=== PATIENT | female | born 1940 | race Caucasian/White ===

== ENCOUNTER 2019-09-13 16:30 | Inpatient (IN) | payer MEDICARE, SELFPAY ==
[2019-09-14 02:25] VITALS: BP 92/60; PULSE 83; RESP 22; TEMP 36.7
--- NOTE | 2019-09-14 03:09 | ECG_ITS ---
Measurements Intervals [place] Rate: 79 P: 65 WI: 221 QRS: -54 QRSD: 106 T: 95 QT: 387 QTc: 445 SINUS RHYTHM WITH FIRST DEGREE AV BLOCK LEFT ANTERIOR FASCICULAR BLOCK [QRS AXIS <= -45, QR IN I, RS IN II] LEFT VENTRICULAR HYPERTROPHY AND ST-T CHANGE POSSIBLE SEPTAL MYOCARDIAL INFARCTION [30 ms Q WAVE IN V1/V2], PROBABLY OLD PROBABLE LATERAL MYOCARDIAL INFARCTION [35 ms Q WAVE IN I/aVL/V5/V6], OF IN INDETERMINATE AGE Compared to ECG 09/13/2019 13:16:56 First degree AV block now present Sinus tachycardia no longer present ST (T wave) deviation still present Myocardial infarct finding still present Electronically Signed On 09-14-2019 14:31:42 [employer] by Lexus Cherry M.D. [email or web address]
[2019-09-14] MEDS: nitroglycerin 0.4 mg sublingual Tablet SUBLINGUAL (03:27)
[2019-09-14] MEDS: sodium chloride 0.9 % (flush) syringe 10 mL 2 ML IV (06:34)
[2019-09-14 08:00] VITALS: BP 92/61; PULSE 71; RESP 23; O2SAT 96
[2019-09-14] MEDS: ipratropium-albuterol 3 mL Neb INHALATION (08:00)
--- NOTE | 2019-09-14 08:00 | USCV_ITS ---
Nirmala Meléndez Exam Date: 09/14/2019 09:53 Ordering Phys: Ever Ring MD Ag 79 Gender: F Exam Location: [facility] [place] Technologist: Esther Sherman ms e: Indication: chest pain. NSTEMI BP: 92 / 61 HR: 74 Rhythm: Sinus Ht(in):61 Wt(lb):121 BSA: 1.54 MEASUREMENTS (Male / Female) Normal Values Technical Quality:Adequate 2D ECHO LV Diastolic Diameter ALEX 3.7 cm 4.2 - 5.9 / 3 LV Ejection Fraction MOD 60.2 % LV Systolic Diameter PLAX 2.1 cm LV Ejection Fraction 2C A 61.8 % IVS Diastolic Thickness 1.0 cm 0.6 - 1.0 / 0 LA Diameter 3.0 cm IVS Systolic Thickness 1.0 cm LA Width 2.6 cm LVPW Diastolic Thickness 0.6 cm 0.6 - 1.0 / 0 LA Height 4.5 cm LVPW Systolic Thickness 0.8 cm RA Width 3.0 cm LVOT Diameter 2.0 cm RA Height 4.2 cm LV Ejection Fraction 2D T 73.7 % M-MODE LV Diastolic Diameter MM 4.4 cm 4.2 - 5.9 / 3 LVPW Diastolic Thickness 0.9 cm 0.6 - 1 .0 / 0.6 - 0.9 cm LV Systolic Diameter MM 2.9 cm LVPW Systolic Thickness M 1.3 cm LV Ejection Fraction MM T 62.8 % Aortic Annulus Diameter 2.5 cm IVS Diastolic Thickness M 1.1 cm 0.6 - 1.0 / 0 LA Ao Ratio MM 1.2 IVS Systolic Thickness MM 1.3 cm MV E Point Septal Separat 0.3 cm DOPPLER AV Peak Velocity 102.0 cm/s Mitral E to LV E' Lateral 18.6 LVOT Peak Velocity 82.0 cm/s Mitral E to LV E' Septal 13.7 AV Area Cont Eq vti 2.6 cm squared TR Peak Velocity 294.0 cm/s AV Area Cont Eq pk 2.6 cm squared TR Peak Gradient 34.6 mmHg MV Peak Velocity 139.0 cm/s Right Atrial Pressure 3.0 mmHg MV Area PHT 3.9 cm squared Pulmonary Artery Systolic 37.6 mmHg Mitral E to A Ratio 1.7 PV Peak Velocity 74.0 cm/s MV E' Velocity 6.0 cm/s RV Acceleration Time 0.1 s Mitral E to MV E' Ratio 15.8 FINDINGS Left Ventricle Normal left ventricular cavity size. Normal left ventricular systolic function. L eft ventricular ejection fraction is estimated at 60 %. No regional wall motion abnormalities. Normal diastolic fu nction. Right Ventricle Normal right ventricular size and systolic function. Right ventricular systolic p ressure 37.6 mmHg. Right Atrium Normal right atrial size. Left Atrium Normal left atrial size. Mitral Valve Mild mitral annular calcification. Mildly thickened mitral valve. No mitral valve stenosis. Mild mitral valve regurgitation. Aortic Valve Aortic valve not well visualized. No aortic valve stenosis. No aortic valve regur gitation. Tricuspid Valve Thickened tricuspid valve. Moderate tricuspid valve regurgitation. Pulmonic Valve Pulmonic valve not well visualized. No pulmonary valve stenosis. Pericardium No pericardial effusion. Aorta Normal aorta. CONCLUSIONS 1. Normal left ventricular cavity size and systolic function. Left ventricular ejection fraction is estimated at 60 %. No regional wall motion abnormalities. 2. Mild mitral valve regurgitation. 3. Moderate tricuspid valve regurgitation. 4. Pulmonary artery pressure estimated at 38 mmHg. 5. Compared to previous echocardiogram dated 03/23/2019, tricuspid valve regurgitation has worsened . Lexus Cherry MD (Electronically Signed) Final Date:14 September 2019 17:23 S
[2019-09-14 08:03] VITALS: PULSE 75; RESP 18; O2SAT 94
[2019-09-14 08:05] VITALS: PULSE 75
[2019-09-14] MEDS: aspirin 81 mg EC Tablet PO (08:23)
[2019-09-14] MEDS: pantoprazole DR 40 mg Tablet PO (08:23)
[2019-09-14] MEDS: levothyroxine 150 mcg Tablet 75 MCG PO (08:24)
[2019-09-14] MEDS: clopidogrel 75 mg Tablet PO (08:24)
[2019-09-14] MEDS: metoprolol tartrate 25 mg Tablet PO (08:24)
[2019-09-14] MEDS: ezetimibe 10 mg Tablet PO (08:33)
[2019-09-14 08:43] LABS: Add RBC Morph No
[2019-09-14 08:55] LABS: Basophils # 0.1 10^3/uL (0.0-0.1); Basophils % 0.8 %; Eosinophils # 0.2 10^3/uL (0.0-0.8); Eosinophils % 1.6 %; Hematocrit 41.3 % (37.0-47.0); Hemoglobin 12.9 g/dL (11.5-15.3); Lymphocytes # 2.3 10^3/uL (0.8-4.8); Lymphocytes % 25.1 %; Mean Corpuscular HGB Conc 31.2 g/dL (30.0-36.0); Mean Corpuscular Hemoglobin 28.9 pg (28.0-34.0); Mean Corpuscular Volume 92.6 fL (81-99); Mean Platelet Volume 9.9 fL (7.4-10.4); Monocytes % 10.2 %; Neutrophils # 5.8 10^3/uL (1.8-7.7); Neutrophils % 62.2 %; Nucleated Red Blood Cells % 0 %; Platelet Count 268 10^3/cmm (130-400); Red Blood Count 4.46 10^6/uL (4.1-5.3); Red Cell Distribution Width 13.4 % (12.1-15.1); White Blood Count 9.3 10^3/uL (4.0-10.0)
[2019-09-14 09:07] LABS: Alanine Aminotransferase 35 U/L (0-33); Albumin Level 4.2 g/dL (3.5-5.2); Alkaline Phosphatase 74 IU/L (35-105); Anion Gap 12.9 (5-19); Aspartate Amino Transferase 123 U/L (0-32); Blood Urea Nitrogen 12 mg/dL (8-23); Calcium 9.3 mg/Dl (8.8-10.2); Carbon Dioxide 26 mmol/L (22-29); Chloride 104 mmol/L (98-107); Glucose 101 mg/dL (74-106); Potassium 3.9 mmol/L (3.5-5.1); Sodium 139 mmol/L (136-145); Total Bilirubin 0.8 mg/dL (0.15-1.2); Total Protein 6.2 g/dL (6.6-8.7)
--- NOTE | 2019-09-14 09:28 | PM.PN ---
Subjective Subjective: Interval history: 79-year-old lady hospitalized yesterday with non-ST elevation LA and underwent coronary angiogram where and she was found to have significantly stenotic lesion in proximal circumflex and underwent drug-eluting stent placement x2. Last 24 hours: No acute events. Patient denies having any chest pain or shortness of breath this morning. No events on telemetry. Medications: Reviewed: Yes Vitals/I&O/Wt Last Vital Signs Temp 98.0 F 09/14/19 02:25 Pulse 75 09/14/19 08:05 Resp 18 09/14/19 08:03 BP 92/60 09/14/19 02:25 Pulse Ox 94 09/14/19 08:03 09/13/19 09/14/19 09/14/19 22:59 06:59 14:59 Intake Total 1000 / 1000 Balance 1000 / 1000 Weight last 48 hrs Weight 121 lb 4.8 oz Physical Exam Const: COMMON NORMALS: no apparent distress, oriented x3 and alert GENERAL APPEARANCE: cooperative, comfortable, well kempt and well hydrated HENMT: COMMON NORMALS: hearing grossly normal bilaterally, external ears normal and moist oral mucous membranes FACE & SINUS: normal facial exam NOSE: septum normal and no nasal discharge; no epistaxis EXTERNAL EAR: Yes external ears normal MOUTH: lip normal Eye: COMMON NORMALS: EOMs intact bilaterally and no scleral icterus GENERAL EYE: normal appearance of both eyes ALIGNMENT: Yes alignment normal Neck/C-Spine: COMMON NORMALS: no lymphadenopathy, supple and no JVD GENERAL: Yes normal visual inspection and Yes trachea midline CAROTIDS: Yes normal carotid upstroke Lymph: LYMPHATIC: no lymphadenopathy noted Chest: COMMONS NORMALS: inspection of chest normal and palpation of chest normal CHEST: Yes symmetrical chest wall rise and No tenderness Resp: COMMON NORMALS: clear to auscultation bilaterally EFFORT & INSPECTION: Yes able to speak in complete sentences, No tachypneic, No respiratory distress, No pursed lip breathing, No labored and No actively coughing AUSCULTATION: clear to auscultation bilaterally, no crackles, no rales, no rhonchi and no wheezes Cardio: COMMON NORMALS: no JVD, regular rate, regular rhythm, S1 normal heart sound, S2 normal heart sound and peripheral pulses 2+ throughout PALPATION: normal PMI RATE: regular rate RHYTHM: regular rhythm HEART SOUNDS: S1 normal, S2 normal, no click, no gallops and no murmurs BRUITS: no carotid bruits PERIPHERAL PULSES: pulses 2+ throughout, radial pulses present, posterior tibial pulses present and dorsalis pedis pulses present GI: COMMON NORMALS: soft to palpation AUSCULTATION: Yes normoactive bowel sounds PALPATION: Yes soft, No tender, No guarding and No rigid PERCUSSION: tympanic to percussion Extremity: GENERAL: No clubbing, No cyanosis, Yes edema and No pallor RIGHT UPPER EXTREMITY: Yes wrist (No significant bruising or hematoma noted. 2+ radial.) Neuro: COMMON NORMALS: oriented x3, CN's II-XII intact bilaterally and no focal motor deficits SENSORIUM/ORIENTATION: Yes alert Psych: COMMON NORMALS: thought process normal and speech normal APPEARANCE: Yes well kempt SPEECH: Yes normal speech MOOD & AFFECT: Yes euthymic mood THOUGHT PROCESS: normal thought process THOUGHT CONTENT: Yes normal thought content Data Labs: Other Labs: All Labs last 24 hrs except CBC/BMP 09/13/19 09/13/19 09/13/19 06:35 06:35 06:35 RBC 5.39 H MCV 88.7 MCH 28.6 MCHC 32.2 RDW 13.0 MPV 10.0 Neut % (Auto) 60.2 Lymph % (Auto) 26.6 [place] % (Auto) 10.2 Eos % (Auto) 2.1 Baso % (Auto) 0.6 Neut # (Auto) 5.7 Lymph # (Auto) 2.5 [place] # (Auto) 1.0 H Eos # (Auto) 0.2 Baso # (Auto) 0.1 Nucleated RBC % (a uto) 0 Nucleated RBCs # 0.0 PT 12.8 INR 0.94 Random Glucose 111 Calcium 10.2 Total Bilirubin 0.4 AST 49 H ALT 25 Alkaline Phosphata se 90 Troponin T Baselin e 266.20 H* Total Protein 7.5 Albumin 5.0 Globulin 2.5 09/14/19 09/14/19 08:38 08:38 RBC 4.46 MCV 92.6 MCH 28.9 MCHC 31.2 RDW 13.4 MPV 9.9 Neut % (Auto) 62.2 Lymph % (Auto) 25.1 [place] % (Auto) 10.2 Eos % (Auto) 1.6 Baso % (Auto) 0.8 Neut # (Auto) 5.8 Lymph # (Auto) 2.3 [place] # (Auto) 1.0 H Eos # (Auto) 0.2 Baso # (Auto) 0.1 Nucleated RBC % (a uto) 0 Nucleated RBCs # 0.0 PT INR Random Glucose Calcium 9.3 Total Bilirubin 0.8 AST 123 H ALT 35 H Alkaline Phosphata se 74 Troponin T Baselin e Total Protein 6.2 L Albumin 4.2 Globulin 2.0 A&P Assessment and plan (1) NSTEMI (non-ST elevated myocardial infarction): Patient underwent coronary angiogram yesterday by Dr. Ring and she was found to have normal left main and right coronary artery. 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 (ARLETTE Szymanski LASHELL 2.75X12 ELAINE , ARLETTE Szymanski LASHELL 2.5X8 ELAINE). -Continue aspirin, Plavix. Patient is intolerant to statin and has tried 3 or more statins in the past. Currently on Zetia continue. -Diltiazem was stopped and patient was started on metoprolol. -Patient is stable from cardiac standpoint to be discharged home. -Follow-up with our nurse practitioner Livier Mason in [facility] in 1 week and follow-up with Dr. Hall in 6 to 8 weeks. Status: Acute Code(s): I21.4 - Non-ST elevation (NSTEMI) myocardial infarction (2) Dyslipidemia: Continue Zetia. Status: Acute Code(s): E78.5 - Hyperlipidemia, unspecified (3) Supraventricular tachycardia: Stable. Transition from diltiazem to metoprolol. Blood pressure has been soft in the hospital possibly transition to long-acting metoprolol as an outpatient. -She was advised to keep a log of blood pressure and heart rate until her next office visit. Status: Acute Code(s): I47.1 - Supraventricular tachycardia (4) Abnormal liver enzymes: Liver enzymes were elevated today. Follow-up CMP within a week. Status: Acute Code(s): R74.8 - Abnormal levels of other serum enzymes Attestations Medical Necessity Statement*: Patient seems stable from cardiac standpoint to be discharged home. Coding Level of Care Code Acute General Administrator for [facility] Gwen Diagnoses NSTEMI (non-ST elevated myocardial infarction) I21.4 Dyslipidemia E78.5 Supraventricular tachycardia I47.1 Abnormal liver enzymes R74.8
[2019-09-14 09:49] LABS: Chol HDL Ratio 4.05 mg/dL (0.0-4.40); Cholesterol 158 mg/dL (0-200); HDL Cholesterol 39 mg/dL (60-100); LDL Cholesterol Calculated 94 mg/dL (50-129); LDL HDL Ratio 2.41 RATIO (0.00-3.22); Triglycerides 124 mg/dL (0-150)
[2019-09-14 10:26] LABS: Estmated Average Glucose 108; Hemoglobin A1C 5.4 % (4.0-6.0)
[2019-09-14 12:00] VITALS: BP 80/53; PULSE 78; RESP 19
--- NOTE | 2019-09-14 12:24 | P.DS_ITS ---
Discharge Providers Date of Admission: 09/13/19 16:30 Date of Discharge: 09/14/19 Attending Provider at Admission: Annia Amaral MD Attending Provider at Discharge: Annia Amaral MD Primary Care Provider: Susan Romano MD Diagnoses at Discharge Discharge Diagnosis (1) NSTEMI (non-ST elevated myocardial infarction): Status: Acute (2) Dyslipidemia: Status: Acute (3) Supraventricular tachycardia: Status: Acute (4) Abnormal liver enzymes: Status: Acute Reason for Visit Reason for Visit: Reason For Visit: Chest pain Hospital Course Hospital Course: Patient is an 79-year-old lady with a past medical history of hypothyroidism, GERD, hyperlipidemia, SVT, who presented to the hospital on September 13, 2019 with complaints of retrosternal chest pain radiating into her jaw. She was found to have uptrending troponins and Q waves on her EKG, with overall picture concerning for an NSTEMI. She went to the cardiac [employer] and was found to have normal left and right coronary arteries. 99% ulcerated stenosis was found in the left circumflex and she is now status post placement of 2 drug-eluting stents. Postprocedure she is on aspirin and Plavix. She is intolerant to statins and has tried 3 or more statins in the past. She is currently on ezetimibe and it was recommended to continue the same. Her Cardizem which she was on as an outpatient was stopped and she is being discharged with new addition of metoprolol 25 mg twice daily. Instructions from a cardiac standpoint are to follow-up with Livier Mason in the heart care services in [address] Hall in 6 to 8 weeks. Of note her liver function was noted to be mildly elevated today. This is to be followed as an outpatient. Note has been made to follow-up CMP with [facility] in 1 week. Physical Exam Const: COMMON NORMALS: no apparent distress and oriented x3 Neck/C-Spine: COMMON NORMALS: no JVD Resp: COMMON NORMALS: normal respiratory effort, no retractions, no use of accessory muscles and clear to auscultation bilaterally EFFORT & INSPECTION: Yes able to speak in complete sentences AUSCULTATION: clear to auscultation bilaterally Cardio: COMMON NORMALS: no JVD, S1 normal heart sound, S2 normal heart sound, no gallops, no murmurs and no rub HEART SOUNDS: S1 normal and S2 normal GI: COMMON NORMALS: normal to inspection, nondistended, normoactive bowel sounds Extremity: OTHER: Status post right radial access for angiogram. No hematomas at site. No distal neurovascular deficits. Neuro: COMMON NORMALS: oriented x3, CN's II-XII intact bilaterally and deep tendon reflexes 2+ bilaterally Discharge Data Data Completed and Pending: Pending at discharge Category Date Time Status CV echo complete* [id number] Routine Ultrasound 09/14/19 08:00 Taken Labs from last 24 hours 09/14/19 09/14/19 09/14/19 08:38 08:38 08:38 WBC 9.3 RBC 4.46 Hgb 12.9 Hct 41.3 MCV 92.6 MCH 28.9 MCHC 31.2 RDW 13.4 Plt Count 268 MPV 9.9 Neut % (Auto) 62.2 Lymph % (Auto) 25.1 [place] % (Auto) 10.2 Eos % (Auto) 1.6 Baso % (Auto) 0.8 Neut # (Auto) 5.8 Lymph # (Auto) 2.3 [place] # (Auto) 1.0 H Eos # (Auto) 0.2 Baso # (Auto) 0.1 Nucleated RBC % (a uto) 0 Nucleated RBCs # 0.0 PT INR Sodium 139 Potassium 3.9 Chloride 104 Carbon Dioxide 26 Anion Gap 12.9 BUN 12 Creatinine 0.8 Glucose 101 Random Glucose Estimat Average Gl ucose 108 Hemoglobin A1c 5.4 Calcium 9.3 Total Bilirubin 0.8 AST 123 H ALT 35 H Alkaline Phosphata se 74 Troponin T Baselin e Troponin T Hi Sens 2 Hr Troponin T Hi Sens 2Hr Delta Troponin T Hi Sens 6Hr Troponin T Hi Sens 6Hr Delta Total Protein 6.2 L Albumin 4.2 Globulin 2.0 Triglycerides 124 Cholesterol 158 LDL Cholesterol, C alc 94 VLDL Cholesterol TNP HDL Cholesterol 39 L LDL/HDL Ratio 2.41 Cholesterol/HDL Ra michael 4.05 09/13/19 09/13/19 09/13/19 12:45 08:43 06:35 WBC RBC Hgb Hct MCV MCH MCHC RDW Plt Count MPV Neut % (Auto) Lymph % (Auto) [place] % (Auto) Eos % (Auto) Baso % (Auto) Neut # (Auto) Lymph # (Auto) [place] # (Auto) Eos # (Auto) Baso # (Auto) Nucleated RBC % (a uto) Nucleated RBCs # PT 12.8 INR 0.94 Sodium Potassium Chloride Carbon Dioxide Anion Gap BUN Creatinine Glucose Random Glucose Estimat Average Gl ucose Hemoglobin A1c Calcium Total Bilirubin AST ALT Alkaline Phosphata se Troponin T Baselin e Troponin T Hi Sens 2 Hr 348.40 H Troponin T Hi Sens 2Hr Delta 82.20 H* Troponin T Hi Sens 6Hr 427.30 H Troponin T Hi Sens 6Hr Delta 161.10 H* Total Protein Albumin Globulin Triglycerides Cholesterol LDL Cholesterol, C alc VLDL Cholesterol HDL Cholesterol LDL/HDL Ratio Cholesterol/HDL Ra michael 09/13/19 09/13/19 06:35 06:35 WBC 9.5 RBC 5.39 H Hgb 15.4 H Hct 47.8 H MCV 88.7 MCH 28.6 MCHC 32.2 RDW 13.0 Plt Count 318 MPV 10.0 Neut % (Auto) 60.2 Lymph % (Auto) 26.6 [place] % (Auto) 10.2 Eos % (Auto) 2.1 Baso % (Auto) 0.6 Neut # (Auto) 5.7 Lymph # (Auto) 2.5 [place] # (Auto) 1.0 H Eos # (Auto) 0.2 Baso # (Auto) 0.1 Nucleated RBC % (a uto) 0 Nucleated RBCs # 0.0 PT INR Sodium 141 Potassium 3.9 Chloride 102 Carbon Dioxide 26 Anion Gap 16.9 BUN 18 Creatinine 0.8 Glucose Random Glucose 111 Estimat Average Gl ucose Hemoglobin A1c Calcium 10.2 Total Bilirubin 0.4 AST 49 H ALT 25 Alkaline Phosphata se 90 Troponin T Baselin e 266.20 H* Troponin T Hi Sens 2 Hr Troponin T Hi Sens 2Hr Delta Troponin T Hi Sens 6Hr Troponin T Hi Sens 6Hr Delta Total Protein 7.5 Albumin 5.0 Globulin 2.5 Triglycerides Cholesterol LDL Cholesterol, C alc VLDL Cholesterol HDL Cholesterol LDL/HDL Ratio Cholesterol/HDL Ra michael Vitals: Last Vital Signs Temp 98.0 F 09/14/19 02:25 Pulse 75 09/14/19 08:05 Resp 18 09/14/19 08:03 BP 92/61 09/14/19 08:00 Pulse Ox 94 09/14/19 08:03 Discharge Plan Discharge Patient Disposition: Home, Self-Care Condition: Stable Prescriptions: New metoprolol tartrate 25 mg Tablet 25 mg PO BID Qty: 60 RF: 0 aspirin 81 mg Tablet,Delayed Release (Dr/Ec) 81 mg PO DAILY Qty: 30 RF: 0 clopidogrel 75 mg Tablet 75 mg PO DAILY Qty: 30 RF: 0 nitroglycerin [Nitrostat] 0.4 mg Tablet, Sublingual 0.4 mg sublingual Q5M PRN (Reason: Chest Pain) Qty: 30 RF: 0 Continued melatonin 3 mg Tablet See Rx Instructions .ROUTE .COMPLEX RF: 0 levothyroxine 75 mcg Tablet 75 mcg PO DAILY RF: 0 calcitonin (salmon) 200 unit/actuation [place],Non-Aerosol 1 spray INTRANASAL (ALT) DAILY RF: 0 pantoprazole [Protonix] 40 mg Tablet,Delayed Release (Dr/Ec) 40 mg PO DAILY RF: 0 ezetimibe 10 mg Tablet 10 mg PO DAILY RF: 0 Discontinued diltiazem HCl [Cardizem CD] 120 mg Capsule,Extended Release 24hr 120 mg PO DAILY RF: 0 Discharge Orders: Discharge Order (Routine); Ordered 09/14/19 Ordered By: Annia Amaral Referrals: Buck Hall MD [Physician] - 2 months Livier Mason FNP [Nurse Practitioner] - 1 week Discharge Diet: Low Cholesterol Discharge Activity: As per cardiac/pulm rehab instructions Discharge Attestations Time Spent in Discharge Care*: greater than 30 min Quality Metrics Clinical Quality Measures During this hospital stay, did patient experience: AMI Clinical Trial Pa rticipant: No Contraindication to aspirin (AMI): Aspirin given Contraindication to statin: Statin prescribed Coding Level of Care Code Acute Flexible Nanny for g Fwd Diagnoses NSTEMI (non-ST elevated myocardial infarction) I21.4 Dyslipidemia E78.5 Supraventricular tachycardia I47.1 Abnormal liver enzymes R74.8
[2019-09-14 13:09] VITALS: BP 80/53; PULSE 78; RESP 19; O2SAT 98
== END 2019-09-14 13:15 | disposition home or self-care (01) | DRG 247 ==
PROVIDERS: Admitting Provider Internal Medicine Cardiovascular Disease; Emergency Provider Student in an Organized Health Care Education/Training Program; Family Provider Family Medicine; PCP Family Medicine; Visit Provider Internal Medicine Cardiovascular Disease
DX: I21.4 Non-ST elevation (NSTEMI) myocardial infarction (principal); I47.1 Supraventricular tachycardia; T17.890A Other foreign object in other parts of respiratory tract causing asphyxiation, initial encounter; E78.5 Hyperlipidemia, unspecified; K21.9 Gastro-esophageal reflux disease without esophagitis; E03.9 Hypothyroidism, unspecified; M81.0 Age-related osteoporosis without current pathological fracture; Z87.891 Personal history of nicotine dependence; J43.9 Emphysema, unspecified; I25.110 Atherosclerotic heart disease of native coronary artery with unstable angina pectoris; X58.XXXA Exposure to other specified factors, initial encounter; R74.8 Abnormal levels of other serum enzymes
CPT/HCPCS: 36415; 71045; 71275; 80053; 80061; 83036; 84484; 85025; 85610; 92928; 93005; 93306; 93458; 94640; 96365; 96367; 96375; 97116; 97161; 99024; 99223; 99284; 99285; C1725; C1769; C1874; C1887; C1894; C9600; J0171; J0456; J0696; J1644; J2001; J2250; J2405; J3010; J3490; J7611; Q9967

== ENCOUNTER → 2019-09-22 10:51 | Outpatient (BNVA) | payer MEDICARE, SELFPAY | PROVIDERS: Family Provider Family Medicine; PCP Family Medicine; Visit Provider Nurse Practitioner Family | DX: R74.8 Abnormal levels of other serum enzymes (principal); J98.11 Atelectasis | CPT/HCPCS: 80053 ==

== ENCOUNTER 2019-09-26 20:28 | Emergency (ER) | payer MEDICARE, SELFPAY ==
[2019-09-26 20:39] VITALS: BP 168/85; PULSE 65; RESP 18; TEMP 36.8; O2SAT 95; BMI 21.3
== END 2019-09-26 22:29 | disposition left against medical advice (07) ==
LOC: ER 21:12
PROVIDERS: Emergency Provider Nurse Practitioner Family; Family Provider Family Medicine; PCP Family Medicine
DX: Z53.21 Procedure and treatment not carried out due to patient leaving prior to being seen by health care provider (principal)
CPT/HCPCS: 99281

== ENCOUNTER 2019-09-27 09:14 | Emergency (ER) | payer MEDICARE, SELFPAY ==
[2019-09-27 09:18] VITALS: BP 147/90; PULSE 60; RESP 18; TEMP 36.4; O2SAT 97; BMI 21.3
--- NOTE | 2019-09-27 09:21 | ED_ITS ---
Entered by Angélica Ghotra, acting as scribe for HPI - General Adult General: Chief complaint: General Medical Stated complaint: Issues Time Seen by Provider: 09/27/19 09:27 Source: patient and family Mode of arrival: ambulatory Limitations: no limitations History of Present Illness: HPI narrative: 79 yo female presents with multiple complaints, tingling in bilateral feet and hands. pt has been disoriented at times this morning. pt states she had 2 stents placed [address] Ring. pt states he blood pressure is elevated today. pt denies any other symptoms at this time. MD complaint: weakness, tingling in bilateral feet Onset (ago): day(s) (yesterday) Location: lower extremity Radiation: non-radiation Severity: mild Quality: burning Pain Consistency: constant Relieving factors: none Exacerbating factors: none Associated symptoms: Reports confusion, weakness and other (tingling in bilateral feet) Treatments prior to arrival: none Review of Systems General: Reports: 10 or more systems reviewed and unremarkable except in HPI and below Skin/Breast: Reports: surgical incision Neuro: Reports: confusion PFSH ED PFSH: Statuses (acute, chronic, etc) shown below reflect problem list status as previously entered and may not be historically accurate Medical History Dyslipidemia (Acute) statin intolerant, taking ezetimibe. Gastroesophageal reflux (Acute) Supraventricular tachycardia (Acute) Family History Mother Myocardial infarction Hypertension Social History Smoking and tobacco status: former smoker Alcohol intake: never Physical Exam Const: COMMON NORMALS: no apparent distress, average body habitus, oriented x3, no limitations, healthy appearing, alert and well nourished HENMT: COMMON NORMALS: normocephalic, head/scalp atraumatic, hearing grossly normal bilaterally, external ears normal, EAC's normal, TM's normal bilaterally, external nose normal, nasal mucous membranes and turbinates normal, moist oral mucous membranes, oropharynx normal, dentition normal and gingiva normal HEAD & SCALP: normocephalic and atraumatic NOSE: external nose normal and nasal mucous membranes and turbinates normal EXTERNAL EAR: Yes external ears normal EXTERNAL AUDITORY CANAL: EAC's normal TYMPANIC MEMBRANE: TM's normal bilaterally Eye: COMMON NORMALS: PERRL, EOMs intact bilaterally, conjunctivae normal, no scleral icterus, no papilledema, normal visual stephens by confrontation and fundi normal bilaterally CONJUNCTIVA: Yes conjunctivae normal PUPIL: Yes PERRL DIRECT OPHTHALMOSCOPY: Yes no papilledema and Yes fundi normal bilaterally Neck/C-Spine: COMMON NORMALS: full ROM, no lymphadenopathy, supple, no meningeal signs, no JVD, thyroid normal and no carotid bruits THYROID: thyroid normal Chest: COMMONS NORMALS: inspection of chest normal and palpation of chest normal Resp: COMMON NORMALS: normal respiratory effort, no retractions, no use of accessory muscles, clear to auscultation bilaterally and percussion normal AUSCULTATION: clear to auscultation bilaterally PERCUSSION: percussion normal Cardio: COMMON NORMALS: no JVD, regular rate, regular rhythm, S1 normal heart sound, S2 normal heart sound, no gallops, no clicks, no murmurs, no rub and peripheral pulses 2+ throughout RATE: regular rate RHYTHM: regular rhythm HEART SOUNDS: S1 normal and S2 normal PERIPHERAL PULSES: pulses 2+ throughout GI: COMMON NORMALS: normal to inspection, nondistended, normoactive bowel sounds, soft to palpation, non-tender, no hepatosplenomegaly, no masses and no bruits PALPATION: Yes soft and Yes no hepatosplenomegaly : COMMON NORMALS: Yes no CVA tenderness and Yes external appearance normal BLADDER/KIDNEY EXAM: Yes no CVA tenderness Back/Pelvis: COMMON NORMALS: no CVA tenderness, thoracic and lumbar spine normal to inspection, no thoracic nor lumbar tenderness, thoraco-lumbar ROM normal and straight leg raise negative bilaterally Extremity: COMMON NORMALS: normal to inspection, full ROM, normal capillary refill, no joint enlargement, no clubbing, cyanosis or edema, no calf tenderness and no pedal edema Neuro: COMMON NORMALS: oriented x3 SENSORIUM/ORIENTATION: Yes alert MENINGEAL SIGNS: Yes no meningeal signs Skin: COMMON NORMALS: no rashes or lesions noted, no wounds, skin turgor normal, no jaundice, no petechiae and no mottling GENERAL SKIN EXAM: no rashes or lesions noted and turgor normal Course Vital Signs: Vital signs: Vital Signs Temperature 97.6 F 09/27/19 09:18 Pulse Rate 60 09/27/19 09:18 Respiratory Rate 18 09/27/19 09:18 Blood Pressure 147/90 09/27/19 09:18 Pulse Oximetry 97 09/27/19 09:18 [facility] - General Adult Lab Data: Labs: Lab Results 09/27/19 09/27/19 09/27/19 Range/Units 10:00 10:00 10:00 WBC 8.3 (4.0-10.0) 10^3/ uL RBC 4.95 (4.1-5.3) 10^6/u L Hgb 14.9 (11.5-15.3) g/dL Hct 46.1 (37.0-47.0) % MCV 93.1 (81-99) fL MCH 30.1 (28.0-34.0) pg MCHC 32.3 (30.0-36.0) g/dL RDW 13.2 (12.1-15.1) % Plt Count 415 H (130-400) 10^3/c mm MPV 9.6 (7.4-10.4) fL Neut % (Auto) 66.4 % Lymph % (Auto) 22.3 % Gonzales % (Auto) 8.5 % Eos % (Auto) 1.4 % Baso % (Auto) 1.0 % Neut # (Auto) 5.5 (1.8-7.7) 10^3/u L Lymph # (Auto) 1.9 (0.8-4.8) 10^3/u L Gonzales # (Auto) 0.7 (0.2-0.9) 10^3/u L Eos # (Auto) 0.1 (0.0-0.8) 10^3/u L Baso # (Auto) 0.1 (0.0-0.1) 10^3/u L Nucleated RBC % (a uto) 0 % Nucleated RBCs # 0.0 /100WBC Sodium 138 (136-145) mmol/L Potassium 4.5 (3.5-5.1) mmol/L Chloride 102 (98-107) mmol/L Carbon Dioxide 25 (22-29) mmol/L Anion Gap 15.5 (5-19) BUN 20 (8-23) mg/dL Creatinine 1.0 H (0.5-0.9) mg/dL Glucose 98 (74-106) mg/dL Lactate 0.9 (0.5-2.2) mmol/L Calcium 10.4 H (8.8-10.2) mg/Dl Total Bilirubin 0.4 (0.15-1.2) mg/dL AST 17 (0-32) U/L ALT 24 (0-33) U/L Alkaline Phosphata se 99 (35-105) IU/L Troponin T Baselin e (0-10) ng/mL Troponin T 120 Min keon (0-10) ng/mL Delta Troponin T (0-10) ABS# NT-Pro-B Natriuret Pep 1446 H (0-450) pg/mL Total Protein 8.0 (6.6-8.7) g/dL Albumin 4.3 (3.5-5.2) g/dL Globulin 3.7 (1.3-4.6) g/dL 09/27/19 09/27/19 Range/Units 10:00 12:05 WBC (4.0-10.0) 10^3/ uL RBC (4.1-5.3) 10^6/u L Hgb (11.5-15.3) g/dL Hct (37.0-47.0) % MCV (81-99) fL MCH (28.0-34.0) pg MCHC (30.0-36.0) g/dL RDW (12.1-15.1) % Plt Count (130-400) 10^3/c mm MPV (7.4-10.4) fL Neut % (Auto) % Lymph % (Auto) % Gonzales % (Auto) % Eos % (Auto) % Baso % (Auto) % Neut # (Auto) (1.8-7.7) 10^3/u L Lymph # (Auto) (0.8-4.8) 10^3/u L Gonzales # (Auto) (0.2-0.9) 10^3/u L Eos # (Auto) (0.0-0.8) 10^3/u L Baso # (Auto) (0.0-0.1) 10^3/u L Nucleated RBC % (a uto) % Nucleated RBCs # /100WBC Sodium (136-145) mmol/L Potassium (3.5-5.1) mmol/L Chloride (98-107) mmol/L Carbon Dioxide (22-29) mmol/L Anion Gap (5-19) BUN (8-23) mg/dL Creatinine (0.5-0.9) mg/dL Glucose (74-106) mg/dL Lactate (0.5-2.2) mmol/L Calcium (8.8-10.2) mg/Dl Total Bilirubin (0.15-1.2) mg/dL AST (0-32) U/L ALT (0-33) U/L Alkaline Phosphata se (35-105) IU/L Troponin T Baselin e 25 H (0-10) ng/mL Troponin T 120 Min keon 19.96 H (0-10) ng/mL Delta Troponin T -5.04 L (0-10) ABS# NT-Pro-B Natriuret Pep (0-450) pg/mL Total Protein (6.6-8.7) g/dL Albumin (3.5-5.2) g/dL Globulin (1.3-4.6) g/dL Discharge Plan Discharge Prescriptions: No Action melatonin 3 mg Tablet See Rx Instructions .ROUTE .COMPLEX RF: 0 levothyroxine 75 mcg Tablet 75 mcg PO DAILY RF: 0 calcitonin (salmon) 200 unit/actuation [place],Non-Aerosol 1 spray INTRANASAL (ALT) DAILY RF: 0 pantoprazole [Protonix] 40 mg Tablet,Delayed Release (Dr/Ec) 40 mg PO DAILY RF: 0 ezetimibe 10 mg Tablet 10 mg PO DAILY RF: 0 aspirin 81 mg Tablet,Delayed Release (Dr/Ec) 81 mg PO DAILY Qty: 30 RF: 0 clopidogrel 75 mg Tablet 75 mg PO DAILY Qty: 30 RF: 0 nitroglycerin [Nitrostat] 0.4 mg Tablet, Sublingual 0.4 mg sublingual Q5M PRN (Reason: Chest Pain) Qty: 30 RF: 0 metoprolol tartrate 25 mg Tablet 25 mg PO BID Qty: 60 RF: 0 Coding Level of Care Code ED Technology Support Analyst for g Fwd Exam Problem Focused The documentation recorded by the Brandin lozano Bridget Annette, accurately reflects the service I personally performed and the decisions made by me, Robert Watts, Sep 27, 2019 09:14
--- NOTE | 2019-09-27 09:40 | CT_ITS ---
WS: [id number] CTA scan of the head and neck. Additional two-dimensional coronal and sagittal reconstruction along w ith MIP images was performed. 09/27/2019 Clinical Data: tia Comparison: CT head, 09/27/2019 DLP: 1149.[address] scans at [facility] use at least one of these dose optimization techniques: automat ed exposure control; mA and/or kV adjustment per patient size (includes targeted exams where dose is matched to clinical indication); or iterative reconstruction. Findings: The carotid arteries bifurcate normally into the internal carotid arteries. There is no lymphadenopat hy within the neck. The intracerebral circulation shows that the internal carotid arteries bifurcate into the anterior and middle cerebral arteries. The basilar arterial system is normal. No aneurysms a re seen. There is no prevertebral soft tissue swelling. The bones of the cervical spine and skull demonstrate no erosions. The intraorbital contents, paranasal sinuses, internal auditory canals and sella turcica are normal. The parotid glands are normal. The parapharyngeal areas are unremarkable. The larynx is symmetrical. The thyroid gland shows normal enhancement. CT/CT angio headneck* [id number] Impression: Negative CT scan of the carotid circulation of the neck and of the intracerebra l circulation.
--- NOTE | 2019-09-27 09:40 | CT_ITS ---
WS: [id number] CT scan of the head, 09/27/2019 Clinical Data: tia Comparison: None. DLP: 729.[address] scans at [facility] use at least one of these dose optimization techniques: automat ed exposure control; mA and/or kV adjustment per patient size (includes targeted exams where dose is matched to clinical indication); or iterative reconstruction. Findings: The ventricular system is moderately dilated without shift. No recent infarct or hemorrhage is seen. There are no abnormal intracerebral masses. The cerebellum and brainstem are not remarkable. Bony windows of the skull and skull base show no fractures or erosions. The mastoid air cells, internet technology manager al auditory canals, sella turcica, intraorbital contents, and paranasal sinuses are unremarkable. CT/CT head wo con* [id number] Impression: Mild cerebral atrophy.
--- NOTE | 2019-09-27 09:42 | ECG_ITS ---
Measurements Intervals [place] Rate: 61 P: 44 WA: 200 QRS: -49 QRSD: 97 T: 42 QT: 411 QTc: 417 SINUS RHYTHM INCOMPLETE RIGHT BUNDLE BRANCH BLOCK LEFT ANTERIOR FASCICULAR BLOCK VOLTAGE CRITERIA FOR LVH POSSIBLE LATERAL MYOCARDIAL INFARCTION, OF INDETERMINATE AGE WARNING: DATA QUALITY MAY AFFECT INTERPRETATION Compared to ECG 09/14/2019 03:10:02 Incomplete right bundle-branch block now present First degree AV block no longer present ST (T wave) deviation no longer present Myocardial infarct finding still present Electronically Signed On 09-27-2019 13:27:26 EXPLOSIVE ORDNANCE MANAGER by Lexus Cherry M.D. [id number]
[2019-09-27 10:05] LABS: Basophils # 0.1 10^3/uL (0.0-0.1); Eosinophils # 0.1 10^3/uL (0.0-0.8); Eosinophils % 1.4 %; Hematocrit 46.1 % (37.0-47.0); Hemoglobin 14.9 g/dL (11.5-15.3); Lymphocytes # 1.9 10^3/uL (0.8-4.8); Lymphocytes % 22.3 %; Mean Corpuscular HGB Conc 32.3 g/dL (30.0-36.0); Mean Corpuscular Hemoglobin 30.1 pg (28.0-34.0); Mean Corpuscular Volume 93.1 fL (81-99); Mean Platelet Volume 9.6 fL (7.4-10.4); Monocytes # 0.7 10^3/uL (0.2-0.9); Monocytes % 8.5 %; Neutrophils # 5.5 10^3/uL (1.8-7.7); Neutrophils % 66.4 %; Nucleated Red Blood Cells % 0 %; Platelet Count 415 10^3/cmm (130-400); Red Blood Count 4.95 10^6/uL (4.1-5.3); Red Cell Distribution Width 13.2 % (12.1-15.1); White Blood Count 8.3 10^3/uL (4.0-10.0)
[2019-09-27 10:21] LABS: Lactate (Lactic Acid level) 0.9 mmol/L (0.5-2.2)
[2019-09-27 10:28] LABS: Alanine Aminotransferase 24 U/L (0-33); Albumin Level 4.3 g/dL (3.5-5.2); Alkaline Phosphatase 99 IU/L (35-105); Anion Gap 15.5 (5-19); Aspartate Amino Transferase 17 U/L (0-32); Blood Urea Nitrogen 20 mg/dL (8-23); Calcium 10.4 mg/Dl (8.8-10.2); Carbon Dioxide 25 mmol/L (22-29); Chloride 102 mmol/L (98-107); Globulin 3.7 g/dL (1.3-4.6); Glucose 98 mg/dL (74-106); NT Pro B Type Natriuretic Pept 1446 pg/mL (0-450); Potassium 4.5 mmol/L (3.5-5.1); Sodium 138 mmol/L (136-145); Total Bilirubin 0.4 mg/dL (0.15-1.2)
[2019-09-27 10:42] LABS: Troponin(5th) Baseline 25 ng/mL (0-10)
--- NOTE | 2019-09-27 11:42 | ECG_ITS ---
Measurements Intervals [place] Rate: 62 P: 54 AL: 218 QRS: -49 QRSD: 96 T: 56 QT: 422 QTc: 429 SINUS RHYTHM WITH FIRST DEGREE AV BLOCK LEFT ANTERIOR FASCICULAR BLOCK VOLTAGE CRITERIA FOR LVH POSSIBLE SEPTAL MYOCARDIAL INFARCTION , PROBABLY OLD POSSIBLE LATERAL MYOCARDIAL INFARCTION , OF INDETERMINATE AGE Compared to ECG 09/14/2019 03:10:02 Incomplete right bundle-branch block now present ST (T wave) deviation no longer present Myocardial infarct finding still present Electronically Signed On 09-27-2019 13:32:06 STAFF RADIOLOGIST by Lexus Cherry M.D. [email or web address]
[2019-09-27] MEDS: iohexol 350 mg/mL 100 mL Btl IV (11:47)
--- NOTE | 2019-09-27 11:48 | PC.NURSE ---
Patient returned to room from CT. EMD at bedside to update patient.
--- NOTE | 2019-09-27 11:59 | PC.NURSE ---
Patient ambulated to restroom and back to room without difficulty.
--- NOTE | 2019-09-27 12:02 | PC.NURSE ---
Lab at bedside to collect blood sample.
--- NOTE | 2019-09-27 12:13 | PC.NURSE ---
Patient talking with visitors in room. No needs at this time. Waiting on results.
[2019-09-27 12:29] LABS: Troponin 5 2HR 19.96 ng/mL (0-10)
[2019-09-27 12:52] LABS: Troponin 5 2HR Delta -5.04 ABS# (0-10)
[2019-09-27 13:49] VITALS: BP 125/75; PULSE 75; RESP 16; O2SAT 99
== END 2019-09-27 13:49 | disposition home or self-care (01) ==
PROVIDERS: Emergency Provider Family Medicine; Family Provider Family Medicine; PCP Family Medicine
DX: Z79.82 Long term (current) use of aspirin (principal); Z79.02 Long term (current) use of antithrombotics/antiplatelets; E78.5 Hyperlipidemia, unspecified; Z87.891 Personal history of nicotine dependence; K21.9 Gastro-esophageal reflux disease without esophagitis
CPT/HCPCS: 36415; 70450; 70496; 70498; 80053; 83605; 83880; 84484; 85025; 93005; 99282; 99284; Q9967

== ENCOUNTER 2019-10-13 09:50 | Outpatient (CLI) | payer MEDICARE, SELFPAY ==
--- NOTE | 2019-10-13 10:07 | XR_ITS ---
WS: [id number] Chest 2 views, 10/13/2019 Clinical Data: ATELECTASIS LEFT LOWER LOBE Comparison: Portable chest, 09/13/2019. Findings: No nodules, masses or effusions are seen. The heart is at the upper limits of normal. The pulmonary vascularity is not increased. No pneumonia or pneumothorax is seen. There is a right upper lobe scar. The aortic arch and descending aorta show calcification and tortuosity. NOTE: Report was unsigned for reason: Ordering provider was edited. Original Signature date and time was: 10/13/19 1024 [facility] XR/XR chest 2V* [id number] Impression: 1. Atherosclerosis and mild cardiomegaly. 2. No change in right upper lobe scarring.
== END 2019-10-13 09:51 | disposition home or self-care (01) ==
LOC: RAD 09:54
PROVIDERS: Family Provider Family Medicine; PCP Family Medicine; Visit Provider Thoracic Surgery (Cardiothoracic Vascular Surgery)
DX: J98.11 Atelectasis (principal); I70.90 Unspecified atherosclerosis; I51.7 Cardiomegaly
CPT/HCPCS: 71046

== ENCOUNTER → 2020-02-02 15:27 | Outpatient (BNVA) | payer MEDICARE, SELFPAY | PROVIDERS: Family Provider Family Medicine; PCP Family Medicine; Visit Provider Internal Medicine Cardiovascular Disease | DX: E78.5 Hyperlipidemia, unspecified (principal) | CPT/HCPCS: 80061; 80076 ==

== ENCOUNTER 2020-06-11 13:35 | Outpatient (CLI) | payer MEDICARE, SELFPAY ==
--- NOTE | 2020-06-11 13:43 | MM_ITS ---
WS: [id number] BILATERAL SCREENING DIGITAL MAMMOGRAM WITH CAD HISTORY: SCREENING COMPARISON: 10/09/2017 and 09/01/2016 Bilateral CC and MLO views submitted. Computer aided detection analyzed. Breast composition: The breasts are heterogeneously dense, which may obscure small masses. Soft tissue nodule measuring 6 mm 2:00 axis posterior LEFT breast. Additional benign calcifications i n each breast. MM/[place] [id number] IMPRESSION: BI-RADS: 0-Incomplete: Need additional imaging evaluation FOLLOW UP: Need Additional Imaging LEFT breast: Spot compression views (CC and MLO). True ML. Ultrasound to follow if abnormality persists.
== END 2020-06-11 13:36 | disposition home or self-care (01) ==
LOC: RADSHAW 13:41
PROVIDERS: PCP Family Medicine; Visit Provider Family Medicine
DX: Z12.31 Encounter for screening mammogram for malignant neoplasm of breast (principal); N63.21 Unspecified lump in the left breast, upper outer quadrant; R92.1 Mammographic calcification found on diagnostic imaging of breast
CPT/HCPCS: 77067

== ENCOUNTER → 2020-06-14 11:27 | Outpatient (BNVA) | payer MEDICARE, SELFPAY | PROVIDERS: Family Provider Family Medicine; PCP Family Medicine; Visit Provider Internal Medicine Cardiovascular Disease | DX: E78.5 Hyperlipidemia, unspecified (principal) | CPT/HCPCS: 80061; 80076 ==

== ENCOUNTER 2020-07-11 13:53 | Outpatient (CLI) | payer MEDICARE, SELFPAY ==
--- NOTE | 2020-07-11 14:01 | US_ITS ---
WS: [id number] ADDITIONAL VIEWS LEFT MAMMOGRAM LEFT BREAST ULTRASOUND HISTORY: 6 MM NODULE LEFT BREAST COMPARISON: 06/11/2020 and 10/09/2017 and 09/01/2016 LEFT MAMMOGRAM: Spot compression views and true ML. Ovoid nodule measuring 5 mm persists in the upper outer quadrant of the LEFT breast at a middle dept h. Margins are very slightly hazy and irregular. LEFT BREAST ULTRASOUND 2-D and color Doppler imaging submitted. Cystic nodule at 2:00, 2 cm from the nipple measures 4 x 5 x 3 mm. Corresponds to the abnormality. US/US breast LT limited* [id number] IMPRESSION: BI-RADS: 2-Benign FOLLOW UP: 1 Year Follow-up
== END 2020-07-11 13:54 | disposition home or self-care (01) ==
LOC: RADSHAW 13:59
PROVIDERS: PCP Family Medicine; Visit Provider Family Medicine
DX: N63.21 Unspecified lump in the left breast, upper outer quadrant (principal)
CPT/HCPCS: 76642; 77065

== ENCOUNTER 2020-10-15 14:03 | Outpatient (CLI) | payer MEDICARE, SELFPAY ==
--- NOTE | 2020-10-15 14:14 | USCV_ITS ---
Nirmala Meléndez Age: 80 Gender: F : 1940 Exam Date: 10/15/2020 14:23 Ordering Phys: Susan Romano MD Technologist: Iris Israel Exam Location: [facility] [place]_ Indication: Left leg pain HISTORY: Lower extremity pain. PROCEDURES: Venous duplex imaging was performed in only the left lower extremity. The following venous structures were evaluated: common femoral vein, profunda vein, proximal portion of the greater saphenous vein, superficial femoral vein, and the popliteal vein. In addition, the posterior tibial and peroneal trunk were evaluated. FINDINGS: Normal 2-D Doppler and augmentation and compressibility throughout the lower extremity venous structures. Additional imaging through the proximal calf veins also reveals no thrombus. Limited evaluation of the greater saphenous vein is patent with no thrombus. Minimal fluid in area of pain, lateral joint line. CONCLUSIONS No DVT left lower extremity. Dr. Elissa Baumann DO (Electronically Signed) Final Date: 15 October 2020 15:06 S
== END 2020-10-15 14:04 | disposition home or self-care (01) ==
LOC: RAD 14:12
PROVIDERS: PCP Family Medicine; Visit Provider Family Medicine
DX: M79.605 Pain in left leg (principal)
CPT/HCPCS: 93971

== ENCOUNTER → 2020-11-29 09:43 | Outpatient (BNVA) | payer MEDICARE, SELFPAY | PROVIDERS: PCP Family Medicine; Visit Provider Family Medicine | DX: Z01.812 Encounter for preprocedural laboratory examination (principal); Z20.822 Contact with and (suspected) exposure to COVID-19 | CPT/HCPCS: 87635 ==

== ENCOUNTER 2020-12-03 10:13 | Outpatient (CLI) | payer MEDICARE, SELFPAY ==
--- NOTE | 2020-12-03 10:22 | XR_ITS ---
WS: [id number] Exam: XR chest 2V* [id number] Date/Time of Exam: 12/03/2020 10:58 AM Reason For Exam: CHRONIC COUGH/DYSPNEA Comparison 10/13/2019. The lungs are clear and fully expanded. Heart size is top limits normal. No pleural effusions. Fibrou s scarring in the right upper lobe. Regional bony elements are intact. The mediastinum is not widened . XR/XR chest 2V* [id number] IMPRESSION: 1. No acute cardiopulmonary finding.
--- NOTE | 2020-12-03 13:28 | PFTS_ITS ---
Date of Study:12/03/20 Date of Dictation: MECHANICS: Forced vital capacity (FVC) is normal. Forced expiratory volume in one second (FEV1) is normal. FEV1/FVC is reduced. FLOW VOLUME LOOP: Mild scooping. LUNG VOLUMES: Total lung capacity (TLC) is normal. Residual volume (RV) is normal. DIFFUSING CAPACITY FOR CARBON MONOXIDE: Moderate reduced. INTERPRETATION: Postbronchodilator spirometry is consistent with mild airflow obstruction. There is no significant postbronchodilator response. Lung volumes are normal. Gas exchange (DLCO) is moderately reduced. MTDD
== END 2020-12-03 10:14 | disposition home or self-care (01) ==
PROVIDERS: PCP Family Medicine; Visit Provider Family Medicine
DX: R06.00 Dyspnea, unspecified (principal); R05 Cough
CPT/HCPCS: 71046; 94060; 94726; 94729; J7611

== ENCOUNTER → 2020-12-13 12:35 | Outpatient (BNVA) | payer MEDICARE, SELFPAY | PROVIDERS: PCP Family Medicine; Visit Provider Internal Medicine Cardiovascular Disease | DX: E78.5 Hyperlipidemia, unspecified (principal); R06.02 Shortness of breath; R20.9 Unspecified disturbances of skin sensation; I25.10 Atherosclerotic heart disease of native coronary artery without angina pectoris | CPT/HCPCS: 80048; 83880 ==

== ENCOUNTER 2021-01-03 10:03 | Outpatient (CLI) | payer MEDICARE, SELFPAY ==
--- NOTE | 2021-01-03 10:15 | USCV_ITS ---
Nirmala Meléndez Age: 80 Gender: F : 1940 Exam Date: 01/03/2021 10:25 Ordering Phys: Buck Hall MD ([email or web address]) Technologist: Margaret Castañeda Exam Location: [facility] [place] Indication: LESSER PULSE LT LEG Risk Factors: Unknown Previous Vascular Surgery: None RIGHT LEFT BP: 120.0 / BP: 120.0/ 0 0 Waveform Velocity (cm/s) Velocity (cm/s) Waveform Triphasic 101.9 Iliac Prox 88.2 Triphasic Triphasic 62.5 Iliac Mid 68.5 Biphasic Triphasic 72.9 Iliac Distal 42.8 Biphasic Triphasic 75.0 ELECTRIC MOTOR ASSEMBLER AND TESTER 70.6 Biphasic Biphasic 54.0 SFA Prox 73.9 Biphasic Biphasic SFA Mid Biphasic 61.7 54.0 Biphasic 66.2 SFA Dist 60.6 Biphasic Biphasic 39.5 POP 37.5 Biphasic Biphasic 62.6 HACK DRIVER 58.5 Biphasic Biphasic 19.2 DPA 40.8 Biphasic 1.3 RITU 1.1 FINDINGS RT HACK DRIVER 150 RT DPA 95 LT HACK DRIVER 130 LT DPA 135 Mild diffuse plaques in the iliac and femoral arteries bilaterally Normal resting ABIs of 1.3 on the right side and 1.1 on the left side CONCLUSIONS 1. Normal resting ABIs bilaterally 2. Mild diffuse plaques in the iliac and femoral arteries bilaterally No significant arterial obstruction, based on the above findings Dr Buck Hall MD [facility] (Electronically Signed) Final Date: 04 January 2021 09:02 S
== END 2021-01-03 10:04 | disposition home or self-care (01) ==
LOC: US 10:04
PROVIDERS: PCP Family Medicine; Visit Provider Internal Medicine Cardiovascular Disease
DX: R20.9 Unspecified disturbances of skin sensation (principal); R09.89 Other specified symptoms and signs involving the circulatory and respiratory systems; I70.8 Atherosclerosis of other arteries
CPT/HCPCS: 93925

== ENCOUNTER 2021-01-24 08:45 | Outpatient (CLI) | payer MEDICARE, SELFPAY ==
--- NOTE | 2021-01-24 08:58 | CT_ITS ---
WS: [id number] CT CHEST TECHNIQUE: Contrast enhanced CT of the chest with coronal and sagittal reformatted images. CLINICAL INFORMATION: OTHER DISORDERS OF LUNG COMPARISON: CTA chest September 13, 2019 DLP: 340.[address] scans at [facility] use at least one of these dose optimization techniques: automat ed exposure control; mA and/or kV adjustment per patient size (includes targeted exams where dose is matched to clinical indication); or iterative reconstruction. FINDINGS: Moderate chronic emphysematous changes. Chronic appearing mucus plugging in the left lower lobe with calcification and distal atelectasis. Associated distal atelectasis left lower lobe medially. This is unchanged since September 13, 2019. This can be further evaluated with bronchoscopy. Spiculated parenchymal opacity right upper lobe likely fibrosis is unchanged measuring 1.5 x 1.2 x 1. 2 CM. Associated fibrosis/atelectasis extends to the right lung apex. No other suspicious pulmonary p arenchymal abnormalities. Stable slightly ectatic ascending thoracic aorta measuring 3.7 CM. Coronary calcification. Left thyroid nodule is stable measuring 10 mm. No axillary lymphadenopathy. No medias tinal or hilar lymphadenopathy. A few calcified granulomas. Adrenal glands are normal. CT/CT chest w con* [id number] IMPRESSION: 1. No significant changes since . 2. Moderate chronic emphysematous changes. No acute pulmonary infiltrates. 3. Stable mucus plugging left lower lobe bronchus with associated left lower l obe atelectasis medially. This has a chronic appearance and could be further ev aluated with bronchoscopy. 4. Fibrotic appearing opacity right upper lobe extending to the lung apex is u nchanged from previous measuring 1.5 x 1.2 x 1.2 CM. Associated fibrosis and at electasis extends to to the lung apex. Recommend continued surveillance 12 edith h follow-up. 5. Stable ectatic ascending thoracic aorta. 6. No mediastinal or hilar lymphadenopathy.
[2021-01-24] MEDS: iohexol 300 mg/mL 100 mL Btl IV (09:14)
== END 2021-01-24 08:46 | disposition home or self-care (01) ==
LOC: RADWPI 08:51 → RAD 08:56
PROVIDERS: PCP Family Medicine; Visit Provider Family Medicine
DX: J98.4 Other disorders of lung (principal); I77.810 Thoracic aortic ectasia; T17.590A Other foreign object in bronchus causing asphyxiation, initial encounter; X58.XXXA Exposure to other specified factors, initial encounter
CPT/HCPCS: 71260

== ENCOUNTER 2021-01-25 06:39 | Emergency (ER) | payer MEDICARE, SELFPAY ==
[2021-01-25 06:46] VITALS: BP 188/99; PULSE 68; RESP 18; TEMP 36.7; O2SAT 95; BMI 21.0
--- NOTE | 2021-01-25 06:51 | XRR_ITS ---
PROCEDURE INFORMATION: Exam: XR Chest Exam date and time: 01/25/2021 6:56 AM Age: 80 years old Clinical indication: Dyspnea; Additional info: Chest pain TECHNIQUE: Imaging protocol: XR of the chest. Views: 1 view. COMPARISON: CT chest w con* [id number] 01/24/2021 9:10 AM FINDINGS: Lungs: COPD, interstitial prominence, and trace basilar airspace disease. Pleural spaces: No pleural effusion. Heart/Mediastinum: No cardiomegaly. Bones/joints: Mild degenerative change. XR/XR chest 1V portable [id number] IMPRESSION: COPD, interstitial prominence, and trace basilar airspace disease.
--- NOTE | 2021-01-25 06:51 | ECG_ITS ---
[facility] Test Date: 2021-01-25 Pat Name: Nirmala Meléndez Department: Room: Gender: Female Banana Carrier: GEOVANNA : 1940 Requested By: Kyle Underwood Order Number: [id number] Nikki MD: Juan Mak M.D. Measurements Intervals [place] Rate: 66 P: 43 TX: 205 QRS: -46 QRSD: 104 T: 18 QT: 389 QTc: 408 Interpretive Statements SINUS RHYTHM MARKED LEFT AXIS DEVIATION [QRS AXIS < -30] INCOMPLETE RIGHT BUNDLE BRANCH BLOCK [90+ ms QRS DURATION, TERMINAL R IN V1/V2, 40+ ms S IN I/aVL/V4/V5/V6] VOLTAGE CRITERIA FOR LVH [MEETS CRITERIA IN ONE OF: R(aVL), S(V1), R(V5), R(V5/V6)+S(V1)] POSSIBLE SEPTAL MYOCARDIAL INFARCTION [30 ms Q WAVE IN V1/V2], OF INDETERMINATE AGE Compared to ECG 09/27/2019 12:05:49 Left-axis deviation now present Incomplete right bundle-branch block now present First degree AV block no longer present Myocardial infarct finding still present Electronically Signed On 01-25-2021 21:54:20 CDT by Juan Mak M.D. [id number]
[2021-01-25 07:02] LABS: Basophils # 0.1 10^3/uL (0.0-0.1); Basophils % 0.8 %; Eosinophils # 0.3 10^3/uL (0.0-0.8); Eosinophils % 2.6 %; Hematocrit 49.5 % (37.0-47.0); Hemoglobin 15.9 g/dL (11.5-15.3); Lymphocytes # 4.6 10^3/uL (0.8-4.8); Lymphocytes % 36.1 %; Mean Corpuscular HGB Conc 32.1 g/dL (30.0-36.0); Mean Corpuscular Hemoglobin 29.4 pg (28.0-34.0); Mean Corpuscular Volume 91.7 fL (81-99); Mean Platelet Volume 9.3 fL (7.4-10.4); Monocytes # 1.2 10^3/uL (0.2-0.9); Monocytes % 9.5 %; Neutrophils # 6.28 10^3/uL (1.8-7.7); Neutrophils % 49.4 %; Nucleated Red Blood Cells % 0 %; Platelet Count 391 10^3/cmm (130-400); Red Cell Distribution Width 13.5 % (12.1-15.1); White Blood Count 12.7 10^3/uL (4.0-10.0)
[2021-01-25 07:17] LABS: Alanine Aminotransferase 47 U/L (0-33); Albumin Level 4.2 g/dL (3.5-5.2); Alkaline Phosphatase 71 IU/L (35-105); Anion Gap 14.9 (5-19); Aspartate Amino Transferase 18 U/L (0-32); Blood Urea Nitrogen 18 mg/dL (8-23); Calcium 9.3 mg/dL (8.5-10.5); Carbon Dioxide 26 mmol/L (22-29); Chloride 99 mmol/L (98-107); Globulin 3.2 g/dL (1.3-4.6); Glucose 80 mg/dL (65-115); Osmolality Calculated 283 mOsm/kg (285-295); Potassium 3.9 mmol/L (3.5-5.1); Sodium 136 mmol/L (136-145); Total Bilirubin 0.4 mg/dL (0.15-1.2); Total Protein 7.4 g/dL (6.6-8.7)
[2021-01-25 07:18] LABS: Troponin(5th) Baseline 16 ng/L (0-10)
--- NOTE | 2021-01-25 07:47 | ED_ITS ---
HPI - Chest Pain General: Chief Complaint: Chest Pain Stated Complaint: CP Time Seen by Provider: 01/25/21 06:42 History of Present Illness: HPI narrative: 80-year-old female with a known history of heart disease. She has previously had an LA with stent placement. She has not had any recent episodes of chest pain prior to today. She woke with chest pain she took a nitro however was out of date was likely ineffective. She did take 2 baby aspirin at home. Chest pain resolved spontaneously after about 15 minutes she did not have any shortness of breath nausea or diaphoresis. She has a history of dyspepsia and was recently stopped from her medications. Primary care she seemed to be doing well. She did states she had some dyspepsia last night. There is no radiation of the pain. MD complaint: chest pain Onset (ago): minute(s) Timing of current episode: episodic Prior episodes: No Onset: during rest Pain location: substernal and left chest Pain radiation: none Quality: aching and heaviness Relieving factors: nothing Exacerbating factors: nothing Associated symptoms: Deny abdominal pain, diaphoresis, dyspnea, fever(s), leg edema, nausea, palpitations, sense of impending doom, syncope or vomiting Treatment prior to arrival: aspirin Review of Systems Const: Denies: fever(s) or diaphoresis Card: Denies: palpitations or syncope Resp: Denies: dyspnea GI: Denies: abdominal pain, nausea or vomiting [facility] ED PFSH: Medical History (Updated 01/25/21 @ 10:44 by Kyle Veloz DO) Atherosclerotic heart disease of [place] coronary artery without angina pectoris Dyslipidemia statin intolerant, taking ezetimibe. Gastroesophageal reflux NSTEMI (non-ST elevated myocardial infarction) Supraventricular tachycardia TIA (transient ischemic attack) Surgical History History of coronary artery stent placement Family History Mother Hypertension Dementia CAD (coronary artery disease) Myocardial infarction Denies family history of Diabetes Clotting disorder Chronic kidney disease (CKD) Suicide Anesthesia complication Bleeding disorder Lung disease Cancer Stroke Social History Smoking and tobacco status: former smoker Alcohol intake: never Physical Exam Const: COMMON NORMALS: no acute distress GENERAL APPEARANCE: cooperative and comfortable ORIENTATION/CONSCIOUSNESS: Yes awake, Yes oriented to person, Yes oriented to place and Yes oriented to time HENMT: COMMON NORMALS: normocephalic, atraumatic and hearing grossly normal bilaterally HEAD & SCALP: normocephalic and atraumatic Neck/C-Spine: COMMON NORMALS: no JVD Resp: COMMON NORMALS: normal respiratory effort, No retractions, No use of accessory muscles and clear to auscultation bilaterally AUSCULTATION: clear to auscultation bilaterally Cardio: COMMON NORMALS: no JVD, regular rate, regular rhythm and No murmurs present (Cardio) RATE: regular rate RHYTHM: regular rhythm GI: COMMON NORMALS: Soft to palpation and No hepatosplenomegaly present AUSCULTATION: Yes normoactive bowel sounds PALPATION: Yes Soft to palpation, No Tenderness to palpation present (GI), No Guarding due to palpation present (GI) and Yes No hepatosplenomegaly present Extremity: COMMON NORMALS: normal to inspection, capillary refill normal, no clubbing, cyanosis or edema, no calf tenderness and no pedal edema Neuro: SENSORIUM/ORIENTATION: Yes oriented to person, Yes oriented to place and Yes oriented to time Skin: COMMON NORMALS: no rashes or lesions noted GENERAL SKIN EXAM: no rashes or lesions noted Course Vital Signs: Vital signs: Vital Signs Temperature 98.0 F 01/25/21 06:46 Pulse Rate 54 L 01/25/21 10:59 Respiratory Rate 18 01/25/21 10:59 Blood Pressure 131/71 01/25/21 10:59 Pulse Oximetry 95 01/25/21 10:59 MDM - Chest Pain MDM Narrative: Medical decision making narrative: Symptoms resolved. Discussed patient she would prefer to go home. We will start her on isosorbide mononitrate. Continue her other medications. We will set her up for an outpatient stress test and have her follow-up with her neurologist after the stress test. Refill her nitroglycerin for the sublingual tablets. Return if has further problems. Lab Data: Labs: Lab Results 01/25/21 01/25/21 01/25/21 Range/Units 06:49 06:49 06:49 WBC 12.7 H (4.0-10.0) 10^3/ uL RBC 5.40 H (4.1-5.3) 10^6/u L Hgb 15.9 H (11.5-15.3) g/dL Hct 49.5 H (37.0-47.0) % MCV 91.7 (81-99) fL MCH 29.4 (28.0-34.0) pg MCHC 32.1 (30.0-36.0) g/dL RDW 13.5 (12.1-15.1) % Plt Count 391 (130-400) 10^3/c mm MPV 9.3 (7.4-10.4) fL Neut % (Auto) 49.4 % Lymph % (Auto) 36.1 % Forrest % (Auto) 9.5 % Eos % (Auto) 2.6 % Baso % (Auto) 0.8 % Neut # (Auto) 6.28 (1.8-7.7) 10^3/u L Lymph # (Auto) 4.6 (0.8-4.8) 10^3/u L Forrest # (Auto) 1.2 H (0.2-0.9) 10^3/u L Eos # (Auto) 0.3 (0.0-0.8) 10^3/u L Baso # (Auto) 0.1 (0.0-0.1) 10^3/u L Nucleated RBC % (a uto) 0 % Nucleated RBCs # 0.0 /100WBC Sodium 136 (136-145) mmol/L Potassium 3.9 (3.5-5.1) mmol/L Chloride 99 (98-107) mmol/L Carbon Dioxide 26 (22-29) mmol/L Anion Gap 14.9 (5-19) BUN 18 (8-23) mg/dL Creatinine 0.9 (0.5-0.9) mg/dL GFR Calculation Not Reportable Glucose 80 (65-115) mg/dL Calculated Osmolal ity 283 L (285-295) mOsm/k g Calcium 9.3 (8.5-10.5) mg/dL Total Bilirubin 0.4 (0.15-1.2) mg/dL AST 18 (0-32) U/L ALT 47 H (0-33) U/L Alkaline Phosphata se 71 (35-105) IU/L Troponin T Baselin e 16 H (0-10) ng/L Troponin T 120 Min [place] (0-10) ng/L Delta Troponin T (0-10) ABS# Total Protein 7.4 (6.6-8.7) g/dL Albumin 4.2 (3.5-5.2) g/dL Globulin 3.2 (1.3-4.6) g/dL 01/25/21 Range/Units 08:57 WBC (4.0-10.0) 10^3/ uL RBC (4.1-5.3) 10^6/u L Hgb (11.5-15.3) g/dL Hct (37.0-47.0) % MCV (81-99) fL MCH (28.0-34.0) pg MCHC (30.0-36.0) g/dL RDW (12.1-15.1) % Plt Count (130-400) 10^3/c mm MPV (7.4-10.4) fL Neut % (Auto) % Lymph % (Auto) % Forrest % (Auto) % Eos % (Auto) % Baso % (Auto) % Neut # (Auto) (1.8-7.7) 10^3/u L Lymph # (Auto) (0.8-4.8) 10^3/u L Forrest # (Auto) (0.2-0.9) 10^3/u L Eos # (Auto) (0.0-0.8) 10^3/u L Baso # (Auto) (0.0-0.1) 10^3/u L Nucleated RBC % (a uto) % Nucleated RBCs # /100WBC Sodium (136-145) mmol/L Potassium (3.5-5.1) mmol/L Chloride (98-107) mmol/L Carbon Dioxide (22-29) mmol/L Anion Gap (5-19) BUN (8-23) mg/dL Creatinine (0.5-0.9) mg/dL GFR Calculation Glucose (65-115) mg/dL Calculated Osmolal ity (285-295) mOsm/k g Calcium (8.5-10.5) mg/dL Total Bilirubin (0.15-1.2) mg/dL AST (0-32) U/L ALT (0-33) U/L Alkaline Phosphata se (35-105) IU/L Troponin T Baselin e (0-10) ng/L Troponin T 120 Min [place] 12.64 H (0-10) ng/L Delta Troponin T -3.36 L (0-10) ABS# Total Protein (6.6-8.7) g/dL Albumin (3.5-5.2) g/dL Globulin (1.3-4.6) g/dL Discharge Plan Discharge Patient Disposition: Home Clinical Impression: Atypical chest pain, Benign essential HTN Condition: Stable Prescriptions: New isosorbide mononitrate 30 mg tablet extended release 24 hr 30 mg PO DAILY Qty: 30 RF: 0 No Action melatonin 3 mg Tablet 3 mg PO BEDTIME RF: 0 levothyroxine 75 mcg Tablet 75 mcg PO QAM RF: 0 calcitonin (salmon) 200 unit/actuation [place],Non-Aerosol 1 spray INTRANASAL (ALT) DAILY RF: 0 metoprolol tartrate 25 mg tablet 25 mg PO BID 90 Days Qty: 180 RF: 3 nitroglycerin [Nitrostat] 0.4 mg Tablet, Sublingual 0.4 mg sublingual Q5M PRN (Reason: Chest Pain) Qty: 30 RF: 0 prednisone 10 mg tablet See Rx Instructions .ROUTE .COMPLEX RF: 0 albuterol sulfate 90 mcg/actuation HFA aerosol inhaler 2 puff INHALATION QID PRN (Reason: Shortness Of Breath) RF: 0 Flovent HFA 110 mcg/actuation HFA aerosol inhaler 2 puff INHALATION BID RF: 0 clopidogrel 75 mg tablet 75 mg PO QAM RF: 0 aspirin 81 mg tablet,delayed release (DR/EC) 81 mg PO QAM RF: 0 ezetimibe 10 mg tablet 10 mg PO QAM RF: 0 Discharge Orders: Discharge ED (Routine); Ordered 01/25/21 Ordered By: Kyle Veloz Referrals: Susan Romano MD [Primary Care Provider] - Discharge Diet: Usual diet Discharge Activity: Limit activity as instructed Patient Instructions: Opioid Safety Activity Restrictions/Additional Instructions: Case management will call to get a follow-up appointment for a stress test and then see Dr. Hall. Return if you have further problems. Coding Level of Care Code ED Sales Architect for Chg Fwd Exam Comprehensive
[2021-01-25] MEDS: aspirin 81 mg Chew Tablet 162 MG PO (08:05)
[2021-01-25 08:06] VITALS: BP 166/102; PULSE 67; RESP 18; O2SAT 97
--- NOTE | 2021-01-25 08:25 | PC.PHAR ---
pt states she takes care of her own medications-pt states she may be confused on which inhaler is what-pt states she thinks she can use her blue inhaler as much as she needs and the red one twice a day-proair inhaler filled on 12/10/20 2 puffs qid prn and flovent 110mcg 2 p bid filled on 01/18/21
--- NOTE | 2021-01-25 08:51 | ECG_ITS ---
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 Measurements Intervals [place] Rate: 65 P: 53 ID: [id number] QRS: -53 QRSD: 105 T: 39 QT: 392 QTc: 410 Interpretive Statements SINUS RHYTHM INCOMPLETE RIGHT BUNDLE BRANCH BLOCK [90+ ms QRS DURATION, TERMINAL R IN V1/V2, 40+ ms S IN I/aVL/V4/V5/V6] LEFT ANTERIOR FASCICULAR BLOCK [QRS AXIS <= -45, QR IN I, RS IN II] VOLTAGE CRITERIA FOR LVH [MEETS CRITERIA IN ONE OF: R(aVL), S(V1), R(V5), R(V5/V6)+S(V1)] POSSIBLE SEPTAL MYOCARDIAL INFARCTION [30 ms Q WAVE IN V1/V2], OF INDETERMINATE AGE POSSIBLE LATERAL MYOCARDIAL INFARCTION [30 ms Q WAVE IN I/aVL/V5/V6], OF INDETERMINATE AGE Compared to ECG 01/25/2021 07:12:13 Left-axis deviation no longer present Myocardial infarct finding still present Electronically Signed On 01-25-2021 22:00:49 CDT by Juan Mak M.D. [email or web address]
[2021-01-25] MEDS: clopidogrel 75 mg Tablet PO (09:22)
[2021-01-25] MEDS: metoprolol tartrate 25 mg Tablet PO (09:23)
[2021-01-25 09:24] LABS: Troponin 5 2HR 12.64 ng/L (0-10)
[2021-01-25 09:25] LABS: Troponin 5 2HR Delta -3.36 ABS# (0-10)
[2021-01-25 10:59] VITALS: BP 131/71; PULSE 54; RESP 18; O2SAT 95
--- NOTE | 2021-01-29 14:03 | DCPLANNER ---
banking manager had message to schedule an out patient stress test for patient. banking manager faxed signed order to centralized scheduling. banking manager will call for appointment information. banking manager also had message to schedule a follow up appointment for patient with [facility]. banking manager called [facility], spoke with Kelsey, a follow up appointment was scheduled for Friday, March 12, 2021 at 11:[address] Hall.
--- NOTE | 2021-02-06 15:23 | DCPLANNER ---
Patient has an outpatient stress test scheduled for Saturday February 27, 2021 at 11:30.
--- NOTE | 2021-04-09 13:37 | DCPLANNER ---
Patient had a follow up appointment scheduled for 03.12.[address] Hall at [facility] - patient did attend appointment. Patient had a stress test scheduled - this was cancelled.
== END 2021-01-25 11:03 | disposition home or self-care (01) ==
PROVIDERS: Emergency Provider Family Medicine; PCP Family Medicine
DX: R07.89 Other chest pain (principal); I10 Essential (primary) hypertension; Z79.02 Long term (current) use of antithrombotics/antiplatelets; Z79.82 Long term (current) use of aspirin; I25.10 Atherosclerotic heart disease of native coronary artery without angina pectoris; E78.5 Hyperlipidemia, unspecified; I25.2 Old myocardial infarction; Z86.73 Personal history of transient ischemic attack (TIA), and cerebral infarction without residual deficits; Z87.891 Personal history of nicotine dependence
CPT/HCPCS: 71045; 80053; 84484; 85025; 93005; 99283

== ENCOUNTER → 2021-03-12 11:57 | Outpatient (BNVA) | payer MEDICARE, SELFPAY | PROVIDERS: PCP Family Medicine; Visit Provider Internal Medicine Cardiovascular Disease | DX: E78.5 Hyperlipidemia, unspecified (principal); R06.02 Shortness of breath; R20.9 Unspecified disturbances of skin sensation | CPT/HCPCS: 80061 ==

== ENCOUNTER 2021-03-28 09:45 | Outpatient (CLI) | payer MEDICARE, SELFPAY ==
--- NOTE | 2021-03-28 09:50 | XR_ITS ---
WS: [id number] Chest 2 views, 03/28/2021 Clinical Data: HEMOPTYSIS Comparison: Portable chest, 01/25/2021. Findings: No nodules, masses or effusions are seen. The heart is normal. The pulmonary vascularity is not increased. No pneumonia or pneumothorax is seen. There is patchy atelectasis in the retrocardiac region unchanged. There is right upper lobe fibrosis and/or atelectasis unchanged. The aortic arch a nd descending aorta show calcification and tortuosity. XR/XR chest 2V* [id number] Impression: 1. Chronic atelectatic and fibrotic changes in the right upper lobe and left vu ng base unchanged. 2. Atherosclerosis.
== END 2021-03-28 09:46 | disposition home or self-care (01) ==
LOC: RAD 09:48
PROVIDERS: PCP Family Medicine; Visit Provider Family Medicine
DX: R04.2 Hemoptysis (principal); I70.90 Unspecified atherosclerosis
CPT/HCPCS: 71046

== ENCOUNTER 2021-04-08 11:34 | Outpatient (CLI) | payer MEDICARE, SELFPAY ==
[2021-04-08 12:06] LABS: Basophils # 0.1 10^3/uL (0.0-0.1); Basophils % 0.9 %; Eosinophils # 0.1 10^3/uL (0.0-0.8); Eosinophils % 1.2 %; Hematocrit 47.4 % (37.0-47.0); Hemoglobin 15.2 g/dL (11.5-15.3); Lymphocytes % 24.7 %; Mean Corpuscular HGB Conc 32.1 g/dL (30.0-36.0); Mean Corpuscular Hemoglobin 29.6 pg (28.0-34.0); Mean Corpuscular Volume 92.2 fL (81-99); Mean Platelet Volume 9.6 fL (7.4-10.4); Monocytes # 0.7 10^3/uL (0.2-0.9); Monocytes % 8.5 %; Neutrophils # 5.29 10^3/uL (1.8-7.7); Neutrophils % 64.3 %; Nucleated Red Blood Cells % 0 %; Platelet Count 308 10^3/cmm (130-400); Red Blood Count 5.14 10^6/uL (4.1-5.3); Red Cell Distribution Width 13.2 % (12.1-15.1); White Blood Count 8.2 10^3/uL (4.0-10.0)
[2021-04-09 16:33] LABS: Alternaria Alternata (M6) Ige <0.10 kU/L; Alternaria Class 0; Bermuda Class 0; Bermuda Grass (G2) Ige <0.10 kU/L; Cat Dander (E1) Ige <0.10 kU/L; Cat Dander Class 0; Common Ragweed (Short) (W1) Ig <0.10 kU/L; D. Farinae Class 0; Dermatophagoides Class 0; Dermatophagoides Farinae (D2) <0.10 kU/L; Dermatophagoides Pteronyssinus <0.10 kU/L; Dog Dander (E5) Ige <0.10 kU/L; Dog Dander Class 0; Elm (T8) Ige <0.10 kU/L; Elm Class 0; English Plantain (W9) Ige <0.10 kU/L; English Plantain Class 0; House Dust (Greer) (H1) Ige <0.10 kU/L; House Dust (Hollister- Stier) <0.10 kU/L; House Dust Class 0; Immunoglobulin E 9 kU/L (<OR=114); Johnson Grass (G10) Ige <0.10 kU/L; Johnson Grass Cl 0; June Grass Class 0; June Grass(Kentucky Blue) (G8) <0.10 kU/L; Lamb'S Quarters (Goose Foot) <0.10 kU/L; Lamb'S Quarters Class 0; Maple (Box Elder) (T1) Ige <0.10 kU/L; Maple Class 0; Meadow Fescue (G4) Ige <0.10 kU/L; Meadow Fescue Class 0; Mucor Racemosus Class 0; Oak (T7) Ige <0.10 kU/L; Oak Class 0; Orchard Grass (Cocksfoot) (G3) <0.10 kU/L; Penicillium Class 0; Penicillium Notatum (M1) Ige <0.10 kU/L; Perennial Rye Grass (G5) Ige <0.10 kU/L; Perennial Rye Grass Class 0; Ragweeed Class 0; Rough Marsh Elder (W16) Ige <0.10 kU/L; Rough Marsh Elder Class 0; Sweet Vernal Class 0; Sweet Vernal Grass (G1) Ige <0.10 kU/L; Timothy Grass (G6) Ige <0.10 kU/L; Timothy Grass Class 0
[2021-04-10 20:02] LABS: Aspergillus Fumigatus, Igg Ab, 29.9 mg/L (<=102)
== END 2021-04-08 11:35 | disposition home or self-care (01) ==
LOC: LAB 11:40
PROVIDERS: PCP Family Medicine; Visit Provider Internal Medicine Pulmonary Disease
DX: R06.02 Shortness of breath (principal); J44.9 Chronic obstructive pulmonary disease, unspecified; J45.909 Unspecified asthma, uncomplicated
CPT/HCPCS: 82785; 85025; 86003

== ENCOUNTER → 2021-04-15 09:52 | Outpatient (BNVA) | payer MEDICARE, SELFPAY | PROVIDERS: PCP Family Medicine; Visit Provider Internal Medicine Pulmonary Disease | DX: R93.89 Abnormal findings on diagnostic imaging of other specified body structures (principal); Z20.822 Contact with and (suspected) exposure to COVID-19 | CPT/HCPCS: 87635 ==

== ENCOUNTER 2021-04-19 06:01 | Day surgery (SDC) | payer MEDICARE, SELFPAY ==
[2021-04-17 14:06] VITALS: BMI 21.4
[2021-04-19] VITALS (7 sets, daily range): BP systolic 113–155; BP diastolic 65–78; PULSE 56–78; RESP 11–16; TEMP 36.2–36.6; O2SAT 91–100
[2021-04-19] MEDS: sodium chloride 0.9% 1,000 ML 30 ML IV (06:35)
--- NOTE | 2021-04-19 06:54 | P.HPUD_ITS ---
Surgery/Procedure H&P Update DATE OF PROCEDURE: April 19, 2021 CHIEF COMPLAINT/INDICATIONFOR SURGICAL PROCEDURE: 80 year old female with PMH HISTORY OF ASTHMA, RESTRICTIVE LUNG DISEASE, TIA, SVT, ASCHD s/p 2 cardiac stents in left circumflex 09/14/2019, CKD, esophagitis, hypothyroidism, osteoporosis, dyslipidemia, referred by her primary care physician for evaluation of hemoptysis and abnormal finding on CT chest, coming in for bronchoscopic evaluation for suspected lung cancer CT chest January 2021 showing chronic endobronchial lesion with associated left lower lobe atelectasis-need to rule out malignancy and subsequent PET CT done on 04/13/21 in 1.8 x 3 m mass in the left lower lobe hilum with SUV 28.5.high probability of malignancy. PREOP DIAGNOSIS: Suspected Lung Cancer PLANNED PROCEDRUE: Bronchoscopy with inspection of the airway, possible endobronchial biopsy, bronchial Cytobrush, endobronchial sound guided transbro nchial needle aspiration of lymph nodes, bronchoalveolar lavage and control of bleeding. DATE H&P PERFORMED: 04/08/21 PLANNED PROCEDURE: Operation Date: 04/19/21 07:00 Proposed Procedures p Ebus [id number] J98.4(Not Applicable) - Poncho Liang MD s Bronchoscopy(Not Applicable) - Poncho Liang MD
[2021-04-19] MEDS: lidocaine 1% INJ 20 mL XX (07:18)
--- NOTE | 2021-04-19 07:30 | P.ANESASSM_ITS ---
Pre-Anesthetic Assessment Pre-Anesthetic Assessment: Height/Weight: Height 1.57 m Weight 53.07 kg Temp Pulse Resp BP Pulse Ox 98 F 56 L 16 155/78 95 04/19/21 06:23 04/19/21 06:23 04/19/21 06:23 04/19/21 06:23 04/19/21 06:23 Preop Diagnosis: LLL mass Proposed Procedure: Operation Date: 04/19/21 07:00 Proposed Procedures p Ebus [id number] J98.4(Not Applicable) - Poncho Liang MD s Bronchoscopy(Not Applicable) - Poncho Liang MD Was Beta Gamaliel taken within 24 hours: Yes Was Clonidine taken within 24 hours: N/A Last intake: Intake Last Liquid Date 04/18/21 Last Liquid Time 00:00 Last Solid Date 04/18/21 Last Solid Time 15:00 Social: Social History: No alcohol and No tobacco Exam: Pre-Anes Outpt Exam: alert, oriented x 3, clear to auscultation bilaterally and regular rate & rhythm Airway: Submandibular: WNL Cervical ROM: WNL MP: 1 Dentition: Partials History/ROS: No significant history except as noted Pulmonary: Pulmonary: COPD (emphysema; albuterol daily) CV/HEM: CV/HEM: CAD (stent x4) and HTN : : None reported Hepatic: Hepatic: None reported GI: GI: GERD and None reported Metabolic: Metabolic: None reported Musc/skel: Musc/skel: None reported Neuropsych: Neuropsych: None reported Anesthetic Plan: ASA status: 3 Anesthesia: Anesthesia Evaluation and General Risk of > 500 ml blood loss (7ml/kg in children): No PFSH Anesthesia PFSH: Medical History (Updated 04/08/21 @ 20:34 by Poncho Liang MD) Atherosclerotic heart disease of [place] coronary artery without angina pectoris Dyslipidemia statin intolerant, taking ezetimibe. Gastroesophageal reflux NSTEMI (non-ST elevated myocardial infarction) Supraventricular tachycardia TIA (transient ischemic attack) Surgical History History of coronary artery stent placement Family History Mother Hypertension Dementia CAD (coronary artery disease) Myocardial infarction Denies family history of Diabetes Clotting disorder Chronic kidney disease (CKD) Suicide Anesthesia complication Bleeding disorder Lung disease Cancer Stroke Social History Alcohol intake: never Data Anesthesia Cardiac Studies: Holter Monitor 03/09/20
[2021-04-19] MEDS: EPINEPHrine 1 mg/mL INJ XX (07:32)
--- NOTE | 2021-04-19 07:58 | PM.OP ---
Operative Report Date of procedure: April 19, 2021 Pre-op Diagnosis: Suspected Lung Cancer Post-op diagnosis: same Brief History: 80 year old female with PMH HISTORY OF ASTHMA, RESTRICTIVE LUNG DISEASE, TIA, SVT, ASCHD s/p 2 cardiac stents in left circumflex 09/14/2019, CKD, esophagitis, hypothyroidism, osteoporosis, dyslipidemia, referred by her primary care physician for evaluation of hemoptysis and abnormal finding on CT chest, coming in for bronchoscopic evaluation for suspected lung cancer. CT chest January 2021 showing chronic endobronchial lesion with associated left lower lobe atelectasis-need to rule out malignancy and subsequent PET CT done on 04/13/21 in 1.8 x 3 m mass in the left lower lobe hilum with SUV 28.5.high probability of malignancy. Procedure: Name of the procedure: Bronchoscopy with inspection of the airway, endobronchial biopsy, bronchoalveolar lavage, endobronchial ultrasound-guided transbronchial examination and possible needle aspiration of lymph nodes and control of bleeding. Indication: Left lower lobe mass Anesthesia: General anesthesia. Local anesthesia: The pooja in the right and left mainstem bronchi were anesthetized with 1% lidocaine, 3 mL. Description of the procedure: The procedure was explained to the patient and the consent was obtained. The patient was brought to the OR. The patient underwent LMA placement for general anesthesia. Following induction of general anesthesia, the bronchoscope was advanced through the LMA. Vocal chords appeared normal. The trachea appeared to be normal. The pooja was sharp. The pooja, the right and left mainstem bronchi are anesthetized with 1% lidocaine. In a systematic manner bilateral bronchial tree was then examined. The bronchoscope was advanced into the right mainstem bronchus. The right upper lobe, right middle lobe and right lower lobe bronchi were examined up to the third subsegmental level and no abnormalities were identified. There was clear secretions throughout the airways. The bronchoscope was then introduced into the Left mainstem bronchus. Endobronchial lesion with pearly white appearance was seen at distal left main stem bronchus and seen occluding the entrance of the left upper lobe and lower lobe and scope could not be advanced further. BAL taken from left main stem bronchi and sent for cytology and microbiolgy culture. Endobronchial biopsies were performed from the left main stem endobronchial lesion. Cold saline and epinephrine given at the site of lesion to control bleeding. The endobronchial ultrasound was introduced through the LMA. No significant hilar or mediastinal lymphadenopathy was identified. There was no significant bleeding noted from the endobronchial lesion at the site of biopsies. Procedure termitnated. Samples: 1. Bronchoalveolar lavage specimen from left lower lobe was sent for from stain and culture. Also sent for cytology. 2. The endobronchial biopsies are sent for histopathology. Complications: There was no immediate complications. Next of kin patient's son updated post procedure. Patient to follow-up with me in 1 week to discuss biopsy results. Pre-op Diagnosis: LLL mass Associated Problem List Diagnoses (1) Hemoptysis: (2) Abnormal CT of the chest: (3) Suspected lung cancer:
--- NOTE | 2021-04-19 14:51 | ANE.PACU2 ---
Inpatient post-anesthesia follow up: Airway intact: Yes Vital signs: Temperature 97.1 F Pulse Rate 73 Respiratory Rate 16 Blood Pressure 120/72 Pulse Oximetry 91 Oxygen Delivery Me thod Room Air Oxygen Flow Rate 7 Fraction of Inspir ed Oxygen Hydration adequate: Yes Nausea and vomiting: No Pain level: 1 Mental status: Baseline
[2021-04-25 10:39] LABS: PD-L1 (Clone 22C3) by IHC BBPL See Report
== END 2021-04-19 08:45 | disposition home or self-care (01) ==
PROVIDERS: PCP Family Medicine; Visit Provider Internal Medicine Pulmonary Disease
PROC: BB4BZZZ Ultrasonography of Pleura (ICD-10-PCS; principal; 2021-04-19 07:00)
PROC: 0BJ08ZZ Inspection of Tracheobronchial Tree, Via Natural or Artificial Opening Endoscopic (ICD-10-PCS; CPT 31622; 2021-04-19 07:00)
DX: R91.8 Other nonspecific abnormal finding of lung field (principal); R04.2 Hemoptysis; J43.9 Emphysema, unspecified; Z79.51 Long term (current) use of inhaled steroids; Z95.5 Presence of coronary angioplasty implant and graft; I25.10 Atherosclerotic heart disease of native coronary artery without angina pectoris; I10 Essential (primary) hypertension; E78.5 Hyperlipidemia, unspecified; Z86.73 Personal history of transient ischemic attack (TIA), and cerebral infarction without residual deficits
CPT/HCPCS: 31624; 31625; 80500; 87070; 87205; 88112; 88305; 88342; J0171; J1100; J2405; J2704; J3010; J3490; J7030

== ENCOUNTER 2021-04-25 13:32 | Outpatient (CLI) | payer MEDICARE, SELFPAY ==
--- NOTE | 2021-04-25 15:55 | ONC CON_ITS ---
Dr. Rodarte New Patient Note Patient: Nirmala Meléndez Unit #: [id number]: 1940 Dicatated By: Justyna Rodarte M.D.Date of Visit: Apr 25, 2021 Onc MED New Patient/Consult Referring Physician: Poncho Liang History of Present Illness: Ms. Nirmala Meléndez, is a 80-year-old female with a history of asthma, restrictive lung disease, coronary artery disease status post cardiac stents, as per patient in 2018 she developed off and on wheezing especially at night, at that time her PMD gave her inhalers which did help and her symptoms improved and then in November 2020 she again started having wheezing which was progressive, she was evaluated by PMD with chest x-ray , as per patient 'breathing test', probably PFT was done on December 03, 2020 which was consistent with mild airflow obstruction with no significant post bronchodilator response., Normal lung volumes and moderately reduced gas transfer, 56% subsequently in first week of March, as per patient she coughed up fresh blood, it was a large amount and again happened 4-3 times, as as per patient she was on Plavix and aspirin for cardiac stent which were placed in the left main on September 14, 2019, at that time her PMD stopped her Plavix, with that no more episode of hemoptysis and she underwent CT scan of chest on January 24, 2021 which showed no significant change since August 2019, moderate chronic emphysematous changes, stable mucous plugging left lower lobe bronchus with associated left lobe atelectasis medially. This has chronic appearance. Fibrotic appearing opacity right upper lobe extending to the lung apex is unchanged from previous, measuring 1.5 x 1.2 x 1.2 cm. She was referred to pulmonology for evaluation., Patient was seen by Dr. Liang, on April 08, 2021, Who ordered CT PET scan which was done on April 13, 2021 showed there is any minimal activity in the spiculated right upper lobe 1.1 x 1.7 cm, supporting a benign inflammatory diagnosis. There is a 1.8 x 3 cm mass in the left lower lobe hilum with SUV of 28.5, has high probability of malignancy. An FDG positive subaortic mediastinal lymph node consistent with local metastatic disease, On April 19, 2021 she underwent bronchoscopy and left lower lobe mass endobronchial biopsy showed squamous cell carcinoma, p63 positive, TTF-1 negative, Napsin negative, Ki-67 35% PD-L1 TPS 40% Past medical history positive for TIA, SVT, CKD, esophagitis, hypothyroidism, osteoporosis, dyslipidemia, Quit smoking 40 years ago Patient denies any headaches blurred vision double vision, denies any new bony pains, denies any weight loss, denies any recurrent hemoptysis, denies any jaundice denies any dysphagia, Past Medical History: Ms. Meléndez's medical history consists of asthma, atherosclerotic heart disease, chronic kidney disease, dyslipidemia, gastroesophageal reflux disease, history of TIA, hypothyroidism, myocardial infarction, osteoporosis, and supraventricular tachycardia. Past Surgical History: Ms. Meléndez's surgical/procedural history consists of coronary artery stent placement, covid vaccine #2 in 2020, and covid vaccine #1 in 2020. Medications: Adult Aspirin EC Low Strength (81 mg) Tablet, enteric coated Oral daily, Calcitonin ([place]) 1 (200 Units/act) Solution Nasal daily, Clopidogrel Bisulfate (75 mg) Tablet Oral daily, Ezetimibe (10 mg) Tablet Oral every am, Levothyroxine Sodium (75 mcg) Tablet Oral every am, Melatonin (3 mg) Tablet Oral at bedtime, Metamucil (28.3 %) Powder Oral daily, Metoprolol Tartrate (25 mg) Tablet Oral b.i.d., Nitroglycerin Tablet, sublingual Sublingual PRN, Pantoprazole Sodium (20 mg) Tablet, enteric coated Oral daily, Red Yeast Rice (600 mg) Tablet Oral daily, Tiotropium [place] Monohydrate 2 (1.25 mcg/act) Aerosol, solution Inhalation daily Allergies: Statins and Sulfa. Social History: Ms. Meléndez is . Ms. Meléndez quit smoking 41 years ago but had smoked 2.0 packs/day for 21 years. She has no history of drinking. Family History: Ms. Meléndez's father is : chronic kidney disease, and type II diabetes, and stroke, and clotting disorder, and suicide, and Cancer, and lung disease. Review Of Symptoms: Review of Systems is not available for this patient. Vital Signs: Performed on Apr 25, 2021 14:11: 0, 0, 21.77, 1.53 sq.m, 62 in, 97 %, 57 /min (LOW), 18 /min, 137/76 mm(hg), 98.4 F, and 119 lbs (HIGH). Performance Status: 0 - Fully active, able to carry on all predisease activities without restrictions. (ECOG) Physical Examination: ENMT - No mouth sores, no thrush, no jaundice, Respiratory - Lungs are clear to auscultation, Cardiovascular - Regular rate and rhythm of heart, Abdomen - Soft, bowel sounds present, Extremities - No visible edema. Lab/Imaging: Most recent lab results are not available for this patient. 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 FDG positive subaortic mediastinal lymph nodes. 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 As far as right upper lobe lung spiculated mass with a minimum uptake is concerned, probably inflammatory, will monitor Her case was discussed with Dr. Liang, timber cutter regarding subaortic lymph node biopsy, as per his evaluation is not possible via bronchoscopy, in that case, will refer her to Dr. Wing for evaluation for mediastinoscopic evaluation of subaortic lymph node, Patient return to clinic 1 week after mediastinoscopy for further evaluation Signed By: Justyna Rodarte M.D. <<Signature on File>>
== END 2021-04-25 13:33 | disposition home or self-care (01) ==
LOC: ONCMED 13:41
PROVIDERS: PCP Family Medicine; Visit Provider Internal Medicine Hematology & Oncology
DX: C34.32 Malignant neoplasm of lower lobe, left bronchus or lung (principal); C77.2 Secondary and unspecified malignant neoplasm of intra-abdominal lymph nodes; I25.10 Atherosclerotic heart disease of native coronary artery without angina pectoris; Z86.73 Personal history of transient ischemic attack (TIA), and cerebral infarction without residual deficits; I47.1 Supraventricular tachycardia; E03.9 Hypothyroidism, unspecified; M81.0 Age-related osteoporosis without current pathological fracture; Z79.899 Other long term (current) drug therapy
CPT/HCPCS: 99204

== ENCOUNTER 2021-04-27 07:56 | Observation (INO) | payer MEDICARE, SELFPAY ==
[2021-04-27] VITALS (9 sets, daily range): BP systolic 125–155; BP diastolic 67–82; PULSE 67–98; RESP 15–19; TEMP 36.4–36.7; O2SAT 91–98; BMI 21.4
--- NOTE | 2021-04-27 08:07 | ECG_ITS ---
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 Measurements Intervals [place] Rate: 71 P: 65 [place]: 222 QRS: -54 QRSD: 104 T: 57 QT: 393 QTc: 429 Interpretive Statements SINUS RHYTHM WITH SINUS ARRHYTHMIA WITH FIRST DEGREE AV BLOCK INCOMPLETE RIGHT BUNDLE BRANCH BLOCK [90+ ms QRS DURATION, TERMINAL R IN V1/V2, 40+ ms S IN I/aVL/V4/V5/V6] LEFT ANTERIOR FASCICULAR BLOCK [QRS AXIS <= -45, QR IN I, RS IN II] VOLTAGE CRITERIA FOR LVH [MEETS CRITERIA IN ONE OF: R(aVL), S(V1), R(V5), R(V5/V6)+S(V1)] POSSIBLE ANTEROLATERAL MYOCARDIAL INFARCTION [30 ms Q WAVE IN I/aVL/V3-V6], OF INDETERMINATE AGE Compared to ECG 01/25/2021 09:22:01 First degree AV block now present Myocardial infarct finding still present Electronically Signed On 04-28-2021 16:23:15 CDT by Buck Hall M.D. [id number] f
--- NOTE | 2021-04-27 08:12 | ED_ITS ---
HPI - General Adult General: Chief complaint: General Medical Stated complaint: COUGHING UP BLOOD Time Seen by Provider: 04/27/21 07:58 History of Present Illness: HPI narrative: Ms. Meléndez is an 80-year-old lady with significant past medical history of COPD, hypertension, hyperlipidemia, previous history of NSTEMI on aspirin and Plavix, and recent investigation for likely lung cancer presents to the emergency department due to hemoptysis. She reports the first time having these symptoms was at the start of March. She subsequently followed up with pulmonology and had bronchoscopy. She has been referred to outside hospital for lymph node biopsy after diagnosis of non-small cell lung cancer. She reports pain to baseline health and starting yesterday had multiple episodes of nontraumatic bright red blood in her sputum. This continued throughout the night and continued this morning at which point she decided to come to the emergency department. She denies associated signs of hypovolemia including lightheadedness, dizziness, shortness of breath, chest pain. Overall symptom intensity is moderate. Symptoms have since resolved since getting Zofran in the ambulance. She has not taken her medications this morning. No other specific exacerbating, provoking, or alleviating factors that the patient can think of. Review of Systems General: Reports: 10 or more systems reviewed and unremarkable except in HPI and below Narrative: CONSTITUTIONAL: denies fever, fatigue, weakness EYES - denies pain, denies loss of vision EARS - denies ear issues. NOSE - denies congestion or rhinorrhea. THROAT - denies sore throat or difficulty swallowing. CARDIOVASCULAR - denies chest pain and palpitations RESPIRATORY - denies shortness of breath. See HPI. GASTROINTESTINAL - denies abdominal pain, no nausea vomiting, no changes in bowel habits GENITOURINARY - denies dysuria or urinary frequency MUSCULOSKELETAL- denies deformity or pain SKIN - denies rashes or new changed skin lesions NEUROLOGIC - denies focal weakness or sensory changes HEMATOLOGIC/LYMPHATIC - denies easy bruising or lymphadenopathy. PFS ED PFS: Medical History (Updated 04/27/21 @ 12:33 by Femi Marion MD) Atherosclerotic heart disease of [place] coronary artery without angina pectoris Dyslipidemia statin intolerant, taking ezetimibe. Gastroesophageal reflux NSTEMI (non-ST elevated myocardial infarction) Supraventricular tachycardia TIA (transient ischemic attack) Surgical History History of coronary artery stent placement Family History Mother Hypertension Dementia CAD (coronary artery disease) Myocardial infarction Denies family history of Diabetes Clotting disorder Chronic kidney disease (CKD) Suicide Anesthesia complication Bleeding disorder Lung disease Cancer Stroke Social History Alcohol intake: never Physical Exam Narrative: EXAM NARRATIVE: GENERAL/CONSTITUTIONAL - well-appearing. No acute distress. Eyes - PERRL, no conjunctival injection ENMT - Atraumatic external nose and ears. Moist mucous membranes. No pharyngeal lesions appreciated. NECK - supple. trachea midline CARDIOVASCULAR - regular rate and rhythm. Peripheral pulses 2+ and equal RESPIRATORY -clear to auscultation with exception of posterior right base which has mildly coarse breath sounds. No retractions or accessory muscle use. No mera pplemental oxygen in place. ABDOMEN/GI - Nontender/Nondistended. No tenderness to percussion or evidence of peritonitis MSK - Extremities without obvious deformity or tenderness to palpation SKIN - Warm, Dry NEURO - alert and appropriately oriented. strength and sensation intact. Moves all extremities equally. PSYCH - Appropriate mood and affect Course ED course: - Patient was seen and evaluated by me at bedside - Patient placed on cardiac monitors, IV access obtained - Initial evaluation notable for no acute distress, nontoxic appearance. Supplemental oxygen in place which is new for the patient. Breath sounds coarse at the right base. - Labs notable for stable hemoglobin - Imaging notable for no evidence of pulmonary embolism or active arterial extravasation - Upon serial reexamination after treatment the patient was similar, she did have one episode of hemoptysis - Based on patient history, evaluation, labs, and imaging as interpreted the most likely cause of the patient's condition is unclear, however is concerning given use of antiplatelet agents and in the context of cancer. - The results of ED evaluation were discussed with the patient including plan for admission due to requirement for level of care not available if discharged to prevent significant worsening/deterioration. - Hospitalist service contacted and agreed to admit the patient for observation - Patient was admitted without further deterioration or significant events. Vital Signs: Vital signs: Vital Signs Temperature 97.9 F 04/28/21 03:33 Pulse Rate 59 L 04/28/21 03:33 Respiratory Rate 18 04/28/21 03:33 Blood Pressure 116/73 04/28/21 03:33 Pulse Oximetry 92 04/28/21 03:33 [facility] - General Adult Medical Records: Attestation: I reviewed the patient's medical records. Lab Data: Attestation: I reviewed the patient's lab results. Labs: Lab Results 04/27/21 04/27/21 04/27/21 Range/Units 08:20 08:20 08:20 WBC 7.0 (4.0-10.0) 10^3/ uL RBC 4.99 (4.1-5.3) 10^6/u L Hgb 14.6 (11.5-15.3) g/dL Hct 45.4 (37.0-47.0) % MCV 91.0 (81-99) fl MCH 29.3 (28.0-34.0) pg MCHC 32.2 (30.0-36.0) g/dL RDW 13.4 (12.1-15.1) % Plt Count 289 (130-400) 10^3/c mm MPV 9.6 (7.4-10.4) fL Neut % (Auto) 63.4 % Lymph % (Auto) 23.8 % [place] % (Auto) 9.6 % Eos % (Auto) 1.7 % Baso % (Auto) 1.1 % Neut # (Auto) 4.44 (1.8-7.7) 10^3/u L Lymph # (Auto) 1.7 (0.8-4.8) 10^3/u L [place] # (Auto) 0.7 (0.2-0.9) 10^3/u L Eos # (Auto) 0.1 (0.0-0.8) 10^3/u L Baso # (Auto) 0.1 (0.0-0.1) 10^3/u L Nucleated RBC % (a uto) 0 % Nucleated RBCs # 0.0 /100WBC ESR (0-15) mm/hr PT 13.20 (12.1-14.9) SECO NDS INR 0.97 (0.8-1.2) Sodium (136-145) mmol/L Potassium (3.5-5.1) mmol/L Chloride (98-107) mmol/L Carbon Dioxide (22-29) mmol/L Anion Gap (5-19) BUN (8-23) mg/dL Creatinine (0.5-0.9) mg/dL GFR Calculation Glucose (65-115) mg/dL Calculated Osmolal ity (285-295) mOsm/k g Calcium (8.5-10.5) mg/dL Troponin T Baselin e (0-10) ng/L Troponin T 120 Min [place] (0-10) ng/L Delta Troponin T (0-10) ABS# C-Reactive Protein (0.0-4.9) mg/L Procalcitonin (0-0.5) ng/mL Blood Type A Positive Rho(D) Type Positive / 4+ Antibody Screen Negative 04/27/21 04/27/21 04/27/21 Range/Units 08:20 08:20 08:20 WBC (4.0-10.0) 10^3/ uL RBC (4.1-5.3) 10^6/u L Hgb (11.5-15.3) g/dL Hct (37.0-47.0) % MCV (81-99) fl MCH (28.0-34.0) pg MCHC (30.0-36.0) g/dL RDW (12.1-15.1) % Plt Count (130-400) 10^3/c mm MPV (7.4-10.4) fL Neut % (Auto) % Lymph % (Auto) % [place] % (Auto) % Eos % (Auto) % Baso % (Auto) % Neut # (Auto) (1.8-7.7) 10^3/u L Lymph # (Auto) (0.8-4.8) 10^3/u L [place] # (Auto) (0.2-0.9) 10^3/u L Eos # (Auto) (0.0-0.8) 10^3/u L Baso # (Auto) (0.0-0.1) 10^3/u L Nucleated RBC % (a uto) % Nucleated RBCs # /100WBC ESR 12 (0-15) mm/hr PT (12.1-14.9) SECO NDS INR (0.8-1.2) Sodium 142 (136-145) mmol/L Potassium 4.2 (3.5-5.1) mmol/L Chloride 108 H (98-107) mmol/L Carbon Dioxide 26 (22-29) mmol/L Anion Gap 12.2 (5-19) BUN 17 (8-23) mg/dL Creatinine 0.8 (0.5-0.9) mg/dL GFR Calculation Not Reportable Glucose 96 (65-115) mg/dL Calculated Osmolal ity 295 (285-295) mOsm/k g Calcium 8.6 (8.5-10.5) mg/dL Troponin T Baselin e 12 H (0-10) ng/L Troponin T 120 Min [place] (0-10) ng/L Delta Troponin T (0-10) ABS# C-Reactive Protein (0.0-4.9) mg/L Procalcitonin (0-0.5) ng/mL Blood Type Rho(D) Type Antibody Screen 04/27/21 04/27/21 Range/Units 10:17 10:17 WBC (4.0-10.0) 10^3/ uL RBC (4.1-5.3) 10^6/u L Hgb (11.5-15.3) g/dL Hct (37.0-47.0) % MCV (81-99) fl MCH (28.0-34.0) pg MCHC (30.0-36.0) g/dL RDW (12.1-15.1) % Plt Count (130-400) 10^3/c mm MPV (7.4-10.4) fL Neut % (Auto) % Lymph % (Auto) % [place] % (Auto) % Eos % (Auto) % Baso % (Auto) % Neut # (Auto) (1.8-7.7) 10^3/u L Lymph # (Auto) (0.8-4.8) 10^3/u L [place] # (Auto) (0.2-0.9) 10^3/u L Eos # (Auto) (0.0-0.8) 10^3/u L Baso # (Auto) (0.0-0.1) 10^3/u L Nucleated RBC % (a uto) % Nucleated RBCs # /100WBC ESR (0-15) mm/hr PT (12.1-14.9) SECO NDS INR (0.8-1.2) Sodium (136-145) mmol/L Potassium (3.5-5.1) mmol/L Chloride (98-107) mmol/L Carbon Dioxide (22-29) mmol/L Anion Gap (5-19) BUN (8-23) mg/dL Creatinine (0.5-0.9) mg/dL GFR Calculation Glucose (65-115) mg/dL Calculated Osmolal ity (285-295) mOsm/k g Calcium (8.5-10.5) mg/dL Troponin T Baselin e (0-10) ng/L Troponin T 120 Min [place] 12.89 H (0-10) ng/L Delta Troponin T 0.89 (0-10) ABS# C-Reactive Protein 0.9 (0.0-4.9) mg/L Procalcitonin 0.02 (0-0.5) ng/mL Blood Type Rho(D) Type Antibody Screen EKG Data^: EKG 1: Attestation: I personally reviewed and interpreted this EKG as follows: EKG interpretation date: 04/27/21 EKG interpretation time: 08:11 Prior EKG tracings: available for review Ischemic changes: non-specific ST-T wave changes Interpretation: Twelve-lead EKG shows regular sinus rhythm at a rate of 71. WI interval 222, QRS duration 104, QTc 416. Left axis deviation. Interpretation: Sinus rhythm. First-degree AV block. Septal Q waves which are borderline pathologic. Computer generated interpretation: Chest CTA 04/27/21 08:13 IMPRESSION: 1. No evidence of pulmonary embolus or aortic aneurysm/dissection. 2. No active hemorrhage is identified during this examination. 3. There is mucous plugging and occlusion of the left lung bronchi at the level of the distal left mainstem bronchus. This has worsened since previous study. This may be due to an obstructing endobronchial lesion. 4. There is left pulmonary hilar enlargement which has increased since previous study and consistent with mass and adenopathy. 5. There is distal atelectasis in the left base similar to previous study. 6. Stable 5 mm noncalcified nodule in the right lower lobe. Radiation Dose CTDIVOL = (mGy): DLP = 1006.21 (mGy-cm) EKG 2: Attestation: I personally reviewed and interpreted this EKG as follows: EKG interpretation date: 04/27/21 EKG interpretation time: 10:24 Prior EKG tracings: available for review Ischemic changes: non-specific ST-T wave changes Interpretation: Twelve-lead EKG shows a regular sinus rhythm at a rate of 69. WI interval 221, QRS duration 108, QTc 416. Left axis deviation. Interpretation: Sinus rhythm. Similar to prior. Computer generated interpretation: Chest CTA 04/27/21 08:13 IMPRESSION: 1. No evidence of pulmonary embolus or aortic aneurysm/dissection. 2. No active hemorrhage is identified during this examination. 3. There is mucous plugging and occlusion of the left lung bronchi at the level of the distal left mainstem bronchus. This has worsened since previous study. This may be due to an obstructing endobronchial lesion. 4. There is left pulmonary hilar enlargement which has increased since previous study and consistent with mass and adenopathy. 5. There is distal atelectasis in the left base similar to previous study. 6. Stable 5 mm noncalcified nodule in the right lower lobe. Radiation Dose CTDIVOL = (mGy): DLP = 1006.21 (mGy-cm) Discharge Plan Discharge Patient Disposition: Admitted As Inpatient Admit Provider: Femi Marion Coding Level of Care Code ED Certified Hyperbaric Technician for Pieter Hidalgo
--- NOTE | 2021-04-27 08:13 | CTR_ITS ---
PROCEDURE INFORMATION: Exam: CTA Chest With Contrast Exam date and time: 04/27/2021 8:13 AM Age: 80 years old Clinical indication: Other: Hemoptysis; Patient HX: Delay images requested to R/O hemorrhage TECHNIQUE: Imaging protocol: Computed tomographic angiography of the chest with contrast. 3D rendering (Not supervised by radiologist): MIP and/or 3D reconstructed images were created by the technologist. Radiation optimization: All CT scans at this facility use at least one of these dose optimization techniques: automated exposure control; mA and/or kV adjustment per patient size (includes targeted exams where dose is matched to clinical indication); or iterative reconstruction. Contrast material: OMNI 350; Contrast volume: 82 ml; Contrast route: INTRAVENOUS (IV); COMPARISON: CTA Chest-Pulmonary Emb [id number] 09/13/2019 7:32 AM RADIATION DOSE METRICS: Total DLP (mGy-cm): 1006.21 FINDINGS: Pulmonary arteries: Normal. No pulmonary emboli. Aorta: There is calcification of the thoracic aorta but there is no aneurysm or obvious dissection. Lungs: Pulmonary emphysematous changes are present bilaterally. There is prominent mucous plugging of the left lung bronchi with occlusion of the distal left mainstem bronchus. This has worsened when compared to previous examination. An obstructing bronchial lesion may be present. There is left pulmonary hilar enlargement and adenopathy which is more prominent than on previous examination. There is distal atelectasis specially in the left lower lobe. There is spiculated density in the right upper lobe which is stable and probably fibrotic. There is a stable 5 mm noncalcified nodule in the right lower lobe. A benign calcified granuloma is present in the left upper lobe. Delayed imaging shows no definite active hemorrhage during the examination. Pleural spaces: Unremarkable. No pneumothorax. No pleural effusion. Heart: The heart is not enlarged. There is calcification of the coronary arteries. Lymph nodes: See Lungs finding. Bones/joints: Degenerative changes are present in the spine with scattered sclerosis and osteophytes. No acute bony abnormalities are seen. Soft tissues: Unremarkable. CT/CT angio chest PE protcl [id number] IMPRESSION: 1. No evidence of pulmonary embolus or aortic aneurysm/dissection. 2. No active hemorrhage is identified during this examination. 3. There is mucous plugging and occlusion of the left lung bronchi at the level of the distal left mainstem bronchus. This has worsened since previous study. This may be due to an obstructing endobronchial lesion. 4. There is left pulmonary hilar enlargement which has increased since previous study and consistent with mass and adenopathy. 5. There is distal atelectasis in the left base similar to previous study. 6. Stable 5 mm noncalcified nodule in the right lower lobe. Radiation Dose CTDIVOL = (mGy): DLP = 1006.21 (mGy-cm)
[2021-04-27 08:36] LABS: Basophils # 0.1 10^3/uL (0.0-0.1); Basophils % 1.1 %; Eosinophils # 0.1 10^3/uL (0.0-0.8); Eosinophils % 1.7 %; Hematocrit 45.4 % (37.0-47.0); Hemoglobin 14.6 g/dL (11.5-15.3); Lymphocytes # 1.7 10^3/uL (0.8-4.8); Lymphocytes % 23.8 %; Mean Corpuscular HGB Conc 32.2 g/dL (30.0-36.0); Mean Corpuscular Hemoglobin 29.3 pg (28.0-34.0); Mean Platelet Volume 9.6 fL (7.4-10.4); Monocytes # 0.7 10^3/uL (0.2-0.9); Monocytes % 9.6 %; Neutrophils # 4.44 10^3/uL (1.8-7.7); Neutrophils % 63.4 %; Nucleated Red Blood Cells % 0 %; Platelet Count 289 10^3/cmm (130-400); Red Blood Count 4.99 10^6/uL (4.1-5.3); Red Cell Distribution Width 13.4 % (12.1-15.1)
[2021-04-27 08:46] LABS: INR 0.97 (0.8-1.2)
[2021-04-27 08:54] LABS: Troponin(5th) Baseline 12 ng/L (0-10)
[2021-04-27 08:55] LABS: Anion Gap 12.2 (5-19); Blood Urea Nitrogen 17 mg/dL (8-23); Calcium 8.6 mg/dL (8.5-10.5); Carbon Dioxide 26 mmol/L (22-29); Chloride 108 mmol/L (98-107); Glucose 96 mg/dL (65-115); Osmolality Calculated 295 mOsm/kg (285-295); Potassium 4.2 mmol/L (3.5-5.1); Sodium 142 mmol/L (136-145)
[2021-04-27] MEDS: iohexol 350 mg/mL 100 mL Btl IV (09:17)
--- NOTE | 2021-04-27 10:07 | ECG_ITS ---
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 Measurements Intervals [place] Rate: 69 P: 60 WI: 221 QRS: -53 QRSD: 108 T: 43 QT: 397 QTc: 427 Interpretive Statements SINUS RHYTHM WITH FIRST DEGREE AV BLOCK INCOMPLETE RIGHT BUNDLE BRANCH BLOCK [90+ ms QRS DURATION, TERMINAL R IN V1/V2, 40+ ms S IN I/aVL/V4/V5/V6] LEFT ANTERIOR FASCICULAR BLOCK [QRS AXIS <= -45, QR IN I, RS IN II] VOLTAGE CRITERIA FOR LVH [MEETS CRITERIA IN ONE OF: R(aVL), S(V1), R(V5), R(V5/V6)+S(V1)] POSSIBLE SEPTAL MYOCARDIAL INFARCTION , PROBABLY OLD [30 ms Q WAVE IN V1/V2] POSSIBLE LATERAL MYOCARDIAL INFARCTION , PROBABLY OLD [30 ms Q WAVE IN I/aVL/V5/V6] Compared to ECG 04/27/2021 08:04:51 Sinus arrhythmia no longer present Myocardial infarct finding still present Electronically Signed On 04-28-2021 16:32:35 CDT by Buck Hall M.D. [id number]
[2021-04-27 10:52] LABS: Troponin 5 2HR 12.89 ng/L (0-10); Troponin 5 2HR Delta 0.89 ABS# (0-10)
--- NOTE | 2021-04-27 12:23 | PM.HP ---
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 Mckeon, her Plavix was held, she resumed Plavix afterwards, yesterday she developed recurrent hemoptysis. Patient tells me that her lung cancer first discovered when she was developing hemoptysis, and she was on Plavix at that time. Yesterday, she noticed coughing, and she started to develop minimal hemoptysis, no lightheaded, dizziness, no nausea, no vomiting, no fevers, no chills, no shortness of breath, no known sick contacts, no exposure to COVID-19. In the emergency room, she is normotensive, on room air, she had minimal hemoptysis in the emergency room, hemoglobin 14.6, CT angiogram of the chest did not show any acute hemorrhage, hospitalist team was called for observation admission given hemoptysis and that she is on Plavix and aspirin Review of Systems Const: Denies: fever(s), chills, fatigue or malaise Eyes: Denies: change in vision or blurry vision ENMT: Denies: nasal congestion Card: Denies: chest pain or palpitations Resp: Denies: dyspnea, productive cough, non-productive cough or wheezing GI: Denies: abdominal pain, nausea, vomiting, hematemesis, diarrhea, constipation, hematochezia or melena : Denies: flank pain, dysuria or urinary frequency Musc: Denies: neck pain or back pain Skin/Breast: Denies: rash Neuro: Denies: headache(s), dizziness or vertigo Endo: Denies: polyuria or polydipsia Medications/Allergies Home Medications Medication Instructions Recorded Confirmed Last Taken Type calcitonin (salmon) 1 spray INTRANASAL (ALT) DAILY 09/13/19 04/27/21 01/25/21 History left nare levothyroxine 75 mcg PO QAM 09/13/19 04/27/21 04/26/21 History melatonin 3 mg PO BEDTIME 09/13/19 04/27/21 04/26/21 History nitroglycerin [Nitrostat] 0.4 mg SUBLINGUAL Q5M PRN #30 tab 09/14/19 04/27/21 01/25/21 Rx NS metoprolol tartrate 25 mg tablet 25 mg PO BID 90 Days #180 tab 11/26/20 04/27/21 04/26/21 Rx aspirin 81 mg PO QAM 01/25/21 04/27/21 04/26/21 History clopidogrel 75 mg PO QAM 01/25/21 04/27/21 04/26/21 History ezetimibe [Zetia] 10 mg PO QAM 01/25/21 04/27/21 04/26/21 History pantoprazole 20 mg tablet,delayed 20 mg PO DAILY tab 03/12/21 04/27/21 04/26/21 History release red yeast rice 600 mg capsule 600 mg PO DAILY 04/08/21 04/27/21 04/26/21 History tiotropium bromide 2.5 2 puff INHALATION DAILY #4 g 04/19/21 04/27/21 04/26/21 Rx mcg/actuation mist for inhalation Allergies Allergy/AdvReac Type Severity Reaction Status Date / Time Sulfa (Sulfonamide Allergy Unknown ALGY-Bliste Verified 04/17/21 14:12 Antibiotics) r [id number]-[id number] Reductase Allergy ADR-Cramping Verified 04/17/21 14:12 Inhibitor of the Muscles PFSH Acute PFSH: Medical History (Updated 04/27/21 @ 12:33 by Femi Marion MD) Atherosclerotic heart disease of [place] coronary artery without angina pectoris Dyslipidemia statin intolerant, taking ezetimibe. Gastroesophageal reflux NSTEMI (non-ST elevated myocardial infarction) Supraventricular tachycardia TIA (transient ischemic attack) Surgical History History of coronary artery stent placement Family History Mother Hypertension Dementia CAD (coronary artery disease) Myocardial infarction Denies family history of Diabetes Clotting disorder Chronic kidney disease (CKD) Suicide Anesthesia complication Bleeding disorder Lung disease Cancer Stroke Social History Alcohol intake: never Vitals/I&O/Wt Last Vital Signs Temp 97.8 F 04/27/21 08:01 Pulse 71 04/27/21 09:59 Resp 16 04/27/21 09:59 BP 125/71 04/27/21 10:19 Pulse Ox 93 04/27/21 10:19 Weight last 48 hrs Weight 53.07 kg Physical Exam Const: COMMON NORMALS: no acute distress and patient oriented x3 Eye: COMMON NORMALS: Equal, round and reactive pupils present GENERAL EYE: appearance normal, both eyes and all related structures PUPIL: Yes Equal, round and reactive pupils present Neck/C-Spine: COMMON NORMALS: full ROM and no lymphadenopathy THYROID: Thyroid normal Lymph: LYMPHATIC: no lymphadenopathy noted Resp: COMMON NORMALS: normal respiratory effort, No retractions, No use of accessory muscles and clear to auscultation bilaterally AUSCULTATION: clear to auscultation bilaterally Cardio: COMMON NORMALS: regular rate, regular rhythm, S1 normal heart sound present, S2 normal heart sound present, No gallops present (Cardio), No clicks present (Cardio) and No murmurs present (Cardio) RATE: regular rate RHYTHM: regular rhythm HEART SOUNDS: S1 normal heart sound present and S2 normal heart sound present GI: COMMON NORMALS: Normal to inspection, nondistended, normoactive bowel sounds present, Soft to palpation, non-tender and No hepatosplenomegaly present Extremity: COMMON NORMALS: no pedal edema Neuro: COMMON NORMALS: patient oriented x3, CN's II-XII intact bilaterally and moves all extremities Psych: COMMON NORMALS: mental status grossly normal, Normal thought process present and cooperative THOUGHT PROCESS: Normal thought process present Data : 04/27/21 08:20 04/27/21 08:20 A&P Assessment and plan (1) Hemoptysis: -Minimal hemoptysis, currently saturating on room air -Hemoglobin 14.6 -CT angiogram of the chest shows no pulmonary emboli, no active hemorrhage, mucous plugging and occlusion of the left lung bronchi at the level of the distal left mainstem bronchus. This has worsened since previous study. This may be due to an obstructing endobronchial lesion. There is left pulmonary hilar enlargement which has increased since previous study and consistent with mass and adenopathy. -Antitussives, -Monitor for bleeding, monitor hemoglobin, -Continue aspirin -Hold Plavix, stent was placed on 08/2019 Status: Acute (2) Supraventricular tachycardia: Status: Acute (3) TIA (transient ischemic attack): Status: Acute (4) Squamous cell carcinoma of left lung: Status: Acute (5) Gastroesophageal reflux: Status: Acute (6) CAD (coronary artery disease): Status: Acute Attestations Medical Necessity Statement*: Patient course hospitalization, outpatient with observation minimal hemoptysis, with history of squamous cell lung cancer, CAD Coding Level of Care Code Acute Fiber Technologist for [facility] Fwd Diagnoses Hemoptysis R04.2 Supraventricular tachycardia I47.1 TIA (transient ischemic attack) G45.9 Squamous cell carcinoma of left lung C34.92 Gastroesophageal reflux K21.9 CAD (coronary artery disease) I25.10
[2021-04-27 13:10] LABS: Procalcitonin 0.02 ng/mL (0-0.5)
[2021-04-27 13:22] LABS: C Reactive Protein 0.9 mg/L (0.0-4.9)
[2021-04-27 13:35] LABS: Erythrocyte Sedimentation Rate 12 mm/hr (0-15)
--- NOTE | 2021-04-27 14:07 | ECG_ITS ---
[facility] Test Date: 2021-04-27 Pat Name: Nirmala Meléndez Department: Room: 277 Gender: Female Orthopedic Nurse: : 1940 Requested By: Víctor Bullock Order Number: [id number] Nikki MD: Buck Hall M.D. Measurements Intervals [place] Rate: 75 P: 65 CO: 210 QRS: -48 QRSD: 113 T: 59 QT: 371 QTc: 416 Interpretive Statements SINUS RHYTHM WITH FIRST DEGREE AV BLOCK POSSIBLE LEFT ATRIAL ENLARGEMENT [-0.1mV P WAVE IN V1/V2] INCOMPLETE RIGHT BUNDLE BRANCH BLOCK [90+ ms QRS DURATION, TERMINAL R IN V1/V2, 40+ ms S IN I/aVL/V4/V5/V6] LEFT ANTERIOR FASCICULAR BLOCK [QRS AXIS <= -45, QR IN I, RS IN II] LEFT VENTRICULAR HYPERTROPHY AND ST-T CHANGE [VOLTAGE CRITERIA PLUS ST/T ABNORMALITY] POSSIBLE SEPTAL MYOCARDIAL INFARCTION [30 ms Q WAVE IN V1/V2], OF INDETERMINATE AGE.PROBABLE LATERAL MYOCARDIAL INFARCTION [35 ms Q WAVE IN I/aVL/V5/V6], PROBABLY OLD WARNING: DATA QUALITY MAY AFFECT INTERPRETATION Compared to ECG 04/27/2021 10:21:00 ST (T wave) deviation now present.Myocardial infarct finding still present Electronically Signed On 04-28-2021 16:33:07 CDT by Buck Hall M.D. [email or web address]
[2021-04-27 17:04] LABS: Troponin 5 6HR 14.09 ng/L (0-10)
[2021-04-27 17:43] LABS: Troponin 5 6HR Delta 2.09 ng/L (0-12)
[2021-04-27] MEDS: metoprolol tartrate 25 mg Tablet PO (20:44)
[2021-04-28] VITALS: BP 106/65; PULSE 65; RESP 18; TEMP 36.6; O2SAT 91
[2021-04-28 03:33] VITALS: BP 116/73; PULSE 59; RESP 18; TEMP 36.6; O2SAT 92
[2021-04-28] MEDS: levothyroxine 75 mcg Tablet PO (05:28)
[2021-04-28] MEDS: aspirin 81 mg EC Tablet PO (05:28)
[2021-04-28] MEDS: ezetimibe 10 mg Tablet PO (05:28)
[2021-04-28 07:44] LABS: Basophils # 0.1 10^3/uL (0.0-0.1); Basophils % 0.8 %; Eosinophils # 0.2 10^3/uL (0.0-0.8); Eosinophils % 2.2 %; Hematocrit 45.9 % (37.0-47.0); Hemoglobin 14.4 g/dL (11.5-15.3); Lymphocytes # 1.8 10^3/uL (0.8-4.8); Lymphocytes % 24.4 %; Mean Corpuscular HGB Conc 31.4 g/dL (30.0-36.0); Mean Corpuscular Hemoglobin 29.2 pg (28.0-34.0); Mean Corpuscular Volume 93.1 fl (81-99); Mean Platelet Volume 9.8 fL (7.4-10.4); Monocytes # 0.8 10^3/uL (0.2-0.9); Neutrophils # 4.41 10^3/uL (1.8-7.7); Neutrophils % 61.5 %; Nucleated Red Blood Cells % 0 %; Platelet Count 276 10^3/cmm (130-400); Red Blood Count 4.93 10^6/uL (4.1-5.3); Red Cell Distribution Width 13.4 % (12.1-15.1); White Blood Count 7.2 10^3/uL (4.0-10.0)
[2021-04-28] MEDS: pantoprazole DR 40 mg Tablet PO (07:57)
[2021-04-28 08:00] VITALS: BP 100/61; PULSE 63; RESP 18; TEMP 36.6; O2SAT 93
[2021-04-28] MEDS: metoprolol tartrate 25 mg Tablet PO (08:04)
[2021-04-28 08:14] LABS: Alanine Aminotransferase 13 U/L (0-33); Albumin Level 3.6 g/dL (3.5-5.2); Alkaline Phosphatase 67 IU/L (35-105); Anion Gap 11.2 (5-19); Aspartate Amino Transferase 12 U/L (0-32); Blood Urea Nitrogen 16 mg/dL (8-23); Calcium 8.9 mg/dL (8.5-10.5); Carbon Dioxide 26 mmol/L (22-29); Chloride 107 mmol/L (98-107); Globulin 2.9 g/dL (1.3-4.6); Glucose 90 mg/dL (65-115); Magnesium 2.3 mg/dL (1.7-2.3); Osmolality Calculated 291 mOsm/kg (285-295); Potassium 4.2 mmol/L (3.5-5.1); Sodium 140 mmol/L (136-145); Total Bilirubin 0.5 mg/dL (0.15-1.2); Total Protein 6.5 g/dL (6.6-8.7)
[2021-04-28 09:10] VITALS: PULSE 63; RESP 17; O2SAT 93
--- NOTE | 2021-04-28 09:53 | PM.DCS ---
Discharge Providers Date of Admission: 04/27/21 11:13 Date of Discharge: April 28, 2021 Attending Provider at Admission: Femi Marion MD Attending Provider at Discharge: Femi Marion MD Primary Care Provider: Susan Romano MD Diagnoses at Discharge Discharge Diagnosis (1) Hemoptysis: Status: Acute (2) Supraventricular tachycardia: Status: Acute (3) TIA (transient ischemic attack): Status: Acute (4) Squamous cell carcinoma of left lung: Status: Acute (5) Gastroesophageal reflux: Status: Acute (6) CAD (coronary artery disease): Status: Acute Reason for Visit Reason for Visit: COUGHING UP BLOOD Hospital Course Hospital Course Nirmala Meléndez is a 80 year old female with a past medical history of asthma, restrictive lung disease, TIA, paroxysmal SVT, CAD status post 2 cardiac stents to left circumflex 09/02/2019, CKD, esophagitis, hypothyroidism, osteoporosis, dyslipidemia, has received both Covid vaccinations, with recent diagnosis of pathology 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 Mckeon, her Plavix was held, she resumed Plavix afterwards, yesterday she developed recurrent hemoptysis. Patient was [facility] to [facility] for minimal recurrent hemoptysis, CT imaging of the chest did not show any radiographic evidence of acute bleeding, no evidence of hemoptysis during her hospitalization, hemoglobin remained stable, Plavix was stopped, aspirin was continued, she was monitored for 24 hours. No recurrent hemoptysis, hemodynamically stable, hemoglobin remained stable, patient was discharged home with close follow-up with Dr. Berrios and hematology oncology as outpatient. Patient was advised to continue to hold Plavix until she sees Dr. Berrios, and Dr. Hall. She is more than a year out of her stent placement, however I discussed the risks and benefits, she voiced understanding, all questions answered, she has chest pain go to the emergency room. I have also sent antitussive medications to her pharmacy. Patient was advised that if she were to have recurrent minimal hemoptysis, she can use antitussive medications and follow-up with Dr. Downing sooner. However if she has significant hemoptysis, that is nonstopping, and associated with lightheadedness and dizziness go immediately to the emergency room. Physical Exam Const: COMMON NORMALS: no acute distress and patient oriented x3 Lymph: LYMPHATIC: no lymphadenopathy noted Resp: COMMON NORMALS: normal respiratory effort, No retractions, No use of accessory muscles and clear to auscultation bilaterally AUSCULTATION: clear to auscultation bilaterally Cardio: COMMON NORMALS: regular rate, regular rhythm, S1 normal heart sound present, S2 normal heart sound present, No gallops present (Cardio), No clicks present (Cardio) and No murmurs present (Cardio) RATE: regular rate RHYTHM: regular rhythm HEART SOUNDS: S1 normal heart sound present and S2 normal heart sound present GI: COMMON NORMALS: Normal to inspection, nondistended, normoactive bowel sounds present, Soft to palpation, non-tender and No hepatosplenomegaly present PALPATION: Yes Soft to palpation and Yes No hepatosplenomegaly present Extremity: COMMON NORMALS: no pedal edema Neuro: COMMON NORMALS: patient oriented x3 and moves all extremities Discharge Data Data Completed and Pending: Completed Studies During Hospitalization Category Date Time Status CT angio chest PE protcl [id number] Urge nt Cat Scan 04/27/21 08:13 Completed Pending at discharge Category Date Time Status Complete Blood Co unt w/Auto AM LABS Lab 04/29/21 04:00 Ordered Complete Blood Co unt w/Auto AM LABS Lab 04/30/21 04:00 Ordered Comprehensive Met abolic Panel AM LA BS Lab 04/29/21 04:00 Ordered Comprehensive Met abolic Panel AM LA BS Lab 04/30/21 04:00 Ordered Magnesium AM LABS Lab 04/29/21 04:00 Ordered Magnesium AM LABS Lab 04/30/21 04:00 Ordered Phosphorus AM LAB S Lab 04/29/21 04:00 Ordered Phosphorus AM LAB S Lab 04/30/21 04:00 Ordered Retype for Patiet s ABO/Rh Routine Lab 04/27/21 09:25 Ordered Sputum Culture an d Gram Stain Stat Lab 04/27/21 12:21 Uncollected Labs from last 24 hours 04/28/21 04/28/21 04/27/21 07:12 07:12 16:25 WBC 7.2 RBC 4.93 Hgb 14.4 Hct 45.9 MCV 93.1 MCH 29.2 MCHC 31.4 RDW 13.4 Plt Count 276 MPV 9.8 Neut % (Auto) 61.5 Lymph % (Auto) 24.4 [place] % (Auto) 11.0 Eos % (Auto) 2.2 Baso % (Auto) 0.8 Neut # (Auto) 4.41 Lymph # (Auto) 1.8 [place] # (Auto) 0.8 Eos # (Auto) 0.2 Baso # (Auto) 0.1 Nucleated RBC % (a uto) 0 Nucleated RBCs # 0.0 ESR PT 12.40 INR 0.90 Sodium 140 Potassium 4.2 Chloride 107 Carbon Dioxide 26 Anion Gap 11.2 BUN 16 Creatinine 0.8 GFR Calculation Not Reportable Glucose 90 Calculated Osmolal ity 291 Calcium 8.9 Phosphorus 3.0 Magnesium 2.3 Total Bilirubin 0.5 AST 12 ALT 13 Alkaline Phosphata se 67 Troponin T 120 Min [place] Delta Troponin T Troponin T Hi Sens 6Hr Troponin T Hi Sens 6Hr Delta C-Reactive Protein Total Protein 6.5 L Albumin 3.6 Globulin 2.9 Procalcitonin 04/27/21 04/27/21 04/27/21 16:25 10:17 10:17 WBC RBC Hgb Hct MCV MCH MCHC RDW Plt Count MPV Neut % (Auto) Lymph % (Auto) [place] % (Auto) Eos % (Auto) Baso % (Auto) Neut # (Auto) Lymph # (Auto) [place] # (Auto) Eos # (Auto) Baso # (Auto) Nucleated RBC % (a uto) Nucleated RBCs # ESR PT INR Sodium Potassium Chloride Carbon Dioxide Anion Gap BUN Creatinine GFR Calculation Glucose Calculated Osmolal ity Calcium Phosphorus Magnesium Total Bilirubin AST ALT Alkaline Phosphata se Troponin T 120 Min [place] 12.89 H Delta Troponin T 0.89 Troponin T Hi Sens 6Hr 14.09 H Troponin T Hi Sens 6Hr Delta 2.09 C-Reactive Protein 0.9 Total Protein Albumin Globulin Procalcitonin 0.02 04/27/21 08:20 WBC RBC Hgb Hct MCV MCH MCHC RDW Plt Count MPV Neut % (Auto) Lymph % (Auto) [place] % (Auto) Eos % (Auto) Baso % (Auto) Neut # (Auto) Lymph # (Auto) [place] # (Auto) Eos # (Auto) Baso # (Auto) Nucleated RBC % (a uto) Nucleated RBCs # ESR 12 PT INR Sodium Potassium Chloride Carbon Dioxide Anion Gap BUN Creatinine GFR Calculation Glucose Calculated Osmolal ity Calcium Phosphorus Magnesium Total Bilirubin AST ALT Alkaline Phosphata se Troponin T 120 Min [place] Delta Troponin T Troponin T Hi Sens 6Hr Troponin T Hi Sens 6Hr Delta C-Reactive Protein Total Protein Albumin Globulin Procalcitonin Vitals: Last Vital Signs Temp 97.8 F 04/28/21 08:00 Pulse 63 04/28/21 09:10 Resp 17 04/28/21 09:10 BP 100/61 04/28/21 08:00 Pulse Ox 93 04/28/21 09:10 Discharge Plan Discharge Patient Disposition: Home Condition: Stable Prescriptions: New benzonatate 100 mg Capsule 100 mg PO TID PRN (Reason: Cough) 15 Days Qty: 45 RF: 0 Continued pantoprazole 20 mg tablet,delayed release (DR/EC) 20 mg PO DAILY RF: 0 red yeast rice 600 mg capsule 600 mg PO DAILY RF: 0 melatonin 3 mg Tablet 3 mg PO BEDTIME RF: 0 levothyroxine 75 mcg Tablet 75 mcg PO QAM RF: 0 calcitonin (salmon) 200 unit/actuation [place],Non-Aerosol 1 spray INTRANASAL (ALT) DAILY RF: 0 metoprolol tartrate 25 mg tablet 25 mg PO BID 90 Days Qty: 180 RF: 3 Spiriva Respimat 2.5 mcg/actuation mist 2 puff inhalation DAILY Qty: 4 RF: 3 nitroglycerin [Nitrostat] 0.4 mg Tablet, Sublingual 0.4 mg sublingual Q5M PRN (Reason: Chest Pain) Qty: 30 RF: 0 aspirin 81 mg tablet,delayed release (DR/EC) 81 mg PO QAM RF: 0 ezetimibe [Zetia] 10 mg tablet 10 mg PO QAM RF: 0 Held clopidogrel 75 mg tablet 75 mg PO QAM RF: 0 Hold Instructions: Resume on 05/18/21. hold until you see dr berrios and dr hall Discharge Orders: Discharge Order (Routine); Ordered 04/28/21 Ordered By: Femi Marion Referrals: Poncho Berrios MD [Physician] - 1-3 days Buck Hall MD [Physician] - 1 week Discharge Diet: Regular Discharge Activity: Resume usual activity Patient Instructions: Opioid Safety Activity Restrictions/Additional Instructions: -Please monitor for hemoptysis, if minimal, can follow-up sooner with Dr. Aparicio, use antitussive -But if you have hemoptysis, and its significant, and will not stop, or you feel lightheaded or dizzy go to the emergency room -Continue to hold Plavix until you see Dr. Berrios, and Dr. Hall -You can continue aspirin Discharge Attestations Time Spent in Discharge Care*: less than 30 min Quality Metrics Clinical Quality Measures During this hospital stay, did patient experience: None Coding Level of Care Code Acute g [facility] note Diagnoses Hemoptysis R04.2 Supraventricular tachycardia I47.1 TIA (transient ischemic attack) G45.9 Squamous cell carcinoma of left lung C34.92 Gastroesophageal reflux K21.9 CAD (coronary artery disease) I25.10
[2021-04-28 11:54] VITALS: PULSE 63; RESP 17; O2SAT 93
--- NOTE | 2021-04-29 16:56 | PC.RESP ---
PULMONARY REHAB INFORMATION SENT TO PATIENT.
--- NOTE | 2021-05-01 13:01 | PC.SOCIAL ---
discharge follow up call made to patient. patient has made her follow up appointments with Dr. Hall and Dr. Liang both for 8-24. Patient was coughing up blood yesterday but today that has subsided.
== END 2021-04-28 11:55 | disposition home or self-care (01) ==
LOC: ER 12:05 → MEDSURG 12:48
PROVIDERS: Admitting Provider Family Medicine; Emergency Provider Emergency Medicine; PCP Family Medicine; Visit Provider Family Medicine
DX: R04.2 Hemoptysis (principal); I47.1 Supraventricular tachycardia; G45.9 Transient cerebral ischemic attack, unspecified; C34.92 Malignant neoplasm of unspecified part of left bronchus or lung; K21.9 Gastro-esophageal reflux disease without esophagitis; I25.10 Atherosclerotic heart disease of native coronary artery without angina pectoris; J45.909 Unspecified asthma, uncomplicated; Z86.73 Personal history of transient ischemic attack (TIA), and cerebral infarction without residual deficits; Z95.5 Presence of coronary angioplasty implant and graft; M81.0 Age-related osteoporosis without current pathological fracture; E78.5 Hyperlipidemia, unspecified; N18.9 Chronic kidney disease, unspecified; I25.2 Old myocardial infarction
CPT/HCPCS: 36415; 71275; 80048; 80053; 83735; 84100; 84145; 84484; 85025; 85610; 85651; 86140; 86850; 86900; 93005; 94664; 99285; G0378; Q9967

== ENCOUNTER 2021-05-16 13:45 | Outpatient (CLI) | payer MEDICARE, SELFPAY ==
[2021-05-16 15:00] LABS: Basophils # 0.1 10^3/uL (0.0-0.1); Eosinophils # 0.2 10^3/uL (0.0-0.8); Eosinophils % 2.6 %; Hemoglobin 14.3 g/dL (11.5-15.3); Lymphocytes # 2.1 10^3/uL (0.8-4.8); Lymphocytes % 28.8 %; Mean Corpuscular HGB Conc 31.8 g/dL (30.0-36.0); Mean Corpuscular Hemoglobin 29.4 pg (28.0-34.0); Mean Corpuscular Volume 92.6 fl (81-99); Mean Platelet Volume 10.2 fL (7.4-10.4); Monocytes # 0.8 10^3/uL (0.2-0.9); Monocytes % 11.3 %; Neutrophils # 4.04 10^3/uL (1.8-7.7); Nucleated Red Blood Cells % 0 %; Platelet Count 289 10^3/cmm (130-400); Red Blood Count 4.86 10^6/uL (4.1-5.3); Red Cell Distribution Width 13.4 % (12.1-15.1); White Blood Count 7.2 10^3/uL (4.0-10.0)
[2021-05-16 15:23] LABS: Alanine Aminotransferase 15 U/L (0-33); Alkaline Phosphatase 69 IU/L (35-105); Anion Gap 14.5 (5-19); Aspartate Amino Transferase 18 U/L (0-32); Blood Urea Nitrogen 13 mg/dL (8-23); Calcium 8.9 mg/dL (8.5-10.5); Carbon Dioxide 25 mmol/L (22-29); Chloride 105 mmol/L (98-107); Globulin 2.8 g/dL (1.3-4.6); Glucose 78 mg/dL (65-115); Osmolality Calculated 289 mOsm/kg (285-295); Potassium 4.5 mmol/L (3.5-5.1); Sodium 140 mmol/L (136-145); Total Bilirubin 0.2 mg/dL (0.15-1.2); Total Protein 6.8 g/dL (6.6-8.7)
--- NOTE | 2021-05-17 08:57 | ONC FU_ITS ---
Dr. Rodarte follow up note Patient: Nirmala Meléndez Unit #: [id number]: 1940 Dicatated By: Justyna Rodarte M.D.Date of Visit:May 16, 2021 Onc Med Follow-up/Prog Note History of Present Illness: Ms. Nirmala Meléndez, is a 80-year-old female with a history of asthma, restrictive lung disease, coronary artery disease status post cardiac stents, as per patient in 2018 she developed off and on wheezing especially at night, at that time her PMD gave her inhalers which did help and her symptoms improved and then in November 2020 she again started having wheezing which was progressive, she was evaluated by PMD with chest x-ray , as per patient 'breathing test', probably PFT was done on December 03, 2020 which was consistent with mild airflow obstruction with no significant post bronchodilator response., Normal lung volumes and moderately reduced gas transfer, 56% subsequently in first week of March, as per patient she coughed up fresh blood, it was a large amount and again happened 4-3 times, as as per patient she was on Plavix and aspirin for cardiac stent which were placed in the left main on September 14, 2019, at that time her PMD stopped her Plavix, with that no more episode of hemoptysis and she underwent CT scan of chest on January 24, 2021 which showed no significant change since August 2019, moderate chronic emphysematous changes, stable mucous plugging left lower lobe bronchus with associated left lobe atelectasis medially. This has chronic appearance. Fibrotic appearing opacity right upper lobe extending to the lung apex is unchanged from previous, measuring 1.5 x 1.2 x 1.2 cm. She was referred to pulmonology for evaluation., Patient was seen by Dr. Liang, on April 08, 2021, Who ordered CT PET scan which was done on April 13, 2021 showed there is any minimal activity in the spiculated right upper lobe 1.1 x 1.7 cm, supporting a benign inflammatory diagnosis. There is a 1.8 x 3 cm mass in the left lower lobe hilum with SUV of 28.5, has high probability of malignancy. An FDG positive subaortic mediastinal lymph node consistent with local metastatic disease, On April 19, 2021 she underwent bronchoscopy and left lower lobe mass endobronchial biopsy showed squamous cell carcinoma, p63 positive, TTF-1 negative, Napsin negative, Ki-67 35% PD-L1 TPS 40% Past medical history positive for TIA, SVT, CKD, esophagitis, hypothyroidism, osteoporosis, dyslipidemia Patient denies any headaches blurred vision double vision, denies any new bony pains, denies any weight loss, denies any recurrent hemoptysis, denies any jaundice denies any dysphagia,Came for follow-up, denies any specific complaints, no fever chills, no nausea or vomiting, no diarrhea or constipation, no hemoptysis or hematemesis, no chest pain, no dysphagia, no blurred vision double vision, patient was referred to cardiothoracic surgery at [facility] and she was seen by Dr. Parikh, on May 09, 2021 and as per patient she was told that surgical resection is not possible rather proceed with chemoradiation,. Patient is here to discuss treatment options. Medications: Adult Aspirin EC Low Strength (81 mg) Tablet, enteric coated Oral daily, Calcitonin ([place]) 1 (200 Units/act) Solution Nasal daily, Clopidogrel Bisulfate (75 mg) Tablet Oral daily, Ezetimibe (10 mg) Tablet Oral every am, Levothyroxine Sodium (75 mcg) Tablet Oral every am, Melatonin (3 mg) Tablet Oral at bedtime, Metamucil (28.3 %) Powder Oral daily, Metoprolol Tartrate (25 mg) Tablet Oral b.i.d., Nitroglycerin Tablet, sublingual Sublingual PRN, Pantoprazole Sodium (20 mg) Tablet, enteric coated Oral daily, Red Yeast Rice (600 mg) Tablet Oral daily, Tiotropium [place] Monohydrate 2 (1.25 mcg/act) Aerosol, solution Inhalation daily Allergies: Statins and Sulfa. Review of Systems: Review of Systems is not available for this patient. Vital Signs: Performed on May 16, 2021 15:59 Height - 62.00 in Weight - 118.6 lbs (LOW) BSA - 1.53 sq.m BMI - 21.69 Temperature - 97.2 F (LOW) Pulse - 64 /min Respiration - 18 /min BP - 123/77 mm(hg) O2 Sat - 99 % Pain - 0 Fatigue - 0 Performance Status: 0 - Fully active, able to carry on all predisease activities without restrictions. (ECOG) Physical Examination: ENMT - . No mouth sores, no thrush, no jaundice, Respiratory - Lungs are clear to auscultation, Cardiovascular - Regular rate and rhythm of heart, Abdomen - Soft, bowel sounds present, Extremities - No visible edema. Lab/Imaging: Most recent lab results are not available for this patient. 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 FDG positive subaortic mediastinal lymph nodes. 1.1 x 1.7 cm spiculated lesion with minimal activity in the right upper lobe, probably benign inflammatory Clinical stage Ia versus 3A if subaortic lymph node positive for metastatic disease Coronary artery disease status post stenting September 2019 TIA SVT Hypothyroidism Osteoporosis Plan: Discussed with patient regarding her labs white blood count 7.2 hemoglobin 14.3 hematocrit 45 platelets 289,000 CMP within normal limits Clinically, patient is doing well with no new signs symptom, patient was referred to cardiothoracic surgery at [facility] regarding evaluation of subaortic mediastinal lymph node, as if it is positive, then will upstage her disease, in that case she would require combined chemoradiation followed by maintenance immunotherapy for 12 months, on the other hand if subaortic lymph node is negative then she would be evaluated for SBRT, or radiation alone versus chemoradiation, and may not benefit from maintenance immunotherapy. Case was discussed with Dr. Parikh today, he agreed to evaluate her for subaortic lymph node biopsy with EBUS., If lymph node is positive, then will consider Port-A-Cath placement to facilitate chemotherapy concurrent with radiation therapy and maintenance immunotherapy and also consider MRI scan of the brain to complete staging work-up. Patient return to clinic 1 week after her subaortic lymph node evaluation at [facility] Signed By: Justyna Rodarte M.D. <<Signature on File>>
== END 2021-05-16 13:46 | disposition home or self-care (01) ==
LOC: ONCMED 13:48
PROVIDERS: PCP Family Medicine; Visit Provider Internal Medicine Hematology & Oncology
DX: C34.32 Malignant neoplasm of lower lobe, left bronchus or lung (principal); I25.10 Atherosclerotic heart disease of native coronary artery without angina pectoris; E03.9 Hypothyroidism, unspecified; Z95.5 Presence of coronary angioplasty implant and graft; Z79.82 Long term (current) use of aspirin; Z79.899 Other long term (current) drug therapy
CPT/HCPCS: 36415; 80053; 85025; 99214

== ENCOUNTER 2021-06-14 12:47 | Outpatient (CLI) | payer MEDICARE, SELFPAY ==
--- NOTE | 2021-06-14 13:00 | MR_ITS ---
WS: [id number] MRI HEAD WITH CONTRAST TECHNIQUE: Sagittal T1, T2 axial, T2 axial FLAIR, axial susceptibility weighted imaging, axial diffus ion weighted images, and coronal T2 images were obtained. Pre and post-T1 axial and post T1 coronal i mages. ADC and FSPGR images. CLINICAL INFORMATION: LUNG CA, INITIAL STAGING COMPARISON: CT September 27, 2019 FINDINGS: No evidence of restricted diffusion to suggest acute ischemia. Ventricular system and basal cisterns are patent. Moderate small vessel changes with moderate parenchymal volume loss. Normal posterior fos sa. Normal vascular flow voids at the skull base. No extra-axial fluid collections. No evidence of ma ss or mass effect. Paranasal sinuses and mastoid air cells are well aerated. No hemosiderin on the susceptibly weighted images. Normal optic chiasm and pituitary infundibulum. Moderate symmetric atrophy temporal lobes and hippocampal formations. Normal cavernous sinuses and Meckel's cave. No abnormal gadolinium enhancement. No evidence of enhancing intracranial metastatic disease. Normal dural venous sinuses. MR/MR head wo/w con [id number] IMPRESSION: 1. No evidence of restricted diffusion to suggest acute ischemia. 2. No evidence of enhancing intracranial metastatic disease. 3. Moderate small vessel changes with moderate parenchymal volume loss. 4. No extra-axial fluid collections. No evidence of mass or mass effect. 5. No hemosiderin on the susceptibly weighted images.
[2021-06-14] MEDS: gadobenate dimeglumine 20 mL vial IV (13:50)
== END 2021-06-14 12:48 | disposition home or self-care (01) ==
PROVIDERS: PCP Family Medicine; Visit Provider Internal Medicine Hematology & Oncology
DX: C34.32 Malignant neoplasm of lower lobe, left bronchus or lung (principal)
CPT/HCPCS: 70553; A9577

== ENCOUNTER → 2021-06-17 10:36 | Outpatient (BNVA) | payer OTHER, MEDICARE, SELFPAY | PROVIDERS: PCP Family Medicine; Referring Provider Internal Medicine Hematology & Oncology; Visit Provider Surgery | DX: Z20.822 Contact with and (suspected) exposure to COVID-19 (principal); C34.92 Malignant neoplasm of unspecified part of left bronchus or lung | CPT/HCPCS: 87635 ==

== ENCOUNTER 2021-06-19 09:52 | Outpatient (CLI) | payer MEDICARE, SELFPAY ==
--- NOTE | 2021-06-19 10:50 | N.ONRAD NP_ITS ---
Radiation Oncology Consultation Patient Name: Nirmala Meléndez Date of : 1940 Date of Service: 06/19/2021 Attending Physician: Juan Weathers M.D. Nirmala Meléndez was seen in consultation this morning at the request of Gurdeep Rodarte M.D. for consideration of thoracic radiotherapy in the management of a recently diagnosed non-small cell lung cancer. She was evaluated by Poncho Liang M.D. in March for evaluation of hemoptysis. A thoracic CT scan previously obtained in January revealed a 1.5 cm x 1.2 cm x 1.2 cm spiculated right upper lobe opacity that was unchanged from previous imaging in August 2019 and likely represented fibrosis. A PET CT ordered on April 13, 2021 revealed a 1.8 cm x 3 cm left lower lobe hilar mass with an SUV of 28.5. Hypermetabolic activity was noted in subaortic mediastinal lymph nodes representing local metastatic disease and minimal activity in the spiculated right upper lobe nodule likely indicating inflammation. A bronchoscopy with endobronchial ultrasound-guided biopsy performed on April 19, 2021 demonstrated an endobronchial lesion within the distal left mainstem bronchus occluding the entrance to the left upper lobe and left lower lobe bronchi. The biopsy from the left lower lobe mass diagnosed a squamous cell carcinoma with PD-L1 expression of 35% to 40%. Pulmonary function testing (November 2020) demonstrated an FVC of 2L (87% of predicted), an FEV1 of 1.4L (76% of predicted), and a DLCO of 12.2 mL/min/mmHg (56% of predicted). She was referred to [facility] in [place], [place] for a thoracic surgery consult and biopsy of the subaortic mediastinal lymph node. An EBUS was completed with biopsies of lymph node stations 4, 7 and 11 L. The left hilar lymph node biopsy was positive for metastatic squamous cell carcinoma. Cardiothoracic surgery did not recommend surgical intervention. An MRI of the head did not identify metastatic disease. The patient was evaluated for definitive thoracic radiotherapy. I discussed with Ms. Meléndez the AJCC clinical stage IIB (T1bN1) lung cancer corresponding to her disease. I also reviewed the National Comprehensive Cancer Network Guidelines recommending concurrent chemoradiotherapy in the management of lung cancer in patients who are medically inoperable. The classic study, RTOG 9410, comparing sequential versus concurrent chemoradiotherapy demonstrated an overall survival advantage for the concurrent chemoradiotherapy regimen and established the standard of care. I would endorse a six week course of thoracic radiotherapy. A computed tomographic radiotherapy planning scan in the treatment position will be performed and co-registered to the patient's staging PET CT scan to identify the gross tumor volume. The potential toxicities of thoracic radiotherapy were reviewed. The patient has verbalized understanding would like to proceed as recommended. The patient???s treatment plan was discussed with Gurdeep Rodarte M.D. Signed by: Dr. Juan Weathers 06/19/2021 10:49:29 AM
== END 2021-06-19 09:53 | disposition home or self-care (01) ==
PROVIDERS: PCP Family Medicine; Visit Provider Radiology Radiation Oncology
DX: C34.11 Malignant neoplasm of upper lobe, right bronchus or lung (principal); C78.02 Secondary malignant neoplasm of left lung; C77.8 Secondary and unspecified malignant neoplasm of lymph nodes of multiple regions; Z79.899 Other long term (current) drug therapy
CPT/HCPCS: 99205

== ENCOUNTER 2021-06-24 07:12 | Day surgery (SDC) | payer MEDICARE, SELFPAY ==
[2021-06-21 15:09] VITALS: BMI 21.2
--- NOTE | 2021-06-24 | SCC_ITS ---
Procedure Done: 1. Placement of PowerPort in the right internal jugular vein 2. Fluoroscopic guidance and interpretation for placement of catheter 3. Ultrasound guidance to access the right internal jugular vein 54.5 seconds of fluoroscopic guidance, for a cumulative dose of 6.80 mGy, was provided to Dr. Pham by the radiology department. C-arm images of the chest were saved for the patient's permanent record. [facility]
--- NOTE | 2021-06-24 07:28 | W.PM.OPSUD ---
Surgery/Procedure H&P Update DATE OF PROCEDURE: June 24, 2021 DATE H&P PERFORMED: 06/17/21 H&P UPDATE INFORMATION: I have reviewed H&P completed within last 30 days, I have examined patient prior to procedure and No changes to prior documentation PREOP DIAGNOSIS: LLL mass PLANNED PROCEDURE: Operation Date: 06/24/21 08:30 Proposed Procedures p Portacath Placement 12455 C32.92(Not Applicable) - Rod Pham MD
--- NOTE | 2021-06-24 07:47 | SC_ITS ---
WS: [id number] C-ARM RADIOGRAPHS CHEST; 4 IMAGES HISTORY: portacath insertion COMPARISON: None available. Intraoperative imaging during LEFT Port-A-Cath insertion. There is a Port-A-Cath overlying the RIGHT thorax with tip directed towards the RIGHT heart. The distal catheter extension is not well visualize d by this imaging technique. SC/C-arm FL for CVA [id number] IMPRESSION: Intraoperative imaging during RIGHT Mediport placement.
--- NOTE | 2021-06-24 08:11 | ANES.PREANE2 ---
Pre-Anesthetic Assessment Pre-Anesthetic Assessment: Height/Weight: Height 1.57 m Weight 52.617 kg Preop Diagnosis: Lung CA Proposed Procedure: Operation Date: 06/24/21 08:30 Proposed Procedures p Portacath Placement 12595 C32.92(Not Applicable) - Rod Pham MD Familial anesthetic complications: PONV - on one occassion Was Beta Gamaliel taken within 24 hours: Yes Was Clonidine taken within 24 hours: N/A Last intake: Intake Last Liquid Date 06/23/21 Last Liquid Time 22:00 Last Solid Date 06/23/21 Last Solid Time 12:00 Social: Social History: No alcohol and No tobacco Comment: former smoker Exam: Pre-Anes Outpt Exam: alert, oriented x 3, clear to auscultation bilaterally and regular rate & rhythm Airway: Cervical ROM: WNL MP: 2 Dentition: Partials (states difficult to remove, asked to remove) Pulmonary: Pulmonary: COPD Comments: Lung SCC CV/HEM: CV/HEM: Arrythmia (SVT), CAD, HTN and AL (NSTEMI) Comments: Echo CONCLUSIONS 1. Normal left ventricular cavity size and systolic function. Left ventricular ejection fraction is estimated at 60 %. No regional wall motion abnormalities. 2. Mild mitral valve regurgitation. 3. Moderate tricuspid valve regurgitation. 4. Pulmonary artery pressure estimated at 38 mmHg. 5. Compared to previous echocardiogram dated 03/23/2019, tricuspid valve regurgitation has worsened. Holter Conclusion: 1. The baseline rhythm was found to be sinus bradycardia with a rate of 57 bpm 2. Symptoms of's passing out spells were not found to be associated with any significant arrhythmias. Asymptomatic runs of short episodes of narrow complex and wide complex tachycardia were noted, the longest one was of 12 beats 3. [No previous similar studies, available for comparison] GI: GI: GERD Metabolic: Metabolic: Hyperlipidemia and Thyroid Neuropsych: Neuropsych: TIA Anesthetic Plan: ASA status: 4 Anesthesia: MAC Risk of > 500 ml blood loss (7ml/kg in children): No PFSH Anesthesia PFSH: Medical History Atherosclerotic heart disease of [place] coronary artery without angina pectoris Dyslipidemia statin intolerant, taking ezetimibe. Gastroesophageal reflux NSTEMI (non-ST elevated myocardial infarction) Supraventricular tachycardia TIA (transient ischemic attack) Surgical History (Updated 06/17/21 @ 10:26 by Rod Pham MD) History of bronchoscopy History of coronary artery stent placement Status post colonoscopy Family History Mother Hypertension Dementia CAD (coronary artery disease) Myocardial infarction Denies family history of Diabetes Clotting disorder Chronic kidney disease (CKD) Suicide Anesthesia complication Bleeding disorder Lung disease Cancer Stroke Social History Quit status (tobacco): has quit using tobacco Former quit date comment: 3ppd x 20 years Alcohol intake: never Data Anesthesia Cardiac Studies: Holter Monitor 03/09/20
[2021-06-24 08:15] VITALS: BP 148/75; PULSE 59; RESP 18; TEMP 36.8; O2SAT 97
[2021-06-24] MEDS: sodium chloride 0.9% 1,000 ML 30 ML IV (08:21)
[2021-06-24] MEDS: heparin, porcine 1,000 unit/mL INJ 10 mL 10000 UNIT INJECTION (09:00)
[2021-06-24] MEDS: lidocaine 1% INJ 20 mL INJECTION (09:00)
[2021-06-24 09:30] VITALS: BP 136/93; PULSE 62; RESP 19; TEMP 36.3; O2SAT 98
[2021-06-24 09:35] VITALS: BP 128/66; PULSE 61; RESP 20; O2SAT 95
--- NOTE | 2021-06-24 09:35 | PM.OP ---
Operative Report Date of procedure: June 24, 2021 Pre-op Diagnosis: Left lung cancer Post-op diagnosis: same Procedure Done: 1. Placement of PowerPort in the right internal jugular vein 2. Fluoroscopic guidance and interpretation for placement of catheter 3. Ultrasound guidance to access the right internal jugular vein Pathology: none sent Surgeon: Rod Pham Anesthesia: MAC Condition: stable Disposition: PACU Procedure: The patient was taken to the Operating Room and the chest and neck bilaterally were prepped and draped in a sterile manner after the antibiotic had been administered and shoulder rolls had been placed. 1% lidocaine with 0.5% Marcaine was infiltrated at the side at the site of the planned around the right internal jugular vein. An ultrasound of the right internal jugular vein revealed patent flow, no thrombus. An introducer needle was then used to access the right internal jugular vein and after withdrawing blood syringe was removed and a guidewire passed under fluoroscopy into the superior vena cava. The site of the planned port was then marked on the chest and a 15 blade was used to make a 3 cm skin incision this was extended into the subcutaneous tissue using electrocautery and a subcutaneous pocket over the pectoralis fascia was created 2-0 Vicryl suture was used to suture the port to the pectoral fascia in the pocket on 3 sides. The catheter, after having been flushed with hep saline, was attached to the tunneler and a tunnel created between the port site and the internal jugular vein entry site. Under fluoroscopy the dilator sheath was passed over the guidewire into the proximal superior vena cava. The inner dilator was removed and the sheath left behind and the catheter was introduced through the peel-away sheath with the tip in the superior vena cava. The peel-away sheath was removed. The proximal end of the catheter was cut to the right size and was attached to the port. Using a Jaquez needle the port was accessed, it withdrew blood easily and flushed easily. A final 5cc of heparin was used to flush the PowerPort. The subcutaneous tissue was approximated using interrupted 3-0 Vicryl sutures and the skin at the introducer site and the port site was closed using subcuticular running 4-0 Monocryl sutures. Surgical glue was applied and the patient was stable throughout the procedure. Fluoroscopic guidance and interpretation was performed for introduction of the guidewire in the right internal jugular vein, passage of dilator and placement of catheter tip in the distal superior vena cava
[2021-06-24 09:40] VITALS: BP 133/71; PULSE 61; RESP 17; O2SAT 95
[2021-06-24 09:45] VITALS: BP 116/61; PULSE 60; RESP 17; TEMP 36.6; O2SAT 94
[2021-06-24 10:15] VITALS: BP 148/75; PULSE 63; RESP 18; O2SAT 96
--- NOTE | 2021-06-24 15:17 | ANE.PACU2 ---
Inpatient post-anesthesia follow up: Airway intact: Yes Vital signs: Temperature 97.9 F Pulse Rate 63 Respiratory Rate 18 Blood Pressure 148/75 Pulse Oximetry 96 Oxygen Delivery Me thod Room Air Oxygen Flow Rate Fraction of Inspir ed Oxygen Hydration adequate: Yes Nausea and vomiting: No Pain level: 1 Mental status: Baseline
== END 2021-06-24 11:07 | disposition home or self-care (01) ==
PROVIDERS: PCP Family Medicine; Visit Provider Surgery
PROC: (CPT 36561; principal; 2021-06-24 08:30)
DX: C34.92 Malignant neoplasm of unspecified part of left bronchus or lung (principal); Z87.891 Personal history of nicotine dependence; J44.9 Chronic obstructive pulmonary disease, unspecified; I25.10 Atherosclerotic heart disease of native coronary artery without angina pectoris; I10 Essential (primary) hypertension; I25.2 Old myocardial infarction; E78.5 Hyperlipidemia, unspecified; Z82.49 Family history of ischemic heart disease and other diseases of the circulatory system
CPT/HCPCS: 36561; 76000; 77001; C1788; J0690; J1644; J2250; J2704; J3010; J3490; J7030

== ENCOUNTER 2021-07-12 06:19 | Outpatient (RCR) | payer MEDICARE, SELFPAY ==
--- NOTE | 2021-06-25 | CT_ITS ---
Radiation Therapy Planning CT images; total exam DLP: 367.98 mGy-cm MTDD
[2021-06-25] MEDS: iodixanol 320 mg/mL 100mL Btl (RAD THERAPY ONLY) IV (08:15)
[2021-07-01 09:24] LABS: Basophils % 0.3 %; Hematocrit 45.7 % (37.0-47.0); Hemoglobin 14.9 g/dL (11.5-15.3); Lymphocytes % 15.2 %; Mean Corpuscular HGB Conc 32.6 g/dL (30.0-36.0); Mean Corpuscular Hemoglobin 29.5 pg (28.0-34.0); Mean Corpuscular Volume 90.5 fl (81-99); Mean Platelet Volume 10.2 fL (7.4-10.4); Monocytes # 0.1 10^3/uL (0.2-0.9); Monocytes % 0.7 %; Neutrophils # 5.59 10^3/uL (1.8-7.7); Neutrophils % 83.2 %; Nucleated Red Blood Cells % 0 %; Platelet Count 251 10^3/cmm (130-400); Red Blood Count 5.05 10^6/uL (4.1-5.3); Red Cell Distribution Width 13.2 % (12.1-15.1); White Blood Count 6.7 10^3/uL (4.0-10.0)
[2021-07-01] MEDS: sodium chloride 0.9% 250 ML 75 ML IV (09:45)
[2021-07-01 09:46] LABS: Alanine Aminotransferase 15 U/L (0-33); Alkaline Phosphatase 72 IU/L (35-105); Anion Gap 18.2 (5-19); Aspartate Amino Transferase 18 U/L (0-32); Blood Urea Nitrogen 18 mg/dL (8-23); Calcium 9.4 mg/dL (8.5-10.5); Carbon Dioxide 20 mmol/L (22-29); Chloride 101 mmol/L (98-107); Globulin 3.5 g/dL (1.3-4.6); Glucose 232 mg/dL (65-115); Osmolality Calculated 289 mOsm/kg (285-295); Potassium 4.2 mmol/L (3.5-5.1); Sodium 135 mmol/L (136-145); Total Bilirubin 0.4 mg/dL (0.15-1.2); Total Protein 7.5 g/dL (6.6-8.7)
--- NOTE | 2021-07-01 10:22 | ONCRAD TMN_ITS ---
Radiation Oncology Treatment Management Note Patient Name: Nirmala Meléndez Date of : 1940 Date of Service: 07/01/2021 Attending Physician: Juan Weathers M.D. 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 A PET CT ordered on April 13, 2021 revealed a 1.8 cm x 3 cm left lower lobe hilar mass with an SUV of 28.5. Hypermetabolic activity was noted in subaortic mediastinal lymph nodes representing local metastatic disease and minimal activity in the spiculated right upper lobe nodule likely indicating inflammation. A bronchoscopy with endobronchial ultrasound-guided biopsy performed on April 19, 2021 demonstrated an endobronchial lesion within the distal left mainstem bronchus occluding the entrance to the left upper lobe and left lower lobe bronchi. The biopsy from the left lower lobe mass diagnosed a squamous cell carcinoma with PD-L1 expression of 35% to 40%. She was referred to [facility] in [place], [place] for a thoracic surgery consult and biopsy of the subaortic mediastinal lymph node. An EBUS was completed with biopsies of lymph node stations 4, 7 and 11 L. The left hilar lymph node biopsy was positive for metastatic squamous cell carcinoma. Cardiothoracic surgery did not recommend surgical intervention. The patient has received 2 Gy of a prescribed 60 Barker with an intensity modulated radiotherapy plan utilizing a step and shoot treatment technique. She has been prescribed carboplatin (AUC 2) and paclitaxel (50 mg/m???) weekly during therapy. Upon review of systems, she denied pulmonary symptoms. On physical examination, the patient weighed 118 lbs. Her temperature was 97.8 ???F and the blood pressure was 136/79 mmHg. The pulse was 78 bpm and her respiratory rate was 18. Oxygen saturation while breathing room air was 98%. There was no erythema within the treatment stephens. Continue thoracic radiotherapy as prescribed. Signed by: Dr. Juan Weathers 07/01/2021 10:20:28 AM
[2021-07-01] MEDS: palonosetron 0.25 mg/5 mL SDV IV (10:40)
[2021-07-01] MEDS: famotidine 20 mg/2 mL INJ IVP (10:41)
[2021-07-01] MEDS: diphenhydrAMINE 50 mg/mL SDV 1mL 25 MG IV (10:42)
[2021-07-08 09:43] LABS: Basophils % 0.6 %; Hematocrit 42.3 % (37.0-47.0); Hemoglobin 13.4 g/dL (11.5-15.3); Lymphocytes # 0.4 10^3/uL (0.8-4.8); Lymphocytes % 7.6 %; Mean Corpuscular HGB Conc 31.7 g/dL (30.0-36.0); Mean Corpuscular Hemoglobin 28.7 pg (28.0-34.0); Mean Corpuscular Volume 90.6 fl (81-99); Mean Platelet Volume 9.9 fL (7.4-10.4); Monocytes % 0.4 %; Neutrophils # 4.23 10^3/uL (1.8-7.7); Neutrophils % 89.7 %; Nucleated Red Blood Cells % 0 %; Platelet Count 294 10^3/cmm (130-400); Red Blood Count 4.67 10^6/uL (4.1-5.3); Red Cell Distribution Width 13.1 % (12.1-15.1); White Blood Count 4.7 10^3/uL (4.0-10.0)
[2021-07-08 10:09] LABS: Alanine Aminotransferase 18 U/L (0-33); Alkaline Phosphatase 59 IU/L (35-105); Anion Gap 18.5 (5-19); Aspartate Amino Transferase 13 U/L (0-32); Blood Urea Nitrogen 21 mg/dL (8-23); Calcium 9.4 mg/dL (8.5-10.5); Carbon Dioxide 21 mmol/L (22-29); Chloride 101 mmol/L (98-107); Glucose 146 mg/dL (65-115); Osmolality Calculated 288 mOsm/kg (285-295); Potassium 4.5 mmol/L (3.5-5.1); Sodium 136 mmol/L (136-145); Total Bilirubin 0.5 mg/dL (0.15-1.2)
--- NOTE | 2021-07-08 10:13 | ONCRAD TMN_ITS ---
Radiation Oncology Treatment Management Note Patient Name: Nirmala Meléndez Date of : 1940 Date of Service: 07/08/2021 Attending Physician: Juan Weathers M.D. 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 A PET CT ordered on April 13, 2021 revealed a 1.8 cm x 3 cm left lower lobe hilar mass with an SUV of 28.5. Hypermetabolic activity was noted in subaortic mediastinal lymph nodes representing local metastatic disease and minimal activity in the spiculated right upper lobe nodule likely indicating inflammation. A bronchoscopy with endobronchial ultrasound-guided biopsy performed on April 19, 2021 demonstrated an endobronchial lesion within the distal left mainstem bronchus occluding the entrance to the left upper lobe and left lower lobe bronchi. The biopsy from the left lower lobe mass diagnosed a squamous cell carcinoma with PD-L1 expression of 35% to 40%. She was referred to [facility] [place] [facility] in [place], [place] for a thoracic surgery consult and biopsy of the subaortic mediastinal lymph node. An EBUS was completed with biopsies of lymph node stations 4, 7 and 11 L. The left hilar lymph node biopsy was positive for metastatic squamous cell carcinoma. Cardiothoracic surgery did not recommend surgical intervention. The patient has received 12 Gy of a prescribed 60 Barker with an intensity modulated radiotherapy plan utilizing a step and shoot treatment technique. She has been prescribed carboplatin (AUC 2) and paclitaxel (50 mg/m???) weekly during therapy. Upon review of systems, she denied pulmonary symptoms. On physical examination, the patient weighed 118 lbs. Her temperature was 98.1 ???F and the blood pressure was 123/69 mmHg. The pulse was 72 bpm and her respiratory rate was 18. Oxygen saturation while breathing room air was 97%. There was no erythema within the treatment stephens. Bilateral lower lung rales were auscultated. Continue thoracic radiotherapy as planned. Signed by: Dr. Juan Weathers 07/08/2021 10:12:32 AM
[2021-07-08] MEDS: sodium chloride 0.9% 250 ML 75 ML IV (11:30)
[2021-07-08] MEDS: palonosetron 0.25 mg/5 mL SDV IV (11:30)
[2021-07-08] MEDS: famotidine 20 mg/2 mL INJ IVP (11:31)
[2021-07-08] MEDS: diphenhydrAMINE 50 mg/mL SDV 1mL 25 MG IV (11:35)
--- NOTE | 2021-07-19 14:18 | ONC FU_ITS ---
[facility] Patient Note Patient: Nirmala Meléndez Unit #: [id number]: 1940 Dictated By: Ramona BustillosDate of Visit: Jul 08, 2021 Onc MED Follow-Up/Prog Note Chief Complaint: Lung cancer History of Present Illness: Ms. Meléndez is a 80-year-old female with a history of asthma, restrictive lung disease, coronary artery disease status post cardiac stents. Ms Meléndez reports in 2018 she developed off and on wheezing especially at night, [facility] PMD gave her inhalers which did help and her symptoms improved. and then In November 2020 she again started having wheezing which was progressive. She she was evaluated by PMD with chest x-ray , as per patient 'breathing test', probably PFT was done on December 03, 2020 which was consistent with mild airflow obstruction with no significant post bronchodilator response., Normal lung volumes and moderately reduced gas transfer, 56% Subsequently in first week of March, as per patient she coughed up fresh blood, it was a large amount and again happened 4-3 times, as as per patient she was on Plavix and aspirin for cardiac stent which were placed in the left main on September 14, 2019, at that time her PMD stopped her Plavix, with that no more episode of hemoptysis and she underwent CT scan of chest on January 24, 2021 which showed no significant change since August 2019, moderate chronic emphysematous changes, stable mucous plugging left lower lobe bronchus with associated left lobe atelectasis medially. This has chronic appearance. Fibrotic appearing opacity right upper lobe extending to the lung apex is unchanged from previous, measuring 1.5 x 1.2 x 1.2 cm. She was referred to pulmonology for evaluation., Patient was seen by Dr. Liang, on April 08, 2021, Who ordered CT PET scan which was done on April 13, 2021 showed there is any minimal activity in the spiculated right upper lobe 1.1 x 1.7 cm, supporting a benign inflammatory diagnosis. There is a 1.8 x 3 cm mass in the left lower lobe hilum with SUV of 28.5, has high probability of malignancy. An FDG positive subaortic mediastinal lymph node consistent with local metastatic disease, On April 19, 2021 she underwent bronchoscopy and left lower lobe mass endobronchial biopsy showed squamous cell carcinoma, p63 positive, TTF-1 negative, Napsin negative, Ki-67 35% PD-L1 TPS 40% Past medical history positive for TIA, SVT, CKD, esophagitis, hypothyroidism, osteoporosis, dyslipidemia Ms Meléndez was referred to cardiothoracic surgery at [facility] and she was seen by Dr. Parikh, on May 09, 2021 and as per patient she was told that surgical resection is not possible rather proceed with chemoradiation. Dr. Rodarte recommended carboplatin paclitaxel in combination with radiation. She began her first cycle on July 01, 2021. She is here today for follow-up and consideration of week to chemotherapy. She has no new concerns today. She denies any vision changes or headaches. She denies any hot flashes. She states she has had some vertigo but this is chronic for her. She states is no worse than her normal. She denies any amaurosis or other vision changes. She states her cough is about the same. She is not having hemoptysis. She denies any nausea or vomiting. She states she did have some constipation on Thursday after treatment but this was resolved with senna. She is still taking 1 senna daily and states her bowels have been working well for her. She has not had any vomiting. States she has occasional queasiness but that resolves quickly on its own. But she again has had no vomiting. She denies any neuropathy symptoms. Her ECOG is 1. Past Medical History: Asthma Atherosclerotic heart disease Chronic kidney disease Dyslipidemia Gastroesophageal reflux disease History of TIA Hypothyroidism Myocardial infarction Osteoporosis Supraventricular tachycardia Past Surgical History: Coronary artery stent placement Covid vaccine #2 in 2020 Covid vaccine #1 in 2020 Colonoscopy in 2018 EGD in 2018 Allergies: Statins and Sulfa. Medications: Adult Aspirin EC Low Strength (81 mg) Tablet, enteric coated Oral daily Calcitonin ([place]) 1 (200 Units/act) Solution Nasal daily Ezetimibe (10 mg) Tablet Oral Levothyroxine Sodium (75 mcg) Tablet Oral every am Melatonin (3 mg) Tablet Oral at bedtime Metoprolol Tartrate (25 mg) Tablet Oral b.i.d. Nitroglycerin Tablet, sublingual Sublingual PRN Pantoprazole Sodium (20 mg) Tablet, enteric coated Oral daily Tiotropium [place] Monohydrate 2 (1.25 mcg/act) Aerosol, solution Inhalation daily Family History: Ms. Meléndez's father is : Cancer, and chronic kidney disease, and clotting disorder, and lung disease, and stroke, and suicide, and type II diabetes. Social History: Ms. Meléndez is . Ms. Meléndez quit smoking 41 years ago but had smoked 2.0 packs/day for 21 years. She has no history of drinking. Review Of Symptoms: <See Above> Vital Signs: Performed on Jul 08, 2021 11:00 Height - 62.00 in Weight - 118 lbs BSA - 1.53 sq.m BMI - 21.58 Temperature - 97.9 F (LOW) Pulse - 79 /min Respiration - 18 /min BP - 111/72 mm(hg) O2 Sat - 94 % (LOW) Pain - 0 Fatigue - 0 Performed on Jul 08, 2021 10:01 Height - 62.00 in Weight - 118.0 lbs Temperature - 98.1 F Pulse - 72 /min Respiration - 18 /min BP - 123/69 mm(hg) O2 Sat - 97 % Pain - 0 Performed on Jul 08, 2021 10:01 BMI - 21.583 kg/m2,0 - Fully active, able to carry on all predisease activities without restrictions. (ECOG) Physical Examination: Constitutional Alert, oriented, no acute distress. Skin pink, warm and dry. Head Normocephalic; atraumatic. Eyes Conjunctivae and sclerae are clear and without icterus. Pupils are reactive and equal. ENMT No oral exudates, ulcers, masses, thrush or mucositis. Oropharynx clear. Tongue normal. Neck Supple without masses or thyromegaly. No jugular venous distension. Hematologic/Lymphatic No petechiae or purpura. No tender or palpable lymph nodes in the cervical or supraclavicular areas. Respiratory Lungs are clear to auscultation without rhonchi or wheezing. Cardiovascular Regular rate and rhythm of heart without murmurs,clicks, gallops or rubs. Chest Chest is symmetric without chest wall deformities. Breasts Abdomen Non-tender, non-distended, no masses or ascites. Good bowel sounds noted in all quads. No guarding or rebound tenderness. No pulsatile masses. Back/Spine Non-tender to palpation. Extremities No visible deformities, no cyanosis, clubbing or edema. Musculoskeletal No tenderness or swelling, normal range of motion without obvious weakness. Integumentary No rashes or lesions. Neurologic No sensory or motor deficits, normal cerebellar function, normal gait. Psychiatric Alert and oriented times three. Coherent speech. Verbalizes understanding of our discussions today. Laboratory:Test performed on Jul 15, 2021 10:10 Creatinine 0.6 mg/dL Cr Clearance (Est) 61.39 mL/min Test performed on Jul 08, 2021 09:15 Sodium 136 mmol/L Potassium 4.5 mmol/L Chloride 101 mmol/L CO2 21 mmol/L Anion Gap 18.5 BUN 21 mg/dL Glucose 146 mg/dL Osmolality - Calculated 288 mOsm/kg Calcium 9.4 mg/dL Protein, Total 7.0 g/dL Albumin 4.0 g/dL Globulin 3.0 g/dL Bilirubin, Total 0.5 mg/dL ALT (SGPT) 18 U/L AST (SGOT) 13 U/L Alkaline Phosphatase 59 IU/L WBC 4.7 10 3/uL RBC 4.67 10 6/uL HGB 13.4 g/dL HCT 42.3 % MCV 90.6 fl MCH 28.7 pg MCHC 31.7 g/dL RDW 13.1 % Platelet Count 294 10 3/cmm MPV 9.9 fL Neutrophils 4.23 10 3/uL Lymphocytes 0.4 10 3/uL Monocytes 0.0 10 3/uL Eosinophils 0.0 10 3/uL Basophils 0.0 10 3/uL Neutrophil % 89.7 % Lymphocyte % 7.6 % Monocyte % 0.4 % Eosinophil % 0.0 % Basophils % 0.6 % NRBC % 0 % Impression: 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 FDG positive subaortic mediastinal lymph nodes. 1.1 x 1.7 cm spiculated lesion with minimal activity in the right upper lobe, probably benign inflammatory Clinical stage Ia versus 3A if subaortic lymph node positive for metastatic disease Coronary artery disease status post stenting September 2019 TIA SVT Hypothyroidism Osteoporosis Plan/Problems Addressed at this Visit: Squamous cell carcinoma of in the left lower lobe Clinically, patient is doing well with no new signs symptom. She was referred to cardiothoracic surgery at [facility] regarding evaluation of subaortic mediastinal lymph node, Per Dr Rodarte's orginal plan if it is positive, then will upstage her disease, in that case she would require combined chemoradiation followed by maintenance immunotherapy for 12 months, on the other hand if subaortic lymph node is negative then she would be evaluated for SBRT, or radiation alone versus chemoradiation, and may not benefit from maintenance immunotherapy . She did have AN EBUS completed with biopsies of lymph node stations 4 7 and 911 L. The left hilar lymph node biopsy was positive for metastatic squamous cell, therefore cardiothoracic surgery did not remain made any surgical interventions. She did have MRI of the head which did not identify any metastatic disease. Her treatment plan at this point consist of chemo radiation. She began her first cycle of carboplatin paclitaxel on July 01, 2021. A. Proceed with cycle 2 carboplatin paclitaxel. B. Steroid compliance confirmed. C. Labs from July 08, 2021 reviewed in detail and discussed with Ms. Medhat fagan and a copy was given to her. WBC 4.7, hemoglobin 13.4, platelets are 94,000 and ANC is 4320 sodium was 136 potassium 4.5 creatinine 0.8 random glucose 146 with steroid premeds LFTs are normal. Weight is stable at 118 today. D. To return in 1 week with CBC CMP for consideration of week 3 chemotherapy. E. Plan to see her back in the office in 2 weeks with CBC CMP however she will continue weekly interim carboplatin paclitaxel. F. Mrs. Cowan was instructed to contact us in interim should questions or problems arise. Signed By: Ramona Bustillos <<Signature on File>>
== END 2021-07-14 23:59 | disposition home or self-care (01) ==
LOC: ONCMED 06:19
PROVIDERS: Internal Medicine Hematology & Oncology; Nurse Practitioner; Absent Provider Radiology Radiation Oncology; PCP Family Medicine; Visit Provider Radiology Radiation Oncology
DX: Z51.0 Encounter for antineoplastic radiation therapy (principal); Z51.11 Encounter for antineoplastic chemotherapy; C34.32 Malignant neoplasm of lower lobe, left bronchus or lung; C77.8 Secondary and unspecified malignant neoplasm of lymph nodes of multiple regions; I25.10 Atherosclerotic heart disease of native coronary artery without angina pectoris; Z95.5 Presence of coronary angioplasty implant and graft; Z86.73 Personal history of transient ischemic attack (TIA), and cerebral infarction without residual deficits; I47.1 Supraventricular tachycardia; E03.9 Hypothyroidism, unspecified; M81.0 Age-related osteoporosis without current pathological fracture; Z79.899 Other long term (current) drug therapy
CPT/HCPCS: 77263; 77290; 77300; 77301; 77334; 77336; 77338; 77386; 77387; 77470; 80053; 85025; 96367; 96375; 96413; 96417; 99215; J1100; J1200; J2469; J3490; J7030; J7040; J7050; J9045; J9267; Q9967

== ENCOUNTER 2021-08-13 06:28 | Outpatient (RCR) | payer MEDICARE, SELFPAY ==
[2021-07-15 09:25] LABS: Basophils % 0.8 %; Hematocrit 40.8 % (37.0-47.0); Hemoglobin 13.2 g/dL (11.5-15.3); Lymphocytes # 0.2 10^3/uL (0.8-4.8); Lymphocytes % 6.8 %; Mean Corpuscular HGB Conc 32.4 g/dL (30.0-36.0); Mean Corpuscular Hemoglobin 29.7 pg (28.0-34.0); Mean Corpuscular Volume 91.9 fl (81-99); Mean Platelet Volume 9.8 fL (7.4-10.4); Monocytes % 0.8 %; Neutrophils # 2.23 10^3/uL (1.8-7.7); Neutrophils % 89.2 %; Nucleated Red Blood Cells % 0 %; Platelet Count 233 10^3/cmm (130-400); Red Blood Count 4.44 10^6/uL (4.1-5.3); Red Cell Distribution Width 13.2 % (12.1-15.1); White Blood Count 2.5 10^3/uL (4.0-10.0)
[2021-07-15 09:44] LABS: Alanine Aminotransferase 12 U/L (0-33); Albumin Level 3.7 g/dL (3.5-5.2); Alkaline Phosphatase 55 IU/L (35-105); Anion Gap 13.2 (5-19); Aspartate Amino Transferase 11 U/L (0-32); Blood Urea Nitrogen 19 mg/dL (8-23); Calcium 9.2 mg/dL (8.5-10.5); Carbon Dioxide 24 mmol/L (22-29); Chloride 101 mmol/L (98-107); Globulin 2.8 g/dL (1.3-4.6); Glucose 155 mg/dL (65-115); Osmolality Calculated 283 mOsm/kg (285-295); Potassium 4.2 mmol/L (3.5-5.1); Sodium 134 mmol/L (136-145); Total Bilirubin 0.3 mg/dL (0.15-1.2); Total Protein 6.5 g/dL (6.6-8.7)
[2021-07-15] MEDS: palonosetron 0.25 mg/5 mL SDV IV (10:30)
[2021-07-15] MEDS: sodium chloride 0.9% 250 ML 75 ML IV (10:30)
[2021-07-15] MEDS: famotidine 20 mg/2 mL INJ IVP (10:31)
[2021-07-15] MEDS: diphenhydrAMINE 50 mg/mL SDV 1mL 25 MG IV (10:35)
--- NOTE | 2021-07-15 14:21 | ONCRAD TMN_ITS ---
Radiation Oncology Weekly Treatment Management Patient: Manjeet Meléndez MR#: [id number] : 1940> Attending Physician: Dr. Jasiel Little Date of Service: 07/15/2021 Referring Physician(s) : Justyna Rodarte Diagnosis: C34.32 - Malignant neoplasm of lower lobe, left bronchus or lung, Diagnosed 04/19/2021 (Active) Stage IIB, T1b, N1, M0 Radiotherapy to date: Course: Lung 2020, Treatment Site: NSCLC, Ref. ID: [id number], Energy: 6X, Dose/Fx (cGy): 200, #Fx: , Dose Correction (cGy): 0, Total Dose (cGy): 2,000, Start Date: 07/01/2021, Elapsed Days: 11 Reason for visit: The patient is being seen today as part of their regularly scheduled weekly on treatment visits to assess for acute toxicities from radiotherapy. Review of Systems: Feeling ok. Swallowing ok. Eating ok. Breathing ok. No longer smoking. Living independently and has to climb stairs at home which is not difficult. Vital Signs: Performed on 07/15/2021 11:15 AM Height - 62.00 in, Temperature - 96.9 f (low), Pulse - 81 /min, Respiration - 16 /min, O2 Sat - 98 %, Pain - 0, Fatigue - 0 and BP - 132/ 77 mm(hg). Physical Exam: omitted Imaging: Radiation therapy imaging related to accurate target localization (i.e. KV, MV and CBCT) was reviewed. Appropriate changes, if any, were made to ensure treatment accuracy. Plan: Good tolerance of treatment. Continue as planned. Signed by: Dr. Jasiel Little 07/15/2021 2:20:23 PM
[2021-07-22 09:16] LABS: Hematocrit 40.2 % (37.0-47.0); Hemoglobin 13.2 g/dL (11.5-15.3); Mean Corpuscular HGB Conc 32.8 g/dL (30.0-36.0); Mean Corpuscular Hemoglobin 29.7 pg (28.0-34.0); Mean Corpuscular Volume 90.5 fl (81-99); Mean Platelet Volume 9.6 fL (7.4-10.4); Platelet Count 196 10^3/cmm (130-400); Red Blood Count 4.44 10^6/uL (4.1-5.3); Red Cell Distribution Width 13.3 % (12.1-15.1); White Blood Count 2.1 10^3/uL (4.0-10.0)
[2021-07-22 09:28] LABS: Albumin Level 3.7 g/dL (3.5-5.2); Alkaline Phosphatase 53 IU/L (35-105); Anion Gap 13.4 (5-19); Aspartate Amino Transferase 15 U/L (0-32); Blood Urea Nitrogen 20 mg/dL (8-23); Calcium 9.1 mg/dL (8.5-10.5); Carbon Dioxide 26 mmol/L (22-29); Chloride 100 mmol/L (98-107); Globulin 2.8 g/dL (1.3-4.6); Glucose 155 mg/dL (65-115); Osmolality Calculated 286 mOsm/kg (285-295); Potassium 4.4 mmol/L (3.5-5.1); Sodium 135 mmol/L (136-145); Total Bilirubin 0.5 mg/dL (0.15-1.2); Total Protein 6.5 g/dL (6.6-8.7)
[2021-07-22 09:51] LABS: Alanine Aminotransferase 20 U/L (0-33)
--- NOTE | 2021-07-22 10:11 | ONCRAD TMN_ITS ---
Radiation Oncology Treatment Management Note Patient Name: Nirmala Meléndez Date of : 1940 Date of Service: 07/22/2021 Attending Physician: Juan Weathers M.D. 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 A PET CT ordered on April 13, 2021 revealed a 1.8 cm x 3 cm left lower lobe hilar mass with an SUV of 28.5. Hypermetabolic activity was noted in subaortic mediastinal lymph nodes representing local metastatic disease and minimal activity in the spiculated right upper lobe nodule likely indicating inflammation. A bronchoscopy with endobronchial ultrasound-guided biopsy performed on April 19, 2021 demonstrated an endobronchial lesion within the distal left mainstem bronchus occluding the entrance to the left upper lobe and left lower lobe bronchi. The biopsy from the left lower lobe mass diagnosed a squamous cell carcinoma with PD-L1 expression of 35% to 40%. She was referred to [facility] in [place], [place] for a thoracic surgery consult and biopsy of the subaortic mediastinal lymph node. An EBUS was completed with biopsies of lymph node stations 4, 7 and 11 L. The left hilar lymph node biopsy was positive for metastatic squamous cell carcinoma. Cardiothoracic surgery did not recommend surgical intervention. The patient has received 28 Gy of a prescribed 60 Barker with an intensity modulated radiotherapy plan utilizing a step and shoot treatment technique. She has been prescribed carboplatin (AUC 2) and paclitaxel (50 mg/m???) weekly during therapy. Upon review of systems, she denied pulmonary symptoms. On physical examination, the patient weighed 116 lbs. Her temperature was 97.8 ???F and the blood pressure was 118/72 mmHg. The pulse was 81 bpm and her respiratory rate was 16. Oxygen saturation while breathing room air was 96%. There was no erythema within the treatment stephens. Bronchovesicular breath sounds were auscultated. Continue thoracic radiotherapy as prescribed. Signed by: Dr. Juan Weathers 07/22/2021 10:10:44 AM
[2021-07-22 11:08] LABS: Absolute Segmented Neutrophil 1.9 10/cmm (1.6-7.1); Anisocytosis Trace; Band Neutrophils Absolute 0.1 10^3/cmm (0.0-1.2); Eosinophils 0 %; Lymphocytes 4 %; Lymphocytes Absolute 0.1 10^3/cmm (1.2-3.4); Platelet Estimate Normal (Normal); Poikilocytosis Trace; Segmented Neutrophils 89 %; Total Cells Counted 100 (0-100)
[2021-07-22] MEDS: sodium chloride 0.9% 250 ML 75 ML IV (11:55)
[2021-07-22] MEDS: palonosetron 0.25 mg/5 mL SDV IV (11:55)
[2021-07-22] MEDS: famotidine 20 mg/2 mL INJ IVP (11:56)
[2021-07-22] MEDS: diphenhydrAMINE 50 mg/mL SDV 1mL 25 MG IV (11:58)
--- NOTE | 2021-07-22 17:30 | ONC FU_ITS ---
Dr. Rodarte follow up note Patient: Nirmala Meléndez Unit #: [id number]: 1940 Dicatated By: Justyna Rodarte M.D.Date of Visit:Jul 22, 2021 Onc Med Follow-up/Prog Note History of Present Illness: Ms. Meléndez is a 81-year-old female with a history of asthma, restrictive lung disease, coronary artery disease status post cardiac stents. Ms Meléndez reports in 2018 she developed off and on wheezing especially at night, [facility] PMD gave her inhalers which did help and her symptoms improved. and then In November 2020 she again started having wheezing which was progressive. She she was evaluated by PMD with chest x-ray , as per patient 'breathing test', probably PFT was done on December 03, 2020 which was consistent with mild airflow obstruction with no significant post bronchodilator response., Normal lung volumes and moderately reduced gas transfer, 56% Subsequently in first week of March, as per patient she coughed up fresh blood, it was a large amount and again happened 4-3 times, as as per patient she was on Plavix and aspirin for cardiac stent which were placed in the left main on September 14, 2019, at that time her PMD stopped her Plavix, with that no more episode of hemoptysis and she underwent CT scan of chest on January 24, 2021 which showed no significant change since August 2019, moderate chronic emphysematous changes, stable mucous plugging left lower lobe bronchus with associated left lobe atelectasis medially. This has chronic appearance. Fibrotic appearing opacity right upper lobe extending to the lung apex is unchanged from previous, measuring 1.5 x 1.2 x 1.2 cm. She was referred to pulmonology for evaluation., Patient was seen by Dr. Liang, on April 08, 2021, Who ordered CT PET scan which was done on April 13, 2021 showed there is any minimal activity in the spiculated right upper lobe 1.1 x 1.7 cm, supporting a benign inflammatory diagnosis. There is a 1.8 x 3 cm mass in the left lower lobe hilum with SUV of 28.5, has high probability of malignancy. 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 Parikh, on May 09, 2021 and as per patient she was told that surgical resection is not possible rather proceed with chemoradiation. recommended carboplatin paclitaxel in combination with radiation. She began her first cycle on July 01, 2021. Came for follow-up, denies any specific complaints, no fever chills, no nausea or vomiting, no diarrhea or constipation, tolerating combined chemoradiation with weekly carboplatin/Taxol well, as per patient radiation oncologist informed her that her tumor is responding to the treatment and she is very pleased. Medications: Adult Aspirin EC Low Strength (81 mg) Tablet, enteric coated Oral daily, Calcitonin ([place]) 1 (200 Units/act) Solution Nasal daily, Ezetimibe (10 mg) Tablet Oral, Levothyroxine Sodium (75 mcg) Tablet Oral every am, Melatonin (3 mg) Tablet Oral at bedtime, Metoprolol Tartrate (25 mg) Tablet Oral b.i.d., Nitroglycerin Tablet, sublingual Sublingual PRN, Pantoprazole Sodium (20 mg) Tablet, enteric coated Oral daily, Tiotropium [place] Monohydrate 2 (1.25 mcg/act) Aerosol, solution Inhalation daily Allergies: Statins and Sulfa. Review of Systems: Review of Systems is not available for this patient. Vital Signs: Performed on Jul 22, 2021 11:21 Height - 62.00 in Weight - 116.4 lbs BSA - 1.52 sq.m BMI - 21.29 Temperature - 98.8 F Pulse - 84 /min Respiration - 18 /min BP - 131/82 mm(hg) O2 Sat - 93 % (LOW) Pain - 0 Fatigue - 2 Performed on Jul 22, 2021 10:00 Height - 62.00 in Weight - 116.4 lbs Temperature - 97.8 F Pulse - 81 /min Respiration - 16 /min BP - 118/72 mm(hg) O2 Sat - 96 % Pain - 0 Performed on Jul 22, 2021 10:00 BMI - 21.29 kg/m2 Performance Status: 0 - Fully active, able to carry on all predisease activities without restrictions. (ECOG) Physical Examination: ENMT - No mouth sores, no thrush, no jaundice, Respiratory - Lungs are clear to auscultation, Cardiovascular - Regular rate and rhythm of heart, Abdomen - Soft, bowel sounds present, Extremities - No visible Edema. Lab/Imaging: Test performed on Jul 22, 2021 09:43 Creatinine 0.7 mg/dL Cr Clearance (Est) 52.62 mL/min Test performed on Jul 08, 2021 09:15 Sodium 136 mmol/L Potassium 4.5 mmol/L Chloride 101 mmol/L CO2 21 mmol/L Anion Gap 18.5 BUN 21 mg/dL Glucose 146 mg/dL Osmolality - Calculated 288 mOsm/kg Calcium 9.4 mg/dL Protein, Total 7.0 g/dL Albumin 4.0 g/dL Globulin 3.0 g/dL Bilirubin, Total 0.5 mg/dL ALT (SGPT) 18 U/L AST (SGOT) 13 U/L Alkaline Phosphatase 59 IU/L WBC 4.7 10 3/uL RBC 4.67 10 6/uL HGB 13.4 g/dL HCT 42.3 % MCV 90.6 fl MCH 28.7 pg MCHC 31.7 g/dL RDW 13.1 % Platelet Count 294 10 3/cmm MPV 9.9 fL Neutrophils 4.23 10 3/uL Lymphocytes 0.4 10 3/uL Monocytes 0.0 10 3/uL Eosinophils 0.0 10 3/uL Basophils 0.0 10 3/uL Neutrophil % 89.7 % Lymphocyte % 7.6 % Monocyte % 0.4 % Eosinophil % 0.0 % Basophils % 0.6 % NRBC % 0 % Impression: 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 FDG positive subaortic mediastinal lymph nodes. 1.1 x 1.7 cm spiculated lesion with minimal activity in the right upper lobe, probably benign inflammatory Clinical stage Ia versus IIB or 3A if subaortic lymph node positive for metastatic disease Underwent ultrasound guided FNA of 11 L, subcarinal lymph node, 4L, 4R on May 31, 2021, At [facility], which shows metastatic squamous cell carcinoma involving 11 L thus she has T1 N1 e.g. stage IIb, unresectable, started on combined chemoradiation with weekly carboplatin/Taxol on July 01, 2021 Coronary artery disease status post stenting September 2019 TIA SVT Hypothyroidism Osteoporosis Plan: Discussed with patient regarding her labs white blood count 2.1 hemoglobin 13.2 hematocrit 40.2 platelets 196,000 ANC 2000 CMP within normal limit except glucose 155 Clinically, patient doing well, tolerating combined chemoradiation with weekly carboplatin/Taxol well but with expected side effect e.g. progressive leukopenia/neutropenia, which may interfere with subsequent treatment, at this point we will proceed with her next scheduled dose of weekly carboplatin/Taxol concurrent with radiation therapy and will also consider daily Neupogen x2-3/week to minimize risk of chemotherapy-induced leukopenia/neutropenia and delaying her chemotherapy schedule. She will return to clinic in 1 week with CBC CMP if reasonable for next weekly dose of carboplatin/Taxol. Signed By: Justyna Rodarte M.D. <<Signature on File>>
--- NOTE | 2021-07-29 11:21 | ONCRAD TMN_ITS ---
Radiation Oncology Treatment Management Note Patient Name: Nirmala Meléndez Date of : 1940 Date of Service: 07/29/2021 Attending Physician: Juan Weathers M.D. 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 A PET CT ordered on April 13, 2021 revealed a 1.8 cm x 3 cm left lower lobe hilar mass with an SUV of 28.5. Hypermetabolic activity was noted in subaortic mediastinal lymph nodes representing local metastatic disease and minimal activity in the spiculated right upper lobe nodule likely indicating inflammation. A bronchoscopy with endobronchial ultrasound-guided biopsy performed on April 19, 2021 demonstrated an endobronchial lesion within the distal left mainstem bronchus occluding the entrance to the left upper lobe and left lower lobe bronchi. The biopsy from the left lower lobe mass diagnosed a squamous cell carcinoma with PD-L1 expression of 35% to 40%. She was referred to [facility] in [place], [place] for a thoracic surgery consult and biopsy of the subaortic mediastinal lymph node. An EBUS was completed with biopsies of lymph node stations 4, 7 and 11 L. The left hilar lymph node biopsy was positive for metastatic squamous cell carcinoma. Cardiothoracic surgery did not recommend surgical intervention. The patient has received 38 Gy of a prescribed 60 Barker with an intensity modulated radiotherapy plan utilizing a step and shoot treatment technique. She has been prescribed carboplatin (AUC 2) and paclitaxel (50 mg/m???) weekly during therapy. Upon review of systems, she denied pulmonary symptoms. On physical examination, the patient weighed 116 lbs. Her temperature was 98.3 ???F and the blood pressure was 113/63 mmHg. The pulse was 67 bpm and her respiratory rate was 20. Oxygen saturation while breathing room air was 98%. There was no erythema within the treatment stephens. Breath sounds were clear. Continue thoracic radiotherapy as planned. Signed by: Dr. Juan Weathers 07/29/2021 11:20:19 AM
[2021-07-29 12:13] LABS: Hematocrit 39.5 % (37.0-47.0); Hemoglobin 12.7 g/dL (11.5-15.3); Mean Corpuscular HGB Conc 32.2 g/dL (30.0-36.0); Mean Corpuscular Hemoglobin 29.3 pg (28.0-34.0); Mean Platelet Volume 10.1 fL (7.4-10.4); Platelet Count 160 10^3/cmm (130-400); Red Blood Count 4.34 10^6/uL (4.1-5.3); Red Cell Distribution Width 14.2 % (12.1-15.1); White Blood Count 2.7 10^3/uL (4.0-10.0)
[2021-07-29 12:24] LABS: Alanine Aminotransferase 14 U/L (0-33); Albumin Level 3.6 g/dL (3.5-5.2); Alkaline Phosphatase 62 IU/L (35-105); Anion Gap 13.7 (5-19); Aspartate Amino Transferase 14 U/L (0-32); Blood Urea Nitrogen 16 mg/dL (8-23); Calcium 8.7 mg/dL (8.5-10.5); Carbon Dioxide 25 mmol/L (22-29); Chloride 105 mmol/L (98-107); Globulin 2.5 g/dL (1.3-4.6); Glucose 91 mg/dL (65-115); Osmolality Calculated 289 mOsm/kg (285-295); Potassium 4.7 mmol/L (3.5-5.1); Sodium 139 mmol/L (136-145); Total Bilirubin 0.4 mg/dL (0.15-1.2); Total Protein 6.1 g/dL (6.6-8.7)
[2021-07-29 13:19] LABS: Absolute Segmented Neutrophil 0.9 10/cmm (1.6-7.1); Band Neutrophils Absolute 0.5 10^3/cmm (0.0-1.2); Segmented Neutrophils 35 %; Total Cells Counted 100 (0-100)
[2021-07-29 13:20] LABS: Eosinophils 1 %; Lymphocytes 18 %; Lymphocytes Absolute 0.8 10^3/cmm (1.2-3.4); Monocytes Absolute 0.3 10^3/cmm (0.1-0.6)
[2021-07-29 13:22] LABS: Poikilocytosis Trace
[2021-07-29 13:23] LABS: Tear Drop Cells Trace
[2021-07-29 13:59] LABS: Absolute Neutrophil 1.4 10^3/cmm (1.4-6.5); Platelet Estimate Normal (Normal)
[2021-07-30] MEDS: palonosetron 0.25 mg/5 mL SDV IV (10:20)
[2021-07-30] MEDS: famotidine 20 mg/2 mL INJ IVP (10:21)
[2021-07-30] MEDS: diphenhydrAMINE 50 mg/mL SDV 1mL 25 MG IV (10:23)
[2021-07-30] MEDS: sodium chloride 0.9% 250 ML 75 ML IV (10:25)
--- NOTE | 2021-08-04 22:23 | ONC FU_ITS ---
[facility] Patient Note Patient: Nirmala Meléndez Unit #: [id number]: 1940 Dictated By: Ramona BustillosDate of Visit: Jul 30, 2021 Onc MED Follow-Up/Prog Note Chief Complaint: Lung cancer History of Present Illness: Ms. Meléndez is a 81-year-old female with a history of asthma, restrictive lung disease, coronary artery disease status post cardiac stents. Ms Meléndez reports in 2018 she developed off and on wheezing especially at night, Her PMD gave her inhalers which did help and her symptoms improved. and then In November 2020 she again started having wheezing which was progressive. She she was evaluated by PMD with chest x-ray , as per patient 'breathing test', probably PFT was done on December 03, 2020 which was consistent with mild airflow obstruction with no significant post bronchodilator response., Normal lung volumes and moderately reduced gas transfer, 56% Subsequently in first week of March, as per patient she coughed up fresh blood, it was a large amount and again happened 4-3 times, as as per patient she was on Plavix and aspirin for cardiac stent which were placed in the left main on September 14, 2019, at that time her PMD stopped her Plavix, with that no more episode of hemoptysis and she underwent CT scan of chest on January 24, 2021 which showed no significant change since August 2019, moderate chronic emphysematous changes, stable mucous plugging left lower lobe bronchus with associated left lobe atelectasis medially. This has chronic appearance. Fibrotic appearing opacity right upper lobe extending to the lung apex is unchanged from previous, measuring 1.5 x 1.2 x 1.2 cm. She was referred to pulmonology for evaluation., Patient was seen by Dr. Liang, on April 08, 2021, Who ordered CT PET scan which was done on April 13, 2021 showed there is any minimal activity in the spiculated right upper lobe 1.1 x 1.7 cm, supporting a benign inflammatory diagnosis. There is a 1.8 x 3 cm mass in the left lower lobe hilum with SUV of 28.5, has high probability of malignancy. 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 Parikh, on May 09, 2021 and as per patient she was told that surgical resection is not possible rather proceed with chemoradiation. recommended carboplatin paclitaxel in combination with radiation. She began her first cycle on July 01, 2021. Ms Meléndez is here today for follow-up. She is due for week 5 concurrent chemoradiation. She denies any new concerns today. She denies any new pain. She states she is swallowing well. She denies any fever or chills. She has not had any productive cough or shortness of breath. She denies any orthopnea. She states her breathing is good for her. She denies any nausea or vomiting. She does have some trouble sleeping after she takes her premed her Steroids but is able to tolerate this well. She denies any diarrhea or constipation. She denies any peripheral neuropathy. She has had slight numbness and tingling but states it is resolved and is not persistent at this point. Her ECOG is 0. Past Medical History: Asthma Atherosclerotic heart disease Chronic kidney disease Dyslipidemia Gastroesophageal reflux disease History of TIA Hypothyroidism Myocardial infarction Osteoporosis Supraventricular tachycardia Past Surgical History: Coronary artery stent placement Covid vaccine #2 in 2020 Covid vaccine #1 in 2020 Colonoscopy in 2018 EGD in 2018 Allergies: Statins and Sulfa. Medications: Adult Aspirin EC Low Strength (81 mg) Tablet, enteric coated Oral daily Calcitonin ([place]) 1 (200 Units/act) Solution Nasal daily Ezetimibe (10 mg) Tablet Oral Levothyroxine Sodium (75 mcg) Tablet Oral every am Melatonin (3 mg) Tablet Oral at bedtime Metoprolol Tartrate (25 mg) Tablet Oral b.i.d. Nitroglycerin Tablet, sublingual Sublingual PRN Pantoprazole Sodium (20 mg) Tablet, enteric coated Oral daily Tiotropium [place] Monohydrate 2 (1.25 mcg/act) Aerosol, solution Inhalation daily Family History: Ms. Meléndez's father is : Cancer, and chronic kidney disease, and clotting disorder, and lung disease, and stroke, and suicide, and type II diabetes. Social History: Ms. Meléndez is . Ms. Meléndez quit smoking 41 years ago but had smoked 2.0 packs/day for 21 years. She has no history of drinking. Review Of Symptoms: <See Above> Vital Signs: Performed on Jul 30, 2021 09:24 Height - 62.00 in Weight - 116.8 lbs (HIGH) BSA - 1.52 sq.m BMI - 21.36 Temperature - 98.4 F Pulse - 80 /min Respiration - 18 /min BP - 112/72 mm(hg) O2 Sat - 96 % Pain - 0 Fatigue - 0,0 - Fully active, able to carry on all predisease activities without restrictions. (ECOG) Physical Examination: Constitutional Alert, oriented, no acute distress. Skin pink, warm and dry. Head Normocephalic; atraumatic. Eyes Conjunctivae and sclerae are clear and without icterus. Pupils are reactive and equal. ENMT No oral exudates, ulcers, masses, thrush or mucositis. Oropharynx clear. Tongue normal. Neck Supple without masses or thyromegaly. No jugular venous distension. Hematologic/Lymphatic No petechiae or purpura. No tender or palpable lymph nodes in the cervical or supraclavicular areas. Respiratory Lungs are clear to auscultation without rhonchi or wheezing. Cardiovascular Regular rate and rhythm of heart without murmurs,clicks, gallops or rubs. Abdomen Non-tender, non-distended, no masses or ascites. Good bowel sounds noted in all quads. No guarding or rebound tenderness. No pulsatile masses. Back/Spine Non-tender to palpation. Extremities No visible deformities, no cyanosis, clubbing or edema. Musculoskeletal No tenderness or swelling, normal range of motion without obvious weakness. Integumentary No rashes or lesions. Neurologic No sensory or motor deficits, normal cerebellar function, normal gait. Psychiatric Alert and oriented times three. Coherent speech. Verbalizes understanding of our discussions today. Laboratory:Test performed on Jul 29, 2021 09:44 Creatinine 0.8 mg/dL Cr Clearance (Est) 46.05 mL/min Test performed on Jul 08, 2021 09:15 Sodium 136 mmol/L Potassium 4.5 mmol/L Chloride 101 mmol/L CO2 21 mmol/L Anion Gap 18.5 BUN 21 mg/dL Glucose 146 mg/dL Osmolality - Calculated 288 mOsm/kg Calcium 9.4 mg/dL Protein, Total 7.0 g/dL Albumin 4.0 g/dL Globulin 3.0 g/dL Bilirubin, Total 0.5 mg/dL ALT (SGPT) 18 U/L AST (SGOT) 13 U/L Alkaline Phosphatase 59 IU/L WBC 4.7 10 3/uL RBC 4.67 10 6/uL HGB 13.4 g/dL HCT 42.3 % MCV 90.6 fl MCH 28.7 pg MCHC 31.7 g/dL RDW 13.1 % Platelet Count 294 10 3/cmm MPV 9.9 fL Neutrophils 4.23 10 3/uL Lymphocytes 0.4 10 3/uL Monocytes 0.0 10 3/uL Eosinophils 0.0 10 3/uL Basophils 0.0 10 3/uL Neutrophil % 89.7 % Lymphocyte % 7.6 % Monocyte % 0.4 % Eosinophil % 0.0 % Basophils % 0.6 % NRBC % 0 % Impression: 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 FDG positive subaortic mediastinal lymph nodes. 1.1 x 1.7 cm spiculated lesion with minimal activity in the right upper lobe, probably benign inflammatory Clinical stage Ia versus 3A if subaortic lymph node positive for metastatic disease Coronary artery disease status post stenting September 2019 TIA SVT Hypothyroidism Osteoporosis Plan/Problems Addressed at this Visit: Squamous cell carcinoma of in the left lower lobe Clinically, patient is doing well with no new signs symptom. She was referred to cardiothoracic surgery at [facility] regarding evaluation of subaortic mediastinal lymph node, Per Dr Rodarte's orginal plan if it is positive, then will upstage her disease, in that case she would require combined chemoradiation followed by maintenance immunotherapy for 12 months, on the other hand if subaortic lymph node is negative then she would be evaluated for SBRT, or radiation alone versus chemoradiation, and may not benefit from maintenance immunotherapy . She did have AN EBUS completed with biopsies of lymph node stations 4 7 and 911 L. The left hilar lymph node biopsy was positive for metastatic squamous cell, therefore cardiothoracic surgery did not remain made any surgical interventions. She did have MRI of the head which did not identify any metastatic disease. Her treatment plan at this point consist of chemo radiation. She began her first cycle of carboplatin paclitaxel on July 01, 2021. A. Proceed with week 5 carboplatin paclitaxel. B. Steroid compliance confirmed. C. Labs from 07/29/2021 reviewed in detail and discussed with Ms. Meléndez and a copy was given to her. WBC 2.7, hemoglobin 12.7, platelets 260,000 ANC is 1400. Potassium 4.7 creatinine 0.8 LFTs are normal. Her weight is stable at 116.8. D. She will proceed with Neupogen 300 mcg daily for 2 days post chemotherapy as her ANC is 1400. She may not be eligible for chemotherapy next week otherwise. E. Plan to see her back in the office in 1 week1 with CBC CMP the day before her visit for weekly concurrent carboplatin paclitaxel. F. Ms Meléndez was instructed to contact us in interim should questions or problems arise. Signed By: Ramona Bustillos-, AOP Justyna Rodarte MD <<Signature on File>>
[2021-08-05 09:19] LABS: Basophils % 2.3 %; Hematocrit 36.9 % (37.0-47.0); Hemoglobin 12.5 g/dL (11.5-15.3); Lymphocytes # 0.2 10^3/uL (0.8-4.8); Lymphocytes % 11.4 %; Mean Corpuscular HGB Conc 33.9 g/dL (30.0-36.0); Mean Corpuscular Hemoglobin 29.6 pg (28.0-34.0); Mean Corpuscular Volume 87.4 fl (81-99); Mean Platelet Volume 10.1 fL (7.4-10.4); Monocytes % 2.3 %; Neutrophils # 1.46 10^3/uL (1.8-7.7); Neutrophils % 82.9 %; Nucleated Red Blood Cells % 0 %; Platelet Count 151 10^3/cmm (130-400); Red Blood Count 4.22 10^6/uL (4.1-5.3); Red Cell Distribution Width 14.7 % (12.1-15.1); White Blood Count 1.8 10^3/uL (4.0-10.0)
[2021-08-05 10:03] LABS: Alanine Aminotransferase 14 U/L (0-33); Albumin Level 3.8 g/dL (3.5-5.2); Alkaline Phosphatase 69 IU/L (35-105); Anion Gap 15.4 (5-19); Aspartate Amino Transferase 13 U/L (0-32); Blood Urea Nitrogen 24 mg/dL (8-23); Calcium 8.9 mg/dL (8.5-10.5); Carbon Dioxide 23 mmol/L (22-29); Chloride 103 mmol/L (98-107); Globulin 2.9 g/dL (1.3-4.6); Glucose 153 mg/dL (65-115); Osmolality Calculated 291 mOsm/kg (285-295); Potassium 4.4 mmol/L (3.5-5.1); Sodium 137 mmol/L (136-145); Total Bilirubin 0.4 mg/dL (0.15-1.2); Total Protein 6.7 g/dL (6.6-8.7)
--- NOTE | 2021-08-06 11:12 | ONCRAD TMN_ITS ---
Radiation Oncology Treatment Management Note Patient Name: Nirmala Meléndez Date of : 1940 Date of Service: 08/05/2021 Attending Physician: Juan Weathers M.D. 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 A PET CT ordered on April 13, 2021 revealed a 1.8 cm x 3 cm left lower lobe hilar mass with an SUV of 28.5. Hypermetabolic activity was noted in subaortic mediastinal lymph nodes representing local metastatic disease and minimal activity in the spiculated right upper lobe nodule likely indicating inflammation. A bronchoscopy with endobronchial ultrasound-guided biopsy performed on April 19, 2021 demonstrated an endobronchial lesion within the distal left mainstem bronchus occluding the entrance to the left upper lobe and left lower lobe bronchi. The biopsy from the left lower lobe mass diagnosed a squamous cell carcinoma with PD-L1 expression of 35% to 40%. She was referred to [facility] in [place], [place] for a thoracic surgery consult and biopsy of the subaortic mediastinal lymph node. An EBUS was completed with biopsies of lymph node stations 4, 7 and 11 L. The left hilar lymph node biopsy was positive for metastatic squamous cell carcinoma. Cardiothoracic surgery did not recommend surgical intervention. The patient has received 50 Gy of a prescribed 60 Barker with an intensity modulated radiotherapy plan utilizing a step and shoot treatment technique. She has been prescribed carboplatin (AUC 2) and paclitaxel (50 mg/m???) weekly during therapy. Upon review of systems, she denied pulmonary symptoms. On physical examination, the patient weighed 116 lbs. Her temperature was 97.4 ???F and the blood pressure was 102/58 mmHg. The pulse was 72 bpm and her respiratory rate was 18. Oxygen saturation while breathing room air was 97%. There was no erythema within the treatment stephens. Bronchovesicular breath sounds were auscultated. Continue thoracic radiotherapy as prescribed. Signed by: Dr. Juan Weathers 08/06/2021 11:10:58 AM
--- NOTE | 2021-08-07 09:54 | ONC FU_ITS ---
Dr. Rodarte follow up note Patient: Nirmala Meléndez Unit #: [id number]: 1940 Dicatated By: Justyna Rodarte M.D.Date of Visit:Aug 05, 2021 Onc Med Follow-up/Prog Note History of Present Illness: Ms. Meléndez is a 81-year-old female with a history of asthma, restrictive lung disease, coronary artery disease status post cardiac stents. Ms Meléndez reports in 2018 she developed off and on wheezing especially at night, Her PMD gave her inhalers which did help and her symptoms improved. and then In November 2020 she again started having wheezing which was progressive. She she was evaluated by PMD with chest x-ray , as per patient 'breathing test', probably PFT was done on December 03, 2020 which was consistent with mild airflow obstruction with no significant post bronchodilator response., Normal lung volumes and moderately reduced gas transfer, 56% Subsequently in first week of March, as per patient she coughed up fresh blood, it was a large amount and again happened 4-3 times, as as per patient she was on Plavix and aspirin for cardiac stent which were placed in the left main on September 14, 2019, at that time her PMD stopped her Plavix, with that no more episode of hemoptysis and she underwent CT scan of chest on January 24, 2021 which showed no significant change since August 2019, moderate chronic emphysematous changes, stable mucous plugging left lower lobe bronchus with associated left lobe atelectasis medially. This has chronic appearance. Fibrotic appearing opacity right upper lobe extending to the lung apex is unchanged from previous, measuring 1.5 x 1.2 x 1.2 cm. She was referred to pulmonology for evaluation., Patient was seen by Dr. Liang, on April 08, 2021, Who ordered CT PET scan which was done on April 13, 2021 showed there is any minimal activity in the spiculated right upper lobe 1.1 x 1.7 cm, supporting a benign inflammatory diagnosis. There is a 1.8 x 3 cm mass in the left lower lobe hilum with SUV of 28.5, has high probability of malignancy. An FDG positive subaortic mediastinal lymph node consistent with local metastatic disease, On April 19, 2021 she underwent bronchoscopy and left lower lobe mass endobronchial biopsy showed squamous cell carcinoma, p63 positive, TTF-1 negative, Napsin negative, Ki-67 35% PD-L1 TPS 40% Past medical history positive for TIA, SVT, CKD, esophagitis, hypothyroidism, osteoporosis, dyslipidemia Ms Meléndez was referred to cardiothoracic surgery at [place] and she was seen by Dr. Parikh, on May 09, 2021 and as per patient she was told that surgical resection is not possible rather proceed with chemoradiation. recommended carboplatin paclitaxel in combination with radiation. She began her first cycle on July 01, 2021. Came for follow-up, denies any specific complaints, no fever chills, no nausea or vomiting, no diarrhea constipation, no mouth sores, no peripheral neuropathy, tolerating combined chemoradiation with weekly carboplatin/Taxol well Medications: Adult Aspirin EC Low Strength (81 mg) Tablet, enteric coated Oral daily, Calcitonin ([place]) 1 (200 Units/act) Solution Nasal daily, Ezetimibe (10 mg) Tablet Oral, Levothyroxine Sodium (75 mcg) Tablet Oral every am, Melatonin (3 mg) Tablet Oral at bedtime, Metoprolol Tartrate (25 mg) Tablet Oral b.i.d., Nitroglycerin Tablet, sublingual Sublingual PRN, Pantoprazole Sodium (20 mg) Tablet, enteric coated Oral daily, Tiotropium [place] Monohydrate 2 (1.25 mcg/act) Aerosol, solution Inhalation daily Allergies: Statins and Sulfa. Review of Systems: Review of Systems is not available for this patient. Vital Signs: Performed on Aug 05, 2021 13:15 Height - 62.00 in Weight - 114.6 lbs (LOW) BSA - 1.51 sq.m BMI - 20.96 Temperature - 96.0 F (LOW) Pulse - 81 /min Respiration - 18 /min BP - 124/77 mm(hg) O2 Sat - 97 % Pain - 0 Fatigue - 0 Performance Status: 0 - Fully active, able to carry on all predisease activities without restrictions. (ECOG) Physical Examination: ENMT - No mouth sores, no thrush, no jaundice, Respiratory - Lungs are clear to auscultation, Cardiovascular - Regular rate and rhythm of heart, Abdomen - Soft, bowel sounds present, Extremities - No visible edema. Lab/Imaging: Test performed on Jul 29, 2021 09:44 Creatinine 0.8 mg/dL Cr Clearance (Est) 46.05 mL/min Test performed on Jul 08, 2021 09:15 Sodium 136 mmol/L Potassium 4.5 mmol/L Chloride 101 mmol/L CO2 21 mmol/L Anion Gap 18.5 BUN 21 mg/dL Glucose 146 mg/dL Osmolality - Calculated 288 mOsm/kg Calcium 9.4 mg/dL Protein, Total 7.0 g/dL Albumin 4.0 g/dL Globulin 3.0 g/dL Bilirubin, Total 0.5 mg/dL ALT (SGPT) 18 U/L AST (SGOT) 13 U/L Alkaline Phosphatase 59 IU/L WBC 4.7 10 3/uL RBC 4.67 10 6/uL HGB 13.4 g/dL HCT 42.3 % MCV 90.6 fl MCH 28.7 pg MCHC 31.7 g/dL RDW 13.1 % Platelet Count 294 10 3/cmm MPV 9.9 fL Neutrophils 4.23 10 3/uL Lymphocytes 0.4 10 3/uL Monocytes 0.0 10 3/uL Eosinophils 0.0 10 3/uL Basophils 0.0 10 3/uL Neutrophil % 89.7 % Lymphocyte % 7.6 % Monocyte % 0.4 % Eosinophil % 0.0 % Basophils % 0.6 % NRBC % 0 % Impression: Squamous cell carcinoma involving left lower lobe per endobronchial biopsy done on April 19, 2021 immunohistochemistry positive for p63, CK 5/6, CK 8/18, CK [place], negative for TTF-1, CK7, Napsin, CK20, chromogranin A and Ki-67 35%, PD-L1 TPS 40% positive CT PET scan done on April 13, 2021 showed 1.8 x 3 cm mass in the left lower lobe hilum with SUV of 28.5. FDG positive subaortic mediastinal lymph nodes. 1.1 x 1.7 cm spiculated lesion with minimal activity in the right upper lobe, probably benign inflammatory Clinical stage Ia versus 3A if subaortic lymph node positive for metastatic disease Coronary artery disease status post stenting September 2019 TIA SVT Hypothyroidism Osteoporosis Plan: Discussed with patient regarding her labs white blood count 1.8 hemoglobin 12.5 hematocrit 36.9 platelets 151,000 ANC 1460 Clinically, patient is doing well with no new signs symptoms, tolerating combined chemoradiation with weekly carboplatin/Taxol well her follow-up labs shows progressive leukopenia/neutropenia despite of Neupogen support, at this point we will hold her chemotherapy and she will return to clinic on Thursday with CBC if her blood counts recover, will proceed with final dose of weekly carboplatin/Taxol on Thursday as patient will conclude her radiation therapy next , after completion of combined chemoradiation, will discuss with patient regarding role of maintenance immunotherapy Signed By: Justyna Rodarte M.D. <<Signature on File>>
[2021-08-12 11:47] LABS: Basophils % 1.1 %; Eosinophils % 0.8 %; Hematocrit 37.5 % (37.0-47.0); Hemoglobin 12.5 g/dL (11.5-15.3); Lymphocytes # 0.9 10^3/uL (0.8-4.8); Lymphocytes % 24.3 %; Mean Corpuscular HGB Conc 33.3 g/dL (30.0-36.0); Mean Corpuscular Hemoglobin 29.8 pg (28.0-34.0); Mean Corpuscular Volume 89.5 fl (81-99); Mean Platelet Volume 9.2 fL (7.4-10.4); Monocytes # 0.5 10^3/uL (0.2-0.9); Monocytes % 12.9 %; Neutrophils # 2.27 10^3/uL (1.8-7.7); Neutrophils % 59.8 %; Nucleated Red Blood Cells % 0 %; Platelet Count 183 10^3/cmm (130-400); Red Blood Count 4.19 10^6/uL (4.1-5.3); Red Cell Distribution Width 16.5 % (12.1-15.1); White Blood Count 3.8 10^3/uL (4.0-10.0)
--- NOTE | 2021-08-12 12:15 | ONCRAD TMN_ITS ---
Radiation Oncology Treatment Management Note Patient Name: Nirmala Meléndez Date of : 1940 Date of Service: 08/12/2021 Attending Physician: Juan Weathers M.D. 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 A PET CT ordered on April 13, 2021 revealed a 1.8 cm x 3 cm left lower lobe hilar mass with an SUV of 28.5. Hypermetabolic activity was noted in subaortic mediastinal lymph nodes representing local metastatic disease and minimal activity in the spiculated right upper lobe nodule likely indicating inflammation. A bronchoscopy with endobronchial ultrasound-guided biopsy performed on April 19, 2021 demonstrated an endobronchial lesion within the distal left mainstem bronchus occluding the entrance to the left upper lobe and left lower lobe bronchi. The biopsy from the left lower lobe mass diagnosed a squamous cell carcinoma with PD-L1 expression of 35% to 40%. She was referred to [facility] in [place], [place] for a thoracic surgery consult and biopsy of the subaortic mediastinal lymph node. An EBUS was completed with biopsies of lymph node stations 4, 7 and 11 L. The left hilar lymph node biopsy was positive for metastatic squamous cell carcinoma. Cardiothoracic surgery did not recommend surgical intervention. The patient has received 54 Gy of a prescribed 60 Barker with an intensity modulated radiotherapy plan utilizing a step and shoot treatment technique. She has been prescribed carboplatin (AUC 2) and paclitaxel (50 mg/m???) weekly during therapy. Upon review of systems, she denied pulmonary symptoms. On physical examination, the patient weighed 113 lbs. Her temperature was 98 ???F and the blood pressure was 117/73 mmHg. The pulse was 65 bpm and her respiratory rate was 18. Oxygen saturation while breathing room air was 96%. There was no erythema within the treatment stephens. Clear breath sounds were auscultated. Continue thoracic radiotherapy as planned. I will refill her oxycodone elixir prescription. Signed by: Dr. Juan Weathers 08/12/2021 12:14:14 PM
[2021-08-12 12:21] LABS: Alanine Aminotransferase 16 U/L (0-33); Albumin Level 3.6 g/dL (3.5-5.2); Alkaline Phosphatase 68 IU/L (35-105); Aspartate Amino Transferase 16 U/L (0-32); Blood Urea Nitrogen 19 mg/dL (8-23); Calcium 8.7 mg/dL (8.5-10.5); Carbon Dioxide 26 mmol/L (22-29); Chloride 104 mmol/L (98-107); Globulin 2.6 g/dL (1.3-4.6); Glucose 86 mg/dL (65-115); Osmolality Calculated 288 mOsm/kg (285-295); Sodium 138 mmol/L (136-145); Total Bilirubin 0.5 mg/dL (0.15-1.2); Total Protein 6.2 g/dL (6.6-8.7)
[2021-08-13] MEDS: sodium chloride 0.9% 250 ML 75 ML IV (11:50)
[2021-08-13] MEDS: palonosetron 0.25 mg/5 mL SDV IV (11:50)
[2021-08-13] MEDS: famotidine 20 mg/2 mL INJ IVP (11:51)
[2021-08-13] MEDS: diphenhydrAMINE 50 mg/mL SDV 1mL 25 MG IV (11:53)
--- NOTE | 2021-08-13 17:19 | ONC FU_ITS ---
Dr. Rodarte follow up note Patient: Nirmala Meléndez Unit #: [id number]: 1940 Dicatated By: Jusytna Rodarte M.D.Date of Visit:Aug 13, 2021 Onc Med Follow-up/Prog Note History of Present Illness: Ms. Meléndez is a 81-year-old female with a history of asthma, restrictive lung disease, coronary artery disease status post cardiac stents. Ms Meléndez reports in 2018 she developed off and on wheezing especially at night, Her PMD gave her inhalers which did help and her symptoms improved. and then In November 2020 she again started having wheezing which was progressive. She she was evaluated by PMD with chest x-ray , as per patient 'breathing test', probably PFT was done on December 03, 2020 which was consistent with mild airflow obstruction with no significant post bronchodilator response., Normal lung volumes and moderately reduced gas transfer, 56% Subsequently in first week of March, as per patient she coughed up fresh blood, it was a large amount and again happened 4-3 times, as as per patient she was on Plavix and aspirin for cardiac stent which were placed in the left main on September 14, 2019, at that time her PMD stopped her Plavix, with that no more episode of hemoptysis and she underwent CT scan of chest on January 24, 2021 which showed no significant change since August 2019, moderate chronic emphysematous changes, stable mucous plugging left lower lobe bronchus with associated left lobe atelectasis medially. This has chronic appearance. Fibrotic appearing opacity right upper lobe extending to the lung apex is unchanged from previous, measuring 1.5 x 1.2 x 1.2 cm. She was referred to pulmonology for evaluation., Patient was seen by Dr. Liang, on April 08, 2021, Who ordered CT PET scan which was done on April 13, 2021 showed there is any minimal activity in the spiculated right upper lobe 1.1 x 1.7 cm, supporting a benign inflammatory diagnosis. There is a 1.8 x 3 cm mass in the left lower lobe hilum with SUV of 28.5, has high probability of malignancy. An FDG positive subaortic mediastinal lymph node consistent with local metastatic disease, On April 19, 2021 she underwent bronchoscopy and left lower lobe mass endobronchial biopsy showed squamous cell carcinoma, p63 positive, TTF-1 negative, Napsin negative, Ki-67 35% PD-L1 TPS 40% Past medical history positive for TIA, SVT, CKD, esophagitis, hypothyroidism, osteoporosis, dyslipidemia Ms Meléndez was referred to cardiothoracic surgery at [place] and she was seen by Dr. Parikh, on May 09, 2021 and as per patient she was told that surgical resection is not possible rather proceed with chemoradiation. recommended carboplatin paclitaxel in combination with radiation. She began her first cycle on July 01, 2021. Came for follow-up, denies any specific complaints except left heel discomfort, denies any trauma to left foot, denies any numbness in toes and fingertips, denies any fever chills, denies any nausea or vomiting, denies any mouth sores, tolerating combined chemoradiation with weekly carboplatin/Taxol well otherwise Medications: Adult Aspirin EC Low Strength (81 mg) Tablet, enteric coated Oral daily, Calcitonin ([place]) 1 (200 Units/act) Solution Nasal daily, Ezetimibe (10 mg) Tablet Oral, Levothyroxine Sodium (75 mcg) Tablet Oral every am, Melatonin (3 mg) Tablet Oral at bedtime, Metoprolol Tartrate (25 mg) Tablet Oral b.i.d., Nitroglycerin Tablet, sublingual Sublingual PRN, Pantoprazole Sodium (20 mg) Tablet, enteric coated Oral daily, Tiotropium [place] Monohydrate 2 (1.25 mcg/act) Aerosol, solution Inhalation daily Allergies: Statins and Sulfa. Review of Systems: Review of Systems is not available for this patient. Vital Signs: Performed on Aug 13, 2021 15:10 Height - 62.00 in Weight - 113.4 lbs (HIGH) BSA - 1.50 sq.m BMI - 20.74 Temperature - 99.6 F (HIGH) Pulse - 84 /min Respiration - 18 /min BP - 136/78 mm(hg) O2 Sat - 97 % Pain - 7 Fatigue - 0 Performance Status: 0 - Fully active, able to carry on all predisease activities without restrictions. (ECOG) Physical Examination: ENMT - No mouth sores, no thrush, no jaundice, Respiratory - Lungs are clear to auscultation, Cardiovascular - Regular rate and rhythm of heart, Abdomen - Soft, bowel sounds present, Extremities - No visible edema, left heel shows no overlying skin changes or swelling mild discomfort on deep palpation. Lab/Imaging: Test performed on Aug 12, 2021 15:20 Creatinine 0.8 mg/dL Cr Clearance (Est) 46.05 mL/min Test performed on Jul 08, 2021 09:15 Sodium 136 mmol/L Potassium 4.5 mmol/L Chloride 101 mmol/L CO2 21 mmol/L Anion Gap 18.5 BUN 21 mg/dL Glucose 146 mg/dL Osmolality - Calculated 288 mOsm/kg Calcium 9.4 mg/dL Protein, Total 7.0 g/dL Albumin 4.0 g/dL Globulin 3.0 g/dL Bilirubin, Total 0.5 mg/dL ALT (SGPT) 18 U/L AST (SGOT) 13 U/L Alkaline Phosphatase 59 IU/L WBC 4.7 10 3/uL RBC 4.67 10 6/uL HGB 13.4 g/dL HCT 42.3 % MCV 90.6 fl MCH 28.7 pg MCHC 31.7 g/dL RDW 13.1 % Platelet Count 294 10 3/cmm MPV 9.9 fL Neutrophils 4.23 10 3/uL Lymphocytes 0.4 10 3/uL Monocytes 0.0 10 3/uL Eosinophils 0.0 10 3/uL Basophils 0.0 10 3/uL Neutrophil % 89.7 % Lymphocyte % 7.6 % Monocyte % 0.4 % Eosinophil % 0.0 % Basophils % 0.6 % NRBC % 0 % Impression: 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 FDG positive subaortic mediastinal lymph nodes. 1.1 x 1.7 cm spiculated lesion with minimal activity in the right upper lobe, probably benign inflammatory Clinical stage Ia versus 3A if subaortic lymph node positive for metastatic disease Coronary artery disease status post stenting September 2019 TIA SVT Hypothyroidism Osteoporosis Plan: Discussed with patient regarding her labs white blood count 3.8 compared to 1.8 last week, hemoglobin 12.5 g medical 37.5 platelets 183,000 ANC 2270 Clinically, patient doing well with no new signs symptoms except new left heel discomfort/pain, no overlying skin changes or swelling noted., Patient was advised to use [id number] anti-inflammatory cream or NSAID if pain persist At this point we will proceed with her next and final dose of weekly carboplatin Taxol concurrent with radiation therapy and then she will return to clinic in 3 weeks with CBC CMP and follow-up CT scan of chest if it shows good response, then will consider starting her on maintenance immunotherapy with durvalumab. Signed By: Justyna Rodarte M.D. <<Signature on File>>
== END 2021-08-13 23:59 | disposition home or self-care (01) ==
LOC: ONCMED 06:28
PROVIDERS: Absent Provider Radiology Radiation Oncology; PCP Family Medicine; Visit Provider Internal Medicine Hematology & Oncology
DX: Z51.0 Encounter for antineoplastic radiation therapy (principal); Z51.11 Encounter for antineoplastic chemotherapy; C34.32 Malignant neoplasm of lower lobe, left bronchus or lung; C77.2 Secondary and unspecified malignant neoplasm of intra-abdominal lymph nodes; I25.10 Atherosclerotic heart disease of native coronary artery without angina pectoris; G45.9 Transient cerebral ischemic attack, unspecified; I47.1 Supraventricular tachycardia; E03.9 Hypothyroidism, unspecified; M81.0 Age-related osteoporosis without current pathological fracture; Z79.899 Other long term (current) drug therapy
CPT/HCPCS: 36591; 77336; 77386; 80053; 85007; 85025; 85027; 96367; 96372; 96375; 96413; 96417; 99214; 99215; J1100; J1200; J2469; J3490; J7030; J7040; J7050; J9045; J9267; Q5101

== ENCOUNTER 2021-09-03 10:41 | Outpatient (CLI) | payer MEDICARE, SELFPAY ==
--- NOTE | 2021-09-03 10:54 | CTR_ITS ---
PROCEDURE INFORMATION: Exam: CT Chest Without Contrast; Diagnostic Exam date and time: 09/03/2021 10:54 AM Age: 81 years old Clinical indication: Condition or disease; Lung condition and disease; Cancer of the lung; Bilateral; Unspecified; Additional info: Lung cancer TECHNIQUE: Imaging protocol: Diagnostic computed tomography of the chest without contrast. Radiation optimization: All CT scans at this facility use at least one of these dose optimization techniques: automated exposure control; mA and/or kV adjustment per patient size (includes targeted exams where dose is matched to clinical indication); or iterative reconstruction. COMPARISON: CT chest w con* [id number] 01/24/2021 9:10 AM RADIATION DOSE METRICS: Total DLP (mGy-cm): 328 FINDINGS: Tubes, catheters and devices: Right IJ approach MediPort is in satisfactory position, with distal tip at the level of the SVC/RA junction. Lungs: Unchanged spiculated density/pleuroparenchymal scarring in the right lung apex. Persistent patchy atelectasis along the medial aspect of the left lower lobe, with areas of mucous plugging. There is new ground-glass opacities in the left upper lobe, which may be infectious or inflammatory etiology. Unchanged 0.5 cm nodule in the right lower lobe. Tiny calcified granuloma noted in the left upper lobe. Centrilobular emphysema is present. Pleural spaces: Unremarkable. No pneumothorax. No pleural effusion. Heart: Mildly enlarged heart. Coronary atherosclerotic calcifications seen. No pericardial effusion. Aorta: Ectatic ascending aorta measuring 4.0 cm in diameter. Other arteries: Mild diffuse atherosclerotic disease is present. Lymph nodes: Improved left hilar adenopathy. Bones/joints: Degenerative changes of the spine seen. Soft tissues: Unremarkable. CT/CT chest con [id number] IMPRESSION: 1. Stable pleuroparenchymal scarring in the right lung apex. Continued follow-up is recommended. 2. Persistent mucous plugging and patchy atelectasis along the medial aspect of the left lower lobe. 3. Interval improvement of left hilar adenopathy. 4. New ground-glass opacities in the left upper lobe, which may be infectious or inflammatory in etiology. 5. Stable right lower lobe nodule. 6. Stable ectatic ascending aorta.
== END 2021-09-03 10:42 | disposition home or self-care (01) ==
LOC: RAD 10:44
PROVIDERS: PCP Family Medicine; Visit Provider Internal Medicine Hematology & Oncology
DX: C34.32 Malignant neoplasm of lower lobe, left bronchus or lung (principal); I77.819 Aortic ectasia, unspecified site; R91.1 Solitary pulmonary nodule
CPT/HCPCS: 71250

== ENCOUNTER 2021-09-04 06:22 | Outpatient (RCR) | payer MEDICARE, SELFPAY ==
--- NOTE | 2021-08-15 10:45 | N.ONRD TS_ITS ---
Radiation OncologyTreatment Summary Patient Name: Nirmala Meléndez Date of : 1940 Date of Service: 08/15/2021 Attending Physician: Juan Weathers M.D. 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 A PET CT ordered on April 13, 2021 revealed a 1.8 cm x 3 cm left lower lobe hilar mass with an SUV of 28.5. Hypermetabolic activity was noted in subaortic mediastinal lymph nodes representing local metastatic disease and minimal activity in the spiculated right upper lobe nodule likely indicating inflammation. A bronchoscopy with endobronchial ultrasound-guided biopsy performed on April 19, 2021 demonstrated an endobronchial lesion within the distal left mainstem bronchus occluding the entrance to the left upper lobe and left lower lobe bronchi. The biopsy from the left lower lobe mass diagnosed a squamous cell carcinoma with PD-L1 expression of 35% to 40%. She was referred to [facility] in [place], [place] for a thoracic surgery consult and biopsy of the subaortic mediastinal lymph node. An EBUS was completed with biopsies of lymph node stations 4, 7 and 11 L. The left hilar lymph node biopsy was positive for metastatic squamous cell carcinoma. Cardiothoracic surgery did not recommend surgical intervention. Thoracic radiation therapy was delivered between the dates of July 01, 2021 through August 15, 2021. A prescribed dose of 60 Gy was delivered in 30 fractions encompassing 36 elapsed days. The left lower-lobe mass and hilar lymphadenopathy were treated utilizing an intensity modulated radiotherapy plan with a step and shoot treatment technique. The plan required eight gantry angles (5???, 20???, 40???, 60???, 130???, 160???, 190???, and 350???) replicating an arc. The collimator rotation 0???. The field sizes spanned between 10.2 cm x 18.5 cm to 14.8 cm x 18.5 cm. The SSDs measured a minimum of 87.3 cm to a maximum of 92.4 cm. The ports delivered 227 MU, 208 MU, 248 MU, 207 MU, 173 MU, 195 MU, 228 MU, and 240 MU corresponding to the gantry angles described. All treatments were performed with the [employer] linear accelerator and an isocentric technique. The dose was calculated by Anisotropic Analytic Algorithm. A photon energy of 6 MV was prescribed with the plan normalized to deliver 100% of the prescription dose to 95% of the planning target volume. She was prescribed Carboplatin (AUC 2) and Paclitaxel (50 mg/m???) weekly (July 01, 2021 through August 13, 2021) during radiotherapy under the supervision of Justyna Rodarte M.D Signed by: Dr. Juan Weathers 08/15/2021 10:44:19 AM
[2021-09-03 12:03] LABS: Basophils # 0.1 10^3/uL (0.0-0.1); Basophils % 1.6 %; Eosinophils # 0.1 10^3/uL (0.0-0.8); Hematocrit 35.1 % (37.0-47.0); Hemoglobin 11.7 g/dL (11.5-15.3); Lymphocytes # 1.9 10^3/uL (0.8-4.8); Lymphocytes % 34.4 %; Mean Corpuscular HGB Conc 33.3 g/dL (30.0-36.0); Mean Corpuscular Hemoglobin 30.2 pg (28.0-34.0); Mean Corpuscular Volume 90.7 fl (81-99); Mean Platelet Volume 9.4 fL (7.4-10.4); Monocytes # 0.9 10^3/uL (0.2-0.9); Monocytes % 15.3 %; Neutrophils # 2.55 10^3/uL (1.8-7.7); Nucleated Red Blood Cells % 0 %; Platelet Count 256 10^3/cmm (130-400); Red Blood Count 3.87 10^6/uL (4.1-5.3); Red Cell Distribution Width 16.4 % (12.1-15.1); White Blood Count 5.6 10^3/uL (4.0-10.0)
[2021-09-03 12:33] LABS: Alanine Aminotransferase 26 U/L (0-33); Albumin Level 3.7 g/dL (3.5-5.2); Alkaline Phosphatase 90 IU/L (35-105); Anion Gap 19.4 (5-19); Aspartate Amino Transferase 24 U/L (0-32); Blood Urea Nitrogen 15 mg/dL (8-23); Calcium 8.4 mg/dL (8.5-10.5); Carbon Dioxide 23 mmol/L (22-29); Chloride 101 mmol/L (98-107); Globulin 3.2 g/dL (1.3-4.6); Glucose 95 mg/dL (65-115); Osmolality Calculated 291 mOsm/kg (285-295); Potassium 3.4 mmol/L (3.5-5.1); Sodium 140 mmol/L (136-145); Total Bilirubin 0.5 mg/dL (0.15-1.2); Total Protein 6.9 g/dL (6.6-8.7)
--- NOTE | 2021-09-05 15:51 | ONC FU_ITS ---
Dr. Rodarte follow up note Patient: Nirmala Meléndez Unit #: [id number]: 1940 Dicatated By: Justyna Rodarte M.D.Date of Visit:Sep 04, 2021 Onc Med Follow-up/Prog Note History of Present Illness: Ms. Meléndez is a 81-year-old female with a history of asthma, restrictive lung disease, coronary artery disease status post cardiac stents. Ms Meléndez reports in 2018 she developed off and on wheezing especially at night, Her PMD gave her inhalers which did help and her symptoms improved. and then In November 2020 she again started having wheezing which was progressive. She she was evaluated by PMD with chest x-ray , as per patient 'breathing test', probably PFT was done on December 03, 2020 which was consistent with mild airflow obstruction with no significant post bronchodilator response., Normal lung volumes and moderately reduced gas transfer, 56% Subsequently in first week of March, as per patient she coughed up fresh blood, it was a large amount and again happened 4-3 times, as as per patient she was on Plavix and aspirin for cardiac stent which were placed in the left main on September 14, 2019, at that time her PMD stopped her Plavix, with that no more episode of hemoptysis and she underwent CT scan of chest on January 24, 2021 which showed no significant change since August 2019, moderate chronic emphysematous changes, stable mucous plugging left lower lobe bronchus with associated left lobe atelectasis medially. This has chronic appearance. Fibrotic appearing opacity right upper lobe extending to the lung apex is unchanged from previous, measuring 1.5 x 1.2 x 1.2 cm. She was referred to pulmonology for evaluation., Patient was seen by Dr. Liang, on April 08, 2021, Who ordered CT PET scan which was done on April 13, 2021 showed there is any minimal activity in the spiculated right upper lobe 1.1 x 1.7 cm, supporting a benign inflammatory diagnosis. There is a 1.8 x 3 cm mass in the left lower lobe hilum with SUV of 28.5, has high probability of malignancy. An FDG positive subaortic mediastinal lymph node consistent with local metastatic disease, On April 19, 2021 she underwent bronchoscopy and left lower lobe mass endobronchial biopsy showed squamous cell carcinoma, p63 positive, TTF-1 negative, Napsin negative, Ki-67 35% PD-L1 TPS 40% Past medical history positive for TIA, SVT, CKD, esophagitis, hypothyroidism, osteoporosis, dyslipidemia Ms Meléndez was referred to cardiothoracic surgery at [facility] and she was seen by Dr. Parikh, on May 09, 2021 and as per patient she was told that surgical resection is not possible rather proceed with chemoradiation. And at that time she underwent left hilar lymph node biopsy which confirmed metastatic disease as subaortic lymph node was not accessible but was positive on CT PET scan and Pathologically she was stage IIb disease but clinically stage IIIa, Based on PET scan recommended carboplatin paclitaxel in combination with radiation. She began her first cycle on July 01, 2021. Follow-up CT PET scan done on August 24, 2021 shows resolution of left lower lobe mass consistent with complete response, resolution of abnormal uptake in subaortic mediastinal lymphadenopathy no change in FDG negative right upper lobe nodule-like scar. Came for follow-up and denies any specific complaints, except mild nausea but no vomiting and off-and-on cough otherwise no fever chills,no hemoptysis hematemesis, no peripheral neuropathy completed combined chemoradiation without any problem Medications: Adult Aspirin EC Low Strength (81 mg) Tablet, enteric coated Oral daily, Calcitonin ([place]) 1 (200 Units/act) Solution Nasal daily, Ezetimibe (10 mg) Tablet Oral, Levothyroxine Sodium (75 mcg) Tablet Oral every am, Melatonin (3 mg) Tablet Oral at bedtime, Metoprolol Tartrate (25 mg) Tablet Oral b.i.d., Nitroglycerin Tablet, sublingual Sublingual PRN, Pantoprazole Sodium (20 mg) Tablet, enteric coated Oral daily, Tiotropium [place] Monohydrate 2 (1.25 mcg/act) Aerosol, solution Inhalation daily Allergies: Statins and Sulfa. Review of Systems: Review of Systems is not available for this patient. Vital Signs: Performed on Sep 04, 2021 08:51 Height - 62.00 in Weight - 112.4 lbs (LOW) BSA - 1.50 sq.m BMI - 20.56 Temperature - 98.4 F Pulse - 93 /min Respiration - 18 /min BP - 129/80 mm(hg) O2 Sat - 96 % Pain - 0 Fatigue - 9 Performance Status: 0 - Fully active, able to carry on all predisease activities without restrictions. (ECOG) Physical Examination: ENMT - No mouth sores, no thrush, no jaundice, Respiratory - Lungs are clear to auscultation, Cardiovascular - Regular rate and rhythm of heart, Abdomen - Soft, bowel sounds present, Extremities - No visible edema. Lab/Imaging: Test performed on Aug 12, 2021 15:20 Creatinine 0.8 mg/dL Cr Clearance (Est) 46.05 mL/min Test performed on Jul 08, 2021 09:15 Sodium 136 mmol/L Potassium 4.5 mmol/L Chloride 101 mmol/L CO2 21 mmol/L Anion Gap 18.5 BUN 21 mg/dL Glucose 146 mg/dL Osmolality - Calculated 288 mOsm/kg Calcium 9.4 mg/dL Protein, Total 7.0 g/dL Albumin 4.0 g/dL Globulin 3.0 g/dL Bilirubin, Total 0.5 mg/dL ALT (SGPT) 18 U/L AST (SGOT) 13 U/L Alkaline Phosphatase 59 IU/L WBC 4.7 10 3/uL RBC 4.67 10 6/uL HGB 13.4 g/dL HCT 42.3 % MCV 90.6 fl MCH 28.7 pg MCHC 31.7 g/dL RDW 13.1 % Platelet Count 294 10 3/cmm MPV 9.9 fL Neutrophils 4.23 10 3/uL Lymphocytes 0.4 10 3/uL Monocytes 0.0 10 3/uL Eosinophils 0.0 10 3/uL Basophils 0.0 10 3/uL Neutrophil % 89.7 % Lymphocyte % 7.6 % Monocyte % 0.4 % Eosinophil % 0.0 % Basophils % 0.6 % NRBC % 0 % Impression: Pathological stage IIb/clinical stage IIIa, based on CT PET scan, 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 FDG positive subaortic mediastinal lymph nodes. 1.1 x 1.7 cm spiculated lesion with minimal activity in the right upper lobe, probably benign inflammatory Clinical stage Ia versus 3A if subaortic lymph node positive for metastatic disease, Underwent left hilar lymph node biopsy which confirmed metastatic disease as subaortic lymph node was not accessible, pathologically she was diagnosed with stage IIb but clinically, based on CT PET scan she was T3a and was treated as stage IIIa as subaortic lymph node was in the radiation field Coronary artery disease status post stenting September 2019 TIA SVT Hypothyroidism Osteoporosis Plan: Discussed with patient regarding her labs white blood count 5.6 hemoglobin 11.7 crit 35.1 platelets 256,000 CMP within normal limit except potassium 3.[address] PET scan which was done on August 24, 2021 which shows complete remission Clinically, patient doing well with no new signs symptom, her follow-up CT PET scan shows complete resolution, now being considered for maintenance therapy with durvalumab biweekly for 12 months, all the side effect possible benefits associated with durvalumab including but not limited to, endocrinopathy, pneumonitis, colitis, jaundice, skin rash, allergic reaction, were mentioned further teaching was done by chemotherapy nurse, patient opted for maintenance immunotherapy, will obtain approval from her insurance prior to the treatment and then she will return to clinic 2 weeks with CBC CMP and for her first dose of durvalumab., As far as mild nausea is concerned, patient was advised to avoid spicy foods especially tomato and salsa or orange juice. She was also advised to use humidifier and steam inhalation. Or Claritin. Signed By: Justyna Rodarte M.D. <<Signature on File>>
== END 2021-09-13 23:59 | disposition home or self-care (01) ==
LOC: ONCMED 06:22
PROVIDERS: Absent Provider Radiology Radiation Oncology; PCP Family Medicine; Visit Provider Internal Medicine Hematology & Oncology
DX: Z51.0 Encounter for antineoplastic radiation therapy (principal); C34.32 Malignant neoplasm of lower lobe, left bronchus or lung; C77.8 Secondary and unspecified malignant neoplasm of lymph nodes of multiple regions; C78.01 Secondary malignant neoplasm of right lung; I25.10 Atherosclerotic heart disease of native coronary artery without angina pectoris; Z95.5 Presence of coronary angioplasty implant and graft; G45.9 Transient cerebral ischemic attack, unspecified; I47.1 Supraventricular tachycardia; E03.9 Hypothyroidism, unspecified; M81.0 Age-related osteoporosis without current pathological fracture; Z79.899 Other long term (current) drug therapy
CPT/HCPCS: 36591; 77014; 77336; 77386; 77427; 80053; 85025; 96372; 99214; 99215; Q5101

== ENCOUNTER 2021-10-10 06:23 | Outpatient (RCR) | payer MEDICARE, SELFPAY ==
[2021-09-19 09:51] LABS: Basophils # 0.1 10^3/uL (0.0-0.1); Basophils % 1.2 %; Eosinophils # 0.5 10^3/uL (0.0-0.8); Eosinophils % 6.8 %; Hematocrit 35.2 % (37.0-47.0); Hemoglobin 11.5 g/dL (11.5-15.3); Lymphocytes # 0.9 10^3/uL (0.8-4.8); Lymphocytes % 13.9 %; Mean Corpuscular HGB Conc 32.7 g/dL (30.0-36.0); Mean Corpuscular Hemoglobin 29.2 pg (28.0-34.0); Mean Corpuscular Volume 89.3 fl (81-99); Mean Platelet Volume 9.2 fL (7.4-10.4); Monocytes # 0.7 10^3/uL (0.2-0.9); Monocytes % 10.5 %; Neutrophils # 4.52 10^3/uL (1.8-7.7); Neutrophils % 66.9 %; Nucleated Red Blood Cells % 0 %; Platelet Count 289 10^3/cmm (130-400); Red Blood Count 3.94 10^6/uL (4.1-5.3); Red Cell Distribution Width 15.6 % (12.1-15.1); White Blood Count 6.8 10^3/uL (4.0-10.0)
[2021-09-19 10:11] LABS: Alanine Aminotransferase 11 U/L (0-33); Albumin Level 3.2 g/dL (3.5-5.2); Alkaline Phosphatase 81 IU/L (35-105); Anion Gap 16.9 (5-19); Aspartate Amino Transferase 20 U/L (0-32); Blood Urea Nitrogen 12 mg/dL (8-23); Carbon Dioxide 23 mmol/L (22-29); Chloride 101 mmol/L (98-107); Globulin 3.2 g/dL (1.3-4.6); Glucose 113 mg/dL (65-115); Osmolality Calculated 285 mOsm/kg (285-295); Potassium 3.9 mmol/L (3.5-5.1); Sodium 137 mmol/L (136-145); Total Bilirubin 0.4 mg/dL (0.15-1.2); Total Protein 6.4 g/dL (6.6-8.7)
[2021-09-26 10:18] LABS: Basophils # 0.1 10^3/uL (0.0-0.1); Basophils % 0.8 %; Eosinophils # 0.5 10^3/uL (0.0-0.8); Eosinophils % 7.1 %; Hematocrit 38.6 % (37.0-47.0); Hemoglobin 12.3 g/dL (11.5-15.3); Lymphocytes # 0.9 10^3/uL (0.8-4.8); Mean Corpuscular HGB Conc 31.9 g/dL (30.0-36.0); Mean Corpuscular Hemoglobin 28.9 pg (28.0-34.0); Mean Corpuscular Volume 90.6 fl (81-99); Mean Platelet Volume 9.1 fL (7.4-10.4); Monocytes # 0.8 10^3/uL (0.2-0.9); Monocytes % 12.4 %; Neutrophils # 4.29 10^3/uL (1.8-7.7); Neutrophils % 65.1 %; Nucleated Red Blood Cells % 0 %; Platelet Count 261 10^3/cmm (130-400); Red Blood Count 4.26 10^6/uL (4.1-5.3); Red Cell Distribution Width 16.4 % (12.1-15.1); White Blood Count 6.6 10^3/uL (4.0-10.0)
[2021-09-26 10:38] LABS: Alanine Aminotransferase 12 U/L (0-33); Albumin Level 3.4 g/dL (3.5-5.2); Alkaline Phosphatase 71 IU/L (35-105); Anion Gap 13.9 (5-19); Aspartate Amino Transferase 12 U/L (0-32); Blood Urea Nitrogen 23 mg/dL (8-23); Calcium 8.3 mg/dL (8.5-10.5); Carbon Dioxide 25 mmol/L (22-29); Chloride 104 mmol/L (98-107); Globulin 2.5 g/dL (1.3-4.6); Glucose 94 mg/dL (65-115); Osmolality Calculated 291 mOsm/kg (285-295); Potassium 3.9 mmol/L (3.5-5.1); Sodium 139 mmol/L (136-145); Total Bilirubin 0.3 mg/dL (0.15-1.2); Total Protein 5.9 g/dL (6.6-8.7)
[2021-09-26] MEDS: sodium chloride 0.9% 250 ML 75 ML IV (11:20)
== END 2021-10-14 23:59 | disposition home or self-care (01) ==
LOC: ONCMED 06:23
PROVIDERS: Nurse Practitioner Family; PCP Family Medicine; Visit Provider Internal Medicine Hematology & Oncology
DX: Z51.12 Encounter for antineoplastic immunotherapy (principal); C34.32 Malignant neoplasm of lower lobe, left bronchus or lung; C77.8 Secondary and unspecified malignant neoplasm of lymph nodes of multiple regions; I25.10 Atherosclerotic heart disease of native coronary artery without angina pectoris; I63.9 Cerebral infarction, unspecified; I47.1 Supraventricular tachycardia; E03.9 Hypothyroidism, unspecified; M81.0 Age-related osteoporosis without current pathological fracture; Z79.899 Other long term (current) drug therapy
CPT/HCPCS: 36591; 80053; 85025; 96413; 99214; J7050; J9173

== ENCOUNTER 2021-10-10 08:53 | Inpatient (IN) | payer MEDICARE, SELFPAY ==
[2021-10-10] VITALS (19 sets, daily range): BP systolic 102–130; BP diastolic 59–75; PULSE 67–81; RESP 16–27; TEMP 36.7–36.8; O2SAT 88–100; BMI 19.7
--- NOTE | 2021-10-10 09:00 | ECG_ITS ---
[facility] Test Date: 2021-10-10 Pat Name: Nirmala Meléndez Department: Room: Gender: Female Appellate Conferee: : 1940 Requested By: Dilma Garcia Order Number: [id number] Nikki MD: Lexus Cherry M.D. Measurements Intervals [place] Rate: 71 P: 69 CA: 194 QRS: -42 QRSD: 111 T: 61 QT: 390 QTc: 426 Interpretive Statements SINUS RHYTHM WITH SINUS ARRHYTHMIA LEFT AXIS DEVIATION [QRS AXIS < -30] INCOMPLETE RIGHT BUNDLE BRANCH BLOCK VOLTAGE CRITERIA FOR LVH POSSIBLE SEPTAL MYOCARDIAL INFARCTION , OF INDETERMINATE AGE LATERAL MYOCARDIAL INFARCTION , PROBABLY RECENT Compared to ECG 04/27/2021 15:56:23 Left-axis deviation now present First degree AV block no longer present Left anterior fascicular block no longer present ST (T wave) deviation no longer present Myocardial infarct finding still present Electronically Signed On 10-10-2021 22:06:10 [employer] by Lexus Cherry M.D. [email or web address]
--- NOTE | 2021-10-10 09:00 | XRR_ITS ---
PROCEDURE INFORMATION: Exam: XR Chest Exam date and time: 10/10/2021 9:00 AM Age: 81 years old Clinical indication: Cough and shortness of breath; Prior surgery; Surgery type: Stents; Patient HX: HX of lung cancer, cough, SOB for 3-4 days, chemo treatment recently, covid precautions TECHNIQUE: Imaging protocol: XR of the chest. Views: 1 view. COMPARISON: CT chest con [id number] 09/03/2021 11:10 AM FINDINGS: Tubes, catheters and devices: A MediPort catheter is present with the tip projecting in the SVC. Lungs: There is a left basilar infiltrate consistent with a pneumonia. The right lung is clear. Pleural spaces: Unremarkable. No pleural effusion. No pneumothorax. Heart/Mediastinum: Unremarkable. No cardiomegaly. Bones/joints: Unremarkable. XR/XR chest 1V portable [id number] IMPRESSION: Left basilar pneumonia.
--- NOTE | 2021-10-10 09:25 | CT_ITS ---
WS: [id number] CT CHEST ANGIOGRAPHY WITH REFORMATS HISTORY: hypoxia/hx lung Ca TECHNIQUE: Contiguous axial images are obtained through the chest during arterial injection of intrav enous contrast. Images are reconstructed to evaluate the pulmonary arteries. MIP imaging also reviewe d. All CT scans at [facility] use at least one of these dose optimization techniques: automat ed exposure control; mA and/or kV adjustment per patient size (includes targeted exams where dose is matched to clinical indication); or iterative reconstruction. CONTRAST: Omnipaque 350; 57 mL IV. DLP: 386.61 mGy.cm COMPARISON: 09/03/2021 Very good opacification of the pulmonary arteries. No filling defects or pulmonary embolism is identi fied. Pulmonary artery size is normal. Mild to moderate atherosclerosis of aorta with ectasia. No ane urysm. No RIGHT heart strain. Very mild enlargement of the cardiac chambers. No pericardial or pleura l effusion. Marked emphysematous pulmonary disease. Spiculated nodule centered in the RIGHT upper lobe with adjac ent atelectasis measures 17 x 11 mm and is similar to the most recent examinations. New 11 mm nodule in the medial LEFT upper lobe corresponds to an area of atelectasis and progression interstitial thic kening since the prior study. Coarse reticular thickening extends along the medial LEFT upper LEFT lo wer lobes. Reticular nodular infiltrate involves a large portion of the LEFT lower lobe which is new since the prior study. Associated bronchiectasis noted medially. No new mediastinal or hilar lymph no luanne. Mild thickening and nodularity of the LEFT adrenal gland. Similar to the prior study. Nodule measures [address]/CT angio chest PE protcl [id number] IMPRESSION: 1. No pulmonary embolism. 2. Also moderate atherosclerosis thoracic aorta with ectasia. 3. Stable spiculated nodule and pleural parenchymal scarring at the RIGHT apex . 4. Progressive and new reticular nodular infiltrate involving the medial LEFT upper lobe and a large portion of the LEFT lower lobe. Adjacent small effusion. Due to the sudden onset since 09/03/2021 consider pneumonia as the most likely etiology. There is also adjacent developing bronchiectasis. Recommend follow-u p chest CT in 3-4 months to ensure resolution. 5. Stable LEFT adrenal nodularity.
--- NOTE | 2021-10-10 09:47 | ED_ITS ---
HPI - SOB/Dyspnea General: Chief Complaint: Shortness of Breath/Dyspnea Stated Complaint: PCP SENT FOR SOB, NAUSEAUS, NOT EATING Time Seen by Provider: 10/10/21 08:59 History of Present Illness: HPI Narrative: 81-year-old female who presents to the emergency room with complaints of chest pain with inspiration. She was recently diagnosed with lung cancer and 2 weeks ago underwent her first chemotherapy treatment she is also getting radiation. He has significant pleuritic chest pain with almost any level of breathing. He has had increasing cough. Cough is been nonproductive. She has had some anosmia. She denies any diarrhea. She has had her COVID vaccination x2 but not had a booster. Poor oral intake with the exception of liquids. MD elicited complaint: chest pain Pertinent past history: other (Lung CA) Onset (ago): day(s) Timing: constant and progressively worsening Severity: severe Exacerbating factors: deep breaths Relieving factors: rest Known history of: other (Lung CA) Associated symptoms: Reports chest congestion, cough, dizziness, myalgias, nausea and sense of impending doom; Deny abdominal pain, chest pain, diaphoresis, extremity pain, fever(s), hemoptysis, lightheadedness, orthopnea, palpitations, paresthesias, polydipsia, polyuria, rash, syncope or vomiting Treatment prior to arrival: none Review of Systems Const: Denies: fever(s) or diaphoresis ENMT: Denies: throat pain, ear or mastoid pain, nasal discharge or nasal congestion Card: Denies: chest pain, palpitations, lightheadedness, syncope or orthopnea Resp: Reports: dyspnea, non-productive cough, wheezing and chest congestion; Denies: hemoptysis GI: Reports: nausea; Denies: abdominal pain or vomiting : Denies: flank pain, difficulty voiding, dysuria, urinary frequency or urinary urgency Musc: Denies: extremity pain Skin/Breast: Denies: rash or pruritus Neuro: Reports: dizziness Endo: Denies: polyuria or polydipsia PFSH ED PFSH: Medical History Abnormal liver enzymes Atelectasis of left lung Atherosclerotic heart disease of [place] coronary artery without angina pectoris CAD (coronary artery disease) Dyslipidemia statin intolerant, taking ezetimibe. Gastroesophageal reflux NSTEMI (non-ST elevated myocardial infarction) Squamous cell carcinoma of left lung Statin intolerance Supraventricular tachycardia TIA (transient ischemic attack) Surgical History History of bronchoscopy History of coronary artery stent placement Port-A-Cath in place (06/24/21) right IJ Status post colonoscopy Family History Mother Hypertension Dementia CAD (coronary artery disease) Myocardial infarction Denies family history of Diabetes Clotting disorder Chronic kidney disease (CKD) Suicide Anesthesia complication Bleeding disorder Lung disease Cancer Stroke Social History Quit status (tobacco): has quit using tobacco Former quit date comment: 3ppd x 20 years Alcohol intake: never Lives independently: Yes Household members: none Housing: House Marital status: / Physical Exam Const: GENERAL APPEARANCE: cooperative ORIENTATION/CONSCIOUSNESS: Yes awake, Yes oriented to person, Yes oriented to place and Yes oriented to time HENMT: COMMON NORMALS: normocephalic, atraumatic and hearing grossly normal bilaterally HEAD & SCALP: normocephalic and atraumatic Neck/C-Spine: COMMON NORMALS: no JVD Resp: EFFORT & INSPECTION: Yes Actively coughing AUSCULTATION: rales and d iminished lung sounds Cardio: COMMON NORMALS: no JVD, regular rate, regular rhythm and No murmurs present (Cardio) RATE: regular rate RHYTHM: regular rhythm GI: COMMON NORMALS: Soft to palpation and No hepatosplenomegaly present AUSCULTATION: Yes normoactive bowel sounds PALPATION: Yes Soft to palpation, No Tenderness to palpation present (GI), No Guarding due to palpation present (GI) and Yes No hepatosplenomegaly present Extremity: COMMON NORMALS: normal to inspection, capillary refill normal, no clubbing, cyanosis or edema, no calf tenderness and no pedal edema Neuro: SENSORIUM/ORIENTATION: Yes oriented to person, Yes oriented to place and Yes oriented to time Skin: COMMON NORMALS: no rashes or lesions noted GENERAL SKIN EXAM: no rashes or lesions noted Course Vital Signs: Vital signs: Vital Signs Temperature 98.2 F 10/10/21 09:12 Pulse Rate 70 10/10/21 11:29 Respiratory Rate 20 H 01/27/22 11:29 Blood Pressure 129/69 10/10/21 11:29 Pulse Oximetry 97 10/10/21 11:29 MDM - SOB/Dyspnea MDM Narrative Medical decision making narrative: Patient has left lower lobe pneumonia. She is requiring 4 L by nasal cannula and will require hospitalization discussed with hospitalist and with the patient reviewed labs imaging EKG orders written Medical Records Attestation: I reviewed the patient's medical records. Lab Data Attestation: I reviewed the patient's lab results. Result diagrams: 10/10/21 10:50 10/10/21 10:50 Labs: Radiology Impressions Chest X-Ray 10/10/21 09:00 IMPRESSION: Left basilar pneumonia. Chest CTA 10/10/21 09:25 IMPRESSION: 1. No pulmonary embolism. 2. Also moderate atherosclerosis thoracic aorta with ectasia. 3. Stable spiculated nodule and pleural parenchymal scarring at the RIGHT apex. 4. Progressive and new reticular nodular infiltrate involving the medial LEFT upper lobe and a large portion of the LEFT lower lobe. Adjacent small effusion. Due to the sudden onset since 09/03/2021 consider pneumonia as the most likely etiology. There is also adjacent developing bronchiectasis. Recommend follow-up chest CT in 3-4 months to ensure resolution. 5. Stable LEFT adrenal nodularity. Laboratory Results WBC 5.5 10^3/uL (4.0-10.0) 10/10/21 10:50 RBC 4.18 10^6/uL (4.1-5.3) 10/10/21 10:50 Hgb 12.3 g/dL (11.5-15.3) 10/10/21 10:50 Hct 37.8 % (37.0-47.0) 10/10/21 10:50 MCV 90.4 fl (81-99) 10/10/21 10:50 MCH 29.4 pg (28.0-34.0) 10/10/21 10:50 MCHC 32.5 g/dL (30.0-36.0) 10/10/21 10:50 RDW 15.6 % (12.1-15.1) H 10/10/21 10:50 Plt Count 296 10^3/cmm (130-400) 10/10/21 10:50 MPV 9.3 fL (7.4-10.4) 10/10/21 10:50 Neut % (Auto) 75.4 % 10/10/21 10:50 Lymph % (Auto) 12.1 % 10/10/21 10:50 [place] % (Auto) 8.9 % 10/10/21 10:50 Eos % (Auto) 2.4 % 10/10/21 10:50 Baso % (Auto) 0.7 % 10/10/21 10:50 Neut # (Auto) 4.17 10^3/uL (1.8-7.7) 10/10/21 10:50 Lymph # (Auto) 0.7 10^3/uL (0.8-4.8) L 10/10/21 10:50 [place] # (Auto) 0.5 10^3/uL (0.2-0.9) 10/10/21 10:50 Eos # (Auto) 0.1 10^3/uL (0.0-0.8) 10/10/21 10:50 Baso # (Auto) 0.0 10^3/uL (0.0-0.1) 10/10/21 10:50 Nucleated RBC % (auto) 0 % 10/10/21 10:50 Nucleated RBCs # 0.0 /100WBC 10/10/21 10:50 Sodium 137 mmol/L (136-145) 10/10/21 10:50 Potassium 3.8 mmol/L (3.5-5.1) 10/10/21 10:50 Chloride 100 mmol/L (98-107) 10/10/21 10:50 Carbon Dioxide 23 mmol/L (22-29) 10/10/21 10:50 Anion Gap 17.8 (5-19) 10/10/21 10:50 BUN 16 mg/dL (8-23) 10/10/21 10:50 Creatinine 0.7 mg/dL (0.5-0.9) 10/10/21 10:50 GFR Calculation Not Reportable 10/10/21 10:50 Glucose 84 mg/dL (65-115) 10/10/21 10:50 Calculated Osmolality 284 mOsm/kg (285-295) L 10/10/21 10:50 Lactic Acid 1.1 mmol/L (0.5-2.2) 10/10/21 10:50 Calcium 9.5 mg/dL (8.5-10.5) 10/10/21 10:50 Iron 24 ug/dL (37-145) L 10/10/21 10:50 TIBC 232 mcg/dl 10/10/21 10:50 % Saturation 10.3 % (20-50) L 10/10/21 10:50 Unsat Iron Binding 208 ug/dL (112-347) 10/10/21 10:50 Total Bilirubin 0.5 mg/dL (0.15-1.2) 10/10/21 10:50 AST 12 U/L (0-32) 10/10/21 10:50 ALT 8 U/L (0-33) 10/10/21 10:50 Alkaline Phosphatase 84 IU/L (35-105) 10/10/21 10:50 Troponin T Baseline 51 ng/L (0-10) H 10/10/21 10:50 NT-Pro-B Natriuret Pep 630 pg/mL (0-450) H 10/10/21 10:50 Total Protein 6.5 g/dL (6.6-8.7) L 10/10/21 10:50 Albumin 3.4 g/dL (3.5-5.2) L 10/10/21 10:50 Globulin 3.1 g/dL (1.3-4.6) 10/10/21 10:50 Procalcitonin 0.04 ng/mL (0-0.5) 10/10/21 10:50 TSH 0.63 uIU/mL (0.27-4.20) 10/10/21 10:50 Urine Color Yellow (Yellow) 10/10/21 09:45 Urine Appearance Sl hazy (CLEAR) 10/10/21 09:45 Urine pH 5 (5-7) 10/10/21 09:45 Ur Specific [place] 1.020 (1.005-1.030) 10/10/21 09:45 Urine Protein Neg (Negative) 10/10/21 09:45 Urine Glucose (UA) Norm (Normal) 10/10/21 09:45 Urine Ketones Negative (Negative) 10/10/21 09:45 Urine Blood Neg (Negative) 10/10/21 09:45 Urine Nitrate Negative (Negative) 10/10/21 09:45 Urine Bilirubin Neg (Negative) 10/10/21 09:45 Urine Urobilinogen Norm mg/dL (Negative) 10/10/21 09:45 Ur Leukocyte Esterase 2+ (Negative) H 10/10/21 09:45 Urine RBC 0-4 /hpf (0-2) H 10/10/21 09:45 Urine WBC 10-15 /hpf (0-5) H 10/10/21 09:45 Ur Squamous Epith Cells 25-40 /hpf (0-5) H 10/10/21 09:45 Amorphous Sediment Not Reportable 10/10/21 09:45 Urine Bacteria 2+ /hpf (NONE) H 10/10/21 09:45 Urine Mucus 2+ /hpf 10/10/21 09:45 Nasal Influ A H1 2009 PCR Not detected (NOT DETECT) 10/10/21 09:45 Adenovirus (PCR) Not detected (NOT DETECT) 10/10/21 09:45 C. pneumoniae DNA (PCR) Not detected (NOT DETECT) 10/10/21 09:45 Coronavirus 229E (PCR) Cancelled 10/10/21 09:45 Coronavirus 229E (PCR) Not detected (NOT DETECT) 10/10/21 09:45 Human Metapneumovir PCR Not detected (NOT DETECT) 10/10/21 09:45 Influenza A (H1) PCR Not detected (NOT DETECT) 10/10/21 09:45 Influenza A (H3) PCR Not detected (NOT DETECT) 10/10/21 09:45 Influenza Type A (PCR) Not detected (NOT DETECT) 10/10/21 09:45 Influenza Type B (PCR) Not detected (NOT DETECT) 10/10/21 09:45 M. pneumoniae (PCR) Not detected (NOT DETECT) 10/10/21 09:45 Parainfluenza 1 (PCR) Not detected (NOT DETECT) 10/10/21 09:45 Parainfluenza 2 (PCR) Not detected (NOT DETECT) 10/10/21 09:45 Parainfluenza 3 (PCR) Not detected (NOT DETECT) 10/10/21 09:45 Parainfluenza 4 (PCR) Not detected (NOT DETECT) 10/10/21 09:45 RSV Type A (PCR) Not detected (NOT DETECT) 10/10/21 09:45 RSV Type B (PCR) Not detected (NOT DETECT) 01/27/22 09:45 Entero/Rhino (PCR) Not detected (NOT DETECT) 10/10/21 09:45 SARS-CoV-2 (PCR) Cancelled 10/10/21 09:45 SARS-CoV-2 (PCR) Not detected (NOT DETECT) 10/10/21 09:45 Discharge Plan Discharge Patient Disposition: Admitted As Inpatient Admit Provider: Calderon Cedillo Clinical Impression: Pneumonia, Acute respiratory failure with hypoxia, Lung cancer Condition: Stable Coding Level of Care Code ED Specimen Preparation Assistant for Chg Fwd Exam Comprehensive
[2021-10-10 10:22] LABS: Add Urine Microscopic? YES; Bilirubin Urine Neg (Negative); Blood Urine Neg (Negative); Glucose Urine UA Norm (Normal); Ketones Urine Negative (Negative); Leukocyte Esterase Urine 2+ (Negative); Nitrate Urine Negative (Negative); Protein Urine Neg (Negative); Urine Appearance SL Hazy (CLEAR); Urine Color Yellow (Yellow); Urobilinogen Urine Norm (Negative); pH Urine 5 (5-7)
[2021-10-10 10:52] LABS: Add Urine Culture? No; Bacteria Urine 2+ /hpf; Mucus Urine 2+ /hpf; RBC Urine 0-4 /hpf (0-2); Squamous Epithelial Cell Urine 25-40 /hpf (0-5)
--- NOTE | 2021-10-10 11:00 | ECG_ITS ---
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 Measurements Intervals [place] Rate: 71 P: 58 PA: 197 QRS: -38 QRSD: 113 T: 54 QT: 418 QTc: 454 Interpretive Statements SINUS RHYTHM LEFT AXIS DEVIATION [QRS AXIS < -30] INCOMPLETE RIGHT BUNDLE BRANCH BLOCK [90+ ms QRS DURATION, TERMINAL R IN V1/V2, 40+ ms S IN I/aVL/V4/V5/V6] VOLTAGE CRITERIA FOR LVH POSSIBLE SEPTAL MYOCARDIAL INFARCTION , OF INDETERMINATE AGE [30 ms Q WAVE IN V1/V2] PROBABLE LATERAL MYOCARDIAL INFARCTION , PROBABLY OLD Compared to ECG 10/10/2021 09:36:00 Sinus arrhythmia no longer present Myocardial infarct finding still present Electronically Signed On 10-10-2021 22:26:30 FEED MILL MANAGER by Lexus Cherry M.D. [id number]
[2021-10-10 11:02] LABS: Basophils % 0.7 %; Eosinophils # 0.1 10^3/uL (0.0-0.8); Eosinophils % 2.4 %; Hematocrit 37.8 % (37.0-47.0); Hemoglobin 12.3 g/dL (11.5-15.3); Lymphocytes # 0.7 10^3/uL (0.8-4.8); Lymphocytes % 12.1 %; Mean Corpuscular HGB Conc 32.5 g/dL (30.0-36.0); Mean Corpuscular Hemoglobin 29.4 pg (28.0-34.0); Mean Corpuscular Volume 90.4 fl (81-99); Mean Platelet Volume 9.3 fL (7.4-10.4); Monocytes # 0.5 10^3/uL (0.2-0.9); Monocytes % 8.9 %; Neutrophils # 4.17 10^3/uL (1.8-7.7); Neutrophils % 75.4 %; Nucleated Red Blood Cells % 0 %; Platelet Count 296 10^3/cmm (130-400); Red Blood Count 4.18 10^6/uL (4.1-5.3); Red Cell Distribution Width 15.6 % (12.1-15.1); White Blood Count 5.5 10^3/uL (4.0-10.0)
[2021-10-10 11:31] LABS: Lactic Sepsis W/Reflex 1.1 mmol/L (0.5-2.2)
[2021-10-10 11:56] LABS: Troponin(5th) Baseline 51 ng/L (0-10)
[2021-10-10 11:57] LABS: Alanine Aminotransferase 8 U/L (0-33); Albumin Level 3.4 g/dL (3.5-5.2); Alkaline Phosphatase 84 IU/L (35-105); Anion Gap 17.8 (5-19); Aspartate Amino Transferase 12 U/L (0-32); Blood Urea Nitrogen 16 mg/dL (8-23); Calcium 9.5 mg/dL (8.5-10.5); Carbon Dioxide 23 mmol/L (22-29); Chloride 100 mmol/L (98-107); Globulin 3.1 g/dL (1.3-4.6); Glucose 84 mg/dL (65-115); Osmolality Calculated 284 mOsm/kg (285-295); Potassium 3.8 mmol/L (3.5-5.1); Sodium 137 mmol/L (136-145); Total Bilirubin 0.5 mg/dL (0.15-1.2); Total Protein 6.5 g/dL (6.6-8.7)
[2021-10-10] MEDS: levofloxacin-dextrose 5 % 750 MG/150 ML PREMIX 100 MG IV (12:21)
[2021-10-10] MEDS: iohexol 350 mg/mL 100 mL Btl IV (13:13)
[2021-10-10 13:38] LABS: Troponin 5 2HR 46.15 ng/L (0-10)
[2021-10-10 13:41] LABS: Troponin 5 2HR Delta -4.85 ABS# (0-10)
--- NOTE | 2021-10-10 15:00 | ECG_ITS ---
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 Measurements Intervals [place] Rate: 76 P: 65 [place]: 201 QRS: -44 QRSD: 114 T: 62 QT: 421 QTc: 476 Interpretive Statements SINUS RHYTHM WITH OCCASIONAL SUPRAVENTRICULAR PREMATURE COMPLEXES LEFT AXIS DEVIATION [QRS AXIS < -30] INCOMPLETE RIGHT BUNDLE BRANCH BLOCK [90+ ms QRS DURATION, TERMINAL R IN V1/V2, 40+ ms S IN I/aVL/V4/V5/V6] VOLTAGE CRITERIA FOR LVH [MEETS CRITERIA IN ONE OF: R(aVL), S(V1), R(V5), R(V5/V6)+S(V1)] POSSIBLE SEPTAL MYOCARDIAL INFARCTION , OF INDETERMINATE AGE [30 ms Q WAVE IN V1/V2] Compared to ECG 10/10/2021 11:41:27 No significant changes Electronically Signed On 10-10-2021 22:08:57 ENERGY ANALYST by Lexus Cherry M.D. [id number]
--- NOTE | 2021-10-10 15:50 | P.HP_ITS ---
Providers/Chief Complaint Admitting Physician: Calderon Cedillo MD Primary Care Provider: Susan Romano MD Chief Complaint: PCP SENT FOR SOB, NAUSEAUS, NOT EATING History of Present Illness Nirmala Meléndez is a 81 year old female with past medical history of squamous cell carcinoma involving left lower lobe who follows up with Dr. Rodarte as an outpatient with complete resolution on follow-up CT PET done on August 24 on maintenance therapy with durvalumab, COPD on inhalers, CAD with PCI done in September 2019, TIA, hypothyroidism, osteoporosis, esophagitis, hypothyroidism. Patient states she has been having cough along with sore throat for 5 weeks. She first took the maintenance therapy for the first time 3 weeks ago. She started having postnasal drip which she attributed to her sinus problem last week. For last 4 to 5 days she has been having progressive difficulty in breathing more so on exertion and talking. Patient lives by herself. Has help who comes once weekly. She denies any nausea, vomiting, headache. States appetite is poor. Complaining of cough without expectoration. Vaccinated for COVID without booster for now. Blood work shows a white count of 5.5, hemoglobin of 12.3, sodium of 137, potassium of 3.8, creatinine of 0.7, lactate of 1.1, baseline troponin of 51 with delta of -4, UA showing 2+ leuk esterase, COVID-19 PCR negative. Review of Systems General: Reports: 10 or more systems reviewed and unremarkable except in HPI and below Const: Denies: fever(s), chills, body aches, change in appetite, change in weight, malaise, night sweats, diaphoresis, change in sleep pattern, daytime sleepiness or snoring Eyes: Denies: change in vision, blurry vision, photophobia, eye discomfort or eye discharge ENMT: Denies: throat pain, enlarged tonsils, hoarseness, mouth pain, oral sores, dry mouth, tinnitus, nasal congestion or post nasal drip Card: Denies: chest pain, palpitations, irregular heart rhythm, edema, swelling of feet/ankles, lightheadedness, syncope, pre-syncope, dyspnea on exertion, orthopnea, leg pain with exertion or acrocyanosis Resp: Denies: dyspnea, productive cough, non-productive cough, wheezing, stridor, pain on inspiration, change in phlegm color, hemoptysis or chest congestion GI: Denies: abdominal pain, nausea, vomiting, hematemesis, coffee ground emesis, dysphagia, heartburn, diarrhea, constipation, bloating, GI cramping, change in bowel habits, pain on defecation, hematochezia or melena : Denies: flank pain, dysuria, urinary frequency, urinary urgency, urinary hesitancy, nocturia or hematuria Musc: Denies: neck pain, back pain, extremity pain, joint pain, joint swelling, joint redness, joint stiffness or limited range of motion Neuro: Denies: headache(s), numbness in extremities, weakness in extremities, sensory changes, lack of coordination, difficulty walking, frequent falls, dizziness, vertigo, confusion, Slurred speech present, difficulty communicating thoughts or seizure-like activity Psych: Denies: anxiety, depression, mood swings, panic attacks, hopelessness or irritability Endo: Denies: polyuria, polydipsia, tired all the time, cold intolerance, excessive sweating, flushing or heat intolerance [place]a/Lymph: Denies: easy bruising or easy bleeding All/Imm: Denies: tongue swelling, facial swelling or acute wheezing Medications/Allergies Home Medications Medication Instructions Recorded Confirmed Last Taken Type calcitonin (salmon) 200 1 spray INTRANASAL (ALT) DAILY 09/13/19 10/10/21 01/25/21 History unit/actuation nasal spray left nare levothyroxine 75 mcg tablet 75 mcg PO QAM 09/13/19 10/10/21 06/24/21 05:30 History melatonin 3 mg tablet 3 mg PO BEDTIME 09/13/19 10/10/21 06/23/21 History Nitrostat 0.4 mg sublingual tablet 0.4 mg SUBLINGUAL Q5M PRN #30 tab 09/14/19 10/10/21 01/25/21 Rx (nitroglycerin) NS metoprolol tartrate 25 mg tablet 25 mg PO BID 90 Days #180 tab 11/26/20 10/10/21 06/24/21 05:30 Rx aspirin 81 mg tablet,delayed 81 mg PO QAM 01/25/21 10/10/21 06/23/21 History release pantoprazole 20 mg tablet,delayed 20 mg PO DAILY tab 03/12/21 10/10/21 06/24/21 05:30 History release tiotropium bromide 2.5 2 puff INHALATION DAILY #4 g 04/19/21 10/10/21 06/23/21 Rx mcg/actuation mist for inhalation (Spiriva Respimat) Allergies Allergy/AdvReac Type Severity Reaction Status Date / Time Sulfa (Sulfonamide Allergy Unknown CHANTE-Jitendrae Verified 10/10/21 10:39 Antibiotics) r Yfcpsgr-VIZ-HvM Reductase Allergy ADR-Cramping Verified 10/10/21 10:39 Inhibitor of the [Qnooaky-Ofc-Was Reductase Muscles Inhibitor] PFSH Acute PFSH: Medical History (Updated 10/10/21 @ 16:34 by Calderon Cedillo MD) Abnormal liver enzymes Atelectasis of left lung Atherosclerotic heart disease of [place] coronary artery without angina pectoris CAD (coronary artery disease) Dyslipidemia statin intolerant, taking ezetimibe. Gastroesophageal reflux NSTEMI (non-ST elevated myocardial infarction) Squamous cell carcinoma of left lung Statin intolerance Supraventricular tachycardia TIA (transient ischemic attack) Surgical History (Updated 06/24/21 @ 09:35 by Rod Pham MD) History of bronchoscopy History of coronary artery stent placement Port-A-Cath in place (06/24/21) right IJ Status post colonoscopy Family History Mother Hypertension Dementia CAD (coronary artery disease) Myocardial infarction Denies family history of Diabetes Clotting disorder Chronic kidney disease (CKD) Suicide Anesthesia complication Bleeding disorder Lung disease Cancer Stroke Social History (Updated 10/10/21 @ 16:29 by Calderon Cedillo MD) Quit status (tobacco): has quit using tobacco Former quit date comment: 3ppd x 20 years Alcohol intake: never Lives independently: Yes Household members: none Housing: House Marital status: / Vitals/I&O/Wt Last Vital Signs Temp 98.2 F 10/10/21 09:12 Pulse 70 10/10/21 11:29 Resp 20 H 10/10/21 11:29 BP 129/69 10/10/21 11:29 Pulse Ox 97 10/10/21 11:29 Weight last 48 hrs Weight 48.988 kg Physical Exam Narrative: EXAM NARRATIVE: General: No acute distress, AO x3, dehydrated temporal wasting, cachectic HEENT: PERRLA, pupils bilaterally equal and reactive Chest: Bilateral bronchial breath sounds, coarse crackles present in left upper and lower zone, tympanic present on left upper and lower zone, no added sounds, equal good air entry bilaterally CVS: S1-S2 regular, no murmurs, no tachycardia, no gallops, no rubs Abdomen: Soft, nontender, no organomegaly, bowel sounds present Neuro: No focal deficits, no facial deformity, AO x3, power 5/5 in all limbs Data : 10/10/21 10:50 10/10/21 10:50 Micro: Microbiology 10/10/21 12:40 Blood Culture - Preliminary Blood SPECIMEN COLLECTED 10/10/21 10:50 Blood Culture - Preliminary Blood SPECIMEN COLLECTED A&P Assessment and plan (1) Hypoxia: Status: Acute (2) SOB (shortness of breath): Status: Acute (3) COPD (chronic obstructive pulmonary disease): Status: Acute Qualifiers: COPD type: emphysema Emphysema type: centrilobular Qualified Code(s): J43.2 - Centrilobular emphysema (4) Pneumonia: Status: Acute (5) Squamous cell carcinoma of left lung: Status: Acute (6) Atherosclerotic heart disease of [place] coronary artery without angina pectoris: Status: Acute Qualifiers: [place] vs. transplanted heart: [place] heart Qualified Code(s): I25.10 - Atherosclerotic heart disease of [place] coronary artery without angina pectoris (7) Dyslipidemia: Status: Acute (8) Supraventricular tachycardia: Status: Acute (9) Protein-energy malnutrition: Status: Acute Plan Shortness of breath: Most likely secondary to COPD exacerbation with possibility of pneumonia in setting of history of squamous cell carcinoma of lung. Cannot rule out autoimmune pneumonitis secondary to new immunotherapy for maintenance malignancy. Check sputum culture, urine Legionella, bacterial antigen, MRSA swab, procalcitonin, proBNP, TIBC, A1c, respiratory viral panel. Blood cultures have been sent out. COVID-19 ruled out with a negative PCR. Check flu swab. For now start treatment for community-acquired pneumonia with IV ceftriaxone and oral azithromycin. Will de-escalate antibiotics quickly. For possible COPD exacerbation start patient on Solu-Medrol 40 mg every 6 hourly. DuoNeb every 6 hour, budesonide twice daily. Flonase, Cepacol, Tessalon Perles. Check echocardiogram. CAD: No active chest pain. Continue with aspirin. Check lipid panel, A1c. Echocardiogram as above. Continue other chronic medications including levothyroxine, metoprolol. CODE STATUS: Discussed in detail with the patient. She does not want any kind of intubation or chest compressions. DNR/DNI. Cardiac diet. Heparin for DVT prophylaxis. Famotidine for PUD prophylaxis. Attestations Medical Necessity Statement*: Admission for more than 2 midnights secondary COPD exacerbation with possibility of pneumonia in setting of squamous cell lung carcinoma Time Spent in Patient Care: Greater than 35 minutes Coding Level of Care Code Acute Flight Operations Coordinator for g Fwd Diagnoses SOB (shortness of breath) R06.02 Squamous cell carcinoma of left lung C34.92 Pneumonia J18.9 COPD (chronic obstructive pulmonary disease) J43.2 COPD type: emphysema Emphysema type: centrilobular Atherosclerotic heart disease of [place] coronary artery without angina pectoris I25.10 [place] vs. transplanted heart: [place] heart Dyslipidemia E78.5 Supraventricular tachycardia I47.1 Hypoxia R09.02 Protein-energy malnutrition E46
[2021-10-10 15:56] LABS: Adenovirus Not Detected (NOT DETECT); Chlamydia Pneumoniae Not Detected (NOT DETECT); Coronavirus 229E,HKU1,NL63,OC4 Not Detected (NOT DETECT); Human Metapneumovirus Not Detected (NOT DETECT); Human Rhinovirus/Enterovirus Not Detected (NOT DETECT); Influenza A Not Detected (NOT DETECT); Influenza A H1 Not Detected (NOT DETECT); Influenza A H1-2009 Not Detected (NOT DETECT); Influenza A H3 Not Detected (NOT DETECT); Influenza B Not Detected (NOT DETECT); Mycoplasma Pneumoniae Not Detected (NOT DETECT); Parainfluenza Virus Type 1 Not Detected (NOT DETECT); Parainfluenza Virus Type 2 Not Detected (NOT DETECT); Parainfluenza Virus Type 3 Not Detected (NOT DETECT); Parainfluenza Virus Type 4 Not Detected (NOT DETECT); Respiratory Syncytial Virus A Not Detected (NOT DETECT); Respiratory Syncytial Virus B Not Detected (NOT DETECT); SARS-COV-2 Not Detected (NOT DETECT)
[2021-10-10 16:55] LABS: NT Pro B Type Natriuretic Pept 630 pg/mL (0-450); Procalcitonin 0.04 ng/mL (0-0.5); Thyroid Stimulating Hormone 0.63 uIU/mL (0.27-4.20)
[2021-10-10 17:06] LABS: Iron 24 ug/dL (37-145); Percent Saturation 10.3 % (20-50); Total Iron Binding Capacity 232 mcg/dl; Unsaturated Iron Binding 208 ug/dL (112-347)
[2021-10-10] MEDS: sodium chloride 0.9% 1,000 ML 50 ML IV (17:08)
[2021-10-10] MEDS: famotidine 20 mg/2 mL INJ IVP (17:15)
[2021-10-10] MEDS: heparin 5,000 unit/mL INJ 1 mL 5000 UNIT SUBCUT (17:16)
[2021-10-10] MEDS: metoprolol tartrate 25 mg Tablet PO (17:19)
[2021-10-10] MEDS: cefTRIAXone 1,000 MG in sodium chloride 0.9% (plus) 50 ML 100 MG IV (17:19)
[2021-10-10] MEDS: ferrous gluconate 324 mg Tablet PO (17:19)
[2021-10-10 18:00] LABS: Troponin 5 6HR 49.94 ng/L (0-10)
[2021-10-10 18:01] LABS: Troponin 5 6HR Delta -1.06 ng/L (0-12)
--- NOTE | 2021-10-10 18:15 | PC.NURSE ---
REPORT TO EVAN MENENDEZ ON MED SURG
[2021-10-10] MEDS: benzonatate 100 mg Capsule PO (21:42)
[2021-10-10] MEDS: ipratropium-albuterol 3 mL Neb INHALATION (21:53)
[2021-10-10] MEDS: budesonide 0.5 mg/2 mL Neb INHALATION (21:53)
[2021-10-11] VITALS (11 sets, daily range): BP systolic 99–122; BP diastolic 61–73; PULSE 70–97; RESP 15–20; TEMP 36.5–36.9; O2SAT 94–98
[2021-10-11] MEDS: levothyroxine 75 mcg Tablet PO (05:44)
[2021-10-11] MEDS: aspirin 81 mg EC Tablet PO (05:44)
[2021-10-11] MEDS: heparin 5,000 unit/mL INJ 1 mL 5000 UNIT SUBCUT ×2 (05:44→16:10)
--- NOTE | 2021-10-11 06:00 | USCV_ITS ---
Nirmala Meléndez Age: 81 Gender: F : 1940 Exam Date: 10/11/2021 09:34 Ordering Phys: Calderon Cedillo MD Technologist: PRABHA Exam Location: [facility] [place] Indication: SOB, hx lung CA, hx CAD s/p 2 cardiac stents 2017- . BP: 104 / 64 HR: 89 Rhythm: Sinus Technical Quality: Adequate MEASUREMENTS (Male / Female) Normal Values 2D ECHO LV Diastolic Diameter PLAX 3.3 cm 4.2 - 5.9 / 3.9 - 5.3 cm LV Systolic Diameter PLAX 2.1 cm IVS Diastolic Thickness 1.1 cm 0.6 - 1.0 / 0.6 - 0.9 cm IVS Systolic Thickness 1.4 cm LVPW Diastolic Thickness 0.8 cm 0.6 - 1.0 / 0.6 - 0.9 cm LVPW Systolic Thickness 1.3 cm LVOT Diameter 1.9 cm LV Ejection Fraction 2D Teich 68.7 % LV Ejection Fraction MOD 2C 77.1 % LV Ejection Fraction 2C AL 76.5 % LA Diameter 2.9 cm LA Width 3.0 cm LA Height 4.3 cm RA Width 3.3 cm RA Height 4.9 cm Aorta at Sinotubular Diameter 3.4 cm M-MODE Aortic Annulus Diameter 2.5 cm LA Ao Ratio MM 1.1 MV E Point Septal Separation 0.3 cm DOPPLER AV Peak Velocity 120.0 cm/s LVOT Peak Velocity 96.0 cm/s AV Area Cont Eq vti 2.5 cm squared AV Area Cont Eq pk 2.3 cm squared MV Peak Velocity 160.0 cm/s MV Area PHT 3.6 cm squared Mitral E to A Ratio 0.6 MV E' Velocity 47.0 cm/s Mitral E to MV E' Ratio 9.7 Mitral E to LV E' Lateral Ratio 16.1 Mitral E to LV E' Septal Ratio 7.0 TR Peak Velocity 245.8 cm/s TR Peak Gradient 24.2 mmHg TV Peak E Velocity 63.0 cm/s Right Atrial Pressure 5.0 mmHg Pulmonary Artery Systolic Pressu 29.2 mmHg PV Peak Velocity 84.0 cm/s RV Acceleration Time 0.1 s RV Ejection Time 0.3 s RV AcT/ET 0.5 FINDINGS Left Ventricle Normal left ventricular cavity size. Normal left ventricular systolic function. No regional wall motion abnormalities. Left ventricular ejection fraction is estimated at 60 %. Right Ventricle The right ventricle is normal in size and function. Right Atrium The right atrium is normal in size. Left Atrium The left atrium is normal in size. Mitral Valve Structurally normal mitral valve without significant stenosis or prolapse. There is no mitral regurgitation. Aortic Valve Structurally normal aortic valve without significant sclerosis or stenosis. There is no aortic regurgitation. Tricuspid Valve Structurally normal tricuspid valve without significant stenosis or regurgitation. Pulmonary artery systolic pressure is normal. Pulmonic Valve Structurally normal pulmonic valve without significant stenosis. There is no pulmonic regurgitation. Pericardium Normal pericardium without effusion. Aorta Normal ascending aorta dimension. CONCLUSIONS 1-Normal left ventricular cavity size. Normal left ventricular systolic function. No regional wall motion abnormalities. Left ventricular ejection fraction is estimated at 60 %. 2-There is no pericardial effusion. 3-No significant valve abnormalities. 4-Pulmonary artery systolic pressure is within normal limits. 5-Right atrial pressure is around 5 mm of mercury. 6-No significant change since the prior echocardiogram study of 09/14/2019. Wiley Souza MD (Electronically Signed) Final Date: 11 October 2021 17:35 S
[2021-10-11] MEDS: famotidine 20 mg/2 mL INJ IVP ×2 (06:26→16:10)
[2021-10-11 07:08] LABS: Chol HDL Ratio 5.77 mg/dL (0.0-4.40); Cholesterol 225 mg/dL (0-200); HDL Cholesterol 39 mg/dL (60-100); LDL Cholesterol Calculated 160 mg/dL (50-129); Triglycerides 130 mg/dL (0-150); VLDL Cholestrol Calculation 26 mg/dL (0-30)
[2021-10-11 07:10] LABS: Basophils % 0.9 %; Hematocrit 36.6 % (37.0-47.0); Hemoglobin 11.5 g/dL (11.5-15.3); Lymphocytes # 0.6 10^3/uL (0.8-4.8); Lymphocytes % 15.7 %; Mean Corpuscular HGB Conc 31.4 g/dL (30.0-36.0); Mean Corpuscular Hemoglobin 28.6 pg (28.0-34.0); Mean Platelet Volume 9.7 fL (7.4-10.4); Monocytes # 0.1 10^3/uL (0.2-0.9); Neutrophils # 2.83 10^3/uL (1.8-7.7); Neutrophils % 80.8 %; Nucleated Red Blood Cells % 0 %; Platelet Count 271 10^3/cmm (130-400); Red Blood Count 4.02 10^6/uL (4.1-5.3); Red Cell Distribution Width 15.3 % (12.1-15.1); White Blood Count 3.5 10^3/uL (4.0-10.0)
[2021-10-11 07:16] LABS: Alanine Aminotransferase 7 U/L (0-33); Albumin Level 3.1 g/dL (3.5-5.2); Alkaline Phosphatase 85 IU/L (35-105); Aspartate Amino Transferase 14 U/L (0-32); Blood Urea Nitrogen 15 mg/dL (8-23); Calcium 9.3 mg/dL (8.5-10.5); Carbon Dioxide 19 mmol/L (22-29); Chloride 104 mmol/L (98-107); Glucose 124 mg/dL (65-115); Osmolality Calculated 288 mOsm/kg (285-295); Sodium 138 mmol/L (136-145); Total Bilirubin 0.3 mg/dL (0.15-1.2); Total Protein 6.1 g/dL (6.6-8.7)
[2021-10-11 07:34] LABS: Estmated Average Glucose 94; Hemoglobin A1C 4.9 % (4.0-6.0)
[2021-10-11] MEDS: benzonatate 100 mg Capsule PO ×3 (08:26→21:22)
[2021-10-11] MEDS: ferrous gluconate 324 mg Tablet PO ×2 (08:26→16:11)
[2021-10-11] MEDS: metoprolol tartrate 25 mg Tablet PO ×2 (08:26→16:09)
[2021-10-11] MEDS: azithromycin 250 mg Tablet 500 MG PO (08:40)
--- NOTE | 2021-10-11 12:37 | P.PN_ITS ---
Subjective Subjective: Interval history: States doing better. On examination on 2 L satting 98%. Down to room air saturating well. Still complaining of mild cough and hoarseness in voice. [place] thing mercado states better. Denies any nausea, vomiting, headache. Worked well with physical therapy. Vitals/I&O/Wt Last Vital Signs Temp 98.4 F 10/11/21 12:09 Pulse 83 10/11/21 12:09 Resp 15 10/11/21 04:11 BP 115/72 10/11/21 12:09 Pulse Ox 97 10/11/21 12:09 10/10/21 10/11/21 10/11/21 22:59 06:59 14:59 Intake Total 336.667 / 336.667 240 / 240 Output Total 900 / 900 Balance 336.667 / 336.667 -900 / -563.333 240 / 240 Weight last 48 hrs Weight 54.431 kg Weight 48.988 kg Physical Exam Narrative: EXAM NARRATIVE: General: No acute distress, AO x3,temporal wasting, cachectic HEENT: PERRLA, pupils bilaterally equal and reactive Chest: Bilateral bronchial breath sounds, coarse crackles present in left upper and lower zone, tympanic present on left upper and lower zone, no added sounds, equal good air entry bilaterally CVS: S1-S2 regular, no murmurs, no tachycardia, no gallops, no rubs Abdomen: Soft, nontender, no organomegaly, bowel sounds present Neuro: No focal deficits, no facial deformity, AO x3, power 5/5 in all limbs Data : 10/11/21 06:17 10/11/21 06:17 Micro: Microbiology 10/10/21 21:40 MRSA Culture - Final Nose 10/10/21 10:50 Blood Culture - Preliminary Blood NEGATIVE TO DATE 10/10/21 09:45 Bacterial Antigens - Final Urine Kidney 10/10/21 09:45 Legionella Urinary Antigen - Final Unknown Source 10/10/21 12:40 Blood Culture - Preliminary Blood SPECIMEN COLLECTED A&P Assessment and plan (1) Hypoxia: Status: Acute (2) SOB (shortness of breath): Status: Acute (3) COPD (chronic obstructive pulmonary disease): Status: Acute Qualifiers: COPD type: emphysema Emphysema type: centrilobular Qualified Code(s): J43.2 - Centrilobular emphysema (4) Pneumonia: Status: Acute (5) Squamous cell carcinoma of left lung: Status: Acute (6) Atherosclerotic heart disease of [place] coronary artery without angina pectoris: Status: Acute Qualifiers: [place] vs. transplanted heart: [place] heart Qualified Code(s): I25.10 - Atherosclerotic heart disease of [place] coronary artery without angina pectoris (7) Dyslipidemia: Status: Acute (8) Supraventricular tachycardia: Status: Acute (9) Protein-energy malnutrition: Status: Acute (10) Bronchitis: Status: Acute Plan Shortness of breath: Most likely from bronchitis leading to COPD exacerbation with possibility of pneumonia in setting of history of squamous cell carcinoma of lung. Cannot rule out autoimmune pneumonitis secondary to new immunotherapy for maintenance malignancy. MRSA swab, urine Legionella, bacterial antigen, respiratory viral panel negative. Sputum culture results awaited. Pro-Lee negative. proBNP mildly elevated to 630. Blood cultures pending. COVID-19 PCR negative. For now continue with treatment for community-acquired pneumonia with IV ceftriaxone and oral azithromycin. Will de-escalate antibiotics quickly. For possible COPD exacerbation wean down Solu-Medrol to 40 mg every 12 hourly. Will do a quick taper DuoNeb every 6 hour, budesonide twice daily. Flonase, Cepacol, Tessalon Perles. Check echocardiogram. CAD: No active chest pain. Continue with aspirin. A1c 4.9. Lipid panel mildly deranged. Cannot start on statin as patient is allergic to same. Echocardiogram as above. Continue other chronic medications including levothyroxine, metoprolol. CODE STATUS: Discussed in detail with the patient. She does not want any kind of intubation or chest compressions. DNR/DNI. Cardiac diet. Heparin for DVT prophylaxis. Famotidine for PUD prophylaxis. 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 vs. transplanted heart: [place] heart Dyslipidemia E78.5 Supraventricular tachycardia I47.1 Protein-energy malnutrition E46 Bronchitis J40
[2021-10-11] MEDS: ipratropium-albuterol 3 mL Neb INHALATION ×2 (14:40→20:01)
[2021-10-11] MEDS: cefTRIAXone 1,000 MG in sodium chloride 0.9% (plus) 50 ML 100 MG IV (16:09)
[2021-10-11] MEDS: budesonide 0.5 mg/2 mL Neb INHALATION (20:01)
[2021-10-12] VITALS (14 sets, daily range): BP systolic 66–130; BP diastolic 31–74; PULSE 74–96; RESP 16–20; TEMP 36.5–36.7; O2SAT 91–97
[2021-10-12] MEDS: ipratropium-albuterol 3 mL Neb INHALATION ×3 (02:11→21:38)
[2021-10-12] MEDS: aspirin 81 mg EC Tablet PO (05:54)
[2021-10-12] MEDS: levothyroxine 75 mcg Tablet PO (05:54)
[2021-10-12] MEDS: heparin 5,000 unit/mL INJ 1 mL 5000 UNIT SUBCUT ×2 (05:54→15:54)
[2021-10-12] MEDS: famotidine 20 mg/2 mL INJ IVP ×2 (06:30→15:56)
[2021-10-12 06:50] LABS: Basophils % 0.1 %; Hematocrit 33.9 % (37.0-47.0); Hemoglobin 10.5 g/dL (11.5-15.3); Lymphocytes # 0.6 10^3/uL (0.8-4.8); Lymphocytes % 5.7 %; Mean Corpuscular Hemoglobin 28.5 pg (28.0-34.0); Mean Corpuscular Volume 92.1 fl (81-99); Mean Platelet Volume 9.3 fL (7.4-10.4); Monocytes # 0.8 10^3/uL (0.2-0.9); Monocytes % 7.7 %; Neutrophils % 85.7 %; Nucleated Red Blood Cells % 0 %; Platelet Count 306 10^3/cmm (130-400); Red Blood Count 3.68 10^6/uL (4.1-5.3); Red Cell Distribution Width 15.6 % (12.1-15.1); White Blood Count 10.3 10^3/uL (4.0-10.0)
[2021-10-12 07:10] LABS: Alanine Aminotransferase 8 U/L (0-33); Alkaline Phosphatase 67 IU/L (35-105); Anion Gap 18.2 (5-19); Aspartate Amino Transferase 14 U/L (0-32); Blood Urea Nitrogen 22 mg/dL (8-23); Calcium 9.5 mg/dL (8.5-10.5); Carbon Dioxide 18 mmol/L (22-29); Chloride 106 mmol/L (98-107); Creatinine Clr Calc Pharmacy 44.3635; Globulin 2.3 g/dL (1.3-4.6); Glucose 110 mg/dL (65-115); Osmolality Calculated 290 mOsm/kg (285-295); Potassium 4.2 mmol/L (3.5-5.1); Sodium 138 mmol/L (136-145); Total Bilirubin 0.2 mg/dL (0.15-1.2); Total Protein 5.3 g/dL (6.6-8.7)
[2021-10-12] MEDS: metoprolol tartrate 25 mg Tablet PO ×2 (08:21→15:54)
[2021-10-12] MEDS: azithromycin 250 mg Tablet 500 MG PO (08:21)
[2021-10-12] MEDS: benzonatate 100 mg Capsule PO ×3 (08:21→20:26)
[2021-10-12] MEDS: ferrous gluconate 324 mg Tablet PO ×2 (08:21→15:56)
[2021-10-12] MEDS: budesonide 0.5 mg/2 mL Neb INHALATION ×2 (09:41→21:38)
[2021-10-12] MEDS: cefTRIAXone 1,000 MG in sodium chloride 0.9% (plus) 50 ML 100 MG IV (15:55)
[2021-10-12] MEDS: fluticasone nasal spray 16gm Btl 2 SPRAY NASAL (15:56)
--- NOTE | 2021-10-12 16:21 | PC.CHAP ---
Pastoral Care Encounter/Spiritual Assessment Type of Contact [] Declined plastics patternmaker visit [] Patient/Family/Request visit [] Outpatient visit [] Follow-up visit [] Physician referral [] Code/Alert [] Routine visit [] Staff referral [] Actively dying [] Patient sleeping [] Family support [] [] Out of room [] Palliative care [] [] Receiving care in room [] Pre-surgical visit [] Trauma [] Long length of stay [] ICU visit [XX] Other: pt on telephone Relational/Emotional Strength [] Patient feels connected with others/family/visitors/staff [] Distress [] Loneliness/isolation [] Abandonment Spirituality of Patient [] Person of Gricel [] Attends Confucianist of their [place] [] Believes in Prayer [] Reads Bible or Alevism materials [] There are Spiritual issues to be addressed Mainframe Programmer Analyst Interventions [] Prayer [] Active listening [] Non-anxious presence [] Spiritual/emotional support [] Crisis/trauma care [] Spiritual counseling [] Bereavement support [] Provided bereavement packet [] Provided Bible/devotional materials [] Provided toy/stuffed animal, coloring book to patient or family member [] Provided Communion [] Anointing/[place] [] Salvation [] Completed spiritual assessment [] Other: Impact on Illness or Injury [] Angry [] Fearful [] Anxious [] Often cries [] Exhaustion [] Unable to work [] Unable to attend gnosticist [] Unable to walk/stand [] Unable to read [] Unable to drive [] Unable to eat/drink [] Unable to sleep [] Unable to be with family [] Patient intubated [] Other: Summary Time spent with patient
--- NOTE | 2021-10-12 16:27 | P.PN_ITS ---
Subjective Subjective: Interval history: No acute events overnight. Patient has been on room air. Still complaining of cough. Has remained stable. Denies any nausea, vomiting, headache. Vitals/I&O/Wt Last Vital Signs Temp 97.9 F 10/12/21 16:14 Pulse 88 10/12/21 16:14 Resp 18 10/12/21 16:14 BP 123/71 10/12/21 16:14 Pulse Ox 94 10/12/21 16:14 10/12/21 10/12/21 10/12/21 06:59 14:59 22:59 Intake Total 120 / 120 Balance 120 / 120 Weight last 48 hrs Weight 54.431 kg Physical Exam Narrative: EXAM NARRATIVE: General: No acute distress, AO x3,temporal wasting, cachectic, raspy voice HEENT: PERRLA, pupils bilaterally equal and reactive Chest: Bilateral bronchial breath sounds, occasional rhonchi present, equal good air entry bilaterally CVS: S1-S2 regular, no murmurs, no tachycardia, no gallops, no rubs Abdomen: Soft, nontender, no organomegaly, bowel sounds present Neuro: No focal deficits, no facial deformity, AO x3, power 5/5 in all limbs Data : 10/12/21 06:02 10/12/21 06:02 Micro: Microbiology 10/10/21 12:40 Blood Culture - Preliminary Blood NEGATIVE TO DATE 10/10/21 21:40 MRSA Culture - Final Nose 10/10/21 10:50 Blood Culture - Preliminary Blood NEGATIVE TO DATE A&P Assessment and plan (1) Hypoxia: Status: Acute (2) SOB (shortness of breath): Status: Acute (3) COPD (chronic obstructive pulmonary disease): Status: Acute Qualifiers: COPD type: emphysema Emphysema type: centrilobular Qualified Code(s): J43.2 - Centrilobular emphysema (4) Pneumonia: Status: Acute (5) Squamous cell carcinoma of left lung: Status: Acute (6) Atherosclerotic heart disease of [place] coronary artery without angina pectoris: Status: Acute Qualifiers: [place] vs. transplanted heart: [place] heart Qualified Code(s): I25.10 - Atherosclerotic heart disease of [place] coronary artery without angina pectoris (7) Dyslipidemia: Status: Acute (8) Supraventricular tachycardia: Status: Acute (9) Protein-energy malnutrition: Status: Acute (10) Bronchitis: Status: Acute Plan Shortness of breath: Most likely from bronchitis leading to COPD exacerbation with possibility of pneumonia in setting of history of squamous cell carcinoma of lung. Cannot rule out autoimmune pneumonitis secondary to new immunotherapy for maintenance malignancy. MRSA swab, urine Legionella, bacterial antigen, respiratory viral panel negative. Sputum culture results awaited. Pro-Lee negative. proBNP mildly elevated to 630. Blood cultures pending. COVID-19 PCR negative. For now continue with treatment for community-acquired pneumonia with IV ceftriaxone and oral azithromycin. Will de-escalate antibiotics quickly. We will continue antibiotics to finish a 5-day course. For possible COPD exacerbation wean down Solu-Medrol to prednisone 40 mg oral daily. DuoNeb every 6 hour, budesonide twice daily. Flonase, Cepacol, Tessalon Perles. Echocardiogram shows an EF of 60% without regional wall motion abnormality with the normal PASP. CAD: No active chest pain. Continue with aspirin. A1c 4.9. Lipid panel mildly deranged. Cannot start on statin as patient is allergic to same. Echocardiogram as above. Continue other chronic medications including levothyroxine, metoprolol. CODE STATUS: Discussed in detail with the patient. She does not want any kind of intubation or chest compressions. DNR/DNI. Cardiac diet. Heparin for DVT prophylaxis. Famotidine for PUD prophylaxis. 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 transplanted heart: [place] heart Dyslipidemia E78.5 Supraventricular tachycardia I47.1 Protein-energy malnutrition E46 Bronchitis J40
[2021-10-13] MEDS: heparin 5,000 unit/mL INJ 1 mL 5000 UNIT SUBCUT (03:48)
[2021-10-13 03:53] VITALS: BP 108/68; PULSE 71; RESP 20; TEMP 36.6; O2SAT 95
[2021-10-13] MEDS: famotidine 20 mg/2 mL INJ IVP (06:02)
[2021-10-13] MEDS: aspirin 81 mg EC Tablet PO (06:45)
[2021-10-13] MEDS: levothyroxine 75 mcg Tablet PO (06:45)
[2021-10-13 08:40] VITALS: BP 136/81; PULSE 73; RESP 17; TEMP 36.7; O2SAT 96
[2021-10-13] MEDS: predniSONE 20 mg Tablet 40 MG PO (09:26)
[2021-10-13] MEDS: ferrous gluconate 324 mg Tablet PO (09:26)
[2021-10-13] MEDS: azithromycin 250 mg Tablet 500 MG PO (09:26)
[2021-10-13] MEDS: metoprolol tartrate 25 mg Tablet PO (09:27)
[2021-10-13] MEDS: benzonatate 100 mg Capsule PO (09:27)
[2021-10-13] MEDS: fluticasone nasal spray 16gm Btl 2 SPRAY NASAL (09:28)
[2021-10-13] MEDS: ipratropium-albuterol 3 mL Neb INHALATION (09:37)
[2021-10-13] MEDS: budesonide 0.5 mg/2 mL Neb INHALATION (09:37)
[2021-10-13 09:41] VITALS: PULSE 85; RESP 16; O2SAT 95
[2021-10-13 09:42] VITALS: PULSE 89; RESP 16; O2SAT 96
[2021-10-13 12:17] VITALS: BP 115/77; PULSE 74; RESP 16; TEMP 36.6; O2SAT 92
--- NOTE | 2021-10-13 12:22 | P.DS_ITS ---
Discharge Providers Date of Admission: 10/10/21 19:46 Date of Discharge: October 13, 2021 Attending Provider at Admission: Calderon Cedillo MD Attending Provider at Discharge: Calderon Cedillo MD Primary Care Provider: Susan Romano MD Diagnoses at Discharge Discharge Diagnosis (1) Hypoxia: Status: Acute (2) SOB (shortness of breath): Status: Acute (3) COPD (chronic obstructive pulmonary disease): Status: Acute Qualifiers: COPD type: emphysema Emphysema type: centrilobular Qualified Code(s): J43.2 - Centrilobular emphysema (4) Pneumonia: Status: Acute (5) Squamous cell carcinoma of left lung: Status: Acute (6) Atherosclerotic heart disease of [place] coronary artery without angina pectoris: Status: Acute Qualifiers: [place] vs. transplanted heart: [place] heart Qualified Code(s): I25.10 - Atherosclerotic heart disease of [place] coronary artery without angina pectoris (7) Dyslipidemia: Status: Acute Permanent problem details: statin intolerant, taking ezetimibe. 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 Rodarte as an outpatient with complete resolution on follow-up CT PET done on August 24 on maintenance therapy with durvalumab, COPD on inhalers, CAD with PCI done in September 2019, TIA, hypothyroidism, osteoporosis, esophagitis, hypothyroidism.? Patient states she has been having cough along with sore throat for 5 weeks.? She first took the maintenance therapy for the first time 3 weeks ago.? She started having postnasal drip which she attributed to her sinus problem last week.? For last 4 to 5 days she has been having progressive difficulty in breathing more so on exertion and talking.? Patient lives by herself.? Has help who comes once weekly.? She denies any nausea, vomiting, headache.? States appetite is poor.? Complaining of cough without expectoration.? Vaccinated for COVID without booster for now. Blood work shows a white count of 5.5, hemoglobin of 12.3, sodium of 137, potassium of 3.8, creatinine of 0.7, lactate of 1.1, baseline troponin of 51 with delta of -4, UA showing 2+ leuk esterase, COVID-19 PCR negative. Hospital course: Patient was admitted to hospital for further management of hypoxia secondary to COPD exacerbation for possible bronchitis. Upon admission COVID-19 was ruled out with a negative PCR. Blood cultures sputum culture remain negative. CT imaging was done on admission which was consistent with consolidation. There was a concern for pneumonitis secondary to recent immunological which started as an outpatient for maintenance therapy for lung cancer. Case was discussed with patient's outpatient oncologist. Patient responded well to the treatment and recovered quickly. This makes autoimmune pneumonitis less likely. Patient has been on room air for last 36 hours. She is been discharged in hemodynamically stable condition on Flonase for bronchitis, oral Augmentin and Levaquin for next 3 days. Advair has been added to the regimen for COPD exacerbation. She is to follow-up with her primary care provider within next 1 week. Physical therapy eval was done prior to discharge. Home O2 evaluation was done prior to discharge. Physical Exam Narrative: EXAM NARRATIVE: General: No acute distress, AO x3,temporal wasting, cachectic, raspy voice HEENT: PERRLA, pupils bilaterally equal and reactive Chest: Bilateral bronchial breath sounds, occasional rhonchi present, equal good air entry bilaterally CVS: S1-S2 regular, no murmurs, no tachycardia, no gallops, no rubs Abdomen: Soft, nontender, no organomegaly, bowel sounds present Neuro: No focal deficits, no facial deformity, AO x3, power 5/5 in all limbs Discharge Data Studies Completed and Pending Completed Studies During Hospitalization Category Date Time Status CT angio chest PE protcl [id number] Stat Cat Scan 10/10/21 09:25 Completed XR chest 1V portable [id number] Urgent Exams 10/10/21 09:00 Completed CV. echo complete* [id number] Routine Ultrasound 10/11/21 06:00 Completed Pending at discharge Category Date Time Status Blood Culture Stat Lab 10/10/21 12:40 Results Sputum Culture and Gram Stain Stat Lab 10/10/21 16:37 Uncollected Radiology Impressions Chest X-Ray 10/10/21 09:00 IMPRESSION: Left basilar pneumonia. Chest CTA 10/10/21 09:25 IMPRESSION: 1. No pulmonary embolism. 2. Also moderate atherosclerosis thoracic aorta with ectasia. 3. Stable spiculated nodule and pleural parenchymal scarring at the RIGHT apex. 4. Progressive and new reticular nodular infiltrate involving the medial LEFT upper lobe and a large portion of the LEFT lower lobe. Adjacent small effusion. Due to the sudden onset since 09/03/2021 consider pneumonia as the most likely etiology. There is also adjacent developing bronchiectasis. Recommend follow-up chest CT in 3-4 months to ensure resolution. 5. Stable LEFT adrenal nodularity. Laboratory Results WBC 10.3 10^3/uL (4.0-10.0) H 10/12/21 06:02 RBC 3.68 10^6/uL (4.1-5.3) L 10/12/21 06:02 Hgb 10.5 g/dL (11.5-15.3) L 10/12/21 06:02 Hct 33.9 % (37.0-47.0) L 10/12/21 06:02 MCV 92.1 fl (81-99) 10/12/21 06:02 MCH 28.5 pg (28.0-34.0) 10/12/21 06:02 MCHC 31.0 g/dL (30.0-36.0) 10/12/21 06:02 RDW 15.6 % (12.1-15.1) H 10/12/21 06:02 Plt Count 306 10^3/cmm (130-400) 10/12/21 06:02 MPV 9.3 fL (7.4-10.4) 10/12/21 06:02 Neut % (Auto) 85.7 % 10/12/21 06:02 Lymph % (Auto) 5.7 % 10/12/21 06:02 [place] % (Auto) 7.7 % 10/12/21 06:02 Eos % (Auto) 0.0 % 10/12/21 06:02 Baso % (Auto) 0.1 % 10/12/21 06:02 Neut # (Auto) 8.80 10^3/uL (1.8-7.7) H 10/12/21 06:02 Lymph # (Auto) 0.6 10^3/uL (0.8-4.8) L 10/12/21 06:02 [place] # (Auto) 0.8 10^3/uL (0.2-0.9) 10/12/21 06:02 Eos # (Auto) 0.0 10^3/uL (0.0-0.8) 10/12/21 06:02 Baso # (Auto) 0.0 10^3/uL (0.0-0.1) 10/12/21 06:02 Nucleated RBC % (auto) 0 % 10/12/21 06:02 Nucleated RBCs # 0.0 /100WBC 10/12/21 06:02 Sodium 138 mmol/L (136-145) 10/12/21 06:02 Potassium 4.2 mmol/L (3.5-5.1) 10/12/21 06:02 Chloride 106 mmol/L (98-107) 10/12/21 06:02 Carbon Dioxide 18 mmol/L (22-29) L 10/12/21 06:02 Anion Gap 18.2 (5-19) 10/12/21 06:02 BUN 22 mg/dL (8-23) 10/12/21 06:02 Creatinine 0.7 mg/dL (0.5-0.9) 10/12/21 06:02 GFR Calculation Not Reportable 10/12/21 06:02 Glucose 110 mg/dL (65-115) 10/12/21 06:02 Estimat Average Glucose 94 10/11/21 06:17 Hemoglobin A1c 4.9 % (4.0-6.0) 10/11/21 06:17 Calculated Osmolality 290 mOsm/kg (285-295) 10/12/21 06:02 Lactic Acid 1.1 mmol/L (0.5-2.2) 10/10/21 10:50 Calcium 9.5 mg/dL (8.5-10.5) 10/12/21 06:02 Iron 24 ug/dL (37-145) L 10/10/21 10:50 TIBC 232 mcg/dl 10/10/21 10:50 % Saturation 10.3 % (20-50) L 10/10/21 10:50 Unsat Iron Binding 208 ug/dL (112-347) 10/10/21 10:50 Total Bilirubin 0.2 mg/dL (0.15-1.2) 10/12/21 06:02 AST 14 U/L (0-32) 10/12/21 06:02 ALT 8 U/L (0-33) 10/12/21 06:02 Alkaline Phosphatase 67 IU/L (35-105) 10/12/21 06:02 Troponin T Baseline 51 ng/L (0-10) H 10/10/21 10:50 Troponin T 120 Minute 46.15 ng/L (0-10) H 10/10/21 12:50 Delta Troponin T -4.85 ABS# (0-10) L 10/10/21 12:50 Troponin T Hi Sens 6Hr 49.94 ng/L (0-10) H 10/10/21 17:26 Troponin T Hi Sens 6Hr Delta -1.06 ng/L (0-12) L 10/10/21 17:26 NT-Pro-B Natriuret Pep 630 pg/mL (0-450) H 10/10/21 10:50 Total Protein 5.3 g/dL (6.6-8.7) L 10/12/21 06:02 Albumin 3.0 g/dL (3.5-5.2) L 10/12/21 06:02 Globulin 2.3 g/dL (1.3-4.6) 10/12/21 06:02 Triglycerides 130 mg/dL (0-150) 10/11/21 06:17 Cholesterol 225 mg/dL (0-200) H 10/11/21 06:17 LDL Cholesterol, Calc 160 mg/dL (50-129) H 10/11/21 06:17 Total VLDL Cholesterol 26 mg/dL (0-30) 10/11/21 06:17 HDL Cholesterol 39 mg/dL (60-100) L 10/11/21 06:17 Cholesterol/HDL Ratio 5.77 mg/dL (0.0-4.40) H 10/11/21 06:17 Procalcitonin 0.04 ng/mL (0-0.5) 10/10/21 10:50 TSH 0.63 uIU/mL (0.27-4.20) 10/10/21 10:50 Urine Color Yellow (Yellow) 10/10/21 09:45 Urine Appearance Sl hazy (CLEAR) 10/10/21 09:45 Urine pH 5 (5-7) 10/10/21 09:45 Ur Specific [place] 1.020 (1.005-1.030) 10/10/21 09:45 Urine Protein Neg (Negative) 10/10/21 09:45 Urine Glucose (UA) Norm (Normal) 10/10/21 09:45 Urine Ketones Negative (Negative) 10/10/21 09:45 Urine Blood Neg (Negative) 10/10/21 09:45 Urine Nitrate Negative (Negative) 10/10/21 09:45 Urine Bilirubin Neg (Negative) 10/10/21 09:45 Urine Urobilinogen Norm mg/dL (Negative) 10/10/21 09:45 Ur Leukocyte Esterase 2+ (Negative) H 10/10/21 09:45 Urine RBC 0-4 /hpf (0-2) H 10/10/21 09:45 Urine WBC 10-15 /hpf (0-5) H 10/10/21 09:45 Ur Squamous Epith Cells 25-40 /hpf (0-5) H 10/10/21 09:45 Amorphous Sediment Not Reportable 10/10/21 09:45 Urine Bacteria 2+ /hpf (NONE) H 10/10/21 09:45 Urine Mucus 2+ /hpf 10/10/21 09:45 Nasal Influ A H1 2008 PCR Not detected (NOT DETECT) 10/10/21 09:45 Adenovirus (PCR) Not detected (NOT DETECT) 10/10/21 09:45 C. pneumoniae DNA (PCR) Not detected (NOT DETECT) 10/10/21 09:45 Coronavirus 229E (PCR) Cancelled 10/10/21 09:45 Coronavirus 229E (PCR) Not detected (NOT DETECT) 10/10/21 09:45 Human Metapneumovir PCR Not detected (NOT DETECT) 10/10/21 09:45 Influenza A (H1) PCR Not detected (NOT DETECT) 10/10/21 09:45 Influenza A (H3) PCR Not detected (NOT DETECT) 10/10/21 09:45 Influenza Type A (PCR) Not detected (NOT DETECT) 10/10/21 09:45 Influenza Type B (PCR) Not detected (NOT DETECT) 10/10/21 09:45 M. pneumoniae (PCR) Not detected (NOT DETECT) 10/10/21 09:45 Parainfluenza 1 (PCR) Not detected (NOT DETECT) 10/10/21 09:45 Parainfluenza 2 (PCR) Not detected (NOT DETECT) 10/10/21 09:45 Parainfluenza 3 (PCR) Not detected (NOT DETECT) 10/10/21 09:45 Parainfluenza 4 (PCR) Not detected (NOT DETECT) 10/10/21 09:45 RSV Type A (PCR) Not detected (NOT DETECT) 10/10/21 09:45 RSV Type B (PCR) Not detected (NOT DETECT) 10/10/21 09:45 Entero/Rhino (PCR) Not detected (NOT DETECT) 10/10/21 09:45 SARS-CoV-2 (PCR) Cancelled 10/10/21 09:45 SARS-CoV-2 (PCR) Not detected (NOT DETECT) 10/10/21 09:45 Vitals Last Vital Signs Temp 97.9 F 10/13/21 12:17 Pulse 74 10/13/21 12:17 Resp 16 10/13/21 12:17 BP 115/77 10/13/21 12:17 Pulse Ox 92 10/13/21 12:17 Discharge Plan Discharge Patient Disposition: Home Condition: Stable Prescriptions: New prednisone 20 mg Tablet 40 mg PO DAILY Qty: 5 0RF benzonatate 100 mg Capsule 100 mg PO TID PRN (Reason: cough) Qty: 10 0RF fluticasone propion-salmeterol [Advair Diskus] 250-50 mcg/dose blister with device 1 inh inhalation BID Qty: 60 0RF famotidine [Pepcid] 20 mg tablet 20 mg PO BID Qty: 60 0RF levofloxacin 500 mg tablet 500 mg PO Q24H 3 Days Qty: 3 0RF amoxicillin-pot clavulanate [Augmentin] 500-125 mg tablet 1 tab PO BID Qty: 6 0RF fluticasone propionate 50 mcg/actuation [place],Suspension 2 spray nasal BID 7 Days 0RF Continued melatonin 3 mg Tablet 3 mg PO BEDTIME 0RF levothyroxine 75 mcg Tablet 75 mcg PO QAM 0RF calcitonin (salmon) 200 unit/actuation [place],Non-Aerosol 1 spray INTRANASAL (ALT) DAILY 0RF Rx Instructions: ALTERNATE NOSTRILS DAILY metoprolol tartrate 25 mg tablet 25 mg PO BID 90 Days Qty: 180 3RF Spiriva Respimat 2.5 mcg/actuation mist 2 puff inhalation DAILY Qty: 4 3RF nitroglycerin [Nitrostat] 0.4 mg Tablet, Sublingual 0.4 mg sublingual Q5M PRN (Reason: Chest Pain) Qty: 30 0RF aspirin 81 mg tablet,delayed release (DR/EC) 81 mg PO QAM 0RF Discontinued pantoprazole 20 mg tablet,delayed release (DR/EC) 20 mg PO DAILY 0RF Discharge Orders: Discharge Order (Routine); Ordered 10/13/21 Ordered By: Calderon Cedillo Referrals: Susan Romano MD [Primary Care Provider] - 7-10 days Discharge Diet: Regular Discharge Activity: Resume usual activity Patient Instructions: Opioid Safety Activity Restrictions/Additional Instructions: Please follow-up with your primary care provider within next 1 week. Take Augmentin and Levaquin which are the antibiotics for next 3 days. Take Advair daily. Flonase for next 1 week. Discharge Attestations Time Spent in Discharge Care*: greater than 30 min Status at Discharge: Cognitive status at discharge: cognitively intact , Behavioral status at discharge: cooperative , Functional status at discharge: independent ambulation , Overall status at discharge: patient is back to baseline Quality Metrics Clinical Quality Measures [ No reported AMI, CVA or VTE this stay] Coding Level of Care Code Acute Chg FW DC note Diagnoses Hypoxia R09.02 SOB (shortness of breath) R06.02 COPD (chronic obstructive pulmonary disease) J43.2 COPD type: emphysema Emphysema type: centrilobular Pneumonia J18.9 Squamous cell carcinoma of left lung C34.92 Atherosclerotic heart disease of [place] coronary artery without angina pectoris I25.10 [place] vs. transplanted heart: [place] heart Dyslipidemia E78.5 Supraventricular tachycardia I47.1 Protein-energy malnutrition E46 Bronchitis J40
--- NOTE | 2021-10-13 13:31 | PC.NURSE ---
Discharge Note Patient discharged to home via private vehicle accompanied by daughter. Discharge instructions reviewed with patient and/or practice representative. Mobile pharmacy medications and/or prescriptions provided. Belongings/home medications returned.
--- NOTE | 2021-10-13 14:14 | PC.SOCIAL ---
IMM UPDATED IMM dated and initialed and copy given to patient
[2021-10-13 16:33] VITALS: BP 115/77; PULSE 74; RESP 16; TEMP 36.6; O2SAT 92
== END 2021-10-13 14:45 | disposition home or self-care (01) | DRG 190 ==
LOC: ER 12:11 → ER IP 16:06 → MEDSURG 10-11 06:01
PROVIDERS: Physician Assistant; Admitting Provider Student in an Organized Health Care Education/Training Program; Emergency Provider Family Medicine; PCP Family Medicine; Visit Provider Student in an Organized Health Care Education/Training Program
DX: J43.2 Centrilobular emphysema (principal); J18.9 Pneumonia, unspecified organism; C34.92 Malignant neoplasm of unspecified part of left bronchus or lung; I47.1 Supraventricular tachycardia; E46 Unspecified protein-calorie malnutrition; R09.02 Hypoxemia; Z87.891 Personal history of nicotine dependence; I25.10 Atherosclerotic heart disease of native coronary artery without angina pectoris; E78.5 Hyperlipidemia, unspecified; Z86.73 Personal history of transient ischemic attack (TIA), and cerebral infarction without residual deficits; Z66 Do not resuscitate; Z92.21 Personal history of antineoplastic chemotherapy; Z92.3 Personal history of irradiation; J40 Bronchitis, not specified as acute or chronic; E03.9 Hypothyroidism, unspecified
CPT/HCPCS: 36415; 71045; 71275; 80053; 80061; 81001; 83036; 83540; 83550; 83605; 83880; 84145; 84443; 84484; 85025; 86403; 87040; 87449; 87486; 87581; 87633; 87641; 93005; 93306; 94640; 96365; 96372; 97110; 97116; 97161; 99285; J0696; J1644; J1956; J2920; J2930; J3490; J7030; J7512; J7626; Q0144; Q9967

== ENCOUNTER 2021-12-03 07:04 | Outpatient (RCR) | payer MEDICARE, SELFPAY ==
[2021-11-14 09:19] LABS: Basophils % 0.8 %; Eosinophils # 0.1 10^3/uL (0.0-0.8); Eosinophils % 1.6 %; Hematocrit 40.3 % (37.0-47.0); Hemoglobin 12.8 g/dL (11.5-15.3); Lymphocytes % 19.8 %; Mean Corpuscular HGB Conc 31.8 g/dL (30.0-36.0); Mean Corpuscular Hemoglobin 28.3 pg (28.0-34.0); Mean Platelet Volume 9.8 fL (7.4-10.4); Monocytes # 0.6 10^3/uL (0.2-0.9); Monocytes % 12.8 %; Neutrophils # 3.14 10^3/uL (1.8-7.7); Neutrophils % 64.8 %; Nucleated Red Blood Cells % 0 %; Platelet Count 238 10^3/cmm (130-400); Red Blood Count 4.53 10^6/uL (4.1-5.3); Red Cell Distribution Width 15.8 % (12.1-15.1); White Blood Count 4.9 10^3/uL (4.0-10.0)
[2021-11-14 09:41] LABS: Alanine Aminotransferase 10 U/L (0-33); Albumin Level 3.6 g/dL (3.5-5.2); Alkaline Phosphatase 76 IU/L (35-105); Blood Urea Nitrogen 15 mg/dL (8-23); Calcium 8.1 mg/dL (8.5-10.5); Carbon Dioxide 24 mmol/L (22-29); Chloride 106 mmol/L (98-107); Globulin 2.7 g/dL (1.3-4.6); Glucose 100 mg/dL (65-115); Osmolality Calculated 287 mOsm/kg (285-295); Sodium 138 mmol/L (136-145); Total Bilirubin 0.4 mg/dL (0.15-1.2); Total Protein 6.3 g/dL (6.6-8.7)
[2021-11-14 09:47] LABS: Anion Gap 11.9 (5-19); Aspartate Amino Transferase 20 U/L (0-32); Potassium 3.9 mmol/L (3.5-5.1)
--- NOTE | 2021-11-15 12:12 | ONC FU_ITS ---
Dr. Rodarte follow up note Patient: Nirmala Meléndez Unit #: [id number]: [id number] Dicatated By: Justyna Rodarte M.D.Date of Visit:Nov 14, 2021 Onc Med Follow-up/Prog Note History of Present Illness: Ms. Meléndez is a 81-year-old female with a history of asthma, restrictive lung disease, coronary artery disease status post cardiac stents. Ms Meléndez reports in 2018 she developed off and on wheezing especially at night, Her PMD gave her inhalers which did help and her symptoms improved. and then In November 2020 she again started having wheezing which was progressive. She she was evaluated by PMD with chest x-ray , as per patient 'breathing test', probably PFT was done on December 03, 2020 which was consistent with mild airflow obstruction with no significant post bronchodilator response., Normal lung volumes and moderately reduced gas transfer, 56% Subsequently in first week of March, as per patient she coughed up fresh blood, it was a large amount and again happened 4-3 times, as as per patient she was on Plavix and aspirin for cardiac stent which were placed in the left main on September 14, 2019, at that time her PMD stopped her Plavix, with that no more episode of hemoptysis and she underwent CT scan of chest on January 24, 2021 which showed no significant change since August 2019, moderate chronic emphysematous changes, stable mucous plugging left lower lobe bronchus with associated left lobe atelectasis medially. This has chronic appearance. Fibrotic appearing opacity right upper lobe extending to the lung apex is unchanged from previous, measuring 1.5 x 1.2 x 1.2 cm. She was referred to pulmonology for evaluation., Patient was seen by Dr. Liang, on April 08, 2021, Who ordered CT PET scan which was done on April 13, 2021 showed there is any minimal activity in the spiculated right upper lobe 1.1 x 1.7 cm, supporting a benign inflammatory diagnosis. There is a 1.8 x 3 cm mass in the left lower lobe hilum with SUV of 28.5, has high probability of malignancy. An FDG positive subaortic mediastinal lymph node consistent with local metastatic disease, On April 19, 2021 she underwent bronchoscopy and left lower lobe mass endobronchial biopsy showed squamous cell carcinoma, p63 positive, TTF-1 negative, Napsin negative, Ki-67 35% PD-L1 TPS 40% Past medical history positive for TIA, SVT, CKD, esophagitis, hypothyroidism, osteoporosis, dyslipidemia Ms Meléndez was referred to cardiothoracic surgery at [facility] and she was seen by Dr. Parikh, on May 09, 2021 and as per patient she was told that surgical resection is not possible rather proceed with chemoradiation. And at that time she underwent left hilar lymph node biopsy which confirmed metastatic disease as subaortic lymph node was not accessible but was positive on CT PET scan and Pathologically she was stage IIb disease but clinically stage IIIa, Based on PET scan recommended carboplatin paclitaxel in combination with radiation. She began her first cycle on July 01, 2021. And completed on August 13, 2021 Follow-up CT PET scan done on August 24, 2021 shows resolution of left lower lobe mass consistent with complete response, resolution of abnormal uptake in subaortic mediastinal lymphadenopathy no change in FDG negative right upper lobe nodule-like scar. Started on maintenance therapy with biweekly durvalumab on September 26, 2021. Patient was admitted to hospital on October 10, 2021 with progressive shortness of breath hypoxia, chest CTA done on October 10, 2021 shows no pulmonary embolism, stable spiculated nodule and pleural parenchymal scarring at the right apex. Progressive and new reticulonodular infiltrates involving medial left upper lobe and a large portion of left lower lobe. Adjacent small effusion. Due to sudden onset since September 03, 2021, pneumonia was the consideration, treated with IV antibiotic steroid and supportive care and patient improved, made pneumonitis less likely. Came for follow-up, denies any specific complaints no nausea or vomiting no fever chills no shortness of breath no wheezing, patient use inhaler for COPD. Patient missed her immunotherapy as she was concerned about pneumonitis as at the time of admission after first dose of immunotherapy, there was a concern whether she was developing pneumonitis but during her hospital stay based on her scans and response to the treatment, she was diagnosed with COPD exacerbation due to pneumonia rather than pneumonitis.Now patient is here to discuss further options including either resuming immunotherapy or considering observation. Medications: Adult Aspirin EC Low Strength (81 mg) Tablet, enteric coated Oral daily, Calcitonin ([place]) 1 (200 Units/act) Solution Nasal daily, Ezetimibe (10 mg) Tablet Oral, Levothyroxine Sodium (75 mcg) Tablet Oral every am, Melatonin (3 mg) Tablet Oral at bedtime, Metoprolol Tartrate (25 mg) Tablet Oral b.i.d., Nitroglycerin Tablet, sublingual Sublingual PRN, Pantoprazole Sodium (20 mg) Tablet, enteric coated Oral daily, Tiotropium [place] Monohydrate 2 (1.25 mcg/act) Aerosol, solution Inhalation daily Allergies: Statins and Sulfa. Review of Systems: Review of Systems is not available for this patient. Vital Signs: Performed on Nov 14, 2021 10:02 Height - 62.00 in Weight - 107.6 lbs (LOW) BSA - 1.47 sq.m BMI - 19.68 Temperature - 97.0 F (LOW) Pulse - 66 /min Respiration - 16 /min BP - 147/86 mm(hg) (HIGH) O2 Sat - 98 % Pain - 0 Fatigue - 8 Performance Status: 0 - Fully active, able to carry on all predisease activities without restrictions. (ECOG) Physical Examination: ENMT - No mouth sores, no thrush, no jaundice, Respiratory - Lungs are clear to auscultation, Cardiovascular - Regular rate and rhythm of heart, Abdomen - Soft, bowel sounds present, Extremities - No visible edema. Lab/Imaging: Test performed on Sep 19, 2021 10:43 Glucose 113 mg/dL BUN 12 mg/dL Creatinine 0.7 mg/dL Cr Clearance (Est) 49.87 mL/min Sodium 137 mmol/L Potassium 3.9 mmol/L Chloride 101 mmol/L CO2 23 mmol/L Calcium 9 mg/dL Protein, Total 6.4 g/dL Albumin 3.2 g/dL Globulin 3.2 g/dL Bilirubin, Total 0.4 mg/dL Alkaline Phosphatase 81 International Units/L AST (SGOT) 20 International Units/L ALT (SGPT) 11 International Units/L WBC 6.8 10^9/L RBC 3.94 10^12/L HGB 11.5 g/dL HCT 35.2 % MCV 89.3 fl MCH 29.2 pg MCHC 32.7 g/dL RDW 15.6 % Platelet Count 289 10^9/L Neutrophils (Gran) 4.52 10^9/L Lymphocytes 0.6 10^9/L Monocytes 0.7 10^9/L Eosinophils 0.5 10^9/L Basophils 0.1 10^9/L Test performed on Jul 08, 2021 09:15 Anion Gap 18.5 Osmolality - Calculated 288 mOsm/kg MPV 9.9 fL Neutrophil % 89.7 % Lymphocyte % 7.6 % Monocyte % 0.4 % Eosinophil % 0.0 % Basophils % 0.6 % NRBC % 0 % Impression: Pathological stage IIb/clinical stage IIIa, based on CT PET scan, 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 FDG positive subaortic mediastinal lymph nodes. 1.1 x 1.7 cm spiculated lesion with minimal activity in the right upper lobe, probably benign inflammatory Clinical stage Ia versus 3A if subaortic lymph node positive for metastatic disease, Underwent left hilar lymph node biopsy which confirmed metastatic disease as subaortic lymph node was not accessible, pathologically she was diagnosed with stage IIb but clinically, based on CT PET scan she was T3a and was treated as stage IIIa as subaortic lymph node was in the radiation field Coronary artery disease status post stenting September 2019 TIA SVT Hypothyroidism Osteoporosis Plan: Discussed with patient regarding her labs white blood count 4.9 hemoglobin 12.8 hematocrit 40.3 platelets 238,000 CMP within normal limits Clinically, patient doing well with no new signs symptoms history of disease progression, overall feeling well her lab work-up is within normal range. At this point, further options including resuming her maintenance immunotherapy with biweekly durvalumab or observation were discussed, patient being high risk, will suggest to continue immunotherapy as long as tolerated. Moreover, during her recent admission to hospital for progressive hypoxia/shortness of breath, she was diagnosed with COPD exacerbation due to pneumonia rather than pneumonitis so we will rechallenge her with biweekly durvalumab and monitor her closely and patient was advised in case recurrence of shortness of breath or wheezing she need to call us or go to hospital immediately otherwise we will continue immunotherapy biweekly she will return to clinic on Thursday to restart her durvalumab every 2 weeks and then we will see her a week after next infusion with CBC CMP. Signed By: Justyna Rodarte M.D. <<Signature on File>>
[2021-11-19] MEDS: sodium chloride 0.9% 250 ML 75 ML IV (10:10)
[2021-11-26 09:51] LABS: Basophils # 0.1 10^3/uL (0.0-0.1); Basophils % 1.3 %; Eosinophils # 0.1 10^3/uL (0.0-0.8); Eosinophils % 2.4 %; Hemoglobin 13.9 g/dL (11.5-15.3); Lymphocytes % 18.9 %; Mean Corpuscular HGB Conc 31.6 g/dL (30.0-36.0); Mean Corpuscular Hemoglobin 28.4 pg (28.0-34.0); Mean Corpuscular Volume 89.8 fl (81-99); Mean Platelet Volume 9.4 fL (7.4-10.4); Monocytes # 0.6 10^3/uL (0.2-0.9); Monocytes % 11.7 %; Neutrophils # 3.52 10^3/uL (1.8-7.7); Neutrophils % 65.1 %; Nucleated Red Blood Cells % 0 %; Platelet Count 250 10^3/cmm (130-400); Red Cell Distribution Width 16.3 % (12.1-15.1); White Blood Count 5.4 10^3/uL (4.0-10.0)
[2021-11-26 10:14] LABS: Alanine Aminotransferase 10 U/L (0-33); Albumin Level 3.9 g/dL (3.5-5.2); Alkaline Phosphatase 75 IU/L (35-105); Anion Gap 13.9 (5-19); Aspartate Amino Transferase 14 U/L (0-32); Blood Urea Nitrogen 17 mg/dL (8-23); Calcium 8.6 mg/dL (8.5-10.5); Carbon Dioxide 24 mmol/L (22-29); Chloride 104 mmol/L (98-107); Globulin 2.7 g/dL (1.3-4.6); Glucose 113 mg/dL (65-115); Osmolality Calculated 288 mOsm/kg (285-295); Potassium 3.9 mmol/L (3.5-5.1); Sodium 138 mmol/L (136-145); Total Bilirubin 0.3 mg/dL (0.15-1.2); Total Protein 6.6 g/dL (6.6-8.7)
--- NOTE | 2021-11-26 13:07 | ONC FU_ITS ---
Inga Ferrell Progress Note Patient: Nirmala Meléndez Unit #: [id number]: 1940 Dicatated By: Inga Ferrell N.P.Date of Visit:Nov 26, 2021 Onc MED Follow-up/Prog Note Chief Complaint: Lung cancer History of Present Illness: Ms. Meléndez is a 81-year-old female with a history of asthma, restrictive lung disease, coronary artery disease status post cardiac stents. Ms Meléndez reports in 2018 she developed off and on wheezing especially at night, Her PMD gave her inhalers which did help and her symptoms improved. and then In November 2020 she again started having wheezing which was progressive. She she was evaluated by PMD with chest x-ray , as per patient 'breathing test', probably PFT was done on December 03, 2020 which was consistent with mild airflow obstruction with no significant post bronchodilator response., Normal lung volumes and moderately reduced gas transfer, 56% Subsequently in first week of March, as per patient she coughed up fresh blood, it was a large amount and again happened 4-3 times, as as per patient she was on Plavix and aspirin for cardiac stent which were placed in the left main on September 14, 2019, at that time her PMD stopped her Plavix, with that no more episode of hemoptysis and she underwent CT scan of chest on January 24, 2021 which showed no significant change since August 2019, moderate chronic emphysematous changes, stable mucous plugging left lower lobe bronchus with associated left lobe atelectasis medially. This has chronic appearance. Fibrotic appearing opacity right upper lobe extending to the lung apex is unchanged from previous, measuring 1.5 x 1.2 x 1.2 cm. She was referred to pulmonology for evaluation., Patient was seen by Dr. Liang, on April 08, 2021, Who ordered CT PET scan which was done on April 13, 2021 showed there is any minimal activity in the spiculated right upper lobe 1.1 x 1.7 cm, supporting a benign inflammatory diagnosis. There is a 1.8 x 3 cm mass in the left lower lobe hilum with SUV of 28.5, has high probability of malignancy. An FDG positive subaortic mediastinal lymph node consistent with local metastatic disease, On April 19, 2021 she underwent bronchoscopy and left lower lobe mass endobronchial biopsy showed squamous cell carcinoma, p63 positive, TTF-1 negative, Napsin negative, Ki-67 35% PD-L1 TPS 40% Past medical history positive for TIA, SVT, CKD, esophagitis, hypothyroidism, osteoporosis, dyslipidemia Ms Meléndez was referred to cardiothoracic surgery at [place] and she was seen by Dr. Parikh, on May 09, 2021 and as per patient she was told that surgical resection is not possible rather proceed with chemoradiation. And at that time she underwent left hilar lymph node biopsy which confirmed metastatic disease as subaortic lymph node was not accessible but was positive on CT PET scan and Pathologically she was stage IIb disease but clinically stage IIIa, Based on PET scan recommended carboplatin paclitaxel in combination with radiation. She began her first cycle on July 01, 2021. And completed on August 13, 2021 Follow-up CT PET scan done on August 24, 2021 shows resolution of left lower lobe mass consistent with complete response, resolution of abnormal uptake in subaortic mediastinal lymphadenopathy no change in FDG negative right upper lobe nodule-like scar. Started on maintenance therapy with biweekly durvalumab on September 26, 2021. Patient was admitted to hospital on October 10, 2021 with progressive shortness of breath hypoxia, chest CTA done on October 10, 2021 shows no pulmonary embolism, stable spiculated nodule and pleural parenchymal scarring at the right apex. Progressive and new reticulonodular infiltrates involving medial left upper lobe and a large portion of left lower lobe. Adjacent small effusion. Due to sudden onset since September 03, 2021, pneumonia was the consideration, treated with IV antibiotic steroid and supportive care and patient improved, made pneumonitis less likely. Patient presents today for follow-up. She restarted her treatment with Imfinzi last week. She has tolerated it well. She denies fatigue, she denies fever, chills, night sweats. Her appetite has been good. No sinus drainage or sore throat she has shortness of breath on occasion related to her COPD which she uses an inhaler for. She denies cough or chest pain. No GI or problems. No joint or bone pain. No headache or dizziness. Review Of Symptoms: See above. Past Medical History: Asthma Atherosclerotic heart disease Chronic kidney disease Dyslipidemia Gastroesophageal reflux disease History of TIA Hypothyroidism Myocardial infarction Osteoporosis Supraventricular tachycardia Past Surgical History: Coronary artery stent placement Covid vaccine #2 in 2020 Covid vaccine #1 in 2020 Colonoscopy in 2018 EGD in 2018 Allergies: Statins and Sulfa. Medications: Adult Aspirin EC Low Strength (81 mg) Tablet, enteric coated Oral daily Calcitonin ([place]) 1 (200 Units/act) Solution Nasal daily Ezetimibe (10 mg) Tablet Oral Levothyroxine Sodium (75 mcg) Tablet Oral every am Melatonin (3 mg) Tablet Oral at bedtime Metoprolol Tartrate (25 mg) Tablet Oral b.i.d. Nitroglycerin Tablet, sublingual Sublingual PRN Pantoprazole Sodium (20 mg) Tablet, enteric coated Oral daily Tiotropium [place] Monohydrate 2 (1.25 mcg/act) Aerosol, solution Inhalation daily Family History: Ms. Meléndez's father is : Cancer, and chronic kidney disease, and clotting disorder, and lung disease, and stroke, and suicide, and type II diabetes. Social History: Ms. Meléndez is . Ms. Meléndez quit smoking 42 years ago but had smoked 2.0 packs/day for 21 years. She has no history of drinking. Physical Examination: Performed on Nov 26, 2021 11:10: Height - 62.00 in, Weight - 104.4 lbs (LOW), BSA - 1.45 sq.m, BMI - 19.10, Temperature - 97.5 F (LOW), Pulse - 68 /min, Respiration - 18 /min, BP - 121/76 mm(hg), O2 Sat - 93 % (LOW), Pain - 0, and Fatigue - 6. Performance Status: 0 - Fully active, able to carry on all predisease activities without restrictions. (ECOG) Constitutional Alert, cooperative, oriented. Mood and affect appropriate. Appears close to chronological age. Well nourished. Well developed. Head Normocephalic; no scars. Eyes Conjunctivae and sclerae are clear and without icterus. Pupils are reactive and equal. Respiratory Lungs are clear to auscultation without rhonchi or wheezing. Cardiovascular Regular rate and rhythm of heart without murmurs, gallops or rubs. Abdomen Non-tender, non-distended, no masses, ascites or hepatosplenomegaly. Good bowel sounds. No guarding or rebound tenderness. Extremities No visible deformities, no cyanosis, clubbing or edema. Pulses 3+ and equal bilaterally. Musculoskeletal No tenderness or swelling, normal range of motion without obvious weakness. Psychiatric Alert and oriented times three. Coherent speech. Verbalizes understanding of our discussions today. Laboratory: Test performed on Nov 26, 2021 09:35 Sodium 138 mmol/L Potassium 3.9 mmol/L Chloride 104 mmol/L CO2 24 mmol/L Anion Gap 13.9 BUN 17 mg/dL Creatinine 1.0 mg/dL Cr Clearance (Est) 32.4300 mL/min Glucose 113 mg/dL Osmolality - Calculated 288 mOsm/kg Calcium 8.6 mg/dL Protein, Total 6.6 g/dL Albumin 3.9 g/dL Globulin 2.7 g/dL Bilirubin, Total 0.3 mg/dL ALT (SGPT) 10 U/L AST (SGOT) 14 U/L Alkaline Phosphatase 75 IU/L WBC 5.4 10 3/uL RBC 4.90 10 6/uL HGB 13.9 g/dL HCT 44.0 % MCV 89.8 fl MCH 28.4 pg MCHC 31.6 g/dL RDW 16.3 % Platelet Count 250 10 3/cmm MPV 9.4 fL Neutrophils 3.52 10 3/uL Lymphocytes 1.0 10 3/uL Monocytes 0.6 10 3/uL Eosinophils 0.1 10 3/uL Basophils 0.1 10 3/uL Neutrophil % 65.1 % Lymphocyte % 18.9 % Monocyte % 11.7 % Eosinophil % 2.4 % Basophils % 1.3 % NRBC % 0 % Impression: Pathological stage IIb/clinical stage IIIa, based on CT PET scan, 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 FDG positive subaortic mediastinal lymph nodes. 1.1 x 1.7 cm spiculated lesion with minimal activity in the right upper lobe, probably benign inflammatory Clinical stage Ia versus 3A if subaortic lymph node positive for metastatic disease, Underwent left hilar lymph node biopsy which confirmed metastatic disease as subaortic lymph node was not accessible, pathologically she was diagnosed with stage IIb but clinically, based on CT PET scan she was T3a and was treated as stage IIIa as subaortic lymph node was in the radiation field Coronary artery disease status post stenting September 2019 TIA SVT Hypothyroidism Osteoporosis Plan: Labs were reviewed with patient. Her WBC is 5.4 hemoglobin 13.9 hematocrit 44.0, and platelet count 250,000. Her creatinine is slightly elevated at 1.0 otherwise CMP is within normal limits. Patient presents today for a 1 week follow-up after restarting Imfinzi. She was in the hospital previously for pneumonia and COPD exacerbation. Pneumonitis was ruled out at that time. She tolerated her infusion well. She will return in 1 week to continue Imfinzi infusions every 2 weeks with CBC and CMP. Signed By: Inga Ferrell N.P. <<Signature on File>>
[2021-12-03 09:45] LABS: Basophils # 0.1 10^3/uL (0.0-0.1); Basophils % 1.1 %; Eosinophils # 0.2 10^3/uL (0.0-0.8); Eosinophils % 2.4 %; Hematocrit 42.4 % (37.0-47.0); Hemoglobin 13.6 g/dL (11.5-15.3); Lymphocytes % 16.2 %; Mean Corpuscular HGB Conc 32.1 g/dL (30.0-36.0); Mean Corpuscular Hemoglobin 28.2 pg (28.0-34.0); Mean Platelet Volume 9.5 fL (7.4-10.4); Monocytes # 0.7 10^3/uL (0.2-0.9); Monocytes % 10.5 %; Neutrophils # 4.44 10^3/uL (1.8-7.7); Neutrophils % 69.6 %; Nucleated Red Blood Cells % 0 %; Platelet Count 221 10^3/cmm (130-400); Red Blood Count 4.82 10^6/uL (4.1-5.3); Red Cell Distribution Width 16.1 % (12.1-15.1); White Blood Count 6.4 10^3/uL (4.0-10.0)
[2021-12-03 10:07] LABS: Alanine Aminotransferase 9 U/L (0-33); Albumin Level 3.8 g/dL (3.5-5.2); Alkaline Phosphatase 77 IU/L (35-105); Anion Gap 15.2 (5-19); Aspartate Amino Transferase 15 U/L (0-32); Blood Urea Nitrogen 16 mg/dL (8-23); Calcium 9.3 mg/dL (8.5-10.5); Carbon Dioxide 22 mmol/L (22-29); Chloride 107 mmol/L (98-107); Glucose 91 mg/dL (65-115); Osmolality Calculated 291 mOsm/kg (285-295); Potassium 4.2 mmol/L (3.5-5.1); Sodium 140 mmol/L (136-145); Total Bilirubin 0.4 mg/dL (0.15-1.2); Total Protein 6.8 g/dL (6.6-8.7)
== END 2021-12-12 23:59 | disposition home or self-care (01) ==
LOC: ONCMED 07:04
PROVIDERS: Internal Medicine Hematology & Oncology; PCP Family Medicine; Visit Provider Nurse Practitioner Family
DX: Z51.12 Encounter for antineoplastic immunotherapy (principal); C34.32 Malignant neoplasm of lower lobe, left bronchus or lung; C77.8 Secondary and unspecified malignant neoplasm of lymph nodes of multiple regions; C78.01 Secondary malignant neoplasm of right lung; I25.10 Atherosclerotic heart disease of native coronary artery without angina pectoris; Z95.5 Presence of coronary angioplasty implant and graft; G45.9 Transient cerebral ischemic attack, unspecified; I47.1 Supraventricular tachycardia; E03.9 Hypothyroidism, unspecified; M81.0 Age-related osteoporosis without current pathological fracture; J44.1 Chronic obstructive pulmonary disease with (acute) exacerbation; J18.9 Pneumonia, unspecified organism; Z79.899 Other long term (current) drug therapy
CPT/HCPCS: 36591; 80053; 85025; 96413; 99214; J7050; J9173

== ENCOUNTER → 2021-12-16 09:30 | Outpatient (BNVA) | payer MEDICARE, SELFPAY | PROVIDERS: PCP Family Medicine; Visit Provider Internal Medicine Cardiovascular Disease | DX: I25.10 Atherosclerotic heart disease of native coronary artery without angina pectoris (principal); R06.02 Shortness of breath; C34.92 Malignant neoplasm of unspecified part of left bronchus or lung; E78.5 Hyperlipidemia, unspecified; R74.8 Abnormal levels of other serum enzymes; R00.0 Tachycardia, unspecified; Z79.82 Long term (current) use of aspirin; Z87.891 Personal history of nicotine dependence | CPT/HCPCS: 99214 ==

== ENCOUNTER 2022-01-07 06:39 | Outpatient (RCR) | payer MEDICARE, SELFPAY ==
[2021-12-24 10:37] LABS: Alanine Aminotransferase 13 U/L (0-33); Albumin Level 3.8 g/dL (3.5-5.2); Alkaline Phosphatase 84 IU/L (35-105); Anion Gap 11.2 (5-19); Aspartate Amino Transferase 16 U/L (0-32); Basophils # 0.1 10^3/uL (0.0-0.1); Basophils % 1.1 %; Blood Urea Nitrogen 19 mg/dL (8-23); Calcium 9.4 mg/dL (8.5-10.5); Carbon Dioxide 24 mmol/L (22-29); Chloride 106 mmol/L (98-107); Eosinophils # 0.1 10^3/uL (0.0-0.8); Eosinophils % 2.5 %; Globulin 2.6 g/dL (1.3-4.6); Glucose 92 mg/dL (65-115); Hematocrit 41.8 % (37.0-47.0); Hemoglobin 13.5 g/dL (11.5-15.3); Mean Corpuscular HGB Conc 32.3 g/dL (30.0-36.0); Mean Corpuscular Hemoglobin 28.4 pg (28.0-34.0); Mean Corpuscular Volume 87.8 fl (81-99); Mean Platelet Volume 9.5 fL (7.4-10.4); Monocytes # 0.7 10^3/uL (0.2-0.9); Monocytes % 11.5 %; Neutrophils # 3.77 10^3/uL (1.8-7.7); Neutrophils % 66.5 %; Nucleated Red Blood Cells % 0 %; Osmolality Calculated 286 mOsm/kg (285-295); Platelet Count 223 10^3/cmm (130-400); Potassium 4.2 mmol/L (3.5-5.1); Red Blood Count 4.76 10^6/uL (4.1-5.3); Red Cell Distribution Width 15.9 % (12.1-15.1); Sodium 137 mmol/L (136-145); Total Bilirubin 0.6 mg/dL (0.15-1.2); Total Protein 6.4 g/dL (6.6-8.7); White Blood Count 5.7 10^3/uL (4.0-10.0)
--- NOTE | 2021-12-30 17:51 | ONC FU_ITS ---
Dr. Rodarte follow up note Patient: Nirmala Meléndez Unit #: [id number]: 1940 Dicatated By: Justyna Rodarte M.D.Date of Visit:Dec 24, 2021 Onc Med Follow-up/Prog Note History of Present Illness: Ms. Meléndez is a 81-year-old female with a history of asthma, restrictive lung disease, coronary artery disease status post cardiac stents. Ms Meléndez reports in 2018 she developed off and on wheezing especially at night, Her PMD gave her inhalers which did help and her symptoms improved. and then In November 2020 she again started having wheezing which was progressive. She she was evaluated by PMD with chest x-ray , as per patient 'breathing test', probably PFT was done on December 03, 2020 which was consistent with mild airflow obstruction with no significant post bronchodilator response., Normal lung volumes and moderately reduced gas transfer, 56% Subsequently in first week of March, as per patient she coughed up fresh blood, it was a large amount and again happened 4-3 times, as as per patient she was on Plavix and aspirin for cardiac stent which were placed in the left main on September 14, 2019, at that time her PMD stopped her Plavix, with that no more episode of hemoptysis and she underwent CT scan of chest on January 24, 2021 which showed no significant change since August 2019, moderate chronic emphysematous changes, stable mucous plugging left lower lobe bronchus with associated left lobe atelectasis medially. This has chronic appearance. Fibrotic appearing opacity right upper lobe extending to the lung apex is unchanged from previous, measuring 1.5 x 1.2 x 1.2 cm. She was referred to pulmonology for evaluation., Patient was seen by Dr. Liang, on April 08, 2021, Who ordered CT PET scan which was done on April 13, 2021 showed there is any minimal activity in the spiculated right upper lobe 1.1 x 1.7 cm, supporting a benign inflammatory diagnosis. There is a 1.8 x 3 cm mass in the left lower lobe hilum with SUV of 28.5, has high probability of malignancy. An FDG positive subaortic mediastinal lymph node consistent with local metastatic disease, On April 19, 2021 she underwent bronchoscopy and left lower lobe mass endobronchial biopsy showed squamous cell carcinoma, p63 positive, TTF-1 negative, Napsin negative, Ki-67 35% PD-L1 TPS 40% Past medical history positive for TIA, SVT, CKD, esophagitis, hypothyroidism, osteoporosis, dyslipidemia Ms Meléndez was referred to cardiothoracic surgery at [place] and she was seen by Dr. Parikh, on May 09, 2021 and as per patient she was told that surgical resection is not possible rather proceed with chemoradiation. And at that time she underwent left hilar lymph node biopsy which confirmed metastatic disease as subaortic lymph node was not accessible but was positive on CT PET scan and Pathologically she was stage IIb disease but clinically stage IIIa, Based on PET scan recommended carboplatin paclitaxel in combination with radiation. She began her first cycle on July 01, 2021. And completed on August 13, 2021 Follow-up CT PET scan done on August 24, 2021 shows resolution of left lower lobe mass consistent with complete response, resolution of abnormal uptake in subaortic mediastinal lymphadenopathy no change in FDG negative right upper lobe nodule-like scar. Started on maintenance therapy with biweekly durvalumab on September 26, 2021. Patient was admitted to hospital on October 10, 2021 with progressive shortness of breath hypoxia, chest CTA done on October 10, 2021 shows no pulmonary embolism, stable spiculated nodule and pleural parenchymal scarring at the right apex. Progressive and new reticulonodular infiltrates involving medial left upper lobe and a large portion of left lower lobe. Adjacent small effusion. Due to sudden onset since September 03, 2021, pneumonia was the consideration, treated with IV antibiotic steroid and supportive care and patient improved, made pneumonitis less likely. Came for follow-up, denies any specific complaints, no fever chills, no nausea or vomiting, no diarrhea or constipation, no night sweats, no shortness of breath, no skin rash, no mucus or blood in her stool. Tolerating maintenance immunotherapy with durvalumab well Medications: Adult Aspirin EC Low Strength (81 mg) Tablet, enteric coated Oral daily, Calcitonin ([place]) 1 (200 Units/act) Solution Nasal daily, Ezetimibe (10 mg) Tablet Oral, Levothyroxine Sodium (75 mcg) Tablet Oral every am, Melatonin (3 mg) Tablet Oral at bedtime, Metoprolol Tartrate (25 mg) Tablet Oral b.i.d., Nitroglycerin Tablet, sublingual Sublingual PRN, Pantoprazole Sodium (20 mg) Tablet, enteric coated Oral daily, Tiotropium [place] Monohydrate 2 (1.25 mcg/act) Aerosol, solution Inhalation daily Allergies: Statins and Sulfa. Review of Systems: Review of Systems is not available for this patient. Vital Signs: Performed on Dec 24, 2021 12:21 Height - 62.00 in Weight - 108.8 lbs (HIGH) BSA - 1.48 sq.m BMI - 19.90 Temperature - 97.7 F (LOW) Pulse - 70 /min Respiration - 16 /min BP - 133/74 mm(hg) O2 Sat - 98 % Pain - 0 Fatigue - 8 Performance Status: 0 - Fully active, able to carry on all predisease activities without restrictions. (ECOG) Physical Examination: ENMT - No mouth sores, no thrush, no jaundice, Respiratory - Lungs are clear to auscultation, Cardiovascular - Regular rate and rhythm of heart, Abdomen - Soft, bowel sounds present, Extremities - No visible edema. Lab/Imaging: Test performed on Dec 03, 2021 09:35 Sodium 140 mmol/L Potassium 4.2 mmol/L Chloride 107 mmol/L CO2 22 mmol/L Anion Gap 15.2 BUN 16 mg/dL Creatinine 0.7 mg/dL Cr Clearance (Est) 46.3200 mL/min Glucose 91 mg/dL Osmolality - Calculated 291 mOsm/kg Calcium 9.3 mg/dL Protein, Total 6.8 g/dL Albumin 3.8 g/dL Globulin 3.0 g/dL Bilirubin, Total 0.4 mg/dL ALT (SGPT) 9 U/L AST (SGOT) 15 U/L Alkaline Phosphatase 77 IU/L WBC 6.4 10 3/uL RBC 4.82 10 6/uL HGB 13.6 g/dL HCT 42.4 % MCV 88.0 fl MCH 28.2 pg MCHC 32.1 g/dL RDW 16.1 % Platelet Count 221 10 3/cmm MPV 9.5 fL Neutrophils 4.44 10 3/uL Lymphocytes 1.0 10 3/uL Monocytes 0.7 10 3/uL Eosinophils 0.2 10 3/uL Basophils 0.1 10 3/uL Neutrophil % 69.6 % Lymphocyte % 16.2 % Monocyte % 10.5 % Eosinophil % 2.4 % Basophils % 1.1 % NRBC % 0 % Impression: Pathological stage IIb/clinical stage IIIa, based on CT PET scan, 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 FDG positive subaortic mediastinal lymph nodes. 1.1 x 1.7 cm spiculated lesion with minimal activity in the right upper lobe, probably benign inflammatory Clinical stage Ia versus 3A if subaortic lymph node positive for metastatic disease, Underwent left hilar lymph node biopsy which confirmed metastatic disease as subaortic lymph node was not accessible, pathologically she was diagnosed with stage IIb but clinically, based on CT PET scan she was T3a and was treated as stage IIIa as subaortic lymph node was in the radiation field Coronary artery disease status post stenting September 2019 TIA SVT Hypothyroidism Osteoporosis Plan: Discussed with patient regarding her labs white blood count 5.7 hemoglobin 13.5 hematocrit 41.8 platelets 223,000 CMP within normal limits Clinically, patient doing well with no new signs symptoms just of recurrence of disease, will continue with durvalumab every 2 weeks and proceed with next dose today return to clinic in 2 weeks with CBC CMP and TSH and also consider follow-up CT PET scan to assess disease status. Signed By: Justyna Rodarte M.D. <<Signature on File>>
[2022-01-07 09:17] LABS: Basophils # 0.1 10^3/uL (0.0-0.1); Basophils % 1.2 %; Eosinophils # 0.1 10^3/uL (0.0-0.8); Eosinophils % 2.2 %; Hematocrit 40.6 % (37.0-47.0); Hemoglobin 12.9 g/dL (11.5-15.3); Lymphocytes # 0.9 10^3/uL (0.8-4.8); Lymphocytes % 17.8 %; Mean Corpuscular HGB Conc 31.8 g/dL (30.0-36.0); Mean Corpuscular Hemoglobin 28.4 pg (28.0-34.0); Mean Corpuscular Volume 89.2 fl (81-99); Mean Platelet Volume 9.4 fL (7.4-10.4); Monocytes # 0.6 10^3/uL (0.2-0.9); Monocytes % 12.4 %; Neutrophils # 3.25 10^3/uL (1.8-7.7); Nucleated Red Blood Cells % 0 %; Platelet Count 205 10^3/cmm (130-400); Red Blood Count 4.55 10^6/uL (4.1-5.3); Red Cell Distribution Width 15.2 % (12.1-15.1); White Blood Count 4.9 10^3/uL (4.0-10.0)
[2022-01-07 09:48] LABS: Alanine Aminotransferase 8 U/L (0-33); Albumin Level 3.9 g/dL (3.5-5.2); Alkaline Phosphatase 80 IU/L (35-105); Aspartate Amino Transferase 23 U/L (0-32); Blood Urea Nitrogen 16 mg/dL (8-23); Carbon Dioxide 24 mmol/L (22-29); Chloride 108 mmol/L (98-107); Globulin 2.2 g/dL (1.3-4.6); Glucose 102 mg/dL (65-115); Osmolality Calculated 291 mOsm/kg (285-295); Sodium 140 mmol/L (136-145); Thyroid Stimulating Hormone 0.08 uIU/mL (0.27-4.20); Total Bilirubin 0.4 mg/dL (0.15-1.2); Total Protein 6.1 g/dL (6.6-8.7)
[2022-01-07 10:04] LABS: Anion Gap 12.7 (5-19); Potassium 4.7 mmol/L (3.5-5.1)
--- NOTE | 2022-01-08 09:53 | ONC FU_ITS ---
Dr. Rodarte follow up note Patient: Nirmala Meléndez Unit #: [id number]: 1940 Dicatated By: Justyna Rodarte M.D.Date of Visit:Jan 07, 2022 Onc Med Follow-up/Prog Note History of Present Illness: Ms. Meléndez is a 81-year-old female with a history of asthma, restrictive lung disease, coronary artery disease status post cardiac stents. Ms Meléndez reports in 2018 she developed off and on wheezing especially at night, Her PMD gave her inhalers which did help and her symptoms improved. and then In November 2020 she again started having wheezing which was progressive. She she was evaluated by PMD with chest x-ray , as per patient 'breathing test', probably PFT was done on December 03, 2020 which was consistent with mild airflow obstruction with no significant post bronchodilator response., Normal lung volumes and moderately reduced gas transfer, 56% Subsequently in first week of March, as per patient she coughed up fresh blood, it was a large amount and again happened 4-3 times, as as per patient she was on Plavix and aspirin for cardiac stent which were placed in the left main on September 14, 2019, at that time her PMD stopped her Plavix, with that no more episode of hemoptysis and she underwent CT scan of chest on January 24, 2021 which showed no significant change since August 2019, moderate chronic emphysematous changes, stable mucous plugging left lower lobe bronchus with associated left lobe atelectasis medially. This has chronic appearance. Fibrotic appearing opacity right upper lobe extending to the lung apex is unchanged from previous, measuring 1.5 x 1.2 x 1.2 cm. She was referred to pulmonology for evaluation., Patient was seen by Dr. Liang, on April 08, 2021, Who ordered CT PET scan which was done on April 13, 2021 showed there is any minimal activity in the spiculated right upper lobe 1.1 x 1.7 cm, supporting a benign inflammatory diagnosis. There is a 1.8 x 3 cm mass in the left lower lobe hilum with SUV of 28.5, has high probability of malignancy. 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 Parikh, on May 09, 2021 and as per patient she was told that surgical resection is not possible rather proceed with chemoradiation. And at that time she underwent left hilar lymph node biopsy which confirmed metastatic disease as subaortic lymph node was not accessible but was positive on CT PET scan and Pathologically she was stage IIb disease but clinically stage IIIa, Based on PET scan recommended carboplatin paclitaxel in combination with radiation. She began her first cycle on July 01, 2021. And completed on August 13, 2021 Follow-up CT PET scan done on August 24, 2021 shows resolution of left lower lobe mass consistent with complete response, resolution of abnormal uptake in subaortic mediastinal lymphadenopathy no change in FDG negative right upper lobe nodule-like scar. Started on maintenance therapy with biweekly durvalumab on September 26, 2021. Patient was admitted to hospital on October 10, 2021 with progressive shortness of breath hypoxia, chest CTA done on October 10, 2021 shows no pulmonary embolism, stable spiculated nodule and pleural parenchymal scarring at the right apex. Progressive and new reticulonodular infiltrates involving medial left upper lobe and a large portion of left lower lobe. Adjacent small effusion. Due to sudden onset since September 03, 2021, pneumonia was the consideration, treated with IV antibiotic steroid and supportive care and patient improved, made pneumonitis less likely. came For follow-up, denies any specific complaints, no fever chills, no nausea or vomiting, no diarrhea constipation, no melena or hematochezia, no hemoptysis but emesis, no skin rash, no shortness of breath, no jaundice, no diarrhea or mucus in her stool, tolerating durvalumab well. Patient was scheduled for CT PET scan but her insurance would not cover cost of CT PET scan if it is done in [place], nearest place would be [place] but patient does not want to go to [place]. Unless she has no choice Medications: Adult Aspirin EC Low Strength (81 mg) Tablet, enteric coated Oral daily, Calcitonin (Hedrick) 1 (200 Units/act) Solution Nasal daily, Ezetimibe (10 mg) Tablet Oral, Levothyroxine Sodium (75 mcg) Tablet Oral every am, Melatonin (3 mg) Tablet Oral at bedtime, Metoprolol Tartrate (25 mg) Tablet Oral b.i.d., Nitroglycerin Tablet, sublingual Sublingual PRN, Pantoprazole Sodium (20 mg) Tablet, enteric coated Oral daily, Tiotropium [place] Monohydrate 2 (1.25 mcg/act) Aerosol, solution Inhalation daily Allergies: Statins and Sulfa. Review of Systems: Review of Systems is not available for this patient. Vital Signs: Performed on Jan 07, 2022 11:56 Height - 62.00 in Weight - 109.0 lbs (HIGH) BSA - 1.48 sq.m BMI - 19.94 Temperature - 97.2 F (LOW) Pulse - 67 /min Respiration - 18 /min BP - 144/82 mm(hg) (HIGH) O2 Sat - 94 % (LOW) Pain - 0 Fatigue - 8 Performance Status: 0 - Fully active, able to carry on all predisease activities without restrictions. (ECOG) Physical Examination: ENMT - No mouth sores, no thrush no jaundice, Respiratory - Lungs are clear to auscultation, Cardiovascular - Regular rate and rhythm of heart, Abdomen - Soft, bowel sounds present, Extremities - No visible edema. Lab/Imaging: Test performed on Dec 03, 2021 09:35 Sodium 140 mmol/L Potassium 4.2 mmol/L Chloride 107 mmol/L CO2 22 mmol/L Anion Gap 15.2 BUN 16 mg/dL Creatinine 0.7 mg/dL Cr Clearance (Est) 46.3200 mL/min Glucose 91 mg/dL Osmolality - Calculated 291 mOsm/kg Calcium 9.3 mg/dL Protein, Total 6.8 g/dL Albumin 3.8 g/dL Globulin 3.0 g/dL Bilirubin, Total 0.4 mg/dL ALT (SGPT) 9 U/L AST (SGOT) 15 U/L Alkaline Phosphatase 77 IU/L WBC 6.4 10 3/uL RBC 4.82 10 6/uL HGB 13.6 g/dL HCT 42.4 % MCV 88.0 fl MCH 28.2 pg MCHC 32.1 g/dL RDW 16.1 % Platelet Count 221 10 3/cmm MPV 9.5 fL Neutrophils 4.44 10 3/uL Lymphocytes 1.0 10 3/uL Monocytes 0.7 10 3/uL Eosinophils 0.2 10 3/uL Basophils 0.1 10 3/uL Neutrophil % 69.6 % Lymphocyte % 16.2 % Monocyte % 10.5 % Eosinophil % 2.4 % Basophils % 1.1 % NRBC % 0 % Impression: Pathological stage IIb/clinical stage IIIa, based on CT PET scan, 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 FDG positive subaortic mediastinal lymph nodes. 1.1 x 1.7 cm spiculated lesion with minimal activity in the right upper lobe, probably benign inflammatory Clinical stage Ia versus 3A if subaortic lymph node positive for metastatic disease, Underwent left hilar lymph node biopsy which confirmed metastatic disease as subaortic lymph node was not accessible, pathologically she was diagnosed with stage IIb but clinically, based on CT PET scan she was T3a and was treated as stage IIIa as subaortic lymph node was in the radiation field Coronary artery disease status post stenting September 2019 TIA SVT Hypothyroidism Osteoporosis Plan: Discussed with patient regarding her labs white blood count 4.9 hemoglobin 12.9 hematocrit 40.6 platelets 205,000 CMP within normal limits Clinically, patient doing well with no new signs symptom suggestive of disease progression, will proceed with her biweekly dose of durvalumab today and then she will return to clinic in 2 weeks with CBC CMP, as well as follow-up CT PET scan is concerned, patient was advised due to insurance coverage she has to go to [place] for further testing unless she wants to pay out of her pocket, patient agreed to go to [place], we will schedule her for follow-up CT PET scan, to assess disease status. Signed By: Justyna Rodarte M.D. <<Signature on File>>
== END 2022-01-11 23:59 | disposition home or self-care (01) ==
LOC: ONCMED 06:39
PROVIDERS: PCP Family Medicine; Visit Provider Internal Medicine Hematology & Oncology
DX: Z51.12 Encounter for antineoplastic immunotherapy (principal); C34.32 Malignant neoplasm of lower lobe, left bronchus or lung; C77.8 Secondary and unspecified malignant neoplasm of lymph nodes of multiple regions; Z95.5 Presence of coronary angioplasty implant and graft; Z86.73 Personal history of transient ischemic attack (TIA), and cerebral infarction without residual deficits; Z79.899 Other long term (current) drug therapy
CPT/HCPCS: 80053; 84443; 85025; 96413; 99215; J7050; J9173

== ENCOUNTER 2022-02-05 08:30 | Oncology outpatient (recurring) (ONCR) | payer MEDICARE, SELFPAY ==
[2022-01-21 11:25] LABS: Basophils # 0.1 10^3/uL (0.0-0.1); Basophils % 1.1 %; Eosinophils # 0.1 10^3/uL (0.0-0.8); Eosinophils % 1.6 %; Hematocrit 40.1 % (37.0-47.0); Hemoglobin 12.7 g/dL (11.5-15.3); Lymphocytes # 1.2 10^3/uL (0.8-4.8); Lymphocytes % 21.2 %; Mean Corpuscular HGB Conc 31.7 g/dL (30.0-36.0); Mean Corpuscular Hemoglobin 28.5 pg (28.0-34.0); Mean Corpuscular Volume 89.9 fl (81-99); Mean Platelet Volume 9.6 fL (7.4-10.4); Monocytes # 0.7 10^3/uL (0.2-0.9); Monocytes % 12.1 %; Neutrophils # 3.47 10^3/uL (1.8-7.7); Neutrophils % 63.6 %; Nucleated Red Blood Cells % 0 %; Platelet Count 217 10^3/cmm (130-400); Red Blood Count 4.46 10^6/uL (4.1-5.3); Red Cell Distribution Width 14.4 % (12.1-15.1); White Blood Count 5.5 10^3/uL (4.0-10.0)
[2022-01-21 11:50] LABS: Alanine Aminotransferase 10 U/L (0-33); Albumin Level 3.5 g/dL (3.5-5.2); Alkaline Phosphatase 80 IU/L (35-105); Anion Gap 13.2 (5-19); Aspartate Amino Transferase 14 U/L (0-32); Blood Urea Nitrogen 22 mg/dL (8-23); Calcium 9.2 mg/dL (8.5-10.5); Carbon Dioxide 23 mmol/L (22-29); Chloride 105 mmol/L (98-107); Globulin 2.9 g/dL (1.3-4.6); Glucose 97 mg/dL (65-115); Osmolality Calculated 287 mOsm/kg (285-295); Potassium 4.2 mmol/L (3.5-5.1); Sodium 137 mmol/L (136-145); Total Bilirubin 0.4 mg/dL (0.15-1.2); Total Protein 6.4 g/dL (6.6-8.7)
[2022-01-21 15:15] VITALS: BP 146/77; PULSE 66; RESP 16; TEMP 36.2; O2SAT 95
[2022-02-05 08:13] VITALS: BP 136/85; PULSE 57; RESP 16; TEMP 36.4; O2SAT 99
--- NOTE | 2022-02-05 08:22 | MM_ITS ---
WS: [id number] BILATERAL SCREENING DIGITAL BREAST TOMOSYNTHESIS MAMMOGRAM WITH CAD HISTORY: SCREENING COMPARISON: 07/11/2020, 06/11/2020, 10/09/2017 Bilateral CC and MLO views with tomosynthesis and synthetic mammography submitted. Computer aided det ection analyzed. Breast composition: There are scattered areas of fibroglandular density. No suspicious masses, microc alcifications or architectural distortion. Well-circumscribed 5 mm nodule in the posterior medial LEF T breast is stable. Benign calcifications and vascular calcifications in each breast. MM/[place] [id number] IMPRESSION: BI-RADS: 2-Benign FOLLOW UP: 1 Year Follow-up
[2022-02-05 08:36] LABS: Basophils # 0.1 10^3/uL (0.0-0.1); Basophils % 0.9 %; Eosinophils # 0.1 10^3/uL (0.0-0.8); Eosinophils % 2.6 %; Hematocrit 43.3 % (37.0-47.0); Lymphocytes # 1.2 10^3/uL (0.8-4.8); Lymphocytes % 21.5 %; Mean Corpuscular HGB Conc 32.3 g/dL (30.0-36.0); Mean Corpuscular Hemoglobin 28.9 pg (28.0-34.0); Mean Corpuscular Volume 89.3 fl (81-99); Mean Platelet Volume 9.6 fL (7.4-10.4); Monocytes # 0.7 10^3/uL (0.2-0.9); Neutrophils # 3.41 10^3/uL (1.8-7.7); Neutrophils % 62.8 %; Nucleated Red Blood Cells % 0 %; Platelet Count 218 10^3/cmm (130-400); Red Blood Count 4.85 10^6/uL (4.1-5.3); White Blood Count 5.4 10^3/uL (4.0-10.0)
[2022-02-05 09:10] LABS: Alanine Aminotransferase 11 U/L (0-33); Alkaline Phosphatase 89 IU/L (35-105); Anion Gap 14.3 (5-19); Aspartate Amino Transferase 16 U/L (0-32); Blood Urea Nitrogen 22 mg/dL (8-23); Calcium 8.9 mg/dL (8.5-10.5); Carbon Dioxide 24 mmol/L (22-29); Chloride 106 mmol/L (98-107); Globulin 2.7 g/dL (1.3-4.6); Glucose 94 mg/dL (65-115); Osmolality Calculated 293 mOsm/kg (285-295); Potassium 4.3 mmol/L (3.5-5.1); Sodium 140 mmol/L (136-145); Total Bilirubin 0.5 mg/dL (0.15-1.2); Total Protein 6.7 g/dL (6.6-8.7)
[2022-02-05 09:11] LABS: Thyroid Stimulating Hormone 0.55 uIU/mL (0.27-4.20)
[2022-02-05 12:24] VITALS: BP 121/62; PULSE 64; RESP 16; TEMP 35.8; O2SAT 98
== END 2022-02-11 23:59 | disposition home or self-care (01) ==
PROVIDERS: Internal Medicine Hematology & Oncology; PCP Family Medicine; Visit Provider Nurse Practitioner Family
DX: C34.32 Malignant neoplasm of lower lobe, left bronchus or lung (principal); C77.2 Secondary and unspecified malignant neoplasm of intra-abdominal lymph nodes; C77.1 Secondary and unspecified malignant neoplasm of intrathoracic lymph nodes; Z87.891 Personal history of nicotine dependence; E04.1 Nontoxic single thyroid nodule; E27.9 Disorder of adrenal gland, unspecified
CPT/HCPCS: 77063; 77067; 80053; 84443; 85025; 96413; 99214; 99999; J7050; J9173

== ENCOUNTER 2022-03-05 08:00 | Oncology outpatient (recurring) (ONCR) | payer MEDICARE, SELFPAY ==
--- NOTE | 2022-02-19 07:05 | US_ITS ---
WS: [id number] ULTRASOUND THYROID TECHNIQUE: Ultrasound of the thyroid. CLINICAL INFORMATION: Left Thyroid Nodule Found on PET Scan COMPARISON: PET CT August 24, [address] chest October 10, 2021 FINDINGS: Thyroid: Heterogeneous thyroid echotexture bilaterally. Increased thyroid vascularity in both lobes. Multinodular thyroid with the largest solid nodules in the LEFT mid thyroid measuring 1.2 x 1.3 x 1.6 cm and LEFT inferior thyroid measuring 1.2 x 0.6 x 1.0 CM with associated prominent vascularity. No suspicious nodules in the RIGHT thyroid lobe. Right thyroid lobe: 3.4 cm x 1.0 cm x 1.1 cm Left thyroid lobe: 4.4 cm x 1.7 cm x 1.7 cm. Isthmus: 0.1 mm. Cervical lymphadenopathy: None. US/US thyroid [id number] IMPRESSION: 1. Heterogeneous hypervascular thyroid with markedly increased vascularity. Fi ndings can be seen with thyroiditis. Recommend correlation with thyroid functio n studies. 2. Solid nodule in the LEFT mid thyroid with a hypoechoic halo. This measures 1.2 x 1.3 x 1.6 CM. Recommend further evaluation with FNA. 3. Additional solid inferior LEFT thyroid nodule measuring 1.2 x 0.6 x 1.0 CM. 4. No suspicious RIGHT lobe nodules.
[2022-02-19 08:26] LABS: Basophils # 0.1 10^3/uL (0.0-0.1); Basophils % 1.3 %; Eosinophils # 0.1 10^3/uL (0.0-0.8); Eosinophils % 2.6 %; Hematocrit 44.5 % (37.0-47.0); Hemoglobin 14.2 g/dL (11.5-15.3); Lymphocytes # 1.1 10^3/uL (0.8-4.8); Lymphocytes % 20.7 %; Mean Corpuscular HGB Conc 31.9 g/dL (30.0-36.0); Mean Corpuscular Hemoglobin 28.4 pg (28.0-34.0); Mean Platelet Volume 9.6 fL (7.4-10.4); Monocytes # 0.7 10^3/uL (0.2-0.9); Monocytes % 13.3 %; Neutrophils # 3.33 10^3/uL (1.8-7.7); Neutrophils % 61.7 %; Nucleated Red Blood Cells % 0 %; Platelet Count 190 10^3/cmm (130-400); Red Cell Distribution Width 13.6 % (12.1-15.1); White Blood Count 5.4 10^3/uL (4.0-10.0)
[2022-02-19 08:52] LABS: Alanine Aminotransferase 10 U/L (0-33); Albumin Level 4.1 g/dL (3.5-5.2); Alkaline Phosphatase 90 IU/L (35-105); Anion Gap 11.5 (5-19); Aspartate Amino Transferase 14 U/L (0-32); Blood Urea Nitrogen 21 mg/dL (8-23); Calcium 9.2 mg/dL (8.5-10.5); Carbon Dioxide 25 mmol/L (22-29); Chloride 107 mmol/L (98-107); Globulin 2.9 g/dL (1.3-4.6); Glucose 84 mg/dL (65-115); Osmolality Calculated 290 mOsm/kg (285-295); Potassium 4.5 mmol/L (3.5-5.1); Sodium 139 mmol/L (136-145); Thyroid Stimulating Hormone 2.89 uIU/mL (0.27-4.20); Total Bilirubin 0.5 mg/dL (0.15-1.2)
[2022-02-19 10:42] VITALS: BP 130/72; PULSE 52; RESP 16; TEMP 35.8; O2SAT 97
[2022-03-05 08:46] LABS: Basophils # 0.1 10^3/uL (0.0-0.1); Basophils % 1.3 %; Eosinophils # 0.1 10^3/uL (0.0-0.8); Eosinophils % 2.3 %; Hemoglobin 13.8 g/dL (11.5-15.3); Lymphocytes # 1.3 10^3/uL (0.8-4.8); Mean Corpuscular HGB Conc 32.9 g/dL (30.0-36.0); Mean Corpuscular Hemoglobin 28.3 pg (28.0-34.0); Mean Corpuscular Volume 86.2 fl (81-99); Mean Platelet Volume 9.7 fL (7.4-10.4); Monocytes # 0.7 10^3/uL (0.2-0.9); Monocytes % 12.1 %; Neutrophils # 3.32 10^3/uL (1.8-7.7); Neutrophils % 59.9 %; Nucleated Red Blood Cells % 0 %; Platelet Count 200 10^3/cmm (130-400); Red Blood Count 4.87 10^6/uL (4.1-5.3); Red Cell Distribution Width 13.6 % (12.1-15.1); White Blood Count 5.5 10^3/uL (4.0-10.0)
[2022-03-05 09:37] LABS: Alanine Aminotransferase 12 U/L (0-33); Alkaline Phosphatase 92 IU/L (35-105); Anion Gap 11.5 (5-19); Aspartate Amino Transferase 17 U/L (0-32); Blood Urea Nitrogen 21 mg/dL (8-23); Calcium 9.1 mg/dL (8.5-10.5); Carbon Dioxide 25 mmol/L (22-29); Chloride 104 mmol/L (98-107); Glucose 86 mg/dL (65-115); Osmolality Calculated 284 mOsm/kg (285-295); Potassium 4.5 mmol/L (3.5-5.1); Sodium 136 mmol/L (136-145); Thyroid Stimulating Hormone 5.25 uIU/mL (0.27-4.20); Total Bilirubin 0.6 mg/dL (0.15-1.2)
[2022-03-05 11:22] VITALS: BP 124/75; PULSE 67; RESP 16; TEMP 35.9; O2SAT 99
== END 2022-03-13 23:59 | disposition home or self-care (01) ==
PROVIDERS: Internal Medicine Hematology & Oncology; PCP Family Medicine; Visit Provider Nurse Practitioner Family
DX: Z51.11 Encounter for antineoplastic chemotherapy (principal); C34.32 Malignant neoplasm of lower lobe, left bronchus or lung; Z87.891 Personal history of nicotine dependence; C77.9 Secondary and unspecified malignant neoplasm of lymph node, unspecified; C77.1 Secondary and unspecified malignant neoplasm of intrathoracic lymph nodes
CPT/HCPCS: 76536; 80053; 84443; 85025; 96413; 99214; J7050; J9173

== ENCOUNTER → 2022-03-19 12:51 | Outpatient (BNVA) | payer MEDICARE, SELFPAY | PROVIDERS: PCP Family Medicine; Visit Provider Otolaryngology | DX: Z87.891 Personal history of nicotine dependence (principal); E04.2 Nontoxic multinodular goiter | CPT/HCPCS: 99203 ==

== ENCOUNTER 2022-04-02 09:00 | Oncology outpatient (recurring) (ONCR) | payer MEDICARE, SELFPAY ==
[2022-03-19 08:20] LABS: Basophils # 0.1 10^3/uL (0.0-0.1); Basophils % 0.9 %; Eosinophils # 0.2 10^3/uL (0.0-0.8); Eosinophils % 3.1 %; Hematocrit 41.8 % (37.0-47.0); Hemoglobin 13.6 g/dL (11.5-15.3); Lymphocytes # 1.2 10^3/uL (0.8-4.8); Lymphocytes % 22.3 %; Mean Corpuscular HGB Conc 32.5 g/dL (30.0-36.0); Mean Corpuscular Hemoglobin 28.9 pg (28.0-34.0); Mean Corpuscular Volume 88.9 fl (81-99); Mean Platelet Volume 9.3 fL (7.4-10.4); Monocytes # 0.8 10^3/uL (0.2-0.9); Monocytes % 14.2 %; Neutrophils % 58.9 %; Nucleated Red Blood Cells % 0 %; Platelet Count 188 10^3/cmm (130-400); Red Cell Distribution Width 13.9 % (12.1-15.1); White Blood Count 5.4 10^3/uL (4.0-10.0)
[2022-03-19 08:58] LABS: Alanine Aminotransferase 11 U/L (0-33); Albumin Level 3.8 g/dL (3.5-5.2); Alkaline Phosphatase 92 IU/L (35-105); Anion Gap 15.9 (5-19); Aspartate Amino Transferase 16 U/L (0-32); Blood Urea Nitrogen 28 mg/dL (8-23); Calcium 8.8 mg/dL (8.5-10.5); Carbon Dioxide 23 mmol/L (22-29); Chloride 104 mmol/L (98-107); Globulin 2.8 g/dL (1.3-4.6); Glucose 56 mg/dL (65-115); Osmolality Calculated 291 mOsm/kg (285-295); Potassium 3.9 mmol/L (3.5-5.1); Sodium 139 mmol/L (136-145); Total Bilirubin 0.4 mg/dL (0.15-1.2); Total Protein 6.6 g/dL (6.6-8.7)
[2022-03-19 11:41] VITALS: BP 136/78; PULSE 51; RESP 16; TEMP 36; O2SAT 99
[2022-04-02 09:31] LABS: Basophils % 0.8 %; Eosinophils # 0.1 10^3/uL (0.0-0.8); Eosinophils % 2.7 %; Hematocrit 41.7 % (37.0-47.0); Hemoglobin 13.6 g/dL (11.5-15.3); Lymphocytes # 0.9 10^3/uL (0.8-4.8); Lymphocytes % 18.5 %; Mean Corpuscular HGB Conc 32.6 g/dL (30.0-36.0); Mean Corpuscular Hemoglobin 29.4 pg (28.0-34.0); Mean Corpuscular Volume 90.1 fl (81-99); Mean Platelet Volume 9.4 fL (7.4-10.4); Monocytes # 0.5 10^3/uL (0.2-0.9); Monocytes % 10.5 %; Neutrophils # 3.19 10^3/uL (1.8-7.7); Neutrophils % 67.3 %; Nucleated Red Blood Cells % 0 %; Platelet Count 206 10^3/cmm (130-400); Red Blood Count 4.63 10^6/uL (4.1-5.3); Red Cell Distribution Width 14.4 % (12.1-15.1); White Blood Count 4.8 10^3/uL (4.0-10.0)
[2022-04-02 09:59] LABS: Alanine Aminotransferase 12 U/L (0-33); Alkaline Phosphatase 87 IU/L (35-105); Aspartate Amino Transferase 17 U/L (0-32); Blood Urea Nitrogen 19 mg/dL (8-23); Calcium 8.8 mg/dL (8.5-10.5); Carbon Dioxide 25 mmol/L (22-29); Chloride 103 mmol/L (98-107); Globulin 2.4 g/dL (1.3-4.6); Glucose 102 mg/dL (65-115); Osmolality Calculated 284 mOsm/kg (285-295); Sodium 136 mmol/L (136-145); Total Bilirubin 0.6 mg/dL (0.15-1.2); Total Protein 6.4 g/dL (6.6-8.7)
[2022-04-02 10:00] LABS: Anion Gap 12.4 (5-19); Potassium 4.4 mmol/L (3.5-5.1)
[2022-04-02 10:20] LABS: Thyroid Stimulating Hormone 10.35 uIU/mL (0.27-4.20)
[2022-04-02] MEDS: sodium chloride 0.9% 250 ML 100 ML IV (10:59)
[2022-04-02 12:32] VITALS: BP 121/74; PULSE 52; RESP 16; TEMP 36.3; O2SAT 96
== END 2022-04-13 23:59 | disposition home or self-care (01) ==
PROVIDERS: Internal Medicine Hematology & Oncology; PCP Family Medicine; Visit Provider Nurse Practitioner Family
DX: Z51.12 Encounter for antineoplastic immunotherapy (principal); C34.32 Malignant neoplasm of lower lobe, left bronchus or lung; C77.8 Secondary and unspecified malignant neoplasm of lymph nodes of multiple regions; F17.220 Nicotine dependence, chewing tobacco, uncomplicated; Z79.899 Other long term (current) drug therapy
CPT/HCPCS: 80053; 84443; 85025; 96413; 99203; 99214; 99215; J7050; J9173

== ENCOUNTER 2022-05-14 09:30 | Oncology outpatient (recurring) (ONCR) | payer MEDICARE, SELFPAY ==
[2022-04-16 09:43] LABS: Basophils # 0.1 10^3/uL (0.0-0.1); Eosinophils # 0.1 10^3/uL (0.0-0.8); Eosinophils % 2.2 %; Hematocrit 42.2 % (37.0-47.0); Hemoglobin 13.4 g/dL (11.5-15.3); Lymphocytes % 19.2 %; Mean Corpuscular HGB Conc 31.8 g/dL (30.0-36.0); Mean Corpuscular Hemoglobin 29.1 pg (28.0-34.0); Mean Corpuscular Volume 91.5 fl (81-99); Mean Platelet Volume 9.5 fL (7.4-10.4); Monocytes # 0.6 10^3/uL (0.2-0.9); Monocytes % 11.8 %; Neutrophils # 3.26 10^3/uL (1.8-7.7); Neutrophils % 65.4 %; Nucleated Red Blood Cells % 0 %; Platelet Count 201 10^3/cmm (130-400); Red Blood Count 4.61 10^6/uL (4.1-5.3); Red Cell Distribution Width 14.8 % (12.1-15.1)
[2022-04-16 10:18] LABS: Alanine Aminotransferase 10 U/L (0-33); Albumin Level 3.9 g/dL (3.5-5.2); Alkaline Phosphatase 86 IU/L (35-105); Anion Gap 14.6 (5-19); Aspartate Amino Transferase 16 U/L (0-32); Blood Urea Nitrogen 21 mg/dL (8-23); Calcium 9.2 mg/dL (8.5-10.5); Carbon Dioxide 25 mmol/L (22-29); Chloride 106 mmol/L (98-107); Chol HDL Ratio 4.44 mg/dL (0.0-4.40); Cholesterol 222 mg/dL (0-200); Globulin 2.7 g/dL (1.3-4.6); Glucose 91 mg/dL (65-115); HDL Cholesterol 50 mg/dL (60-100); LDL Cholesterol Calculated 146 mg/dL (50-129); Osmolality Calculated 295 mOsm/kg (285-295); Potassium 4.6 mmol/L (3.5-5.1); Sodium 141 mmol/L (136-145); Thyroid Stimulating Hormone 4.69 uIU/mL (0.27-4.20); Total Bilirubin 0.6 mg/dL (0.15-1.2); Total Protein 6.6 g/dL (6.6-8.7); Triglycerides 130 mg/dL (0-150); VLDL Cholestrol Calculation 26 mg/dL (0-30)
[2022-04-16 12:49] VITALS: BP 115/63; PULSE 60; RESP 16; TEMP 36.6; O2SAT 95
[2022-04-30 09:42] VITALS: BMI 19.9
[2022-04-30 09:48] LABS: Basophils # 0.1 10^3/uL (0.0-0.1); Basophils % 1.1 %; Eosinophils # 0.1 10^3/uL (0.0-0.8); Eosinophils % 2.2 %; Hematocrit 44.3 % (37.0-47.0); Hemoglobin 14.3 g/dL (11.5-15.3); Lymphocytes # 1.1 10^3/uL (0.8-4.8); Lymphocytes % 20.7 %; Mean Corpuscular HGB Conc 32.3 g/dL (30.0-36.0); Mean Corpuscular Hemoglobin 29.2 pg (28.0-34.0); Mean Corpuscular Volume 90.6 fl (81-99); Mean Platelet Volume 9.2 fL (7.4-10.4); Monocytes # 0.7 10^3/uL (0.2-0.9); Monocytes % 12.2 %; Neutrophils # 3.42 10^3/uL (1.8-7.7); Neutrophils % 63.2 %; Nucleated Red Blood Cells % 0 %; Platelet Count 222 10^3/cmm (130-400); Red Blood Count 4.89 10^6/uL (4.1-5.3); Red Cell Distribution Width 14.1 % (12.1-15.1); White Blood Count 5.4 10^3/uL (4.0-10.0)
[2022-04-30 10:20] LABS: Alanine Aminotransferase 10 U/L (0-33); Alkaline Phosphatase 90 U/L (35-105); Anion Gap 14.1 (5-19); Aspartate Amino Transferase 13 U/L (0-32); Blood Urea Nitrogen 19 mg/dL (8-23); Calcium 8.8 mg/dL (8.5-10.5); Carbon Dioxide 26 mmol/L (22-29); Chloride 106 mmol/L (98-107); Creatinine Clr Calc Pharmacy 34.1244; Glucose 102 mg/dL (65-115); Osmolality Calculated 294 mOsm/kg (285-295); Potassium 5.1 mmol/L (3.5-5.1); Sodium 141 mmol/L (136-145); Thyroid Stimulating Hormone 5.39 uIU/mL (0.27-4.20); Total Bilirubin 0.5 mg/dL (0.15-1.2)
[2022-04-30] MEDS: sodium chloride 0.9% 250 ML 75 ML IV (11:24)
[2022-05-14 09:43] LABS: Basophils # 0.1 10^3/uL (0.0-0.1); Basophils % 1.1 %; Eosinophils # 0.1 10^3/uL (0.0-0.8); Eosinophils % 2.4 %; Hematocrit 42.2 % (37.0-47.0); Hemoglobin 13.6 g/dL (11.5-15.3); Lymphocytes # 1.2 10^3/uL (0.8-4.8); Lymphocytes % 21.4 %; Mean Corpuscular HGB Conc 32.2 g/dL (30.0-36.0); Mean Corpuscular Hemoglobin 29.4 pg (28.0-34.0); Mean Corpuscular Volume 91.3 fl (81-99); Monocytes # 0.8 10^3/uL (0.2-0.9); Monocytes % 14.3 %; Neutrophils # 3.35 10^3/uL (1.8-7.7); Neutrophils % 60.6 %; Nucleated Red Blood Cells % 0 %; Platelet Count 95 10^3/cmm (130-400); Red Blood Count 4.62 10^6/uL (4.1-5.3); Red Cell Distribution Width 14.2 % (12.1-15.1); White Blood Count 5.5 10^3/uL (4.0-10.0)
[2022-05-14 10:20] LABS: Alanine Aminotransferase 12 U/L (0-33); Albumin Level 3.9 g/dL (3.5-5.2); Alkaline Phosphatase 93 U/L (35-105); Anion Gap 13.6 (5-19); Aspartate Amino Transferase 18 U/L (0-32); Blood Urea Nitrogen 17 mg/dL (8-23); Calcium 9.2 mg/dL (8.5-10.5); Carbon Dioxide 26 mmol/L (22-29); Chloride 104 mmol/L (98-107); Globulin 2.8 g/dL (1.3-4.6); Glucose 103 mg/dL (65-115); Osmolality Calculated 290 mOsm/kg (285-295); Potassium 4.6 mmol/L (3.5-5.1); Sodium 139 mmol/L (136-145); Thyroid Stimulating Hormone 1.05 uIU/mL (0.27-4.20); Total Bilirubin 0.4 mg/dL (0.15-1.2); Total Protein 6.7 g/dL (6.6-8.7)
[2022-05-14 13:19] VITALS: BP 133/71; PULSE 62; RESP 16; TEMP 36.3; O2SAT 96
== END 2022-05-14 23:59 | disposition home or self-care (01) ==
PROVIDERS: Internal Medicine Hematology & Oncology; PCP Family Medicine; Visit Provider Nurse Practitioner Family
DX: Z51.12 Encounter for antineoplastic immunotherapy (principal); C34.32 Malignant neoplasm of lower lobe, left bronchus or lung; C77.8 Secondary and unspecified malignant neoplasm of lymph nodes of multiple regions; E03.9 Hypothyroidism, unspecified; Z87.891 Personal history of nicotine dependence; Z79.899 Other long term (current) drug therapy
CPT/HCPCS: 80053; 80061; 84443; 85025; 96413; 99214; 99215; J7050; J9173

== ENCOUNTER 2022-06-11 09:00 | Oncology outpatient (recurring) (ONCR) | payer MEDICARE, SELFPAY ==
[2022-05-28 08:43] LABS: Basophils # 0.1 10^3/uL (0.0-0.1); Eosinophils # 0.1 10^3/uL (0.0-0.8); Eosinophils % 2.2 %; Hematocrit 42.5 % (37.0-47.0); Hemoglobin 13.7 g/dL (11.5-15.3); Lymphocytes # 0.9 10^3/uL (0.8-4.8); Lymphocytes % 17.7 %; Mean Corpuscular HGB Conc 32.2 g/dL (30.0-36.0); Mean Corpuscular Hemoglobin 29.5 pg (28.0-34.0); Mean Corpuscular Volume 91.4 fl (81-99); Mean Platelet Volume 10.7 fL (7.4-10.4); Monocytes # 0.5 10^3/uL (0.2-0.9); Monocytes % 10.2 %; Neutrophils # 3.36 10^3/uL (1.8-7.7); Neutrophils % 68.5 %; Nucleated Red Blood Cells % 0 %; Platelet Count 124 10^3/cmm (130-400); Red Blood Count 4.65 10^6/uL (4.1-5.3); Red Cell Distribution Width 13.9 % (12.1-15.1); White Blood Count 4.9 10^3/uL (4.0-10.0)
[2022-05-28 09:14] LABS: Alanine Aminotransferase 12 U/L (0-33); Albumin Level 3.7 g/dL (3.5-5.2); Alkaline Phosphatase 89 U/L (35-105); Anion Gap 15.1 (5-19); Aspartate Amino Transferase 17 U/L (0-32); Blood Urea Nitrogen 16 mg/dL (8-23); Calcium 9.4 mg/dL (8.5-10.5); Carbon Dioxide 24 mmol/L (22-29); Chloride 105 mmol/L (98-107); Globulin 2.9 g/dL (1.3-4.6); Glucose 119 mg/dL (65-115); Osmolality Calculated 292 mOsm/kg (285-295); Potassium 4.1 mmol/L (3.5-5.1); Sodium 140 mmol/L (136-145); Total Bilirubin 0.4 mg/dL (0.15-1.2); Total Protein 6.6 g/dL (6.6-8.7)
[2022-05-28 12:00] VITALS: BP 132/75; PULSE 58; RESP 16; TEMP 36.2; O2SAT 98
[2022-06-11 09:30] LABS: Basophils # 0.1 10^3/uL (0.0-0.1); Basophils % 0.9 %; Eosinophils # 0.1 10^3/uL (0.0-0.8); Eosinophils % 2.4 %; Hemoglobin 13.4 g/dL (11.5-15.3); Lymphocytes # 0.9 10^3/uL (0.8-4.8); Lymphocytes % 16.6 %; Mean Corpuscular HGB Conc 31.9 g/dL (30.0-36.0); Mean Corpuscular Volume 90.9 fl (81-99); Mean Platelet Volume 9.6 fL (7.4-10.4); Monocytes # 0.7 10^3/uL (0.2-0.9); Monocytes % 12.9 %; Neutrophils # 3.61 10^3/uL (1.8-7.7); Neutrophils % 66.8 %; Nucleated Red Blood Cells % 0 %; Platelet Count 156 10^3/cmm (130-400); Red Blood Count 4.62 10^6/uL (4.1-5.3); Red Cell Distribution Width 13.7 % (12.1-15.1); White Blood Count 5.4 10^3/uL (4.0-10.0)
[2022-06-11 10:22] LABS: Alanine Aminotransferase 11 U/L (0-33); Albumin Level 3.7 g/dL (3.5-5.2); Alkaline Phosphatase 85 U/L (35-105); Anion Gap 11.3 (5-19); Aspartate Amino Transferase 15 U/L (0-32); Blood Urea Nitrogen 20 mg/dL (8-23); Carbon Dioxide 27 mmol/L (22-29); Chloride 105 mmol/L (98-107); Globulin 2.9 g/dL (1.3-4.6); Glucose 86 mg/dL (65-115); Osmolality Calculated 290 mOsm/kg (285-295); Potassium 4.3 mmol/L (3.5-5.1); Sodium 139 mmol/L (136-145); Thyroid Stimulating Hormone 1.14 uIU/mL (0.27-4.20); Total Bilirubin 0.5 mg/dL (0.15-1.2); Total Protein 6.6 g/dL (6.6-8.7)
[2022-06-11 12:40] VITALS: BP 100/69; PULSE 59; RESP 16; TEMP 36.4; O2SAT 98
== END 2022-06-13 23:59 | disposition home or self-care (01) ==
PROVIDERS: Internal Medicine Hematology & Oncology; PCP Family Medicine; Visit Provider Nurse Practitioner Family
DX: Z51.12 Encounter for antineoplastic immunotherapy (principal); C34.32 Malignant neoplasm of lower lobe, left bronchus or lung; C77.8 Secondary and unspecified malignant neoplasm of lymph nodes of multiple regions; Z87.891 Personal history of nicotine dependence; Z79.899 Other long term (current) drug therapy
CPT/HCPCS: 80053; 84443; 85025; 96413; 99214; 99215; J7050; J9173

== ENCOUNTER → 2022-06-16 09:58 | Outpatient (BNVA) | payer MEDICARE, SELFPAY | PROVIDERS: PCP Family Medicine; Visit Provider Internal Medicine Cardiovascular Disease | DX: I25.10 Atherosclerotic heart disease of native coronary artery without angina pectoris (principal); E78.5 Hyperlipidemia, unspecified; R06.02 Shortness of breath; C34.32 Malignant neoplasm of lower lobe, left bronchus or lung; Z86.73 Personal history of transient ischemic attack (TIA), and cerebral infarction without residual deficits; Z87.891 Personal history of nicotine dependence | CPT/HCPCS: 99214 ==

== ENCOUNTER 2022-07-09 09:30 | Oncology outpatient (recurring) (ONCR) | payer MEDICARE, SELFPAY ==
[2022-06-25 10:03] LABS: Basophils # 0.1 10^3/uL (0.0-0.1); Eosinophils # 0.1 10^3/uL (0.0-0.8); Eosinophils % 2.5 %; Hematocrit 41.3 % (37.0-47.0); Hemoglobin 13.6 g/dL (11.5-15.3); Mean Corpuscular HGB Conc 32.9 g/dL (30.0-36.0); Mean Corpuscular Hemoglobin 29.7 pg (28.0-34.0); Mean Corpuscular Volume 90.2 fl (81-99); Mean Platelet Volume 9.8 fL (7.4-10.4); Monocytes # 0.6 10^3/uL (0.2-0.9); Monocytes % 11.5 %; Neutrophils % 64.6 %; Nucleated Red Blood Cells % 0 %; Platelet Count 183 10^3/cmm (130-400); Red Blood Count 4.58 10^6/uL (4.1-5.3); Red Cell Distribution Width 13.2 % (12.1-15.1); White Blood Count 5.1 10^3/uL (4.0-10.0)
[2022-06-25 10:39] LABS: Alanine Aminotransferase 10 U/L (0-33); Albumin Level 3.8 g/dL (3.5-5.2); Alkaline Phosphatase 93 U/L (35-105); Anion Gap 12.4 (5-19); Aspartate Amino Transferase 17 U/L (0-32); Blood Urea Nitrogen 20 mg/dL (8-23); Calcium 9.4 mg/dL (8.5-10.5); Carbon Dioxide 25 mmol/L (22-29); Chloride 104 mmol/L (98-107); Glucose 88 mg/dL (65-115); Osmolality Calculated 286 mOsm/kg (285-295); Potassium 4.4 mmol/L (3.5-5.1); Sodium 137 mmol/L (136-145); Thyroid Stimulating Hormone 0.41 uIU/mL (0.27-4.20); Total Bilirubin 0.6 mg/dL (0.15-1.2); Total Protein 6.8 g/dL (6.6-8.7)
[2022-06-25 13:07] VITALS: BP 100/61; PULSE 65; TEMP 36.8; O2SAT 99
[2022-07-09 09:42] LABS: Basophils # 0.1 10^3/uL (0.0-0.1); Eosinophils # 0.1 10^3/uL (0.0-0.8); Eosinophils % 2.1 %; Hemoglobin 13.5 g/dL (11.5-15.3); Lymphocytes # 1.3 10^3/uL (0.8-4.8); Mean Corpuscular HGB Conc 32.1 g/dL (30.0-36.0); Mean Corpuscular Hemoglobin 29.5 pg (28.0-34.0); Mean Corpuscular Volume 91.7 fl (81-99); Mean Platelet Volume 9.7 fL (7.4-10.4); Monocytes # 0.9 10^3/uL (0.2-0.9); Monocytes % 14.2 %; Neutrophils # 3.79 10^3/uL (1.8-7.7); Neutrophils % 61.4 %; Nucleated Red Blood Cells % 0 %; Platelet Count 203 10^3/cmm (130-400); Red Blood Count 4.58 10^6/uL (4.1-5.3); Red Cell Distribution Width 13.1 % (12.1-15.1); White Blood Count 6.2 10^3/uL (4.0-10.0)
[2022-07-09 11:00] LABS: Alanine Aminotransferase 10 U/L (0-33); Albumin Level 3.9 g/dL (3.5-5.2); Alkaline Phosphatase 93 U/L (35-105); Anion Gap 12.4 (5-19); Aspartate Amino Transferase 13 U/L (0-32); Blood Urea Nitrogen 22 mg/dL (8-23); Calcium 9.3 mg/dL (8.5-10.5); Carbon Dioxide 24 mmol/L (22-29); Chloride 105 mmol/L (98-107); Globulin 2.6 g/dL (1.3-4.6); Glucose 96 mg/dL (65-115); Osmolality Calculated 287 mOsm/kg (285-295); Potassium 4.4 mmol/L (3.5-5.1); Sodium 137 mmol/L (136-145); Thyroid Stimulating Hormone 0.86 uIU/mL (0.27-4.20); Total Bilirubin 0.5 mg/dL (0.15-1.2); Total Protein 6.5 g/dL (6.6-8.7)
[2022-07-09 13:36] VITALS: BP 121/69; PULSE 55; RESP 16; TEMP 35.9; O2SAT 98
== END 2022-07-14 23:59 | disposition home or self-care (01) ==
PROVIDERS: Internal Medicine Hematology & Oncology; PCP Family Medicine; Visit Provider Nurse Practitioner Family
DX: Z51.12 Encounter for antineoplastic immunotherapy (principal); C34.32 Malignant neoplasm of lower lobe, left bronchus or lung; C77.8 Secondary and unspecified malignant neoplasm of lymph nodes of multiple regions; Z79.899 Other long term (current) drug therapy; Z87.891 Personal history of nicotine dependence
CPT/HCPCS: 80053; 84443; 85025; 96413; 99214; J7050; J9173

== ENCOUNTER 2022-08-06 09:30 | Oncology outpatient (recurring) (ONCR) | payer MEDICARE, SELFPAY ==
[2022-07-23 09:04] LABS: Basophils # 0.1 10^3/uL (0.0-0.1); Eosinophils # 0.1 10^3/uL (0.0-0.8); Eosinophils % 2.5 %; Hematocrit 41.8 % (37.0-47.0); Hemoglobin 13.3 g/dL (11.5-15.3); Lymphocytes # 1.1 10^3/uL (0.8-4.8); Mean Corpuscular HGB Conc 31.8 g/dL (30.0-36.0); Mean Corpuscular Hemoglobin 29.4 pg (28.0-34.0); Mean Corpuscular Volume 92.5 fl (81-99); Mean Platelet Volume 9.4 fL (7.4-10.4); Monocytes # 0.7 10^3/uL (0.2-0.9); Monocytes % 12.8 %; Neutrophils # 3.27 10^3/uL (1.8-7.7); Neutrophils % 62.1 %; Nucleated Red Blood Cells % 0 %; Platelet Count 207 10^3/cmm (130-400); Red Blood Count 4.52 10^6/uL (4.1-5.3); Red Cell Distribution Width 13.1 % (12.1-15.1); White Blood Count 5.3 10^3/uL (4.0-10.0)
[2022-07-23 09:49] VITALS: BP 99/63; PULSE 50; RESP 16; TEMP 37; O2SAT 98
[2022-07-23 11:04] LABS: Alanine Aminotransferase 11 U/L (0-33); Albumin Level 3.9 g/dL (3.5-5.2); Alkaline Phosphatase 86 U/L (35-105); Anion Gap 15.2 (5-19); Aspartate Amino Transferase 15 U/L (0-32); Blood Urea Nitrogen 20 mg/dL (8-23); Calcium 9.1 mg/dL (8.5-10.5); Carbon Dioxide 24 mmol/L (22-29); Chloride 107 mmol/L (98-107); Globulin 2.7 g/dL (1.3-4.6); Glucose 82 mg/dL (65-115); Osmolality Calculated 296 mOsm/kg (285-295); Potassium 4.2 mmol/L (3.5-5.1); Sodium 142 mmol/L (136-145); Thyroid Stimulating Hormone 0.88 uIU/mL (0.27-4.20); Total Bilirubin 0.4 mg/dL (0.15-1.2); Total Protein 6.6 g/dL (6.6-8.7)
[2022-07-23 11:38] VITALS: BP 105/69; PULSE 55; RESP 16; TEMP 36.3; O2SAT 98
[2022-08-06 09:40] LABS: Basophils # 0.1 10^3/uL (0.0-0.1); Basophils % 1.2 %; Eosinophils # 0.1 10^3/uL (0.0-0.8); Eosinophils % 1.7 %; Hematocrit 43.8 % (37.0-47.0); Hemoglobin 14.2 g/dL (11.5-15.3); Lymphocytes # 1.1 10^3/uL (0.8-4.8); Lymphocytes % 18.7 %; Mean Corpuscular HGB Conc 32.4 g/dL (30.0-36.0); Mean Corpuscular Hemoglobin 29.6 pg (28.0-34.0); Mean Corpuscular Volume 91.3 fl (81-99); Mean Platelet Volume 9.3 fL (7.4-10.4); Monocytes # 0.7 10^3/uL (0.2-0.9); Monocytes % 12.1 %; Neutrophils # 3.91 10^3/uL (1.8-7.7); Nucleated Red Blood Cells % 0 %; Platelet Count 225 10^3/cmm (130-400); Red Cell Distribution Width 13.2 % (12.1-15.1); White Blood Count 5.9 10^3/uL (4.0-10.0)
[2022-08-06 10:45] LABS: Alanine Aminotransferase 12 U/L (0-33); Albumin Level 3.9 g/dL (3.5-5.2); Alkaline Phosphatase 87 U/L (35-105); Anion Gap 13.4 (5-19); Aspartate Amino Transferase 16 U/L (0-32); Blood Urea Nitrogen 27 mg/dL (8-23); Calcium 9.6 mg/dL (8.5-10.5); Carbon Dioxide 24 mmol/L (22-29); Chloride 105 mmol/L (98-107); Globulin 3.2 g/dL (1.3-4.6); Glucose 78 mg/dL (65-115); Osmolality Calculated 290 mOsm/kg (285-295); Potassium 4.4 mmol/L (3.5-5.1); Sodium 138 mmol/L (136-145); Thyroid Stimulating Hormone 0.79 uIU/mL (0.27-4.20); Total Bilirubin 0.5 mg/dL (0.15-1.2); Total Protein 7.1 g/dL (6.6-8.7)
[2022-08-06 12:38] VITALS: BP 120/58; PULSE 59; RESP 16; TEMP 35.8; O2SAT 95
== END 2022-08-13 23:59 | disposition home or self-care (01) ==
PROVIDERS: Internal Medicine Hematology & Oncology; Nurse Practitioner; PCP Family Medicine; Visit Provider Nurse Practitioner Family
DX: Z51.12 Encounter for antineoplastic immunotherapy (principal); C34.32 Malignant neoplasm of lower lobe, left bronchus or lung; C77.8 Secondary and unspecified malignant neoplasm of lymph nodes of multiple regions; Z87.891 Personal history of nicotine dependence; C78.01 Secondary malignant neoplasm of right lung; Z79.899 Other long term (current) drug therapy
CPT/HCPCS: 80053; 84443; 85025; 96413; 99214; J7050; J9173

== ENCOUNTER 2022-09-03 08:00 | Oncology outpatient (recurring) (ONCR) | payer MEDICARE, SELFPAY ==
[2022-08-20 09:34] LABS: Basophils # 0.1 10^3/uL (0.0-0.1); Basophils % 1.2 %; Eosinophils # 0.1 10^3/uL (0.0-0.8); Eosinophils % 2.1 %; Hematocrit 43.8 % (37.0-47.0); Hemoglobin 13.9 g/dL (11.5-15.3); Mean Corpuscular HGB Conc 31.7 g/dL (30.0-36.0); Mean Corpuscular Hemoglobin 29.1 pg (28.0-34.0); Mean Corpuscular Volume 91.6 fl (81-99); Mean Platelet Volume 9.2 fL (7.4-10.4); Monocytes # 0.6 10^3/uL (0.2-0.9); Neutrophils # 3.33 10^3/uL (1.8-7.7); Neutrophils % 64.5 %; Nucleated Red Blood Cells % 0 %; Platelet Count 223 10^3/cmm (130-400); Red Blood Count 4.78 10^6/uL (4.1-5.3); Red Cell Distribution Width 13.2 % (12.1-15.1); White Blood Count 5.2 10^3/uL (4.0-10.0)
[2022-08-20 10:07] LABS: Alanine Aminotransferase 11 U/L (0-33); Albumin Level 3.8 g/dL (3.5-5.2); Alkaline Phosphatase 89 U/L (35-105); Anion Gap 13.2 (5-19); Aspartate Amino Transferase 15 U/L (0-32); Blood Urea Nitrogen 15 mg/dL (8-23); Calcium 9.2 mg/dL (8.5-10.5); Carbon Dioxide 25 mmol/L (22-29); Chloride 106 mmol/L (98-107); Globulin 2.9 g/dL (1.3-4.6); Glucose 106 mg/dL (65-115); Osmolality Calculated 291 mOsm/kg (285-295); Potassium 4.2 mmol/L (3.5-5.1); Sodium 140 mmol/L (136-145); Thyroid Stimulating Hormone 0.53 uIU/mL (0.27-4.20); Total Bilirubin 0.5 mg/dL (0.15-1.2); Total Protein 6.7 g/dL (6.6-8.7)
[2022-08-20 13:05] VITALS: BP 124/67; PULSE 61; RESP 16; TEMP 36.1; O2SAT 97
[2022-09-03 08:28] LABS: Basophils # 0.1 10^3/uL (0.0-0.1); Eosinophils # 0.1 10^3/uL (0.0-0.8); Eosinophils % 2.4 %; Hemoglobin 13.1 g/dL (11.5-15.3); Lymphocytes # 1.1 10^3/uL (0.8-4.8); Lymphocytes % 19.6 %; Mean Corpuscular Hemoglobin 29.3 pg (28.0-34.0); Mean Corpuscular Volume 91.7 fl (81-99); Mean Platelet Volume 9.4 fL (7.4-10.4); Monocytes # 0.6 10^3/uL (0.2-0.9); Monocytes % 10.1 %; Neutrophils # 3.86 10^3/uL (1.8-7.7); Neutrophils % 66.4 %; Nucleated Red Blood Cells % 0 %; Platelet Count 193 10^3/cmm (130-400); Red Blood Count 4.47 10^6/uL (4.1-5.3); Red Cell Distribution Width 13.2 % (12.1-15.1); White Blood Count 5.8 10^3/uL (4.0-10.0)
[2022-09-03 09:05] LABS: Alanine Aminotransferase 11 U/L (0-33); Albumin Level 3.7 g/dL (3.5-5.2); Alkaline Phosphatase 91 U/L (35-105); Anion Gap 12.3 (5-19); Aspartate Amino Transferase 16 U/L (0-32); Blood Urea Nitrogen 19 mg/dL (8-23); Calcium 9.2 mg/dL (8.5-10.5); Carbon Dioxide 24 mmol/L (22-29); Chloride 108 mmol/L (98-107); Globulin 2.7 g/dL (1.3-4.6); Glucose 103 mg/dL (65-115); Osmolality Calculated 293 mOsm/kg (285-295); Potassium 4.3 mmol/L (3.5-5.1); Sodium 140 mmol/L (136-145); Thyroid Stimulating Hormone 0.67 uIU/mL (0.27-4.20); Total Bilirubin 0.5 mg/dL (0.15-1.2); Total Protein 6.4 g/dL (6.6-8.7)
[2022-09-03 11:54] VITALS: BP 125/72; PULSE 58; RESP 16; TEMP 36.7; O2SAT 99
== END 2022-09-13 23:59 | disposition home or self-care (01) ==
PROVIDERS: Internal Medicine Hematology & Oncology; Internal Medicine Medical Oncology; PCP Family Medicine; Visit Provider Nurse Practitioner Family
DX: Z51.12 Encounter for antineoplastic immunotherapy (principal); C34.32 Malignant neoplasm of lower lobe, left bronchus or lung
CPT/HCPCS: 80053; 84443; 85025; 96413; 99214; J7050; J9173

== ENCOUNTER 2022-10-01 08:30 | Oncology outpatient (recurring) (ONCR) | payer MEDICARE, SELFPAY ==
[2022-09-17 08:33] VITALS: BP 132/65; PULSE 65; RESP 16; TEMP 36.3; O2SAT 99
[2022-09-17 10:49] VITALS: BP 136/73; PULSE 57; RESP 16; TEMP 36.3; O2SAT 96
[2022-10-01 08:49] LABS: Basophils # 0.1 10^3/uL (0.0-0.1); Basophils % 1.2 %; Eosinophils # 0.1 10^3/uL (0.0-0.8); Eosinophils % 2.3 %; Hematocrit 43.6 % (37.0-47.0); Hemoglobin 13.8 g/dL (11.5-15.3); Lymphocytes # 1.3 10^3/uL (0.8-4.8); Lymphocytes % 21.5 %; Mean Corpuscular HGB Conc 31.7 g/dL (30.0-36.0); Mean Corpuscular Hemoglobin 28.3 pg (28.0-34.0); Mean Corpuscular Volume 89.5 fl (81-99); Mean Platelet Volume 9.4 fL (7.4-10.4); Monocytes # 0.7 10^3/uL (0.2-0.9); Monocytes % 11.1 %; Neutrophils % 63.7 %; Nucleated Red Blood Cells % 0 %; Platelet Count 209 10^3/cmm (130-400); Red Blood Count 4.87 10^6/uL (4.1-5.3)
[2022-10-01 09:15] LABS: Alanine Aminotransferase 11 U/L (0-33); Albumin Level 3.8 g/dL (3.5-5.2); Alkaline Phosphatase 92 U/L (35-105); Anion Gap 13.3 (5-19); Aspartate Amino Transferase 15 U/L (0-32); Blood Urea Nitrogen 18 mg/dL (8-23); Calcium 8.7 mg/dL (8.5-10.5); Carbon Dioxide 24 mmol/L (22-29); Chloride 105 mmol/L (98-107); Globulin 2.9 g/dL (1.3-4.6); Glucose 99 mg/dL (65-115); Osmolality Calculated 288 mOsm/kg (285-295); Potassium 4.3 mmol/L (3.5-5.1); Sodium 138 mmol/L (136-145); Total Bilirubin 0.4 mg/dL (0.15-1.2); Total Protein 6.7 g/dL (6.6-8.7)
[2022-10-01 09:25] LABS: Thyroid Stimulating Hormone 0.24 uIU/mL (0.27-4.20)
[2022-10-01 13:00] VITALS: BP 119/65; PULSE 66; RESP 16; TEMP 37; O2SAT 98
== END 2022-10-14 23:59 | disposition home or self-care (01) ==
PROVIDERS: Internal Medicine Hematology & Oncology; Internal Medicine Medical Oncology; PCP Family Medicine; Visit Provider Nurse Practitioner Family
DX: Z51.12 Encounter for antineoplastic immunotherapy (principal); C34.32 Malignant neoplasm of lower lobe, left bronchus or lung; C77.8 Secondary and unspecified malignant neoplasm of lymph nodes of multiple regions; Z87.891 Personal history of nicotine dependence; E03.9 Hypothyroidism, unspecified; Z79.899 Other long term (current) drug therapy; Z95.828 Presence of other vascular implants and grafts
CPT/HCPCS: 80053; 84443; 85025; 96413; 99214; J7050; J9173

== ENCOUNTER 2022-10-28 10:16 | Outpatient (CLI) | payer MEDICARE, SELFPAY ==
--- NOTE | 2022-10-28 10:30 | CTR_ITS ---
PROCEDURE INFORMATION: Exam: CT Chest With Contrast; Diagnostic Exam date and time: 10/28/2022 10:43 AM Age: 82 years old Clinical indication: Condition or disease; Lung condition and disease; Patient HX: F/u chemo, left lung cancer with chemo, radiation and immunotherapy; Additional info: Followup post chemo, compare to previous CT chest and pet/ct from January 2022. TECHNIQUE: Imaging protocol: Diagnostic computed tomography of the chest with contrast. Radiation optimization: All CT scans at this facility use at least one of these dose optimization techniques: automated exposure control; mA and/or kV adjustment per patient size (includes targeted exams where dose is matched to clinical indication); or iterative reconstruction. Contrast material: OMNI 350; Contrast volume: 100 ml; Contrast route: INTRAVENOUS (IV); Other protocol: This patient has received 0 known CTs and 0 known cardiac nuclear medicine studies in the 12 months prior to the current study. COMPARISON: 1. CT chest wo con [id number] 09/03/2021 11:10 AM 2. CTA Chest-Pulmonary Emb [id number] 09/13/2019 7:[address] chest w con* [id number] 01/24/2021 9:10 AM 4. PT PET Scan 04/13/2021 11:[address] angio chest PE protcl [id number] 04/27/2021 9:[address] angio chest PE protcl [id number] 10/10/2021 11:06 AM 7. PT PET Scan 08/24/2021 10:53 AM RADIATION DOSE METRICS: Total DLP (mGy-cm): 264.08 FINDINGS: Lungs: There is compressive atelectasis of left lower lobe. The left infrahilar mass and bronchial obstruction seen on previous examinations is not identified. There is some focal scarring in the anterior left upper lobe possibly related to prior therapy. The area of scarring in the right pulmonary apex not significantly changed from previous examinations. Right lower lobe pulmonary nodule measuring 4.7 x 5.8 mm not significantly changed since 09/13/2019. There is moderate centrilobular emphysema throughout both lungs. Calcified granulomas seen in the left upper lobe. Pleural spaces: There is a new moderate left pleural effusion. Heart: Unremarkable. No cardiomegaly. No pericardial effusion. Lymph nodes: No adenopathy is identified. Vasculature: There is ectasia of the ascending thoracic aorta measuring 40 mm not significantly changed from prior examinations. Adrenal glands: Nodular enlargement left adrenal gland not changed since 2019. Bones/joints: Unremarkable. No acute fracture. Soft tissues: Unremarkable. CT/CT chest w con* [id number] IMPRESSION: 1. New left pleural effusion. 2. No evidence for recurrent mass or adenopathy. 3. Right upper lobe scarring not significantly changed. 4. Left adrenal nodule not significantly changed. 5. Right pulmonary nodule not significantly changed.
[2022-10-28] MEDS: iohexol 350 mg/mL 500 mL Btl (per mL) IV (10:52)
== END 2022-10-28 10:17 | disposition home or self-care (01) ==
LOC: RAD 10:19
PROVIDERS: PCP Family Medicine; Visit Provider Nurse Practitioner
DX: C34.32 Malignant neoplasm of lower lobe, left bronchus or lung (principal); R91.1 Solitary pulmonary nodule; J90 Pleural effusion, not elsewhere classified
CPT/HCPCS: 71260; Q9967

== ENCOUNTER 2022-10-29 09:09 | Oncology outpatient (recurring) (ONCR) | payer MEDICARE, SELFPAY ==
[2022-10-29 09:46] LABS: Basophils # 0.1 10^3/uL (0.0-0.1); Basophils % 1.2 %; Eosinophils # 0.2 10^3/uL (0.0-0.8); Eosinophils % 2.5 %; Hemoglobin 13.3 g/dL (11.5-15.3); Lymphocytes # 1.3 10^3/uL (0.8-4.8); Lymphocytes % 21.8 %; Mean Corpuscular HGB Conc 31.7 g/dL (30.0-36.0); Mean Corpuscular Hemoglobin 28.1 pg (28.0-34.0); Mean Corpuscular Volume 88.8 fl (81-99); Mean Platelet Volume 10.7 fL (7.4-10.4); Monocytes # 0.7 10^3/uL (0.2-0.9); Monocytes % 11.4 %; Neutrophils # 3.76 10^3/uL (1.8-7.7); Neutrophils % 62.9 %; Nucleated Red Blood Cells % 0 %; Platelet Count 163 10^3/cmm (130-400); Red Blood Count 4.73 10^6/uL (4.1-5.3); Red Cell Distribution Width 13.7 % (12.1-15.1)
[2022-10-29 10:11] LABS: Alanine Aminotransferase 14 U/L (0-33); Albumin Level 3.8 g/dL (3.5-5.2); Alkaline Phosphatase 87 U/L (35-105); Anion Gap 15.2 (5-19); Aspartate Amino Transferase 16 U/L (0-32); Blood Urea Nitrogen 20 mg/dL (8-23); Calcium 8.8 mg/dL (8.5-10.5); Carbon Dioxide 24 mmol/L (22-29); Chloride 107 mmol/L (98-107); Globulin 2.6 g/dL (1.3-4.6); Glucose 86 mg/dL (65-115); Osmolality Calculated 296 mOsm/kg (285-295); Potassium 4.2 mmol/L (3.5-5.1); Sodium 142 mmol/L (136-145); Thyroid Stimulating Hormone 0.32 uIU/mL (0.27-4.20); Total Bilirubin 0.4 mg/dL (0.15-1.2); Total Protein 6.4 g/dL (6.6-8.7)
[2022-10-29 10:26] LABS: Slide Review Slide Review Perform
[2022-10-29 10:30] LABS: Chol HDL Ratio 3.74 mg/dL (0.0-4.40); Cholesterol 176 mg/dL (0-200); HDL Cholesterol 47 mg/dL (60-100); LDL Cholesterol Calculated 104 mg/dL (50-129); LDL HDL Ratio 2.21 RATIO (0.00-3.22); Triglycerides 124 mg/dL (0-150)
== END 2022-11-11 23:59 | disposition home or self-care (01) ==
PROVIDERS: Internal Medicine Hematology & Oncology; PCP Family Medicine; Visit Provider Nurse Practitioner Family
DX: C34.32 Malignant neoplasm of lower lobe, left bronchus or lung; C77.8 Secondary and unspecified malignant neoplasm of lymph nodes of multiple regions; Z79.899 Other long term (current) drug therapy; Z87.891 Personal history of nicotine dependence; Z92.21 Personal history of antineoplastic chemotherapy; Z92.3 Personal history of irradiation; Z95.828 Presence of other vascular implants and grafts
CPT/HCPCS: 80053; 80061; 84443; 85025; 99214

== ENCOUNTER 2022-11-15 12:46 | Observation (INO) | payer MEDICARE, SELFPAY ==
[2022-11-15] VITALS (10 sets, daily range): BP systolic 92–117; BP diastolic 58–72; PULSE 72–93; RESP 14–22; TEMP 36.4–37.2; O2SAT 89–99; BMI 20.7; BMI 21.2
--- NOTE | 2022-11-15 12:52 | ECG_ITS ---
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 Measurements Intervals [place] Rate: 82 P: 42 MT: 209 QRS: -39 QRSD: 110 T: 74 QT: 368 QTc: 431 Interpretive Statements SINUS RHYTHM LEFT AXIS DEVIATION [QRS AXIS < -30] INCOMPLETE RIGHT BUNDLE BRANCH BLOCK [90+ ms QRS DURATION, TERMINAL R IN V1/V2, 40+ ms S IN I/aVL/V4/V5/V6] LEFT VENTRICULAR HYPERTROPHY AND ST-T CHANGE [VOLTAGE CRITERIA PLUS ST/T ABNORMALITY] POSSIBLE SEPTAL MYOCARDIAL INFARCTION , PROBABLY OLD [30 ms Q WAVE IN V1/V2] POSSIBLE LATERAL MYOCARDIAL INFARCTION , OF INDETERMINATE AGE [30 ms Q WAVE IN I/aVL/V5/V6] Compared to ECG 10/10/2021 14:44:09 ST (T wave) deviation now present Myocardial infarct finding still present Electronically Signed On 11-15-2022 16:07:43 REFRIGERATION TECH by Juan Mak M.D. [id number] f
--- NOTE | 2022-11-15 12:54 | PC.NURSE ---
pt 89-90% on RA. pt placed on 2L/NC. improved to 95-97%
--- NOTE | 2022-11-15 13:05 | XRR_ITS ---
PROCEDURE INFORMATION: Exam: XR Chest Exam date and time: 11/15/2022 1:14 PM Age: 82 years old Clinical indication: Shortness of breath; Additional info: Cough short of breath TECHNIQUE: Imaging protocol: Radiologic exam of the chest. Views: 1 view. COMPARISON: CT chest w con* [id number] 10/28/2022 10:43 AM FINDINGS: Tubes, catheters and devices: Tip of the central venous catheter projects over the superior vena cava. Lungs: See Pleural spaces finding. Pleural spaces: Moderate to large left pleural effusion with adjacent compressive atelectasis. Heart/Mediastinum: The heart border is obscured by the left pleural effusion. Vasculature: There is calcified plaque in the aortic knob. Bones/joints: Unremarkable. XR/XR chest 1V portable [id number] IMPRESSION: Moderate to large left pleural effusion with adjacent compressive atelectasis.
--- NOTE | 2022-11-15 13:11 | ED_ITS ---
HPI - SOB/Dyspnea General: Chief Complaint: Shortness of Breath/Dyspnea Stated Complaint: SOB Time Seen by Provider: 11/15/22 12:54 Source: patient Mode of arrival: EMS History of Present Illness: HPI Narrative: 82-year-old female who comes in with a history of chest pain and shortness of breath. She states that this started . The pain is sharp and stabbing, located in the left lateral lower chest area. She has had a nonproductive cough in association with the pain. Pain is worse when she takes a deep breath. She states currently she is not having any pain. She has had increased shortness of breath especially with exertion. She has a history of lung cancer, currently in remission. No prior history of DVT or pulmonary embolism. She states in the past when she had pneumonia, she has had similar pain. She denies leg pain or leg swelling. No ill contacts. She denies fevers, chills or sweats. She has had associated body aches and arthralgias Associated symptoms: Reports chest pain; Deny extremity pain, fever(s), hemoptysis, nausea, orthopnea, palpitations or vomiting Review of Systems Const: Reports: body aches; Denies: fever(s), chills, fatigue, malaise or night sweats ENMT: Denies: throat pain or nasal congestion Card: Reports: chest pain and dyspnea on exertion; Denies: palpitations, swelling of feet/ankles or orthopnea Resp: Reports: dyspnea, non-productive cough and pain on inspiration; Denies: productive cough or hemoptysis GI: Denies: nausea, vomiting or diarrhea Musc: Denies: extremity pain PFS ED PFSH: Medical History Abnormal liver enzymes Atelectasis of left lung Atherosclerotic heart disease of zuni coronary artery without angina pectoris CAD (coronary artery disease) COPD (chronic obstructive pulmonary disease) Dyslipidemia statin intolerant, taking ezetimibe. Gastroesophageal reflux Lung cancer NSTEMI (non-ST elevated myocardial infarction) SOB (shortness of breath) Squamous cell carcinoma of left lung Statin intolerance Supraventricular tachycardia TIA (transient ischemic attack) Surgical History History of bronchoscopy History of coronary artery stent placement Port-A-Cath in place (06/24/21) right IJ Status post colonoscopy Family History Mother Hypertension Dementia CAD (coronary artery disease) Myocardial infarction Denies family history of Diabetes Clotting disorder Chronic kidney disease (CKD) Suicide Anesthesia complication Bleeding disorder Lung disease Cancer Stroke Social History Smoking and tobacco status: never smoked Quit status (tobacco): has quit using tobacco Former quit date comment: 3ppd x 20 years Alcohol intake: never Lives independently: Yes Household members: none Housing: House Marital status: / Physical Exam Const: OTHER: Elderly female who is in no acute distress. She is able to speak in full sentences. Very pleasant HENMT: COMMON NORMALS: normocephalic and atraumatic HEAD & SCALP: normal to inspection, normocephalic and atraumatic OTHER: Mucous membranes are moist Eye: OTHER: Conjunctiva are pink, no scleral icterus Neck/C-Spine: OTHER: No JVD, no cervical lymphadenopathy Chest: OTHER: No chest wall tenderness or bruising. Resp: OTHER: Decreased breath sounds in the left lung base, no wheezes or rhonchi Cardio: COMMON NORMALS: regular rate and regular rhythm RATE: regular rate RHYTHM: regular rhythm GI: OTHER: Normal bowel sounds, abdomen is soft, nontender nondistended. Extremity: OTHER: No peripheral edema, no calf tenderness, negative Homans bilaterally. Skin: OTHER: Skin is pink, warm and dry, no rashes noted Course ED course: Patient's chest x-ray shows a moderate-sized left pleural effusion. We will proceed with a CTA of the chest to rule out pulmonary embolism versus underlying recurrent carcinoma versus pneumonia with empyema. Patient also has an elevated D-dimer of 1.71 which may be cancer related but could be from a PE. Her initial troponin is 26. BNP 684. White blood cell count is normal at 10.0 going against this being an infectious etiology. Patient's initial troponin was slightly elevated at 26. Her troponin is pending. Patient will most likely need admission for diuresis and possible thoracentesis. Patient's initial saturation was 89% on room air. She is not normally on oxygen. Reevaluation(s): Reevaluation #1: Patient's been given 40 mg of Lasix IV. She states her breathing somewhat improved. With this being a new large left pleural effusion with her history of malignancy, the patient will need admission for thoracentesis. At this time she is very stable. [place] with the hospitalist who is in agreement for admission. Second troponin remains unchanged. Consultations: Consultation #1: Discussed with Dr. Armas for admission Vital Signs: Vital signs: Vital Signs Temperature 98.0 F 11/15/22 12:47 Pulse Rate 78 11/15/22 15:23 Respiratory Rate 16 11/15/22 15:23 Blood Pressure 117/72 11/15/22 15:23 Pulse Oximetry 98 11/15/22 15:23 Oxygen Delivery Me thod 11/15/22 15:23 Oxygen Flow Rate 2 11/15/22 15:23 MDM - SOB/Dyspnea Medical Decision Making 82-year-old female who presents with pleuritic chest pain on the left. She also has this and associated nonproductive cough as well as shortness of breath. She is afebrile. Differential includes pneumonia, pulmonary embolism, COVID, pleurisy, rib fracture, recurrent carcinoma. We will start an IV, obtain an EKG, chest x-ray and labs including a D-dimer to screen for pulmonary embolism. If her D-dimer is elevated, will proceed with a CTA to rule out PE. Patient's pain is resolved at this time so we will hold off on any pain medication. Patient's chest x-ray shows a large left pleural effusion. She does have an elevated D-dimer, slightly elevated troponin. CTA of the chest has been obtained. She does have a large left pleural effusion with associated compressive atelectasis versus pneumonia. The patient is afebrile, has a nonproductive cough. She does have an elevated BNP making me more suspicious of congestive heart failure. We will give her 40 mg of Lasix IV. Medical Records I reviewed the patient's medical records. Per recent oncology visit Assessment & Plan (1) Malignant neoplasm of lower lobe, left bronchus or lung: ?Assessment & Plan: Pathological stage IIb/clinical stage IIIa, based on CT PET scan, 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 FDG positive subaortic mediastinal lymph nodes. 1.1 x 1.7 cm spiculated lesion with minimal activity in the right upper lobe, probably benign inflammatory Clinical stage 3A if subaortic lymph node positive for metastatic disease, Underwent left hilar lymph node biopsy which confirmed metastatic disease as subaortic lymph node was not accessible, pathologically she was diagnosed with stage IIb but clinically, based on CT PET scan she was T3a and was treated as stage IIIa as subaortic lymph node was in the radiation field. ?treated with maintenance therapy with biweekly durvalumab since September 26, 2021, completed on October 01, 2022 Plan Discussed with patient regarding her labs White blood count 6 hemoglobin 13.3 hematocrit 42 platelets 163,000 CMP within normal limit TSH 0.32 Clinically, patient doing well with no new signs symptoms history of recurrence of disease her lab work-up is within normal range, she has completed a year-long maintenance therapy with durvalumab well.? Recently underwent follow-up CT scan of chest, report is not available yet, once available, will review and make further recommendation otherwise continue monthly port maintenance.? If chest CT showed no abnormality, will see her back in 4 months with CBC CMP while continue with monthly port maintenance Lab Data I reviewed the patient's lab results. 11/15/22 13:25 11/15/22 13:25 Labs/Radiology: Radiology Impressions Chest X-Ray 11/15/22 13:05 IMPRESSION: Moderate to large left pleural effusion with adjacent compressive atelectasis. Chest CTA 11/15/22 14:15 IMPRESSION: 1. Large left pleural effusion with adjacent compressive atelectasis or pneumonia. In combination with cardiomegaly, findings raise concern for congestive heart failure. 2. Streaky densities at the right lung apex appears similar to the prior study and likely represents scar tissue. 3. There are emphysematous changes in the lungs. 4. Bilateral pulmonary ground-glass opacities are nonspecific and can be seen with pulmonary edema and/or pneumonia. Laboratory Results WBC 10.0 10^3/uL (4.0-10.0) 11/15/22 13:25 RBC 4.82 10^6/uL (4.1-5.3) 11/15/22 13:25 Hgb 13.4 g/dL (11.5-15.3) 11/15/22 13:25 Hct 43.2 % (37.0-47.0) 11/15/22 13:25 MCV 89.6 fl (81-99) 11/15/22 13:25 MCH 27.8 pg (28.0-34.0) L 11/15/22 13:25 MCHC 31.0 g/dL (30.0-36.0) 11/15/22 13:25 RDW 13.9 % (12.1-15.1) 11/15/22 13:25 Plt Count 222 10^3/cmm (130-400) 11/15/22 13:25 MPV 9.8 fL (7.4-10.4) 11/15/22 13:25 Neut % (Auto) 80.5 % 11/15/22 13:25 Lymph % (Auto) 7.5 % 11/15/22 13:25 [place] % (Auto) 10.2 % 11/15/22 13:25 Eos % (Auto) 0.8 % 11/15/22 13:25 Baso % (Auto) 0.5 % 11/15/22 13:25 Neut # (Auto) 8.08 10^3/uL (1.8-7.7) H 11/15/22 13:25 Lymph # (Auto) 0.8 10^3/uL (0.8-4.8) 11/15/22 13:25 [place] # (Auto) 1.0 10^3/uL (0.2-0.9) H 11/15/22 13:25 Eos # (Auto) 0.1 10^3/uL (0.0-0.8) 11/15/22 13:25 Baso # (Auto) 0.1 10^3/uL (0.0-0.1) 11/15/22 13:25 Nucleated RBC % (auto) 0 % 11/15/22 13:25 Nucleated RBCs # 0.0 /100WBC 11/15/22 13:25 D-Dimer 1.97 ug/mIFEU (0-0.59) H 11/15/22 13:25 Sodium 135 mmol/L (136-145) L 11/15/22 13:25 Potassium 4.1 mmol/L (3.5-5.1) 11/15/22 13:25 Chloride 99 mmol/L (98-107) 11/15/22 13:25 Carbon Dioxide 24 mmol/L (22-29) 11/15/22 13:25 Anion Gap 16.1 (5-19) 11/15/22 13:25 BUN 18 mg/dL (8-23) 11/15/22 13:25 Creatinine 0.8 mg/dL (0.5-0.9) 11/15/22 13:25 GFR Calculation Not Reportable 11/15/22 13:25 Glucose 118 mg/dL (65-115) H 11/15/22 13:25 Calculated Osmolality 283 mOsm/kg (285-295) L 11/15/22 13:25 Lactic Acid 1.0 mmol/L (0.5-2.2) 11/15/22 13:25 Calcium 8.8 mg/dL (8.5-10.5) 11/15/22 13:25 Total Bilirubin 0.5 mg/dL (0.15-1.2) 11/15/22 13:25 AST 22 U/L (0-32) 11/15/22 13:25 ALT 15 U/L (0-33) 11/15/22 13:25 Alkaline Phosphatase 118 U/L (35-105) H 11/15/22 13:25 Troponin T Baseline 26 ng/L (0-10) H 11/15/22 13:25 Troponin T 120 Minute 26.45 ng/L (0-10) H 11/15/22 15:31 Delta Troponin T 0.45 ABS# (0-10) 11/15/22 15:31 NT-Pro-B Natriuret Pep 684 pg/mL (0-450) H 11/15/22 13:25 Total Protein 6.8 g/dL (6.6-8.7) 11/15/22 13:25 Albumin 3.2 g/dL (3.5-5.2) L 11/15/22 13:25 Globulin 3.6 g/dL (1.3-4.6) 11/15/22 13:25 Lipase 34 U/L (13-60) 11/15/22 13:25 Coronavirus 229E (PCR) Not detected (NOT DETECT) 11/15/22 13:25 SARS-CoV-2 (PCR) Not detected (NOT DETECT) 11/15/22 13:25 EKG Data EKG 1: I personally reviewed and interpreted this EKG as follows: EKG Interpretation Date: 11/15/22 EKG interpretation time: 12:55 Interpretation: Left axis deviation, incomplete right bundle branch block, previous septal [place], no acute ST segment or T wave changes. EKG is unchanged from October 10, 2021 Other Data Recent echo: CONCLUSIONS ?1-Normal left ventricular cavity size. Normal left ventricular ?systolic function. No regional wall motion abnormalities. Left ?ventricular ejection fraction is estimated at 60 %. ?2-There is no pericardial effusion. ?3-No significant valve abnormalities. ?4-Pulmonary artery systolic pressure is within normal limits. ?5-Right atrial pressure is around 5 mm of mercury. ?6-No significant change since the prior echocardiogram study of ?09/14/2019. ?Wiley Souza MD ?(Electronically Signed) ?Final Date:? ? ? 11 October 2021 Discharge Plan Discharge Patient Disposition: Placed in Observation Clinical Impression: Congestive heart failure, Pleural effusion on left, History of lung cancer Condition: Stable Prescriptions: No Action melatonin 3 mg Tablet 3 mg PO BEDTIME calcitonin (salmon) 200 unit/actuation [place],Non-Aerosol 1 spray INTRANASAL (ALT) DAILY Rx Instructions: ALTERNATE NOSTRILS DAILY lutein 10 mg tablet 10 mg PO DAILY Rx Instructions: give with meal/snack Pepcid 20 mg tablet 20 mg PO DAILY levothyroxine 125 mcg tablet 125 mcg PO DAILY Qty: 30 2RF metoprolol tartrate 25 mg tablet 25 mg PO BID 90 Days Qty: 180 3RF nitroglycerin [Nitrostat] 0.4 mg Tablet, Sublingual 0.4 mg sublingual Q5M PRN (Reason: Chest Pain) Qty: 30 0RF aspirin 81 mg tablet,delayed release (DR/EC) 81 mg PO QAM ezetimibe 10 mg tablet 10 mg PO DAILY Spiriva Respimat 2.5 mcg/actuation mist 2 puff inhalation DAILY PRN (Reason: Shortness Of Breath Or Wheezing) Referrals: Susan Romano MD [Primary Care Provider] - Coding Level of Care Code ED Unified Communications Architect for [facility]
[2022-11-15 13:38] LABS: Basophils # 0.1 10^3/uL (0.0-0.1); Basophils % 0.5 %; Eosinophils # 0.1 10^3/uL (0.0-0.8); Eosinophils % 0.8 %; Hematocrit 43.2 % (37.0-47.0); Hemoglobin 13.4 g/dL (11.5-15.3); Lymphocytes # 0.8 10^3/uL (0.8-4.8); Lymphocytes % 7.5 %; Mean Corpuscular Hemoglobin 27.8 pg (28.0-34.0); Mean Corpuscular Volume 89.6 fl (81-99); Mean Platelet Volume 9.8 fL (7.4-10.4); Monocytes % 10.2 %; Neutrophils # 8.08 10^3/uL (1.8-7.7); Neutrophils % 80.5 %; Nucleated Red Blood Cells % 0 %; Platelet Count 222 10^3/cmm (130-400); Red Blood Count 4.82 10^6/uL (4.1-5.3); Red Cell Distribution Width 13.9 % (12.1-15.1)
[2022-11-15 14:06] LABS: D Dimer 1.97 ug/mIFEU (0-0.59); Troponin(5th) Baseline 26 ng/L (0-10)
[2022-11-15 14:11] LABS: Alanine Aminotransferase 15 U/L (0-33); Albumin Level 3.2 g/dL (3.5-5.2); Alkaline Phosphatase 118 U/L (35-105); Anion Gap 16.1 (5-19); Aspartate Amino Transferase 22 U/L (0-32); Blood Urea Nitrogen 18 mg/dL (8-23); Calcium 8.8 mg/dL (8.5-10.5); Carbon Dioxide 24 mmol/L (22-29); Chloride 99 mmol/L (98-107); Globulin 3.6 g/dL (1.3-4.6); Glucose 118 mg/dL (65-115); Lipase 34 U/L (13-60); NT Pro B Type Natriuretic Pept 684 pg/mL (0-450); Osmolality Calculated 283 mOsm/kg (285-295); Potassium 4.1 mmol/L (3.5-5.1); Sodium 135 mmol/L (136-145); Total Bilirubin 0.5 mg/dL (0.15-1.2); Total Protein 6.8 g/dL (6.6-8.7)
--- NOTE | 2022-11-15 14:15 | CTR_ITS ---
PROCEDURE INFORMATION: Exam: CTA Chest With Contrast Exam date and time: 11/15/2022 2:27 PM Age: 82 years old Clinical indication: Pain; Chest pressure; Additional info: Chest pain history of lung cancer TECHNIQUE: Imaging protocol: Computed tomographic angiography of the chest with contrast. 3D rendering (Not supervised by radiologist): MIP and/or 3D reconstructed images were created by the technologist. Radiation optimization: All CT scans at this facility use at least one of these dose optimization techniques: automated exposure control; mA and/or kV adjustment per patient size (includes targeted exams where dose is matched to clinical indication); or iterative reconstruction. Contrast material: OMNI 350; Contrast volume: 67 ml; Contrast route: INTRAVENOUS (IV); REPORTING DATA: Count of CT and Cardiac NM exams in prior 12 months: This patient has received [address] and 0 known cardiac nuclear medicine studies in the 12 months prior to the current study. COMPARISON: CT angio chest PE protcl [id number] 10/10/2021 11:06 AM RADIATION DOSE METRICS: Total DLP (mGy-cm): 228.71 FINDINGS: Pulmonary arteries: Normal. No pulmonary emboli. Aorta: Unremarkable. No aortic aneurysm. No aortic dissection. Lungs: Streaky densities at the right lung apex appears similar to the prior study. There are pulmonary parenchymal calcifications consistent with remote granulomatous organism exposure. There are emphysematous changes in the lungs. Bilateral pulmonary ground-glass opacities. Pleural spaces: Large left pleural effusion with adjacent compressive atelectasis or pneumonia. Heart: Cardiomegaly. Coronary arteries: Multivessel atherosclerotic disease which involves the coronary arteries. Lymph nodes: Unremarkable. No enlarged lymph nodes. Bones/joints: Unremarkable. No acute fracture. Soft tissues: Unremarkable. Other findings: . CT/CT angio chest PE protcl [id number] IMPRESSION: 1. Large left pleural effusion with adjacent compressive atelectasis or pneumonia. In combination with cardiomegaly, findings raise concern for congestive heart failure. 2. Streaky densities at the right lung apex appears similar to the prior study and likely represents scar tissue. 3. There are emphysematous changes in the lungs. 4. Bilateral pulmonary ground-glass opacities are nonspecific and can be seen with pulmonary edema and/or pneumonia.
[2022-11-15] MEDS: iohexol 350 mg/mL 500 mL Btl (per mL) IV (14:29)
--- NOTE | 2022-11-15 15:10 | ECG_ITS ---
[facility] Test Date: 2022-11-15 Pat Name: Nirmala Meléndez Department: Room: Gender: Female Photogeologist: : [id number] Requested By: Amelia Munoz Order Number: [id number] Nikki MD: Juan Mak M.D. Measurements Intervals [place] Rate: 75 P: -78 KS: 215 QRS: 196 QRSD: 109 T: -51 QT: 389 QTc: 437 Interpretive Statements ECTOPIC ATRIAL RHYTHM WITH FIRST DEGREE AV BLOCK RIGHT AXIS DEVIATION [QRS AXIS > 100] RIGHT BUNDLE BRANCH BLOCK [120+ ms QRS DURATION, UPRIGHT V1, 40+ ms S IN I/aVL/V4/V5/V6] SEPTAL MYOCARDIAL INFARCTION , PROBABLY OLD [40+ ms Q WAVE IN V1/V2] INFERIOR MYOCARDIAL INFARCTION , OF INDETERMINATE AGE [40+ ms Q WAVE AND/OR ST/T ABNORMALITY IN II/aVF] Compared to ECG 11/15/2022 12:52:58 Ectopic atrial rhythm now present First degree AV block now present Incomplete right bundle-branch block no longer present Left ventricular hypertrophy no longer present ST (T wave) deviation no longer present Myocardial infarct finding still present Electronically Signed On 11-15-2022 16:09:12 NURSE LICENSED PRACTICAL by Juan Mak M.D. [email or web address]
[2022-11-15 15:18] LABS: Adenovirus Not Detected (NOT DETECT); Chlamydia Pneumoniae Not Detected (NOT DETECT); Coronavirus 229E,HKU1,NL63,OC4 Not Detected (NOT DETECT); Human Metapneumovirus Not Detected (NOT DETECT); Human Rhinovirus/Enterovirus Not Detected (NOT DETECT); Influenza A Not Detected (NOT DETECT); Influenza A H1 Not Detected (NOT DETECT); Influenza A H1-2009 Not Detected (NOT DETECT); Influenza A H3 Not Detected (NOT DETECT); Influenza B Not Detected (NOT DETECT); Mycoplasma Pneumoniae Not Detected (NOT DETECT); Parainfluenza Virus Type 1 Not Detected (NOT DETECT); Parainfluenza Virus Type 2 Not Detected (NOT DETECT); Parainfluenza Virus Type 3 Not Detected (NOT DETECT); Parainfluenza Virus Type 4 Not Detected (NOT DETECT); Respiratory Syncytial Virus A Not Detected (NOT DETECT); Respiratory Syncytial Virus B Not Detected (NOT DETECT); SARS-COV-2 Not Detected (NOT DETECT)
[2022-11-15] MEDS: FUROsemide 10 mg/mL SDV 4mL 40 MG IVP (15:57)
[2022-11-15 16:04] LABS: Troponin 5 2HR 26.45 ng/L (0-10)
[2022-11-15 16:06] LABS: Troponin 5 2HR Delta 0.45 ABS# (0-10)
--- NOTE | 2022-11-15 17:02 | PM.HP ---
Providers/Chief Complaint Primary Care Provider: Susan Romano MD Chief Complaint: SOB History of Present Illness Very pleasant 82-year-old lady with history of SCC, with history of chemoradiation, recently completed immunotherapy on October 01, presents to ER due to shortness of breath, dry cough, positional cough when bending forward, initially pleuritic discomfort in the left about 3 days ago, currently only mild, denies any sputum production, no fever, no symptoms of URI, headache, nausea vomiting or diarrhea, some shortness of breath laying flat, no edema, no history of CHF, in ER he is found to have large left pleural effusion, with abnormal D-dimer additionally assessed by CTA again with noted large left pleural effusion, adjacent compressive atelectasis or pneumonia noted some cardiomegaly as well. Streaky densities in the right lung apex similar to prior likely representing scar tissue. Emphysema. Bilateral pulmonary groundglass opacities nonspecific, possibly pulmonary edema and/or pneumonia. COVID-19 PCR panel performed in ER negative. NT proBNP only 684. Without leukocytosis, afebrile. Baseline troponin 26, 2-hour troponin 26.5. EKG with ectopic atrial rhythm, first-degree AV block, right bundle branch block. Q waves in V3 and aVF. V1, V2. She is given a dose of Lasix 40 mg IV. Review of Systems Const: Denies: fever(s), chills, body aches or malaise Eyes: Denies: change in vision, eye discomfort or eye redness ENMT: Denies: throat pain, oral sores or ear or mastoid pain Card: Reports: dyspnea on exertion and orthopnea; Denies: edema or pre-syncope Resp: Reports: dyspnea, non-productive cough and pain on inspiration; Denies: productive cough, change in phlegm color or hemoptysis GI: Denies: abdominal pain, nausea, vomiting, diarrhea, constipation, hematochezia or melena : Denies: flank pain, urinary frequency or hematuria Musc: Denies: back pain, joint swelling or joint redness Skin/Breast: Denies: rash or new lesions Neuro: Denies: headache(s), numbness in extremities, weakness in extremities, dizziness, confusion or seizure-like activity Medications/Allergies Home Medications Medication Instructions Recorded Confirmed Last Taken Type calcitonin (salmon) 200 1 spray intranasal (ALT) DAILY 09/13/19 11/15/22 11/14/22 History unit/actuation nasal spray melatonin 3 mg tablet 3 mg PO BEDTIME 09/13/19 11/15/22 11/14/22 History Nitrostat 0.4 mg sublingual tablet 0.4 mg sublingual Q5M PRN Chest 09/14/19 11/15/22 01/25/21 Rx (nitroglycerin) Pain #30 tabs metoprolol tartrate 25 mg tablet 25 mg PO BID 90 days #180 tabs 11/26/20 11/15/22 11/15/22 Rx aspirin 81 mg tablet,delayed 81 mg PO QAM 01/25/21 11/15/22 11/15/22 History release lutein 10 mg tablet 10 mg PO DAILY 01/21/22 11/15/22 11/15/22 History famotidine 20 mg tablet (Pepcid) 20 mg PO DAILY 02/05/22 11/15/22 11/15/22 History levothyroxine 125 mcg tablet 125 mcg PO DAILY #30 tabs 08/06/22 11/15/22 11/15/22 Rx ezetimibe 10 mg tablet 10 mg PO DAILY 11/15/22 11/15/22 11/15/22 History tiotropium bromide 2.5 2 puff inhalation DAILY PRN 11/15/22 11/15/22 Unknown History mcg/actuation mist for inhalation Shortness Of Breath Or Wheezing (Spiriva Respimat) Allergies Allergy/AdvReac Type Severity Reaction Status Date / Time Sulfa (Sulfonamide Allergy Unknown ALGY-Bliste Verified 11/15/22 13:35 Antibiotics) r Yyumiot-NHL-XcR Reductase Allergy ADR-Cramping Verified 11/15/22 13:35 Inhibitor of the [Vishrye-Gbk-Iif Reductase Muscles Inhibitor] PFSH Acute PFSH: Medical History Abnormal liver enzymes Atelectasis of left lung Atherosclerotic heart disease of [place] coronary artery without angina pectoris CAD (coronary artery disease) COPD (chronic obstructive pulmonary disease) Dyslipidemia statin intolerant, taking ezetimibe. Gastroesophageal reflux Lung cancer NSTEMI (non-ST elevated myocardial infarction) SOB (shortness of breath) Squamous cell carcinoma of left lung Statin intolerance Supraventricular tachycardia TIA (transient ischemic attack) Surgical History History of bronchoscopy History of coronary artery stent placement Port-A-Cath in place (06/24/21) right IJ Status post colonoscopy Family History Mother Hypertension Dementia CAD (coronary artery disease) Myocardial infarction Denies family history of Diabetes Clotting disorder Chronic kidney disease (CKD) Suicide Anesthesia complication Bleeding disorder Lung disease Cancer Stroke Social History Smoking and tobacco status: never smoked Quit status (tobacco): has quit using tobacco Former quit date comment: 3ppd x 20 years Alcohol intake: never Lives independently: Yes Household members: none Housing: House Marital status: / Vitals/I&O/Wt Last Vital Signs Temp 98.0 F 11/15/22 12:47 Pulse 78 11/15/22 15:23 Resp 16 11/15/22 15:23 BP 117/72 11/15/22 15:23 Pulse Ox 98 11/15/22 15:23 O2 Del Method 11/15/22 15:23 O2 Flow Rate 2 11/15/22 15:23 Weight last 48 hrs Weight 49.895 kg Physical Exam Const: COMMON NORMALS: patient oriented x3 and alert GENERAL APPEARANCE: cooperative ORIENTATION/CONSCIOUSNESS: Yes awake HENMT: COMMON NORMALS: oropharynx normal Neck/C-Spine: COMMON NORMALS: no JVD Resp: COMMON NORMALS: normal respiratory effort and clear to auscultation bilaterally AUSCULTATION: breath sounds absent on th left (lower) Cardio: COMMON NORMALS: no JVD, regular rhythm, S1 normal heart sound present, S2 normal heart sound present and No murmurs present (Cardio) RHYTHM: regular rhythm HEART SOUNDS: S1 normal heart sound present and S2 normal heart sound present GI: COMMON NORMALS: Normal to inspection, nondistended, normoactive bowel sounds present, Soft to palpation and non-tender PALPATION: Yes Soft to palpation Extremity: COMMON NORMALS: no joint enlargement and no pedal edema Neuro: COMMON NORMALS: patient oriented x3 and moves all extremities SENSORIUM/ORIENTATION: Yes alert Skin: COMMON NORMALS: no rashes or lesions noted GENERAL SKIN EXAM: no rashes or lesions noted Data 11/15/22 13:25 11/15/22 13:25 A&P Assessment and plan (1) Hypoxia: For about 3 days she has had worsened exertional dyspnea, dyspnea with speaking, some pleuritic discomfort on the left side, dry cough, cough. Triggered by positional change/leaning forward. With finding of large left pleural effusion which appears progressed from prior CT from moderate mid October. Otherwise nonproductive cough, no fever, leukocytosis, symptoms not suggestive of pneumonia. Some noted atelectasis. Noted cardiomegaly, BNP is not particularly impressive at 684, although has been lower at 239. Highest 1446. Received Lasix in ER. Does have history of squamous cell carcinoma involving left lower lobe, has also undergone radiation therapy. Given new enlarging effusion which is symptomatic, history of malignancy and radiation discussed with her regarding obtaining thoracentesis both diagnostic and therapeutic. We may continue with treatment with diuretics afterwards in case there is some component of heart failure as well. Pneumonia seems to be less likely. Appreciate thoracic surgery consultation, discussed regarding thoracentesis. Discussed with her subsequent follow-up with pulmonology. Discussed with ER physician. Oncology note reviewed. Continue oxygen, wean down as tolerating. RT to assess and treat. (2) Dyspnea: As above (3) Pleural effusion on left: As above (4) Congestive heart failure: Reviewed TTE from September 2021 with normal EF, no RWMA, no pericardial effusion, no significant valvular abnormalities. Possible component of CHF based on cardiomegaly, orthopnea may be secondary to pleural effusions of, some BNP elevation may also be secondary to her pulmonary problem. No peripheral edema. No history of CHF. Received Lasix in ER. We may have to see how she is doing after thoracentesis. Will additionally assess TTE. She has history of CAD and coronary stenting. (5) Malignant neoplasm of lower lobe, left bronchus or lung: Status post chemoradiation, completed immunotherapy on 10/01. Did not have any noted signs or symptoms of recurrence of disease on recent follow-up 10/29. (6) Elevated d-dimer: No PE on CTA. We will assess lower extremity duplex. Plan CAD and coronary stenting, Stable COPD, Stable HLD GERD TIA Other prior problems Attestations Medical Necessity Statement*: Place in observation for additional assessment management of dyspnea, new hypoxia with new oxygen requirement with increasing now large left pleural effusion at risk of further deterioration, respiratory failure. Diagnoses Hypoxia R09.02 Dyspnea R06.00 Pleural effusion on left J90 Congestive heart failure I50.9 Malignant neoplasm of lower lobe, left bronchus or lung C34.32 Elevated d-dimer R79.89
--- NOTE | 2022-11-15 17:47 | XRR_ITS ---
PROCEDURE INFORMATION: Exam: XR Chest Exam date and time: 11/15/2022 5:49 PM Age: 82 years old Clinical indication: Dyspnea; Additional info: Post thoracentesis TECHNIQUE: Imaging protocol: Radiologic exam of the chest. Views: 1 view. COMPARISON: CR (CHEST, ) 11/15/2022 1:14 PM FINDINGS: Tubes, catheters and devices: Tip of the central venous catheter projects over the superior vena cava. Lungs: See Pleural spaces finding. Pleural spaces: Small to moderate size left pleural effusion has decreased in size when compared to the prior study. There is adjacent compressive atelectasis. No evidence for pneumothorax. Heart/Mediastinum: Heart border is obscured. Diaphragm: Elevation of the left hemidiaphragm. Bones/joints: Unremarkable. XR/XR chest 1V portable [id number] IMPRESSION: Small to moderate size left pleural effusion has decreased in size when compared to the prior study. There is adjacent compressive atelectasis.
[2022-11-15] MEDS: morphine 4 mg/mL SDV 1 mL 2 MG IVP ×2 (17:57→18:45)
[2022-11-15] MEDS: ondansetron 2 mg/ML SDV 2 mL 4 MG IVP (17:57)
--- NOTE | 2022-11-15 18:01 | P.CONIM_ITS ---
Providers/Reason For Consult Consulting Physician/Specialty*: Dr. Wing/cardiothoracic surgery Reason for Consult*: Left pleural effusion Requesting Physician: Dr. Khan Attending Physician: Anselmo Khan Primary Care Provider: Susan Romano MD History of Present Illness History of Present Illness Nirmala Meléndez is an 82 year old female with squamous cell carcinoma of the left lower lobe originally referred to cardiothoracic surgery at [facility] in [place]. Patient subsequently received chemoradiation therapy. She has also recently completed immunotherapy. She presents with a left pleural effusion. CTA was negative for pulmonary embolism I was consulted by Dr. Khan. Effusion is modest and there is some atelectasis in the left lower lobe though much of the upper mid lung stephens remain reasonably well-expanded. She does have some dyspnea. I have personally reviewed the chest x-ray and CT scan obtained during this ER presentation. She is currently being mated to the hospitalist service. Review of Systems Const: Reports: body aches and fatigue; Denies: fever(s) or chills ENMT: Reports: throat pain (She attributes to radiation therapy), odynophagia, mouth pain, dry mouth and other (Change in taste since radiotherapy) Card: Denies: chest pain or palpitations Resp: Reports: dyspnea, non-productive cough and wheezing Musc: Reports: neck pain Neuro: Denies: numbness in extremities, weakness in extremities or sensory changes Luca/Lymph: Denies: easy bruising or easy bleeding Medications/Allergies Home Medications Medication Instructions Recorded Confirmed Last Taken Type calcitonin (salmon) 200 1 spray intranasal (ALT) DAILY 09/13/19 11/15/22 11/14/22 History unit/actuation nasal spray melatonin 3 mg tablet 3 mg PO BEDTIME 09/13/19 11/15/22 11/14/22 History Nitrostat 0.4 mg sublingual tablet 0.4 mg sublingual Q5M PRN Chest 09/14/19 11/15/22 01/25/21 Rx (nitroglycerin) Pain #30 tabs metoprolol tartrate 25 mg tablet 25 mg PO BID 90 days #180 tabs 11/26/20 11/15/22 11/15/22 Rx aspirin 81 mg tablet,delayed 81 mg PO QAM 01/25/21 11/15/22 11/15/22 History release lutein 10 mg tablet 10 mg PO DAILY 01/21/22 11/15/22 11/15/22 History famotidine 20 mg tablet (Pepcid) 20 mg PO DAILY 02/05/22 11/15/22 11/15/22 History levothyroxine 125 mcg tablet 125 mcg PO DAILY #30 tabs 08/06/22 11/15/22 11/15/22 Rx ezetimibe 10 mg tablet 10 mg PO DAILY 11/15/22 11/15/22 11/15/22 History tiotropium bromide 2.5 2 puff inhalation DAILY PRN 11/15/22 11/15/22 Unknown History mcg/actuation mist for inhalation Shortness Of Breath Or Wheezing (Spiriva Respimat) Allergies Allergy/AdvReac Type Severity Reaction Status Date / Time Sulfa (Sulfonamide Allergy Unknown ALGY-Bliste Verified 11/15/22 13:35 Antibiotics) r Ghasejl-VFU-LwA Reductase Allergy ADR-Cramping Verified 11/15/22 13:35 Inhibitor of the [Taryzpg-Xxd-Jlz Reductase Muscles Inhibitor] PFSH Acute PFSH: Medical History Abnormal liver enzymes Atelectasis of left lung Atherosclerotic heart disease of [place] coronary artery without angina pectoris CAD (coronary artery disease) COPD (chronic obstructive pulmonary disease) Dyslipidemia statin intolerant, taking ezetimibe. Gastroesophageal reflux Lung cancer NSTEMI (non-ST elevated myocardial infarction) SOB (shortness of breath) Squamous cell carcinoma of left lung Statin intolerance Supraventricular tachycardia TIA (transient ischemic attack) Surgical History History of bronchoscopy History of coronary artery stent placement Port-A-Cath in place (06/24/21) right IJ Status post colonoscopy Family History Mother Hypertension Dementia CAD (coronary artery disease) Myocardial infarction Denies family history of Diabetes Clotting disorder Chronic kidney disease (CKD) Suicide Anesthesia complication Bleeding disorder Lung disease Cancer Stroke Social History Smoking and tobacco status: never smoked Quit status (tobacco): has quit using tobacco Former quit date comment: 3ppd x 20 years Alcohol intake: never Lives independently: Yes Household members: none Housing: House Marital status: / Vitals/I&O/Wt Last Vital Signs Temp 98.0 F 11/15/22 12:47 Pulse 81 11/15/22 17:04 Resp 16 11/15/22 17:57 BP 96/70 11/15/22 17:04 Pulse Ox 96 11/15/22 17:57 O2 Del Method 11/15/22 17:04 O2 Flow Rate 2 11/15/22 17:04 Weight last 48 hrs Weight 110 lb Physical Exam Const: COMMON NORMALS: patient oriented x3; apparent distress (Modest dyspnea) and negative for average body habitus (Thin) HENMT: COMMON NORMALS: normocephalic, atraumatic, hearing grossly normal bilaterally, external ears normal and Normal external nose present HEAD & S CALP: normocephalic and atraumatic NOSE: Normal external nose present EXTERNAL EAR: Yes external ears normal Eye: COMMON NORMALS: EOMs intact bilaterally, conjunctivae normal and no scleral icterus CONJUNCTIVA: Yes conjunctivae normal Neck/C-Spine: COMMON NORMALS: no lymphadenopathy; negative for full ROM Chest: COMMONS NORMALS: negative for normal inspection of the chest (There is an excoriated eschar left of midline in the mid back related to pr) Resp: COMMON NORMALS: No retractions and No use of accessory muscles; negative for normal respiratory effort, negative for clear to auscultation bilaterally (Decreased breath sounds left lower lung field) and negative for percussion normal (Dullness to percussion left mid and lower lung field) AUSCULTATION: not clear to auscultation bilaterally (Decreased breath sounds left lower lung field) and diminished lung sounds on the left in the lower lung stephens PERCUSSION: percussion abnormal (Dullness to percussion left mid and lower lung field) OTHER: Decreased breath sounds left mid and lower lung stephens Cardio: COMMON NORMALS: regular rate, regular rhythm, No murmurs present (Cardio) and No rub (Cardio) RATE: regular rate RHYTHM: regular rhythm GI: COMMON NORMALS: Normal to inspection, nondistended, normoactive bowel sounds present Extremity: COMMON NORMALS: no clubbing, cyanosis or edema Neuro: COMMON NORMALS: patient oriented x3, moves all extremities, no focal motor deficits, no sensory deficits noted and gait normal Data 11/15/22 13:25 11/15/22 13:25 A&P Assessment and plan (1) Pleural effusion on left: None none 82-year-old female with squamous cell carcinoma status post chemoradiation therapy and recent immunotherapy presents with left pleural effusion which is moderately symptomatic. I have recommended thoracentesis. I have personally reviewed the chest x-ray and CT scan obtained today. I have conferred with my colleague Dr. Khan rationale for thoracentesis and conduct of the procedure was carefully discussed with the patient and her son. Appropriate consents have been provided for review and signature. She and her son are in agreement. We will plan to proceed with thoracentesis under local anesthesia at bedside in the emergency room. Consult Attestations Medical Necessity Statement: Symptomatic left pleural effusion with history of lung carcinoma Coding Level of Care Code Acute Code for [facility] Fwd Diagnoses Pleural effusion on left J90
--- NOTE | 2022-11-15 18:10 | P.OP_ITS ---
Operative Report Date of procedure: November 15, 2022 Pre-op diagnosis: Preop Diagnosis symptomatic left pleural effusion with history of lung carcinoma Post-op diagnosis: same Procedure done: Left thoracentesis Specimens removed/disposition: 800 cc of paddy-colored pleural fluid for cytologic examination Surgeon: Dick Wing Anesthesia: Local Complications: None: Post procedure chest x-ray reveals improved aeration to left lower lobe with decreased left pleural effusion and no evidence for pneumothorax Condition: stable Disposition: floor Brief History: 82-year-old female with squamous cell carcinoma status post chemoradiation therapy and recent immunotherapy presented to the emergency department with shortness of breath and left-sided chest discomfort and a moderate size left pleural effusion. Recommendation for thoracentesis was carefully discussed with her and her son. Proper consents have been reviewed and signed. Both wish to proceed. Procedure: Procedure: Ms. Meléndez was placed in the sitting position over a padded bedside table. The entire left posterior chest was sterilely prepped and draped. 1% lidocaine was infiltrated just beneath the tip of the scapula. Next a catheter over needle was inserted into approximately the seventh intercostal space and advanced until pleural fluid was recovered. Catheter was advanced over the needle as the needle withdrawn. Next utilizing syringe, a total of 800 mL of paddy colored fluid was returned from the left pleural space. The catheter was then withdrawn. The patient had the typical brief period of coughing associated with expansion of the lung and pleuritic discomfort. Breath sounds were improved after the procedure. Post procedure chest x-ray revealed decreased effusion and improved aeration to the left lower lobe without obvious evidence for pneumothor ax.. I counseled with Ms. Meléndez and her son after completion of the procedure. I conferred with Dr. Khan by phone. Recovered pleural fluid will be sent to pathology for cytologic examination.
[2022-11-15 18:24] LABS: Cyto Order Verification No Order
[2022-11-15 18:27] LABS: Body Fluid Polynuclear #Cells 1.841; Body Fluid WBC 3577 /uL; Monocytes # Body Fluid 1.736
--- NOTE | 2022-11-15 18:31 | USR_ITS ---
PROCEDURE INFORMATION: Exam: US Duplex Lower Extremity Veins, Bilateral Exam date and time: 11/15/2022 6:48 PM Age: 82 years old Clinical indication: Other: Patient has been stationary in er today; Additional info: Assess for dvt TECHNIQUE: Imaging protocol: Real-time duplex ultrasound of the bilateral extremities with 2-D barillas scale, color Doppler flow and spectral waveform analysis including responses to compression and other maneuvers (when performed) with image documentation. Complete exam focused on the lower extremity veins. COMPARISON: No relevant prior studies available. FINDINGS: Right deep veins: Unremarkable. The common femoral, femoral, proximal profunda femoral and popliteal veins are patent without thrombus. Normal Doppler waveforms. Normal compressibility and/or augmentation response. Right superficial veins: Saphenofemoral junction is patent without thrombus. Left deep veins: Unremarkable. The common femoral, femoral, proximal profunda femoral and popliteal veins are patent without thrombus. Normal Doppler waveforms. Normal compressibility and/or augmentation response. Left superficial veins: Saphenofemoral junction is patent without thrombus. Soft tissues: Unremarkable. US/[place] [id number] IMPRESSION: No evidence of deep vein thrombosis.
--- NOTE | 2022-11-15 18:42 | ECG_ITS ---
[facility] Test Date: 2022-11-15 Pat Name: Nirmala Meléndez Department: Room: 264 Gender: Female Habilitation Training Specialist: : [id number] Requested By: Amelia Munoz Order Number: [id number] Jordan MD: Juan Mak M.D. Measurements Intervals [place] Rate: 86 P: 85 NV: 206 QRS: -14 QRSD: 110 T: 79 QT: 382 QTc: 459 Interpretive Statements SINUS RHYTHM INCOMPLETE RIGHT BUNDLE BRANCH BLOCK [90+ ms QRS DURATION, TERMINAL R IN V1/V2, 40+ ms S IN I/aVL/V4/V5/V6] MODERATE VOLTAGE CRITERIA FOR LVH, CONSIDER NORMAL VARIANT [MEETS CRITERIA IN ONE OF: R(aVL), S(V1), R(V5), R(V5/V6)+S(V1)] ANTEROLATERAL MYOCARDIAL INFARCTION ,AGE INDETERMINATE Compared to ECG 11/15/2022 15:10:52 Incomplete right bundle-branch block now present Ectopic atrial rhythm no longer present First degree AV block no longer present Right-axis deviation no longer present Right bundle-branch block no longer present Myocardial infarct finding still present Electronically Signed On 11-15-2022 21:11:23 JOURNAL [employer]OX INSPECTOR by Juan Mak M.D. [id number]
[2022-11-15] MEDS: metoprolol tartrate 25 mg Tablet PO (18:53)
[2022-11-15 19:27] LABS: Albumin Body Fluid 2.7 g/dL; Apprearance, Body Fluid CLOUDY; Color, Body Fluid YELLOW
[2022-11-15 19:28] LABS: LDH Pleural Fluid 184 U/L; PATH Referral YES; Total Protein Pleural Fluid 4.3 g/dL
[2022-11-15 19:56] LABS: Troponin 5 6HR 34.01 ng/L (0-10)
[2022-11-15 20:01] LABS: Troponin 5 6HR Delta 8.01 ng/L (0-12)
[2022-11-16] VITALS (9 sets, daily range): BP systolic 90–103; BP diastolic 60–64; PULSE 70–87; RESP 17–18; TEMP 36.6–36.7; O2SAT 94–96
[2022-11-16 05:23] LABS: Basophils % 0.5 %; Eosinophils # 0.1 10^3/uL (0.0-0.8); Eosinophils % 0.8 %; Hematocrit 41.9 % (37.0-47.0); Hemoglobin 13.2 g/dL (11.5-15.3); Lymphocytes # 0.7 10^3/uL (0.8-4.8); Lymphocytes % 8.7 %; Mean Corpuscular HGB Conc 31.5 g/dL (30.0-36.0); Mean Corpuscular Volume 88.8 fl (81-99); Mean Platelet Volume 9.5 fL (7.4-10.4); Monocytes % 11.3 %; Neutrophils # 6.58 10^3/uL (1.8-7.7); Neutrophils % 78.3 %; Nucleated Red Blood Cells % 0 %; Platelet Count 252 10^3/cmm (130-400); Red Blood Count 4.72 10^6/uL (4.1-5.3); Red Cell Distribution Width 13.9 % (12.1-15.1); White Blood Count 8.4 10^3/uL (4.0-10.0)
[2022-11-16] MEDS: aspirin 81 mg EC Tablet PO (06:05)
[2022-11-16] MEDS: levothyroxine 125 mcg Tablet PO (09:12)
[2022-11-16] MEDS: metoprolol tartrate 25 mg Tablet PO (09:12)
[2022-11-16] MEDS: famotidine 20 mg Tablet PO (09:12)
[2022-11-16] MEDS: ezetimibe 10 mg Tablet PO (09:12)
[2022-11-16] MEDS: acetaminophen 325 mg Tablet 650 MG PO (12:48)
--- NOTE | 2022-11-16 14:30 | P.DS_ITS ---
Discharge Providers Date of Admission: 11/15/22 16:10 Date of Discharge: November 16, 2022 Attending Provider at Admission: Anselmo Khan Attending Provider at Discharge: Anselmo Khan Primary Care Provider: Susan Romano MD Diagnoses at Discharge Discharge Diagnosis (1) Pleural effusion on left: Status: Acute Reason for Visit Reason for Visit: SOB Brief History: Very pleasant 82-year-old lady with history of SCC, with history of chemoradiation, recently completed immunotherapy on October 01, presents to ER due to shortness of breath, dry cough, positional cough when bending forward, initially pleuritic discomfort in the left about 3 days ago, currently only mild, denies any sputum production, no fever, no symptoms of URI, headache, nausea vomiting or diarrhea, some shortness of breath laying flat, no edema, no history of CHF, in ER he is found to have large left pleural effusion, with abnormal D-dimer additionally assessed by CTA again with noted large left pleural effusion, adjacent compressive atelectasis or pneumonia noted some cardiomegaly as well.? Streaky densities in the right lung apex similar to prior likely representing scar tissue.? Emphysema.? Bilateral pulmonary groundglass opacities nonspecific, possibly pulmonary edema and/or pneumonia.? COVID-19 PCR panel performed in ER negative.? NT proBNP only 684.? Without leukocytosis, afebrile.? Baseline troponin 26, 2-hour troponin 26.5.? EKG with ectopic atrial rhythm, first-degree AV block, right bundle branch block.? Q waves in V3 and aVF.? V1, V2. She was given a dose of Lasix 40 mg IV. Hospital Course Hospital Course She underwent thoracentesis with removal of 800 mL of cloudy fluid. Study suggestive of exudative effusion. CHF less likely, but she is referred for additional assessment by TTE. Discussed with her concern that fluid may recur with suspected postradiation effusion, alternatively could be recurrence of cancer. No organisms seen on Gram stain. Please follow-up culture. Cytology was requested as well. Today she is feeling much better. She is weaned off oxygen. Having only tiny bit of pleuritic discomfort. Knows to return in case of any worsening of symptoms. He is asked to follow-up with pulmonology, oncology and PCP. Blood pressure this morning on the soft side, 95/60 on recheck 106/64. Metoprolol dose was decreased down to 12.5 mg twice daily for now. Physical Exam Const: COMMON NORMALS: patient oriented x3 and alert GENERAL APPEARANCE: cooperative ORIENTATION/CONSCIOUSNESS: Yes awake HENMT: COMMON NORMALS: oropharynx normal Neck/C-Spine: COMMON NORMALS: no JVD Resp: COMMON NORMALS: normal respiratory effort and clear to auscultation bilaterally AUSCULTATION: clear to auscultation bilaterally and breath sounds absent on th left (lower) Cardio: COMMON NORMALS: no JVD, regular rhythm, S1 normal heart sound present, S2 normal heart sound present and No murmurs present (Cardio) RHYTHM: regular rhythm HEART SOUNDS: S1 normal heart sound present and S2 normal heart sound present GI: COMMON NORMALS: Normal to inspection, nondistended, normoactive bowel sounds present, Soft to palpation and non-tender PALPATION: Yes Soft to palpation Extremity: COMMON NORMALS: no joint enlargement and no pedal edema Neuro: COMMON NORMALS: patient oriented x3 and moves all extremities SENSORIUM/ORIENTATION: Yes alert Skin: COMMON NORMALS: no rashes or lesions noted GENERAL SKIN EXAM: no rashes or lesions noted Discharge Data Studies Completed and Pending Completed Studies During Hospitalization Category Date Time Status CT angio chest PE protcl [id number] Stat Cat Scan 11/15/22 14:15 Completed CXRP [XR chest 1V portable [id number]] Routine Exams 11/15/22 17:47 Completed XR chest 1V portable [id number] Stat Exams 11/15/22 13:05 [place] [id number] Routine Ultrasound 11/15/22 18:31 Completed Pending at discharge Category Date Time Status Body Fluid Culture & GS Routine Lab 11/15/22 18:00 Results Complete Blood Count w/Auto AM LABS Lab 11/17/22 04:00 Ordered Complete Blood Count w/Auto AM LABS Lab 11/18/22 04:00 Ordered Pleural Fld Adenosine Deami Routine Lab 11/15/22 18:00 Received Radiology Impressions Chest CTA 11/15/22 14:15 IMPRESSION: 1. Large left pleural effusion with adjacent compressive atelectasis or pneumonia. In combination with cardiomegaly, findings raise concern for congestive heart failure. 2. Streaky densities at the right lung apex appears similar to the prior study and likely represents scar tissue. 3. There are emphysematous changes in the lungs. 4. Bilateral pulmonary ground-glass opacities are nonspecific and can be seen with pulmonary edema and/or pneumonia. Chest X-Ray 11/15/22 17:47 IMPRESSION: Small to moderate size left pleural effusion has decreased in size when compared to the prior study. There is adjacent compressive atelectasis. Venous Duplex 11/15/22 18:31 IMPRESSION: No evidence of deep vein thrombosis. Laboratory Results WBC 8.4 10^3/uL (4.0-10.0) 11/16/22 05:09 RBC 4.72 10^6/uL (4.1-5.3) 11/16/22 05:09 Hgb 13.2 g/dL (11.5-15.3) 11/16/22 05:09 Hct 41.9 % (37.0-47.0) 11/16/22 05:09 MCV 88.8 fl (81-99) 11/16/22 05:09 MCH 28.0 pg (28.0-34.0) 11/16/22 05:09 MCHC 31.5 g/dL (30.0-36.0) 11/16/22 05:09 RDW 13.9 % (12.1-15.1) 11/16/22 05:09 Plt Count 252 10^3/cmm (130-400) 11/16/22 05:09 MPV 9.5 fL (7.4-10.4) 11/16/22 05:09 Neut % (Auto) 78.3 % 11/16/22 05:09 Lymph % (Auto) 8.7 % 11/16/22 05:09 Charlton % (Auto) 11.3 % 11/16/22 05:09 Eos % (Auto) 0.8 % 11/16/22 05:09 Baso % (Auto) 0.5 % 11/16/22 05:09 Neut # (Auto) 6.58 10^3/uL (1.8-7.7) 11/16/22 05:09 Lymph # (Auto) 0.7 10^3/uL (0.8-4.8) L 11/16/22 05:09 Charlton # (Auto) 1.0 10^3/uL (0.2-0.9) H 11/16/22 05:09 Eos # (Auto) 0.1 10^3/uL (0.0-0.8) 11/16/22 05:09 Baso # (Auto) 0.0 10^3/uL (0.0-0.1) 11/16/22 05:09 Nucleated RBC % (auto) 0 % 11/16/22 05:09 Nucleated RBCs # 0.0 /100WBC 11/16/22 05:09 Differential Comment Yes 11/15/22 18:00 D-Dimer 1.97 ug/mIFEU (0-0.59) H 11/15/22 13:25 Sodium 135 mmol/L (136-145) L 11/15/22 13:25 Potassium 4.1 mmol/L (3.5-5.1) 11/15/22 13:25 Chloride 99 mmol/L (98-107) 11/15/22 13:25 Carbon Dioxide 24 mmol/L (22-29) 11/15/22 13:25 Anion Gap 16.1 (5-19) 11/15/22 13:25 BUN 18 mg/dL (8-23) 11/15/22 13:25 Creatinine 0.8 mg/dL (0.5-0.9) 11/15/22 13:25 GFR Calculation Not Reportable 11/15/22 13:25 Glucose 118 mg/dL (65-115) H 11/15/22 13:25 Calculated Osmolality 283 mOsm/kg (285-295) L 11/15/22 13:25 Lactic Acid 1.0 mmol/L (0.5-2.2) 11/15/22 13:25 Calcium 8.8 mg/dL (8.5-10.5) 11/15/22 13:25 Total Bilirubin 0.5 mg/dL (0.15-1.2) 11/15/22 13:25 AST 22 U/L (0-32) 11/15/22 13:25 ALT 15 U/L (0-33) 11/15/22 13:25 Alkaline Phosphatase 118 U/L (35-105) H 11/15/22 13:25 Troponin T Baseline 26 ng/L (0-10) H 11/15/22 13:25 Troponin T 120 Minute 26.45 ng/L (0-10) H 11/15/22 15:31 Delta Troponin T 0.45 ABS# (0-10) 11/15/22 15:31 Troponin T Hi Sens 6Hr 34.01 ng/L (0-10) H 11/15/22 19:30 Troponin T Hi Sens 6Hr Delta 8.01 ng/L (0-12) 11/15/22 19:30 NT-Pro-B Natriuret Pep 684 pg/mL (0-450) H 11/15/22 13:25 Total Protein 6.8 g/dL (6.6-8.7) 11/15/22 13:25 Albumin 3.2 g/dL (3.5-5.2) L 11/15/22 13:25 Globulin 3.6 g/dL (1.3-4.6) 11/15/22 13:25 Lipase 34 U/L (13-60) 11/15/22 13:25 Fluid Color Yellow 11/15/22 18:00 Fluid Appearance Cloudy 11/15/22 18:00 Fluid WBC 3577 /uL 11/15/22 18:00 Fluid RBC 4.000 10^3/uL 11/15/22 18:00 Fluid Hematocrit 0.0 % 11/15/22 18:00 Fld Polynuclear WBCs # 1.841 11/15/22 18:00 Fld Polynuclear WBCs % 51.400 % 11/15/22 18:00 Fl Mononucl WBCs #(Auto) 1.736 11/15/22 18:00 Fl Mononuclear % Auto 48.600 % 11/15/22 18:00 Fluid Albumin 2.7 g/dL 11/15/22 18:00 Pleural pH 8.00 (6.5-7.5) H 11/15/22 18:00 Pleural Total Protein 4.3 g/dL 11/15/22 18:00 Pleural LDH 184 U/L 11/15/22 18:00 Pleural Glucose 101.0 mg/dL 11/15/22 18:00 Coronavirus 229E (PCR) Not detected (NOT DETECT) 11/15/22 13:25 SARS-CoV-2 (PCR) Not detected (NOT DETECT) 11/15/22 13:25 Vitals Last Vital Signs Temp 98.0 F 11/16/22 12:00 Pulse 70 11/16/22 12:00 Resp 18 11/16/22 12:00 BP 95/60 11/16/22 12:00 Pulse Ox 96 11/16/22 12:00 O2 Del Method 11/16/22 12:00 O2 Flow Rate 2 11/16/22 00:44 Discharge Plan Discharge Patient Disposition: Home Condition: Stable Prescriptions: Continued melatonin 3 mg Tablet 3 mg PO BEDTIME calcitonin (salmon) 200 unit/actuation [place],Non-Aerosol 1 spray INTRANASAL (ALT) DAILY Rx Instructions: ALTERNATE NOSTRILS DAILY lutein 10 mg tablet 10 mg PO DAILY Rx Instructions: give with meal/snack Pepcid 20 mg tablet 20 mg PO DAILY levothyroxine 125 mcg tablet 125 mcg PO DAILY Qty: 30 2RF nitroglycerin [Nitrostat] 0.4 mg Tablet, Sublingual 0.4 mg sublingual Q5M PRN (Reason: Chest Pain) Qty: 30 0RF aspirin 81 mg tablet,delayed release (DR/EC) 81 mg PO QAM ezetimibe 10 mg tablet 10 mg PO DAILY Spiriva Respimat 2.5 mcg/actuation mist 2 puff inhalation DAILY PRN (Reason: Shortness Of Breath Or Wheezing) Changed metoprolol tartrate 25 mg tablet 12.5 mg PO BID 90 Days Qty: 180 3RF Discharge Orders: Discharge Order (Routine); Ordered 11/16/22 Ordered By: Anselmo Khan Other Ambulatory Orders: CV. echo complete* [id number] (Routine) Timeframe: 1 Week Facility: [facility] - Location: Radiology Ordered By: Anselmo Khan Referrals: Susan Romano MD [Primary Care Provider] - 4-7 days (Please call tomorrow to schedule a hosital follow up with Dr. Susan Romano.) DatarPoncho MD [Physician] - (Lung Ca, Hx radiation, pleural effusion) Patient Instructions: Pleural Effusion (GEN), Hypoxia (GEN), Thoracentesis (GEN) Activity Restrictions/Additional Instructions: Follow-up with your primary provider as well as lung specialist and oncologist regarding fluid under your left lung which has been drained. Lab studies from this fluid are still pending, please have your providers follow-up with the results. Fluid may be inflammatory following radiation treatment, but please discuss with your cancer doctor. Follow-up for echocardiogram and follow-up results with your primary provider to further assess whether there may have been a component of congestive heart failure as well. Discharge Attestations Time Spent in Discharge Care*: greater than 30 min Status at Discharge: Cognitive status at discharge: cognitively intact , Behavioral status at discharge: cooperative , Quality Metrics Clinical Quality Measures [ No reported AMI, CVA or VTE this stay] Coding Level of Care Code Acute Code for Chg Fwd Diagnoses Pleural effusion on left J90
[2022-11-19 18:39] LABS: Pleural Fld Adenosine Deami 6.7 U/L (<9.2)
== END 2022-11-16 14:59 | disposition home or self-care (01) ==
LOC: ER 17:02 → MEDSURG 17:03
PROVIDERS: Admitting Provider Internal Medicine; Emergency Provider Emergency Medicine; PCP Family Medicine; Visit Provider Internal Medicine
DX: J90 Pleural effusion, not elsewhere classified (principal); C34.32 Malignant neoplasm of lower lobe, left bronchus or lung; Z92.21 Personal history of antineoplastic chemotherapy; Z92.3 Personal history of irradiation; Z92.25 Personal history of immunosuppression therapy; I44.0 Atrioventricular block, first degree; I25.10 Atherosclerotic heart disease of native coronary artery without angina pectoris; Z95.5 Presence of coronary angioplasty implant and graft; J44.9 Chronic obstructive pulmonary disease, unspecified; E78.5 Hyperlipidemia, unspecified; K21.9 Gastro-esophageal reflux disease without esophagitis; I25.2 Old myocardial infarction; Z86.73 Personal history of transient ischemic attack (TIA), and cerebral infarction without residual deficits; Z87.891 Personal history of nicotine dependence; Z79.82 Long term (current) use of aspirin
CPT/HCPCS: 36415; 71045; 71275; 80053; 80503; 82042; 82945; 83605; 83615; 83690; 83880; 83986; 84157; 84311; 84484; 85014; 85025; 85378; 87070; 87075; 87205; 87635; 89050; 93005; 93970; 94664; 96374; 96375; 99285; G0378; J1940; J2270; J2405; Q9967

== ENCOUNTER 2022-11-25 14:06 | Oncology outpatient (recurring) (ONCR) | payer MEDICARE, SELFPAY | END 2022-12-12 23:59 | disposition home or self-care (01) | LOC: ONCMED 14:06 | PROVIDERS: PCP Family Medicine; Visit Provider Internal Medicine Hematology & Oncology | DX: C34.32 Malignant neoplasm of lower lobe, left bronchus or lung (principal); C77.8 Secondary and unspecified malignant neoplasm of lymph nodes of multiple regions; Z79.899 Other long term (current) drug therapy; Z87.891 Personal history of nicotine dependence; Z92.21 Personal history of antineoplastic chemotherapy; Z92.3 Personal history of irradiation; Z95.828 Presence of other vascular implants and grafts; Z92.25 Personal history of immunosuppression therapy | CPT/HCPCS: 96523; 99214 ==

== ENCOUNTER 2022-12-13 05:40 | Outpatient (CLI) | payer MEDICARE, SELFPAY ==
--- NOTE | 2022-12-13 08:00 | PETR_ITS ---
PROCEDURE INFORMATION: Exam: PET/CT Skull Base to Mid-thigh Exam date and time: 12/13/2022 8:04 AM Age: 82 years old Clinical indication: Abnormal radiologic findings; Densities at the right lung apex and ground-glass opacities on CTA chest on 11/15/2022. 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 LABS AND CLINICAL REPORTS: Glucose: 96 mg/dl Treatment strategy for malignancy (PET staging): Initial Staging (PI) TECHNIQUE: Imaging protocol: Following at least four-hour fasting and following the injection of F-18-FDG, low dose CT images were obtained. Then, PET images were obtained. Attenuation corrected images were constructed using the CT scan. Fused images of PET and CT were reviewed. The standardized uptake values (SUV) reported below are maximum values within a region of interest, expressed in gm/ml. Exam includes orbital meatal line to mid-thigh. Radiopharmaceutical: 14.13 mCi F-18 FDG (Fluorodeoxyglucose), IV. Time of imaging post radiopharmaceutical administration: 1 hour Injection site: Right antecubital vein COMPARISON: CTA chest 11/15/2022 and 10/10/2021, CT chest with contrast 10/28/2022, PET Scan 08/24/2021 and 04/13/2021 FINDINGS: Tubes, catheters and devices: Port catheter placed via the right internal jugular vein terminates in the superior vena cava. Brain: Visualized brain has normal physiologic uptake. Pharynx: No abnormal uptake. Larynx: No abnormal uptake. Lungs, pleura and trachea: Small spiculated opacity in the apex of the right upper lobe stable in size since 2020 with low-grade uptake of 1.6 SUV is compatible with benign scarring. The left lower lobe is collapsed with the highest uptake of 3 SUV with no focal lesion. Similar low lower uptake of 2.8 SUV noted within partially calcified left perihilar consolidation on axial image [address] of treated primary left lung cancer. There is stable calcified granuloma in the left upper lobe. 5 mm noncalcified nodule in the right lower lobe on series 3, image 48 stable in size since 08/24/2021 is compatible with another benign granuloma. loculated [id number] left pleural effusion shows no abnormal pleural uptake. Heart: Normal physiologic uptake. Mild cardiomegaly. Severe coronary artery calcification is present. There is no pericardial effusion. Mediastinal space: See below in lymph nodes Liver: No abnormal uptake. Gallbladder and bile ducts: No abnormal uptake. No calcified gallstones. Pancreas: No abnormal uptake. Spleen: No abnormal uptake. No splenomegaly. Adrenal glands: No abnormal uptake. Stable mild thickening in the body of each adrenal more prominent on the left side with no abnormal uptake compatible with benign finding. Kidneys and ureters: Normal physiologic uptake. No hydronephrosis. Stomach and bowel: No abnormal uptake. Mild diverticulosis of the left colon. Vasculature: No abnormal uptake. There is stable ectasia of the ascending aorta measuring 4 cm. No aneurysm in the descending aorta. Lymph nodes: Mildly increased uptake of 4.3 SUV within a subcentimeter focus within the aortopulmonary window on axial image 46 is new since 08/24/2021. No abnormal uptake in the left hilum. No FDG avid lymphadenopathy in the head, neck, abdomen, pelvis, and extremities. Bones/joints: No abnormal uptake in the visualized axial and appendicular skeleton. Soft tissues: Focus of increased uptake above the right femoral neck on axial image 132 persistent since prior exams is compatible with benign finding. PET/PET [facility] INITIAL [id number] IMPRESSION: Morphologically stable scarring in the apex of the right upper lobe with low-grade uptake of 1.6 SUV compatible with benign finding. Diffuse slightly increased uptake of 3 SUV within collapsed left lower lobe the possibly reflecting chronic post treatment changes with no focal masslike uptake. Mildly increased uptake of 4.3 SUV within the subcentimeter nodule in the aortopulmonary window is indeterminate, can be benign or malignant. Attention to this area is recommended on further follow-up. Of note, review of previous contrast enhanced CT chest on 11/15/2022 and 10/28/2022 revealed small linear peripheral filling defect adjacent to the posterior superior wall of the left pulmonary artery with maximal thickness of 7 mm suggestive of chronic pulmonary embolism.
== END 2022-12-13 05:41 | disposition home or self-care (01) ==
LOC: RAD 12-15 05:41
PROVIDERS: Family Provider Internal Medicine Hematology & Oncology; PCP Family Medicine; Visit Provider Internal Medicine Pulmonary Disease
DX: C34.32 Malignant neoplasm of lower lobe, left bronchus or lung (principal); R91.8 Other nonspecific abnormal finding of lung field
CPT/HCPCS: 78815; A9552

== ENCOUNTER → 2022-12-15 15:04 | Outpatient (BNVA) | payer MEDICARE, SELFPAY | PROVIDERS: Family Provider Internal Medicine Hematology & Oncology; PCP Family Medicine; Visit Provider Internal Medicine Cardiovascular Disease | DX: I25.10 Atherosclerotic heart disease of native coronary artery without angina pectoris (principal); I50.9 Heart failure, unspecified; Z86.73 Personal history of transient ischemic attack (TIA), and cerebral infarction without residual deficits; E78.5 Hyperlipidemia, unspecified; C34.92 Malignant neoplasm of unspecified part of left bronchus or lung; I47.1 Supraventricular tachycardia; J90 Pleural effusion, not elsewhere classified | CPT/HCPCS: 36415; 80048; 83880; 99214 ==

== ENCOUNTER 2022-12-25 08:19 | Outpatient (CLI) | payer MEDICARE, SELFPAY ==
--- NOTE | 2022-12-25 08:45 | USCV_ITS ---
Nirmala Meléndez Age: 82 Gender: F : 1940 Exam Date: 12/25/2022 08:58 Ordering Phys: Poncho Liang MD Technologist: CT Exam Location: [facility] [place] Indication: mr BP: 116 / 73 HR: 68 Rhythm: Sinus Technical Quality: Adequate MEASUREMENTS (Male / Female) Normal Values 2D ECHO LV Diastolic Diameter PLAX 3.1 cm 4.2 - 5.9 / 3.9 - 5.3 cm LV Systolic Diameter PLAX 2.3 cm IVS Diastolic Thickness 1.2 cm 0.6 - 1.0 / 0.6 - 0.9 cm IVS Systolic Thickness 1.5 cm LVPW Diastolic Thickness 1.1 cm 0.6 - 1.0 / 0.6 - 0.9 cm LVPW Systolic Thickness 1.2 cm LVOT Diameter 2.0 cm LV Ejection Fraction 2D Teich 54.9 % LV Ejection Fraction MOD 2C 69.5 % LV Ejection Fraction 2C AL 69.3 % LA Diameter 3.7 cm Aorta at Sinotubular Diameter 2.3 cm IVC Diameter 0.5 cm M-MODE Aortic Annulus Diameter 3.1 cm LA Ao Ratio MM 1.3 MV E Point Septal Separation 0.9 cm DOPPLER AV Peak Velocity 84.7 cm/s LVOT Peak Velocity 97.0 cm/s AV Area Cont Eq vti 3.9 cm squared AV Area Cont Eq pk 3.7 cm squared MV Peak Velocity 111.0 cm/s MV Area PHT 3.3 cm squared Mitral E to A Ratio 0.9 MV E' Velocity 52.0 cm/s Mitral E to MV E' Ratio 12.6 Mitral E to LV E' Lateral Ratio 13.1 Mitral E to LV E' Septal Ratio 12.2 TR Peak Velocity 298.7 cm/s TR Peak Gradient 35.7 mmHg TV Peak E Velocity 97.0 cm/s Right Atrial Pressure 3.0 mmHg Pulmonary Artery Systolic Pressu 38.7 mmHg RV Acceleration Time 0.1 s RV Ejection Time 0.3 s RV AcT/ET 0.3 FINDINGS Left Ventricle Normal left ventricular size and systolic function, EF 68 %. Mild left ventricular hypertrophy. No regional wall motion abnormalities. Grade I/IV diastolic dysfunction (abnormal relaxation filling pattern), normal to mildly elevated filling pressures. Right Ventricle The right ventricle is normal in size and function. Right Atrium Mildly increased right atrial size. Left Atrium Mildly increased left atrial size. Mitral Valve Thickened mitral valve. Mild mitral annular calcification. Moderate mitral valve regurgitation. Aortic Valve Thickened aortic valve. Trace to mi ld aortic valve regurgitation. Tricuspid Valve Moderate tricuspid valve regurgitation. Estimated pulmonary artery peak systolic pressure of 39 mmHg Pulmonic Valve No gross morphologic abnormalities noted Pericardium No pericardial effusion. Aorta Normal aortic annulus size. IVC Normal inferior vena cava. CONCLUSIONS Normal left ventricular size and systolic function, EF 68 %. Mild left ventricular hypertrophy. No regional wall motion abnormalities. Grade I/IV diastolic dysfunction (abnormal relaxation filling pattern), normal to mildly elevated filling pressures. Mild biatrial enlargement Moderate mitral and tricuspid regurgitation Estimated pulmonary artery peak systolic pressure 39 mmHg Minimally thickened aortic and mitral valves with mild mitral annular calcification There is no pericardial effusion. There are no intracardiac masses. Comparison with the previous study is difficult because of the difference in the technical quality. Dr Buck Hall MD [facility] (Electronically Signed) Final Date: 25 December 2022 14:49 S
== END 2022-12-25 08:20 | disposition home or self-care (01) ==
LOC: RAD 08:20
PROVIDERS: Family Provider Internal Medicine Hematology & Oncology; PCP Family Medicine; Visit Provider Internal Medicine Pulmonary Disease
DX: J90 Pleural effusion, not elsewhere classified (principal); I08.3 Combined rheumatic disorders of mitral, aortic and tricuspid valves
CPT/HCPCS: 93306

== ENCOUNTER 2022-12-25 09:18 | Oncology outpatient (recurring) (ONCR) | payer MEDICARE, SELFPAY ==
[2022-12-25 09:55] VITALS: BP 129/77; PULSE 59; RESP 16; TEMP 36.3; O2SAT 100
== END 2023-01-11 23:59 | disposition home or self-care (01) ==
PROVIDERS: Family Provider Internal Medicine Hematology & Oncology; PCP Family Medicine; Visit Provider Internal Medicine Hematology & Oncology
DX: Z45.2 Encounter for adjustment and management of vascular access device (principal)
CPT/HCPCS: 96523

== ENCOUNTER 2023-01-13 12:53 | Outpatient (CLI) | payer MEDICARE, SELFPAY ==
[2023-01-13 14:12] LABS: Anion Gap 15.3 (5-19); Blood Urea Nitrogen 24 mg/dL (8-23); Calcium 9.3 mg/dL (8.5-10.5); Carbon Dioxide 25 mmol/L (22-29); Chloride 102 mmol/L (98-107); Glucose 95 mg/dL (65-115); Magnesium 2.4 mg/dL (1.7-2.3); NT Pro B Type Natriuretic Pept 563 pg/mL (0-450); Osmolality Calculated 290 mOsm/kg (285-295); Potassium 4.3 mmol/L (3.5-5.1); Sodium 138 mmol/L (136-145)
== END 2023-01-13 12:54 | disposition home or self-care (01) ==
PROVIDERS: PCP Family Medicine; Visit Provider Internal Medicine Pulmonary Disease
DX: I25.10 Atherosclerotic heart disease of native coronary artery without angina pectoris (principal); T50.2X5A Adverse effect of carbonic-anhydrase inhibitors, benzothiadiazides and other diuretics, initial encounter; Z79.899 Other long term (current) drug therapy
CPT/HCPCS: 36415; 80048; 83735; 83880

== ENCOUNTER 2023-01-28 13:25 | Oncology outpatient (recurring) (ONCR) | payer MEDICARE, SELFPAY ==
[2023-01-28 13:56] VITALS: BP 99/66; PULSE 62; RESP 16; TEMP 36.8; O2SAT 96
== END 2023-02-11 23:59 | disposition home or self-care (01) ==
LOC: ONCMED 13:25
PROVIDERS: PCP Family Medicine; Visit Provider Internal Medicine Hematology & Oncology
DX: Z45.2 Encounter for adjustment and management of vascular access device (principal)
CPT/HCPCS: 96523

== ENCOUNTER 2023-02-25 12:47 | Oncology outpatient (recurring) (ONCR) | payer MEDICARE, SELFPAY ==
[2023-02-25 13:04] VITALS: BP 106/68; PULSE 66; RESP 18; TEMP 36.5; O2SAT 94
[2023-02-25 13:29] LABS: Basophils # 0.1 10^3/uL (0.0-0.1); Basophils % 1.2 %; Eosinophils # 0.1 10^3/uL (0.0-0.8); Eosinophils % 1.8 %; Hemoglobin 14.5 g/dL (11.5-15.3); Lymphocytes # 1.3 10^3/uL (0.8-4.8); Lymphocytes % 19.2 %; Mean Corpuscular HGB Conc 32.2 g/dL (30.0-36.0); Mean Corpuscular Hemoglobin 28.5 pg (28.0-34.0); Mean Corpuscular Volume 88.6 fl (81-99); Mean Platelet Volume 9.3 fL (7.4-10.4); Monocytes # 0.6 10^3/uL (0.2-0.9); Monocytes % 8.3 %; Neutrophils # 4.54 10^3/uL (1.8-7.7); Neutrophils % 68.9 %; Nucleated Red Blood Cells % 0 %; Platelet Count 250 10^3/cmm (130-400); Red Blood Count 5.08 10^6/uL (4.1-5.3); Red Cell Distribution Width 14.1 % (12.1-15.1); White Blood Count 6.6 10^3/uL (4.0-10.0)
[2023-02-25 13:59] LABS: Alanine Aminotransferase 13 U/L (0-33); Albumin Level 4.1 g/dL (3.5-5.2); Alkaline Phosphatase 93 U/L (35-105); Anion Gap 14.3 (5-19); Aspartate Amino Transferase 16 U/L (0-32); Blood Urea Nitrogen 19 mg/dL (8-23); Calcium 8.8 mg/dL (8.5-10.5); Carbon Dioxide 24 mmol/L (22-29); Chloride 105 mmol/L (98-107); Globulin 2.9 g/dL (1.3-4.6); Glucose 114 mg/dL (65-115); Osmolality Calculated 291 mOsm/kg (285-295); Potassium 4.3 mmol/L (3.5-5.1); Sodium 139 mmol/L (136-145); Total Bilirubin 0.4 mg/dL (0.15-1.2)
== END 2023-03-13 23:59 | disposition home or self-care (01) ==
PROVIDERS: PCP Family Medicine; Visit Provider Internal Medicine Hematology & Oncology
DX: C34.32 Malignant neoplasm of lower lobe, left bronchus or lung (principal); C77.8 Secondary and unspecified malignant neoplasm of lymph nodes of multiple regions; Z79.899 Other long term (current) drug therapy; Z87.891 Personal history of nicotine dependence; Z92.21 Personal history of antineoplastic chemotherapy; Z92.3 Personal history of irradiation; Z92.25 Personal history of immunosuppression therapy; Z45.2 Encounter for adjustment and management of vascular access device; Z95.828 Presence of other vascular implants and grafts; J44.9 Chronic obstructive pulmonary disease, unspecified; J90 Pleural effusion, not elsewhere classified
CPT/HCPCS: 36591; 80053; 85025; 96523; 99214; J1642

== ENCOUNTER 2023-03-21 05:47 | Outpatient (CLI) | payer MEDICARE, SELFPAY ==
--- NOTE | 2023-03-21 10:00 | PETR_ITS ---
PROCEDURE INFORMATION: Exam: PET/CT Skull Base to Mid-thigh Exam date and time: 03/21/2023 10:08 AM Age: 82 years old Clinical indication: Condition or disease; Primary cancer: Lung scan; Follow-up oncological assessment; Additional info: Follow up - compare to December, to be completed in 1 month. History of left lower lobe lung cancer treated with chemotherapy and radiation therapy in 2020. LABS AND CLINICAL REPORTS: Glucose: 87 mg/dl Treatment strategy for malignancy (PET staging): Restaging (PS) TECHNIQUE: Imaging protocol: Following at least four-hour fasting and following the injection of radiopharmaceutical, low dose CT images were obtained. Then, PET images were obtained. Attenuation corrected images were constructed using the CT scan. Fused images of PET and CT were reviewed. The standardized uptake values (SUV) reported below are maximum values within a region of interest, expressed in gm/ml. Exam includes orbital meatal line to mid-thigh. Radiopharmaceutical: 14.96 mCi F-18 FDG (Fluorodeoxyglucose), IV. Time of imaging post radiopharmaceutical administration: 1 hour Injection site: Right antecubital COMPARISON: PET [facility] INITIAL [id number] 12/13/2022 8:04 AM FINDINGS: Tubes, catheters and devices: A right internal jugular central venous port catheter terminates in the distal SVC. Brain: Visualized brain has normal physiologic uptake. Pharynx: No abnormal uptake. Larynx: No abnormal uptake. Lungs, pleura and trachea: Patchy consolidation in the left lower lobe is slightly decreased with mild uptake, SUV max 2.8 (previously 3.0). A noncalcified posterior right upper lobe nodule is not radiotracer avid measuring 5 mm on series 3, image 46 and is similar in size. Mild bilateral centrilobular emphysematous changes are present. Similar spiculated density near the right lung apex with band like extension to the medial pleural surface on series 3 images 32 through 38 without elevated uptake, SUV max 1.6. Moderate left pleural effusion. Heart: Normal physiologic uptake. Mediastinal space: No abnormal uptake. Liver: No abnormal uptake. Gallbladder and bile ducts: No abnormal uptake. Pancreas: No abnormal uptake. Spleen: No abnormal uptake. Adrenal glands: No abnormal uptake. Similar non radiotracer avid mild thickening and/or nodularity of the left adrenal gland measuring up to 1.2 cm in diameter on series 3, image 80 compatible with a benign finding. Kidneys and ureters: Normal physiologic uptake. Stomach and bowel: No abnormal uptake. There are scattered colonic diverticula. Vasculature: No abnormal uptake. There are diffuse atherosclerotic changes, including within the coronary arteries. Lymph nodes: Uptake within a similar to slightly increased in size approximately 9 mm in diameter lymph node in the aortopulmonary window on series 3, image 44 is noted, SUV max 5.2 (previously 4.3). Bones/joints: No abnormal uptake in the visualized axial and appendicular osseous structures. There is mild, likely inflammatory uptake in the region of the right hip joint capsule, SUV max 4.9.There is mild diffuse vertebral body spondylosis. Moderate kyphosis of the thoracic spine is present. Soft tissues: No abnormal uptake in the visualized head, neck, chest, abdomen, pelvis, and extremities. METRICS: Mediastinal blood pool: SUV max 2.8. [id number] IMPRESSION: 1. Similar spiculated density in the right lung apex without elevated uptake compatible with scarring. 2. Slightly decreased patchy consolidation in the left lower lobe with slightly decreased uptake (SUV max 2.8, previously 3.0) likely related to post treatment inflammatory changes in this patient with a history of left-sided lung cancer, with superimposed atelectasis and/or scarring. 3. Similar to slightly increased size of a lymph node in the aortopulmonary window with increase in mildly elevated uptake (SUV max 5.2, previously 4.3).This may be reactive, secondary to infectious or inflammatory involvement. Neoplastic involvement cannot be entirely excluded. 4. Similar moderate left pleural effusion. 5. Unchanged right lower lobe nodule without elevated uptake. Assessment of small nodules can be limited by PET-CT. 6. Additional nonurgent findings as detailed above.
== END 2023-03-21 05:48 | disposition home or self-care (01) ==
LOC: RAD 03-23 05:47
PROVIDERS: PCP Family Medicine; Visit Provider Internal Medicine Hematology & Oncology
DX: C34.32 Malignant neoplasm of lower lobe, left bronchus or lung (principal); J90 Pleural effusion, not elsewhere classified
CPT/HCPCS: 78815; A9552

== ENCOUNTER 2023-03-25 09:04 | Oncology outpatient (recurring) (ONCR) | payer MEDICARE, SELFPAY ==
[2023-03-25 09:26] VITALS: BP 100/65; PULSE 77; RESP 18; TEMP 36.4; O2SAT 96
[2023-03-25 09:43] LABS: Basophils # 0.1 10^3/uL (0.0-0.1); Basophils % 1.3 %; Eosinophils # 0.1 10^3/uL (0.0-0.8); Eosinophils % 2.4 %; Hematocrit 43.9 % (37.0-47.0); Hemoglobin 13.8 g/dL (11.5-15.3); Lymphocytes # 0.9 10^3/uL (0.8-4.8); Lymphocytes % 17.7 %; Mean Corpuscular HGB Conc 31.4 g/dL (30.0-36.0); Mean Corpuscular Hemoglobin 28.5 pg (28.0-34.0); Mean Corpuscular Volume 90.5 fl (81-99); Monocytes # 0.6 10^3/uL (0.2-0.9); Monocytes % 11.3 %; Neutrophils # 3.55 10^3/uL (1.8-7.7); Neutrophils % 66.9 %; Nucleated Red Blood Cells % 0 %; Platelet Count 198 10^3/cmm (130-400); Red Blood Count 4.85 10^6/uL (4.1-5.3); White Blood Count 5.3 10^3/uL (4.0-10.0)
[2023-03-25 10:11] LABS: Alanine Aminotransferase 15 U/L (0-33); Albumin Level 4.1 g/dL (3.5-5.2); Alkaline Phosphatase 88 U/L (35-105); Anion Gap 14.3 (5-19); Aspartate Amino Transferase 18 U/L (0-32); Blood Urea Nitrogen 18 mg/dL (8-23); Calcium 8.8 mg/dL (8.5-10.5); Carbon Dioxide 26 mmol/L (22-29); Chloride 107 mmol/L (98-107); Globulin 2.6 g/dL (1.3-4.6); Glucose 90 mg/dL (65-115); Osmolality Calculated 297 mOsm/kg (285-295); Potassium 4.3 mmol/L (3.5-5.1); Sodium 143 mmol/L (136-145); Total Bilirubin 0.4 mg/dL (0.15-1.2); Total Protein 6.7 g/dL (6.6-8.7)
== END 2023-04-13 23:59 | disposition home or self-care (01) ==
PROVIDERS: PCP Family Medicine; Visit Provider Internal Medicine Hematology & Oncology
DX: C34.32 Malignant neoplasm of lower lobe, left bronchus or lung (principal); C77.8 Secondary and unspecified malignant neoplasm of lymph nodes of multiple regions; Z79.899 Other long term (current) drug therapy; Z87.891 Personal history of nicotine dependence; Z92.21 Personal history of antineoplastic chemotherapy; Z92.3 Personal history of irradiation; Z92.25 Personal history of immunosuppression therapy; Z45.2 Encounter for adjustment and management of vascular access device; Z95.828 Presence of other vascular implants and grafts; I26.99 Other pulmonary embolism without acute cor pulmonale; J90 Pleural effusion, not elsewhere classified; Z79.01 Long term (current) use of anticoagulants
CPT/HCPCS: 36591; 80053; 85025; 99214; J1642

== ENCOUNTER 2023-04-22 09:44 | Oncology outpatient (recurring) (ONCR) | payer MEDICARE, SELFPAY ==
[2023-04-22 09:47] VITALS: BP 130/76; PULSE 64; RESP 18; TEMP 36.3; O2SAT 96
== END 2023-05-14 23:59 | disposition home or self-care (01) ==
LOC: ONCMED 09:45
PROVIDERS: PCP Family Medicine; Visit Provider Internal Medicine Hematology & Oncology
DX: Z45.2 Encounter for adjustment and management of vascular access device (principal)
CPT/HCPCS: 96523; J1642

== ENCOUNTER 2023-05-20 08:49 | Oncology outpatient (recurring) (ONCR) | payer MEDICARE, SELFPAY ==
[2023-05-20 08:58] VITALS: BP 113/69; PULSE 61; RESP 16; TEMP 36.5; O2SAT 97
== END 2023-06-13 23:59 | disposition home or self-care (01) ==
LOC: ONCMED 08:50
PROVIDERS: PCP Family Medicine; Visit Provider Internal Medicine Hematology & Oncology
DX: Z45.2 Encounter for adjustment and management of vascular access device (principal)
CPT/HCPCS: 96523; J1642

== ENCOUNTER 2023-06-16 14:10 | Outpatient (CLI) | payer MEDICARE, SELFPAY ==
--- NOTE | 2023-06-16 09:30 | PETR_ITS ---
PROCEDURE INFORMATION: Exam: PET/CT Skull Base to Mid-thigh Exam date and time: 06/16/2023 10:21 AM Age: 83 years old Clinical indication: Condition or disease; Primary cancer: Malignant neoplasm of lung left; Follow-up oncological assessment; Additional info: Compare to previous, please complete prior to June 24 appointment LABS AND CLINICAL REPORTS: Glucose: 107 mg/dl Treatment strategy for malignancy (PET staging): Restaging (PS) TECHNIQUE: Imaging protocol: Following at least four-hour fasting and following the injection of radiopharmaceutical, low dose CT images were obtained. Then, PET images were obtained. Attenuation corrected images were constructed using the CT scan. Fused images of PET and CT were reviewed. The standardized uptake values (SUV) reported below are maximum values within a region of interest, expressed in gm/ml. Exam includes orbital meatal line to mid-thigh. Radiopharmaceutical: 10.2 mCi F-18 FDG (Fluorodeoxyglucose), IV. Time of imaging post radiopharmaceutical administration: 1 hour Injection site: site COMPARISON: PET/CT 03/21/2023. FINDINGS: Tubes, catheters and devices: A right chest port is in good position with its tip near the SVC/RA junction. Brain: Visualized brain has normal physiologic uptake. Pharynx: No abnormal uptake. Larynx: No abnormal uptake. Lungs, pleura and trachea: Stable loculated pleural effusion at the posteroinferior aspect of the left hemithorax is not FDG avid. Stable right apical non FDG avid scarring. Left lower lobe atelectasis and scarring without focal masslike uptake. SUV max is only 1.2, previously 2.8 (image 86). Emphysema. Heart: Normal physiologic uptake. Coronary arteries: Heavily calcified coronary arteries. Mediastinal space: No abnormal uptake. Liver: No abnormal uptake. Gallbladder and bile ducts: No abnormal uptake. Pancreas: No abnormal uptake. Spleen: No abnormal uptake. Adrenal glands: No abnormal uptake. Kidneys and ureters: Normal physiologic uptake. Stomach and bowel: No abnormal uptake. Reproductive: Postmenopausal uterine and ovarian atrophy is appropriate for 83 years of age. Vasculature: There is moderate calcific atherosclerosis of the abdominal aorta and iliac arteries. There is no aneurysm. Lymph nodes: On the prior PET/CT, there was FDG avid left lower para-aortic mediastinal lymph node. It has resolved. At its former location, maximum SUV is now only 1.5, previously 5.2 (image 71). Bones/joints: Pectus excavatum. Soft tissues: Large FDG extravasation at the right antecubital injection site. There is activity within 2 draining lymphatic channels in the right upper extremity. A nonenlarged right retropectoral lymph node has a short axis of 6 mm and a maximum SUV of 5.0. It is due to the extravasation. PET/PET [facility] SUBSEQ [id number] IMPRESSION: 1. No evidence of FDG avid malignant neoplasm. 2. Stable loculated pleural effusion at the posteroinferior aspect of the left hemithorax is not FDG avid. 3. Left lower lobe atelectasis and scarring without focal masslike uptake. SUV max is only 1.2, previously 2.8. 4. Stable right apical scarring is not FDG avid. 5. Interval resolution of a left lower para-aortic mediastinal lymph node. 6. No FDG avid lymph nodes. 7. No FDG avid distant metastases. 8. Large FDG extravasation at the right antecubital injection site. Consequently, there is activity within draining lymphatics and a right retropectoral lymph node.
== END 2023-06-16 14:11 | disposition home or self-care (01) ==
LOC: RAD 14:10
PROVIDERS: PCP Family Medicine; Visit Provider Internal Medicine Hematology & Oncology
DX: C34.32 Malignant neoplasm of lower lobe, left bronchus or lung (principal); J90 Pleural effusion, not elsewhere classified; J98.11 Atelectasis
CPT/HCPCS: 78815; A9552

== ENCOUNTER 2023-06-24 11:01 | Oncology outpatient (recurring) (ONCR) | payer MEDICARE, SELFPAY ==
[2023-06-24 11:16] VITALS: BP 115/67; PULSE 73; RESP 16; TEMP 35.8; O2SAT 92
[2023-06-24 11:34] LABS: Basophils % 0.6 %; Eosinophils # 0.1 10^3/uL (0.0-0.8); Eosinophils % 1.4 %; Hematocrit 44.1 % (36-47); Lymphocytes % 15.7 %; Mean Corpuscular HGB Conc 32.4 g/dL (30-55); Mean Corpuscular Hemoglobin 29.1 pg (27-33); Mean Corpuscular Volume 89.8 fl (85-98); Mean Platelet Volume 9.1 fL (7.4-10.4); Monocytes # 0.7 10^3/uL (0.2-0.9); Monocytes % 10.6 %; Neutrophils # 4.46 10^3/uL (1.8-7.7); Neutrophils % 71.4 %; Nucleated Red Blood Cells % 0 %; Platelet Count 225 10^3/cmm (157-399); Red Blood Count 4.91 10^6/uL (3.85-5.65); White Blood Count 6.25 10^3/uL (3.29-11.43)
[2023-06-24 11:50] LABS: Alanine Aminotransferase 11 U/L (0-33); Albumin Level 4.1 g/dL (3.5-5.2); Alkaline Phosphatase 94 U/L (35-105); Anion Gap 12.5 (5-19); Aspartate Amino Transferase 18 U/L (0-32); Blood Urea Nitrogen 18 mg/dL (8-23); Carbon Dioxide 27 mmol/L (22-29); Chloride 104 mmol/L (98-107); Glucose 117 mg/dL (65-115); Osmolality Calculated 291 mOsm/kg (285-295); Potassium 4.5 mmol/L (3.5-5.1); Sodium 139 mmol/L (136-145); Total Bilirubin 0.4 mg/dL (0.15-1.2); Total Protein 7.1 g/dL (6.6-8.7)
== END 2023-07-14 23:59 | disposition home or self-care (01) ==
PROVIDERS: Internal Medicine Medical Oncology; PCP Family Medicine; Visit Provider Internal Medicine Hematology & Oncology
DX: C34.32 Malignant neoplasm of lower lobe, left bronchus or lung (principal); Z87.891 Personal history of nicotine dependence
CPT/HCPCS: 36415; 80053; 85025; 99215; J1642

== ENCOUNTER → 2023-06-29 14:55 | Outpatient (BNVA) | payer MEDICARE, SELFPAY | PROVIDERS: PCP Family Medicine; Visit Provider Internal Medicine Cardiovascular Disease | DX: R06.02 Shortness of breath (principal) | CPT/HCPCS: 36415; 80048; 83880; 99214 ==

== ENCOUNTER → 2023-07-07 11:17 | Outpatient (BNVA) | payer MEDICARE, SELFPAY | PROVIDERS: PCP Family Medicine; Referring Provider Internal Medicine Medical Oncology; Visit Provider Surgery | DX: Z95.828 Presence of other vascular implants and grafts (principal) | CPT/HCPCS: 99214 ==

== ENCOUNTER → 2023-07-14 11:09 | Outpatient (BNVA) | payer MEDICARE, SELFPAY | PROVIDERS: PCP Family Medicine; Visit Provider Surgery | DX: Z95.828 Presence of other vascular implants and grafts (principal) | CPT/HCPCS: 36590; 99214 ==

== ENCOUNTER → 2023-08-24 09:20 | Outpatient (BNVA) | payer MEDICARE, SELFPAY | PROVIDERS: PCP Family Medicine; Visit Provider Internal Medicine Pulmonary Disease | DX: C34.32 Malignant neoplasm of lower lobe, left bronchus or lung (principal); Z87.891 Personal history of nicotine dependence; J90 Pleural effusion, not elsewhere classified; J43.2 Centrilobular emphysema | CPT/HCPCS: 99214 ==

== ENCOUNTER 2023-09-15 11:24 | Outpatient (CLI) | payer MEDICARE, SELFPAY ==
[2023-09-15 13:10] LABS: Blood Urea Nitrogen 19 mg/dL (8-23)
[2023-09-15] MEDS: iohexol 350 mg/mL 500 mL Btl (per mL) IV (13:24)
--- NOTE | 2023-09-15 13:30 | CTR_ITS ---
PROCEDURE INFORMATION: Exam: CT Chest With Contrast; Diagnostic Exam date and time: 09/15/2023 1:12 PM Age: 83 years old Clinical indication: Condition or disease; Lung condition and disease; Cancer of the lung; Bilateral; Unspecified; Primary cancer: Lulng; Prior surgery; Surgery date: 6+ months; Surgery type: Port in and out; Additional info: Surveillance TECHNIQUE: Imaging protocol: Diagnostic computed tomography of the chest with contrast. Total images: 684 Radiation optimization: All CT scans at this facility use at least one of these dose optimization techniques: automated exposure control; mA and/or kV adjustment per patient size (includes targeted exams where dose is matched to clinical indication); or iterative reconstruction. Contrast material: OMNI 350; Contrast volume: 95 ml; Contrast route: INTRAVENOUS (IV); COMPARISON: 1. CT angio chest PE protcl [id number] 11/15/2022 2:[address] chest w con* [id number] 10/28/2022 10:43 AM RADIATION DOSE METRICS: Total DLP (mGy-cm): 200.32 FINDINGS: Lungs: Consolidation of the left lower lobe with heterogeneous attenuation and traction bronchiectasis suggesting primarily atelectasis and scarring. An underlying pneumonia cannot be excluded. Somewhat masslike peripheral enlargement within this area series 4, image 34 will need to be followed on subsequent exams. Soft tissue thickening in the left hilar area and extending to AP window and along left bronchus appears similar to prior exam. 6 mm nodule posteriorly in the superior segment of the right lower lobe series 4, image 28 unchanged. Spiculated area of interstitial thickening in the right lung apex which extends to the pleura as well as anteriorly in the left upper lobe appears similar to prior exams in felt to represent areas of scarring. Moderate centrilobular emphysematous changes are present. Benign granulomatous disease of the lung is noted. Pleural spaces: Small to moderate left pleural effusion improved from prior exam. Heart: Unremarkable. No cardiomegaly. No pericardial effusion. Coronary arteries: Moderate coronary arterial calcification, indicating the presence of coronary artery disease. Lymph nodes: Unremarkable. No enlarged lymph nodes. 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 Moderate atherosclerotic disease is evident. Bones/joints: Unremarkable. No acute fracture. Soft tissues: Soft tissue thickening with minimal subjacent subcutaneous soft tissue thickening in the right chest wall felt the correspond to previous site of patient's vascular port. CT/CT chest w con* [id number] IMPRESSION: 1. 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 2. Small to moderate left pleural effusion improved from prior exam. 3. Consolidation of the left lower lobe with heterogeneous attenuation and traction bronchiectasis suggesting primarily atelectasis and scarring. An underlying pneumonia cannot be excluded. Somewhat masslike peripheral enlargement within this area series 4, image 34 will need to be followed on subsequent exams. 4. Soft tissue thickening in the left hilar area and extending to AP window and along left bronchus appears similar to prior exam. 5. 6 mm nodule posteriorly in the superior segment of the right lower lobe series 4, image 28 unchanged. 6. Spiculated area of interstitial thickening in the right lung apex which extends to the pleura as well as anteriorly in the left upper lobe appears similar to prior exams in felt to represent areas of scarring. 7. Moderate centrilobular emphysematous changes are present. 8. Moderate coronary arterial calcification, indicating the presence of coronary artery disease. If the patient has associated symptoms recommend management as per chest pain guidelines. If the patient is asymptomatic consider reviewing modifiable cardiovascular risk factors and managing as per guidelines for primary prevention.
== END 2023-09-15 11:25 | disposition home or self-care (01) ==
LOC: RAD 11:25
PROVIDERS: PCP Family Medicine; Visit Provider Internal Medicine Medical Oncology
DX: C34.32 Malignant neoplasm of lower lobe, left bronchus or lung (principal); I72.2 Aneurysm of renal artery; J90 Pleural effusion, not elsewhere classified; J47.9 Bronchiectasis, uncomplicated; J43.2 Centrilobular emphysema; I25.10 Atherosclerotic heart disease of native coronary artery without angina pectoris
CPT/HCPCS: 71260; 82565; 84520; Q9967

== ENCOUNTER 2023-09-23 21:43 | Emergency (ER) | payer MEDICARE, SELFPAY ==
[2023-09-23 21:44] VITALS: BP 132/77; PULSE 77; RESP 18; TEMP 36.9; O2SAT 93; BMI 20.5
--- NOTE | 2023-09-23 22:01 | XRR_ITS ---
PROCEDURE INFORMATION: Exam: XR Chest Exam date and time: 09/23/2023 10:38 PM Age: 83 years old Clinical indication: Cough and fever; Additional info: Cough, fever TECHNIQUE: Imaging protocol: Radiologic exam of the chest. Views: 1 view. COMPARISON: CT chest w con* [id number] 09/15/2023 1:12 PM FINDINGS: Lungs: Left lower lobe compressive atelectasis. The right lung is clear. Pleural spaces: See Heart/Mediastinum finding. Heart/Mediastinum: Unchanged left pleural effusion which obscures the diaphragm and heart border. The heart size is normal. Bones/joints: Unremarkable. XR/XR chest 1V portable [id number] IMPRESSION: Persisting moderate left pleural effusion with lower lobe atelectasis
--- NOTE | 2023-09-23 22:08 | ED_ITS ---
HPI - COVID 2 General: Chief Complaint: COVID symptoms Stated Complaint: Flu A Time Seen by Provider: 09/23/23 22:01 History of Present Illness: 83-year-old female comes in today with c ough and congestion since last . Patient was seen by primary care on Thursday and diagnosed with influenza A. Patient took 5 days of Tamiflu and felt she was getting better until today when she started coughing and feeling discomfort in the right posterior back radiating into the low back. Abdomen soft nontender. No edema is noted in the extremities. Skin is warm and dry. COVID 19 common symptoms: positive non-productive cough, dyspnea and body aches; negative headache(s), nausea, vomiting or diarrhea COVID 19 other sytmptoms: negative chest pain COVID Results: 2 SARS-CoV-2 Antigen (Rapid) negative (Negative) 09/23/23 22:44 Nasal/Oral Coronavirus 2019 PCR Not detected 06/17/21 10:36 SARS-CoV-2 (PCR) Not detected (NOT DETECT) 11/15/22 13:25 Coronavirus Type 229E (PCR) Not detected (NOT DETECT) 11/15/22 13:25 Review of Systems 2 General: Reports: 10 or more systems reviewed and unremarkable except in HPI and below Const: Reports: body aches Card: Denies: chest pain Resp: Reports: dyspnea and non-productive cough GI: Denies: nausea, vomiting, diarrhea or constipation : Denies: difficulty voiding Musc: Denies: back pain Skin/Breast: Denies: rash Neuro: Denies: headache(s) PFS ED 2 PFSH: Medical History Pleural effusion Lung cancer CAD (coronary artery disease) Squamous cell carcinoma of left lung COPD (chronic obstructive pulmonary disease) SOB (shortness of breath) Atherosclerotic heart disease of [place] coronary artery without angina pectoris TIA (transient ischemic attack) Statin intolerance Atelectasis of left lung Abnormal liver enzymes Gastroesophageal reflux Supraventricular tachycardia Dyslipidemia statin intolerant, taking ezetimibe. NSTEMI (non-ST elevated myocardial infarction) Surgical History Port-A-Cath in place (06/24/21) right IJ Status post colonoscopy History of bronchoscopy History of coronary artery stent placement Family History Mother Hypertension Dementia CAD (coronary artery disease) Myocardial infarction Denies family history of Diabetes Clotting disorder Chronic kidney disease (CKD) Suicide Anesthesia complication Bleeding disorder Lung disease Cancer Stroke Social History Smoking and tobacco/nicotine status: former use of tobacco/nicotine Quit status (tobacco/nicotine): has quit using Year quit tobacco: 1979 Former quit date comment: 3ppd x 20 years Alcohol intake: never Substance/Drug Use: never Lives independently: Yes Household members: none Housing: House Marital status: / Physical Exam 2 Const: COMMON NORMALS: alert HENMT: COMMON NORMALS: normocephalic HEAD & SCALP: normocephalic Neck/C-Spine: COMMON NORMALS: no meningeal signs Resp: COMMON NORMALS: normal respiratory effort AUSCULTATION: crackles (Bilateral bases worse on the right) Cardio: COMMON NORMALS: regular rate and regular rhythm RATE: regular rate RHYTHM: regular rhythm GI: COMMON NORMALS: non-tender Back/Pelvis: COMMON NORMALS: thoracic and lumbar spine normal to inspection Extremity: COMMON NORMALS: no pedal edema Neuro: SENSORIUM/ORIENTATION: Yes alert MENINGEAL SIGNS: Yes no meningeal signs Skin: COMMON NORMALS: turgor normal GENERAL SKIN EXAM: turgor normal Course 2 Vital Signs: Vital signs: Vital Signs Temperature 98.4 F 09/23/23 21:44 Pulse Rate 85 09/23/23 23:56 Respiratory Rate 18 09/23/23 23:21 Blood Pressure 123/86 09/23/23 23:56 Pulse Oximetry 95 09/23/23 23:56 Oxygen Delivery Me thod Room Air 09/23/23 23:29 MDM - COVID Medical Decision Making 83-year-old female comes in today for complaints of worsening cough. Patient reports that she was diagnosed with influenza last Thursday after being ill for 1 day. Patient finished up Tamiflu yesterday and reports since yesterday she started feeling ill again with worsening cough. On exam patient lungs have crackles in the bases worse on the right. Heart rates regular. Skin is warm and dry. No edema is noted in the extremities. Differential diagnosis includes not limited to viral syndrome, COVID-19, influenza, pneumonia. Chest x-ray showed no significant changes from prior exam with a left pleural effusion. CBC and CMP were unremarkable. Auscultation noted some crackles in the right lower lung which makes concern for some early pneumonia. Patient will be started on doxycycline. Patient was positive for influenza A but negative for influenza B and COVID. Reviewed exam recommendations with patient with need for follow-up. Patient reported understanding agreed to plan. Lab Data 09/23/23 22:35 09/23/23 22:35 Radiology Impressions Chest X-Ray 09/23/23 22: IMPRESSION: Persisting moderate left pleural effusion with lower lobe atelectasis Laboratory Results WBC 8.58 10^3/uL (3.29-11.43) 09/23/23 22:35 RBC 4.47 10^6/uL (3.85-5.65) 09/23/23 22:35 Hgb 12.90 g/dL (11.27-16.99) 09/23/23 22:35 Hct 39.8 % (36-47) 09/23/23 22:35 MCV 89.0 fl (85-98) 09/23/23 22:35 MCH 28.9 pg (27-33) 09/23/23 22:35 MCHC 32.4 g/dL (30-55) 09/23/23 22:35 RDW 13.7 % (12.1-15.1) 09/23/23 22:35 Plt Count 170 10^3/cmm (157-399) 09/23/23 22: MPV 9.1 fL (7.4-10.4) 09/23/23 22:35 Neut % (Auto) 73.9 % 09/23/23 22:35 Lymph % (Auto) 13.4 % 09/23/23 22:35 [place] % (Auto) 11.0 % 09/23/23:35 Eos % (Auto) 0.9 % 09/23/23: Baso % (Auto) 0.3 % 09/23/23:35 Neut # (Auto) 6.34 10^3/uL (1.8-7.7) 09/23/23: Lymph # (Auto) 1.2 10^3/uL (0.8-4.8) 09/23/23 22:35 [place] # (Auto) 0.9 10^3/uL (0.2-0.9) 09/23/23 22:35 Eos # (Auto) 0.1 10^3/uL (0.0-0.8) 09/23/23 22:35 Baso # (Auto) 0.0 10^3/uL (0.0-0.1) 09/23/23 22:35 Nucleated RBC % (auto) 0 % 09/23/23 22:35 Nucleated RBCs # 0.0 /100WBC 09/23/23 22:35 Sodium 136 mmol/L (136-145) 09/23/23 22:35 Potassium 4.0 mmol/L (3.5-5.1) 09/23/23 22:35 Chloride 101 mmol/L (98-107) 09/23/23 22:35 Carbon Dioxide 26 mmol/L (22-29) 09/23/23 22:35 Anion Gap 13.0 (5-19) 09/23/23 22:35 BUN 20 mg/dL (8-23) 09/23/23 22:35 Creatinine 0.8 mg/dL (0.5-0.9) 09/23/23 22:35 GFR Calculation Not Reportable 09/23/23 22:35 Glucose 111 mg/dL (65-115) 09/23/23 22:35 Calculated Osmolality 285 mOsm/kg (285-295) 09/23/23 22:35 Calcium 9.0 mg/dL (8.5-10.5) 09/23/23 22:35 Total Bilirubin 0.4 mg/dL (0.15-1.2) 09/23/23 22:35 AST 20 U/L (0-32) 09/23/23 22:35 ALT 18 U/L (0-33) 09/23/23 22:35 Alkaline Phosphatase 78 U/L (35-105) 09/23/23 22:35 Total Protein 6.6 g/dL (6.6-8.7) 09/23/23 22:35 Albumin 3.4 g/dL (3.5-5.2) L 09/23/23 22:35 Globulin 3.2 g/dL (1.3-4.6) 09/23/23 22:35 Influenza Type A Ag Positive (Negative) H 09/23/23 22:44 Influenza Type B Ag Negative (Negative) 09/23/23 22:44 SARS-CoV-2 Ag (Rapid) negative (Negative) 09/23/23 22:44 2 SARS-CoV-2 Antigen (Rapid) negative (Negative) 09/23/23 22:44 Nasal/Oral Coronavirus 2019 PCR Not detected 06/17/21 10:36 SARS-CoV-2 (PCR) Not detected (NOT DETECT) 11/15/22 13:25 Coronavirus Type 229E (PCR) Not detected (NOT DETECT) 11/15/22 13:25 All radiology interpretation(s) finalized by discharge Discharge Plan Discharge Patient Disposition: Home Clinical Impression: Acute lower respiratory infection Condition: Stable Prescriptions: New doxycycline hyclate 100 mg capsule 100 mg PO BID 7 Days Qty: 14 0RF No Action melatonin 3 mg Tablet 3 mg PO BEDTIME calcitonin (salmon) 200 unit/actuation [place],Non-Aerosol 1 spray INTRANASAL (ALT) DAILY Rx Instructions: ALTERNATE NOSTRILS DAILY Pepcid 20 mg tablet 20 mg PO DAILY levothyroxine 125 mcg tablet 125 mcg PO DAILY Qty: 30 2RF potassium chloride 10 mEq tablet extended release 10 meq PO DAILY PreserVision AREDS 2 Plus MV 200 mcg-15 mcg- 5 mg-1 mg capsule PO furosemide 20 mg tablet 20 mg PO DAILY Qty: 90 3RF nitroglycerin [Nitrostat] 0.4 mg Tablet, Sublingual 0.4 mg sublingual Q5M PRN (Reason: Chest Pain) Qty: 30 0RF aspirin 81 mg tablet,delayed release (DR/EC) 81 mg PO QAM ezetimibe 10 mg tablet 10 mg PO DAILY Spiriva Respimat 2.5 mcg/actuation mist 2 puff inhalation DAILY PRN (Reason: Shortness Of Breath Or Wheezing) metoprolol tartrate 25 mg tablet 12.5 mg PO BID 90 Days Qty: 180 3RF Discharge Orders: Discharge ED (Routine); Ordered 09/23/23 Ordered By: Dick Alves Referrals: Susan Romano MD [Primary Care Provider] - Discharge Diet: Usual diet Discharge Activity: Increase activity as tolerated Patient Instructions: Pneumonia (ED) Activity Restrictions/Additional Instructions: Your x-ray does not show pneumonia although your physical exam noted some crackles in the right base which may be suggestive of early pneumonia. Will go ahead and treat with doxycycline for pneumonia. Take medication as directed. Use your Spiriva inhaler as prescribed. May use [id number] cough medicine to help with cough. Follow-up with Dr. Romano in 2 to 3 days for recheck. Return to ED for worsening symptoms. 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
[2023-09-23 22:39] LABS: Basophils % 0.3 %; Eosinophils # 0.1 10^3/uL (0.0-0.8); Eosinophils % 0.9 %; Hematocrit 39.8 % (36-47); Lymphocytes # 1.2 10^3/uL (0.8-4.8); Lymphocytes % 13.4 %; Mean Corpuscular HGB Conc 32.4 g/dL (30-55); Mean Corpuscular Hemoglobin 28.9 pg (27-33); Mean Platelet Volume 9.1 fL (7.4-10.4); Monocytes # 0.9 10^3/uL (0.2-0.9); Neutrophils # 6.34 10^3/uL (1.8-7.7); Neutrophils % 73.9 %; Nucleated Red Blood Cells % 0 %; Platelet Count 170 10^3/cmm (157-399); Red Blood Count 4.47 10^6/uL (3.85-5.65); Red Cell Distribution Width 13.7 % (12.1-15.1); White Blood Count 8.58 10^3/uL (3.29-11.43)
[2023-09-23 22:55] VITALS: PULSE 88; O2SAT 98
[2023-09-23 22:57] LABS: Alanine Aminotransferase 18 U/L (0-33); Albumin Level 3.4 g/dL (3.5-5.2); Alkaline Phosphatase 78 U/L (35-105); Aspartate Amino Transferase 20 U/L (0-32); Blood Urea Nitrogen 20 mg/dL (8-23); Carbon Dioxide 26 mmol/L (22-29); Chloride 101 mmol/L (98-107); Globulin 3.2 g/dL (1.3-4.6); Glucose 111 mg/dL (65-115); Osmolality Calculated 285 mOsm/kg (285-295); Sodium 136 mmol/L (136-145); Total Bilirubin 0.4 mg/dL (0.15-1.2); Total Protein 6.6 g/dL (6.6-8.7)
[2023-09-23 23:11] LABS: SARS Covid-2 Antigen negative (Negative)
[2023-09-23 23:13] LABS: Influenza A by IFA Positive (Negative); Influenza B by IFA Negative (Negative)
[2023-09-23 23:21] VITALS: PULSE 80; RESP 18; O2SAT 96
[2023-09-23] MEDS: ipratropium-albuterol 3 mL Neb INHALATION (23:21)
[2023-09-23 23:29] VITALS: PULSE 78; O2SAT 97
[2023-09-23] MEDS: doxycycline 100 mg Tablet PO (23:47)
[2023-09-23] MEDS: dexamethasone 10 mg/mL INJ IM (23:51)
[2023-09-23 23:56] VITALS: BP 123/86; PULSE 85; O2SAT 95
== END 2023-09-24 00:03 | disposition home or self-care (01) ==
PROVIDERS: Emergency Provider Nurse Practitioner Family; PCP Family Medicine
DX: J10.1 Influenza due to other identified influenza virus with other respiratory manifestations (principal); Z79.82 Long term (current) use of aspirin; Z87.891 Personal history of nicotine dependence; Z85.118 Personal history of other malignant neoplasm of bronchus and lung; I25.10 Atherosclerotic heart disease of native coronary artery without angina pectoris; Z86.73 Personal history of transient ischemic attack (TIA), and cerebral infarction without residual deficits; E78.5 Hyperlipidemia, unspecified; I25.2 Old myocardial infarction; Z11.52 Encounter for screening for COVID-19; J44.9 Chronic obstructive pulmonary disease, unspecified
CPT/HCPCS: 36415; 71045; 80053; 85025; 87426; 87804; 94640; 96372; 99284; J1100

== ENCOUNTER 2023-09-27 15:30 | Emergency (ER) | payer MEDICARE, SELFPAY ==
[2023-09-27 15:32] VITALS: BMI 23.3
[2023-09-27 15:36] VITALS: BP 143/89; PULSE 87; RESP 16; TEMP 36.8; O2SAT 96
[2023-09-27 18:06] LABS: Add Urine Microscopic? YES; Bilirubin Urine Neg (Negative); Blood Urine Neg (Negative); Glucose Urine UA Norm (Normal); Ketones Urine Negative (Negative); Leukocyte Esterase Urine 2+ (Negative); Nitrate Urine Negative (Negative); Protein Urine Neg (Negative); Urine Appearance Clear (CLEAR); Urine Color Yellow (Yellow); Urobilinogen Urine Norm (Negative); pH Urine 6 (5-7)
[2023-09-27 18:07] LABS: Add Urine Culture? Yes; Bacteria Urine 1+ /hpf; Mucus Urine 1+ /hpf; WBC Urine 15-25 /hpf (0-5)
[2023-09-27 18:08] VITALS: BP 125/83; PULSE 73; O2SAT 97
--- NOTE | 2023-09-27 18:08 | PC.NURSE ---
assumed care at 1800
--- NOTE | 2023-09-27 18:27 | XRR_ITS ---
PROCEDURE INFORMATION: Exam: XR Lumbosacral Spine Exam date and time: 09/27/2023 6:34 PM Age: 83 years old Clinical indication: Lumbago; Patient HX: Low back pain; No known injury TECHNIQUE: Imaging protocol: Radiologic exam of the lumbosacral spine. Views: 2 or 3 views. COMPARISON: No relevant prior studies available. FINDINGS: Bones/joints: No acute fracture. Intervertebral spaces are well-maintained. Diffuse demineralization of the bones. Soft tissues: Unremarkable. XR/XR lumbar spine 2-3V* [id number] IMPRESSION: No acute fracture.
--- NOTE | 2023-09-27 18:28 | W.ED.BACK ---
HPI - Back Pain/Injury General: Chief Complaint: Back Pain/Injury Stated Complaint: BACK PAIN Time Seen by Provider: 09/27/23 17:52 Source: patient Mode of arrival: EMS Limitations: no limitations History of Present Illness: Patient is an 83-year-old female here via EMS for evaluation of lower back pain over the past several days. She states about a week or so ago she was seen by PCP for complaints of cough, congestion, body aches. She states she tested positive for influenza A and and placed on 5 days of Tamiflu. She states her cough has persisted and she feels like she has strained her lower back from coughing so much. No abdominal pain. She has no complaints of chest pain or upper back pain. No fevers. Denies radicular pain into her legs. Pain is worse with movement and coughing. MD elicited complaint: back pain Onset (ago): day(s) Timing: constant Severity: moderate Similar Symptoms Previously: No Location: right lower back and left lower back Radiation: none Exacerbating factors: movement and coughing/sneezing Relieving factors: none Associated symptoms: Reports difficulty walking (sometimes secondary to pain in her back); Deny abdominal pain, chills, dysuria, fatigue, fever(s), nausea, syncope, urinary urgency or vomiting Work related injury: No Review of Systems Const: Denies: fever(s), chills, body aches, fatigue or malaise ENMT: Denies: throat pain, odynophagia, nasal discharge, nasal congestion or sinus pain Card: Denies: chest pain, palpitations, irregular heart rhythm, edema, swelling of feet/ankles, lightheadedness, syncope or pre-syncope Resp: Reports: productive cough and chest congestion; Denies: dyspnea, wheezing, stridor, pain on inspiration, change in phlegm color or hemoptysis GI: Denies: abdominal pain, nausea, vomiting or diarrhea : Denies: flank pain, difficulty voiding, dysuria, urinary frequency, urinary urgency or urinary hesitancy Musc: Reports: back pain; Denies: neck pain, extremity pain, extremity swelling, joint pain, joint swelling or joint redness Skin/Breast: Denies: rash Neuro: Reports: difficulty walking (sometimes secondary to pain in her back); Denies: headache(s), numbness in extremities, weakness in extremities or sensory changes [facility] PFSH: Medical History Pleural effusion Lung cancer CAD (coronary artery disease) Squamous cell carcinoma of left lung COPD (chronic obstructive pulmonary disease) SOB (shortness of breath) Atherosclerotic heart disease of [place] coronary artery without angina pectoris TIA (transient ischemic attack) Statin intolerance Atelectasis of left lung Abnormal liver enzymes Gastroesophageal reflux Supraventricular tachycardia Dyslipidemia statin intolerant, taking ezetimibe. NSTEMI (non-ST elevated myocardial infarction) Surgical History Port-A-Cath in place (06/24/21) right IJ Status post colonoscopy History of bronchoscopy History of coronary artery stent placement Family History Mother Hypertension Dementia CAD (coronary artery disease) Myocardial infarction Denies family history of Diabetes Clotting disorder Chronic kidney disease (CKD) Suicide Anesthesia complication Bleeding disorder Lung disease Cancer Stroke Social History Smoking and tobacco/nicotine status: former use of tobacco/nicotine Quit status (tobacco/nicotine): has quit using Year quit tobacco: 1979 Former quit date comment: 3ppd x 20 years Alcohol intake: never Substance/Drug Use: never Lives independently: Yes Household members: none Housing: House Marital status: / Physical Exam Const: COMMON NORMALS: no acute distress, patient oriented x3, no limitations, healthy appearing, alert and well nourished GENERAL APPEARANCE: cooperative NUTRITIONAL APPEARANCE: thin ORIENTATION/CONSCIOUSNESS: Yes awake, Yes oriented to person, Yes oriented to place and Yes oriented to time HENMT: COMMON NORMALS: normocephalic and atraumatic HEAD & SCALP: normal to inspection, normocephalic and atraumatic Resp: COMMON NORMALS: normal respiratory effort and clear to auscultation bilaterally AUSCULTATION: clear to auscultation bilaterally Cardio: COMMON NORMALS: regular rate and regular rhythm RATE: regular rate RHYTHM: regular rhythm GI: COMMON NORMALS: Normal to inspection, nondistended, normoactive bowel sounds present, Soft to palpation, non-tender, No hepatosplenomegaly present and no masses PALPATION: Yes Soft to palpation and Yes No hepatosplenomegaly present : COMMON NORMALS: Yes no CVA tenderness BLADDER/KIDNEY EXAM: Yes no CVA tenderness Back/Pelvis: COMMON NORMALS: no CVA tenderness and straight leg raise negative bilaterally THORACIC SPINE/UPPER BACK: Yes normal to inspection, No thoracic spinal tenderness, No paraspinal muscle tenderness and No paraspinal muscle spasm LUMBAR SPINE/LOWER BACK: Yes normal to inspection, Yes ROM limited, Yes paraspinal muscle tenderness (across lower back), No paraspinal muscle spasm and Yes straight leg raise negative bilaterally PELVIS: Yes buttocks normal and No sciatic notch tenderness SACROILIAC JOINTS: Yes SI joints normal SACRUM: no tenderness COCCYX: no tenderness Extremity: COMMON NORMALS: normal to inspection GENERAL: Yes normal exam except as noted Neuro: COMMON NORMALS: patient oriented x3, moves all extremities, no focal motor deficits and no sensory deficits noted SENSORIUM/ORIENTATION: Yes alert, Yes oriented to person, Yes oriented to place and Yes oriented to time SENSORY EXAM: Yes extremities (normal) MOTOR EXAM: 5/5 motor strength present throughout Skin: COMMON NORMALS: no rashes or lesions noted GENERAL SKIN EXAM: no rashes or lesions noted Course Vital Signs: Vital signs: Vital Signs Temperature 98.3 F 09/27/23 15:36 Pulse Rate 73 09/27/23 18:08 Respiratory Rate 16 09/27/23 15:36 Blood Pressure 125/83 09/27/23 18:08 Pulse Oximetry 97 09/27/23 18:08 Oxygen Delivery Me thod Room Air 09/27/23 18:08 MDM - Back Pain/Injury Medical Decision Making Patient feels better after IM pain medications. Lumbar XR negative. She has no upper back pain or chest pain. No abdominal pain. I have no concern for pneumonia, aneurysm/dissection, pyelonephritis, epidural abscess/discitis, cord compression, or any other emergent etiology for her lower back pain. Pain is reproducible across her lower back. Most likely she has strained this from coughing. UA was ordered in triage. She did have 2+ leukocyte esterase and 15-25 WBCs but sample was contaminated with 5-10 squamous epithelial cells. She has no complaints of dysuria, frequency, urgency. Will culture and hold off on additional antibiotics. She is already taking doxycycline that was prescribed to her on her last visit. Medical Records I reviewed the patient's medical records. Labs I reviewed the patient's lab results. Laboratory Results Urine Color Yellow (Yellow) 09/27/23 17:45 Urine Appearance Clear (CLEAR) 09/27/23 17:45 Urine pH 6 (5-7) 09/27/23 17:45 Ur Specific Parsons 1.010 (1.005-1.030) 09/27/23 17:45 Urine Protein Neg (Negative) 09/27/23 17:45 Urine Glucose (UA) Norm (Normal) 09/27/23 17:45 Urine Ketones Negative (Negative) 09/27/23 17:45 Urine Blood Neg (Negative) 09/27/23 17:45 Urine Nitrate Negative (Negative) 09/27/23 17:45 Urine Bilirubin Neg (Negative) 09/27/23 17:45 Urine Urobilinogen Norm mg/dL (Negative) 09/27/23 17:45 Ur Leukocyte Esterase 2+ (Negative) H 09/27/23 17:45 Urine RBC None /hpf (0-2) 09/27/23 17:45 Urine WBC 15-25 /hpf (0-5) H 09/27/23 17:45 Ur Squamous Epith Cells 5-10 /hpf (0-5) H 09/27/23 17:45 Amorphous Sediment Not Reportable 09/27/23 17:45 Urine Bacteria 1+ /hpf (NONE) H 09/27/23 17:45 Urine Mucus 1+ /hpf 09/27/23 17:45 All radiology interpretation(s) finalized by discharge Discharge Plan Discharge Patient Disposition: Home Clinical Impression: Low back strain Qualifiers: Encounter type: initial encounter Qualified Code(s): S39.012A - Strain of muscle, fascia and tendon of lower back, initial encounter Condition: Stable Prescriptions: New tramadol 50 mg tablet 50 mg PO Q6H PRN (Reason: pain) Qty: 10 0RF No Action melatonin 3 mg Tablet 3 mg PO BEDTIME calcitonin (salmon) 200 unit/actuation Calypso,Non-Aerosol 1 spray INTRANASAL (ALT) DAILY Rx Instructions: ALTERNATE NOSTRILS DAILY Pepcid 20 mg tablet 20 mg PO DAILY levothyroxine 125 mcg tablet 125 mcg PO DAILY Qty: 30 2RF potassium chloride 10 mEq tablet extended release 10 meq PO DAILY PreserVision AREDS 2 Plus MV 200 mcg-15 mcg- 5 mg-1 mg capsule PO furosemide 20 mg tablet 20 mg PO DAILY Qty: 90 3RF nitroglycerin [Nitrostat] 0.4 mg Tablet, Sublingual 0.4 mg sublingual Q5M PRN (Reason: Chest Pain) Qty: 30 0RF aspirin 81 mg tablet,delayed release (DR/EC) 81 mg PO QAM ezetimibe 10 mg tablet 10 mg PO DAILY Spiriva Respimat 2.5 mcg/actuation mist 2 puff inhalation DAILY PRN (Reason: Shortness Of Breath Or Wheezing) metoprolol tartrate 25 mg tablet 12.5 mg PO BID 90 Days Qty: 180 3RF doxycycline hyclate 100 mg capsule 100 mg PO BID 7 Days Qty: 14 0RF Discharge Orders: Discharge ED (Routine); Ordered 09/27/23 Ordered By: Dilma Garcia Referrals: Susan Romano MD [Primary Care Provider] - Patient Instructions: Opioid Safety, Pain Management Activity Restrictions/Additional Instructions: As we discussed we will await the results of your urine culture as you are not having any UTI like symptoms and your urine analysis results here were somewhat contaminated. We will provide you pain medications to help with your lower back discomfort. Please follow-up with your primary care provider this week if symptoms persist. Coding Level of Care Code ED [employer] for Pieter Hidalgo
[2023-09-27] MEDS: morphine 4 mg/mL SDV 1 mL IVP (18:42)
--- NOTE | 2023-09-27 19:28 | PC.NURSE ---
Per FANNY Garcia orders pt sent home with 2x 50mg tabs of Tramadol.
[2023-09-27 19:36] VITALS: BP 157/101; PULSE 83; RESP 16; O2SAT 98
== END 2023-09-27 19:36 | disposition home or self-care (01) ==
PROVIDERS: Internal Medicine; Emergency Provider Physician Assistant; PCP Family Medicine
DX: S39.012A Strain of muscle, fascia and tendon of lower back, initial encounter (principal); Z79.82 Long term (current) use of aspirin; Z87.891 Personal history of nicotine dependence; Z85.118 Personal history of other malignant neoplasm of bronchus and lung; I25.10 Atherosclerotic heart disease of native coronary artery without angina pectoris; J44.9 Chronic obstructive pulmonary disease, unspecified; Z86.73 Personal history of transient ischemic attack (TIA), and cerebral infarction without residual deficits; E78.5 Hyperlipidemia, unspecified; I25.2 Old myocardial infarction; X58.XXXA Exposure to other specified factors, initial encounter
CPT/HCPCS: 72100; 81001; 87077; 87086; 87186; 96374; 99284; J2270

== ENCOUNTER 2023-10-07 13:21 | Oncology outpatient (recurring) (ONCR) | payer MEDICARE, SELFPAY | END 2023-10-14 23:59 | disposition home or self-care (01) | PROVIDERS: PCP Family Medicine; Visit Provider Internal Medicine Hematology & Oncology | DX: C34.32 Malignant neoplasm of lower lobe, left bronchus or lung (principal); Z87.891 Personal history of nicotine dependence; Z45.2 Encounter for adjustment and management of vascular access device; Z95.828 Presence of other vascular implants and grafts | CPT/HCPCS: 99214 ==

== ENCOUNTER 2023-10-27 16:15 | Emergency (ER) | payer MEDICARE, SELFPAY ==
[2023-10-27] VITALS (11 sets, daily range): BP systolic 97–141; BP diastolic 63–95; PULSE 54–124; RESP 18–20; TEMP 36.9–37.1; O2SAT 91–96; BMI 21.3
--- NOTE | 2023-10-27 16:31 | XRR_ITS ---
PROCEDURE INFORMATION: Exam: XR Chest Exam date and time: 10/27/2023 4:46 PM Age: 83 years old Clinical indication: Cough and dyspnea; Additional info: Dyspnea/cough TECHNIQUE: Imaging protocol: Radiologic exam of the chest. Views: 1 view. COMPARISON: CR XR chest 1V portable [id number] 09/23/2023 10:38 PM FINDINGS: Lungs: See Pleural spaces finding. Pleural spaces: Stable moderate left pleural fluid collection with probable associated pneumonia/atelectasis. Heart/Mediastinum: Unremarkable. No cardiomegaly. Vasculature: Calcification of the thoracic aorta and/or great vessels consistent with atherosclerotic vessel disease. Bones/joints: Unremarkable. XR/XR chest 1V portable [id number] IMPRESSION: Stable moderate left pleural fluid collection with probable associated pneumonia/atelectasis.
--- NOTE | 2023-10-27 16:54 | W.ED.SOB ---
Documented by User: Kyle Veloz DO 10/30/23 06:55 HPI - SOB/Dyspnea General: Chief Complaint: Shortness of Breath/Dyspnea Stated Complaint: sob Time Seen by Provider: 10/27/23 16:19 Source: patient Mode of arrival: EMS History of Present Illness: HPI Narrative: 83-year-old female presents emergency room complaining of just generally not feeling well . She states she just generally has not felt well feels short of breath she has some chest comfort on the left side of her chest. She is known history of congestive heart failure was recently stopped her diuretics at her doctor's direction. She was to monitor her weights she has not noticed significant weight gain or swelling no orthopnea. She is on Spiriva but does not use it regularly. She was recently prescribed an antibiotic for a urinary tract infection she notes that her symptoms seem to begin after she taken about 5 doses. She denies any chest pain no hemoptysis. MD elicited complaint: shortness of breath and cough Pertinent past history: COPD and other Onset (ago): day(s) Timing: constant Severity: mild Exacerbating factors: exertion and coughing Relieving factors: nothing Known history of: COPD Associated symptoms: Reports chest congestion and orthopnea; Deny abdominal pain, chest pain, cough, diaphoresis, dizziness, extremity pain, fever(s), hemoptysis, lightheadedness, myalgias, nausea, palpitations, paresthesias, polydipsia, polyuria, rash, sense of impending doom, syncope or vomiting Treatment prior to arrival: none Review of Systems Const: Reports: fatigue and malaise; Denies: fever(s), chills or diaphoresis Card: Reports: swelling of feet/ankles and orthopnea; Denies: chest pain, palpitations, lightheadedness or syncope Resp: Reports: dyspnea, non-productive cough, wheezing and chest congestion; Denies: hemoptysis GI: Denies: abdominal pain, nausea or vomiting : Denies: dysuria, urinary frequency or urinary urgency Musc: Denies: neck pain, back pain or extremity pain Skin/Breast: Denies: rash Neuro: Denies: dizziness Endo: Denies: polyuria or polydipsia PFS ED PFSH: Medical History Pleural effusion Lung cancer CAD (coronary artery disease) Squamous cell carcinoma of left lung COPD (chronic obstructive pulmonary disease) SOB (shortness of breath) Atherosclerotic heart disease of [place] coronary artery without angina pectoris TIA (transient ischemic attack) Statin intolerance Atelectasis of left lung Abnormal liver enzymes Gastroesophageal reflux Supraventricular tachycardia Dyslipidemia statin intolerant, taking ezetimibe. NSTEMI (non-ST elevated myocardial infarction) Surgical History Port-A-Cath in place (06/24/21) right IJ Status post colonoscopy History of bronchoscopy History of coronary artery stent placement Family History Mother Hypertension Dementia CAD (coronary artery disease) Myocardial infarction Denies family history of Diabetes Clotting disorder Chronic kidney disease (CKD) Suicide Anesthesia complication Bleeding disorder Lung disease Cancer Stroke Social History Smoking and tobacco/nicotine status: former use of tobacco/nicotine Quit status (tobacco/nicotine): has quit using Year quit tobacco: 1979 Former quit date comment: 3ppd x 20 years Alcohol intake: never Substance/Drug Use: never Lives independently: Yes Household members: none Housing: House Marital status: / Physical Exam Const: GENERAL APPEARANCE: cooperative and comfortable ORIENTATION/CONSCIOUSNESS: Yes awake, Yes oriented to person, Yes oriented to place and Yes oriented to time HENMT: COMMON NORMALS: normocephalic, atraumatic and hearing grossly normal bilaterally HEAD & SCALP: normocephalic and atraumatic Resp: AUSCULTATION: crackles and wheezes Cardio: COMMON NORMALS: regular rate, regular rhythm and No murmurs present (Cardio) RATE: regular rate RHYTHM: regular rhythm GI: COMMON NORMALS: Soft to palpation and No hepatosplenomegaly present AUSCULTATION: Yes normoactive bowel sounds PALPATION: Yes Soft to palpation, No Tenderness to palpation present (GI), No Guarding due to palpation present (GI) and Yes No hepatosplenomegaly present Extremity: COMMON NORMALS: normal to inspection, capillary refill normal, no clubbing, cyanosis or edema, no calf tenderness and no pedal edema Neuro: SENSORIUM/ORIENTATION: Yes oriented to person, Yes oriented to place and Yes oriented to time Skin: COMMON NORMALS: no rashes or lesions noted GENERAL SKIN EXAM: no rashes or lesions noted Course Vital Signs: Vital signs: Vital Signs Temperature 98.7 F 10/27/23 18:16 Pulse Rate 91 10/27/23 21:38 Respiratory Rate 18 10/27/23 18:13 Blood Pressure 104/69 10/27/23 21:38 Pulse Oximetry 94 10/27/23 21:38 Oxygen Delivery Me thod Room Air 10/27/23 21:00 MDM - SOB/Dyspnea Medical Decision Making Care signed out to Dr. Francois at change of shift. See final notes for diagnosis and disposition. I assumed care of the patient from Dr. Veloz I discussed the radiographic findings with the patient as well as her laboratory findings encouraged her to continue taking her Keflex antibiotic as previously prescribed. Dr. Veloz did provide her diuretics and she is diuresing very well. I did advise her I would provide her Tessalon Perles and have her follow-up with her primary care provider. Lab Data 10/27/23 17:09 10/27/23 17:09 Labs/Radiology: Radiology Impressions Chest X-Ray 10/27/23 16:31 IMPRESSION: Stable moderate left pleural fluid collection with probable associated pneumonia/atelectasis. Laboratory Results WBC 6.72 10^3/uL (3.29-11.43) 10/27/23 17:09 RBC 4.48 10^6/uL (3.85-5.65) 10/27/23 17:09 Hgb 13.00 g/dL (11.27-16.99) 10/27/23 17:09 Hct 40.2 % (36-47) 10/27/23 17:09 MCV 89.7 fl (85-98) 10/27/23 17:09 MCH 29.0 pg (27-33) 10/27/23 17:09 MCHC 32.3 g/dL (30-55) 10/27/23 17:09 RDW 14.7 % (12.1-15.1) 10/27/23 17:09 Plt Count 278 10^3/cmm (157-399) 10/27/23 17:09 MPV 9.2 fL (7.4-10.4) 10/27/23 17:09 Neut % (Auto) 66.0 % 10/27/23 17:09 Lymph % (Auto) 13.1 % 10/27/23 17:09 [place] % (Auto) 15.3 % 10/27/23 17:09 Eos % (Auto) 4.2 % 10/27/23 17:09 Baso % (Auto) 1.0 % 10/27/23 17:09 Neut # (Auto) 4.43 10^3/uL (1.8-7.7) 10/27/23 17:09 Lymph # (Auto) 0.9 10^3/uL (0.8-4.8) 10/27/23 17:09 [place] # (Auto) 1.0 10^3/uL (0.2-0.9) H 10/27/23 17:09 Eos # (Auto) 0.3 10^3/uL (0.0-0.8) 10/27/23 17:09 Baso # (Auto) 0.1 10^3/uL (0.0-0.1) 10/27/23 17:09 Nucleated RBC % (auto) 0 % 10/27/23 17:09 Nucleated RBCs # 0.0 /100WBC 10/27/23 17:09 Sodium 136 mmol/L (136-145) 10/27/23 17:09 Potassium 3.9 mmol/L (3.5-5.1) 10/27/23 17:09 Chloride 102 mmol/L (98-107) 10/27/23 17:09 Carbon Dioxide 23 mmol/L (22-29) 10/27/23 17:09 Anion Gap 14.9 (5-19) 10/27/23 17:09 BUN 18 mg/dL (8-23) 10/27/23 17:09 Creatinine 0.9 mg/dL (0.5-0.9) 10/27/23 17:09 GFR Calculation Not Reportable 10/27/23 17:09 Glucose 94 mg/dL (65-115) 10/27/23 17:09 Calculated Osmolality 284 mOsm/kg (285-295) L 10/27/23 17:09 Lactic Acid 1.2 mmol/L (0.5-2.2) 10/27/23 17:09 Calcium 8.4 mg/dL (8.5-10.5) L 10/27/23 17:09 Total Bilirubin 0.5 mg/dL (0.15-1.2) 10/27/23 17:09 AST 19 U/L (0-32) 10/27/23 17:09 ALT 30 U/L (0-33) 10/27/23 17:09 Alkaline Phosphatase 107 U/L (35-105) H 10/27/23 17:09 NT-Pro-B Natriuret Pep 929 pg/mL (0-450) H 10/27/23 17:09 Total Protein 6.6 g/dL (6.6-8.7) 10/27/23 17:09 Albumin 3.4 g/dL (3.5-5.2) L 10/27/23 17:09 Globulin 3.2 g/dL (1.3-4.6) 10/27/23 17:09 Urine Color Yellow (Yellow) 10/27/23 17:42 Urine Appearance Clear (CLEAR) 10/27/23 17:42 Urine pH 5 (5-7) 10/27/23 17:42 Ur Specific [place] 1.020 (1.005-1.030) 10/27/23 17:42 Urine Protein Neg (Negative) 10/27/23 17:42 Urine Glucose (UA) Norm (Normal) 10/27/23 17:42 Urine Ketones 1+ (Negative) H 10/27/23 17:42 Urine Blood Neg (Negative) 10/27/23 17:42 Urine Nitrate Negative (Negative) 10/27/23 17:42 Urine Bilirubin Neg (Negative) 10/27/23 17:42 Urine Urobilinogen Norm mg/dL (Negative) 10/27/23 17:42 Ur Leukocyte Esterase Negative (Negative) 10/27/23 17:42 Adenovirus (PCR) Not detected (NOT DETECT) 10/27/23 16:52 C. pneumoniae DNA (PCR) Not detected (NOT DETECT) 10/27/23 16:52 Coronavirus 229E (PCR) Not detected (NOT DETECT) 10/27/23 16:52 Human Metapneumovir PCR Not detected (NOT DETECT) 10/27/23 16:52 Influenza A (H1) PCR Not detected (NOT DETECT) 10/27/23 16:52 Influ A (H1/09) PCR Not detected (NOT DETECT) 10/27/23 16:52 Influenza A (H3) PCR Not detected (NOT DETECT) 10/27/23 16:52 Influenza Type A (PCR) Not detected (NOT DETECT) 10/27/23 16:52 Influenza Type B (PCR) Not detected (NOT DETECT) 10/27/23 16:52 M. pneumoniae (PCR) Not detected (NOT DETECT) 10/27/23 16:52 Parainfluenza 1 (PCR) Not detected (NOT DETECT) 10/27/23 16:52 Parainfluenza 2 (PCR) Not detected (NOT DETECT) 10/27/23 16:52 Parainfluenza 3 (PCR) Not detected (NOT DETECT) 10/27/23 16:52 Parainfluenza 4 (PCR) Not detected (NOT DETECT) 10/27/23 16:52 RSV Type A (PCR) Not detected (NOT DETECT) 10/27/23 16:52 RSV Type B (PCR) Not detected (NOT DETECT) 10/27/23 16:52 Entero/Rhino (PCR) Not detected (NOT DETECT) 10/27/23 16:52 SARS-CoV-2 (PCR) Not detected (NOT DETECT) 10/27/23 16:52 Discharge Plan Discharge Patient Disposition: Home Clinical Impression: Pneumonia, Dyspnea, Cough Condition: Stable Prescriptions: New benzonatate 200 mg capsule 200 mg PO TID Qty: 30 0RF No Action melatonin 3 mg Tablet 3 mg PO BEDTIME calcitonin (salmon) 200 unit/actuation [place],Non-Aerosol 1 spray INTRANASAL (ALT) DAILY Rx Instructions: ALTERNATE NOSTRILS DAILY Pepcid 20 mg tablet 20 mg PO DAILY levothyroxine 125 mcg tablet 125 mcg PO DAILY Qty: 30 2RF PreserVision AREDS 2 Plus MV 200 mcg-15 mcg- 5 mg-1 mg capsule PO doxycycline hyclate 100 mg capsule 100 mg PO BID nitroglycerin [Nitrostat] 0.4 mg Tablet, Sublingual 0.4 mg sublingual Q5M PRN (Reason: Chest Pain) Qty: 30 0RF aspirin 81 mg tablet,delayed release (DR/EC) 81 mg PO QAM ezetimibe 10 mg tablet 10 mg PO DAILY Spiriva Respimat 2.5 mcg/actuation mist 2 puff inhalation DAILY PRN (Reason: Shortness Of Breath Or Wheezing) metoprolol tartrate 25 mg tablet 12.5 mg PO BID 90 Days Qty: 180 3RF tramadol 50 mg tablet 50 mg PO Q6H PRN (Reason: pain) Qty: 10 0RF Discharge Orders: Discharge ED (Routine); Ordered 10/27/23 Ordered By: Duke Francois Referrals: Susan Romano MD [Primary Care Provider] - Discharge Diet: Advance as tolerated Discharge Activity: Resume usual activity Patient Instructions: Opioid Safety, Pain Management Activity Restrictions/Additional Instructions: Activity Restrictions/Additional Instructions: Thank you for choosing [facility] for your healthcare needs today. Please realize that you were seen in the Emergency Department and that we are providing you with an emergency medical screening exam and this may not be a complete and all inclusive of all the testing and or medical work-up that you may need to determine your ailment or severity of your illness. It is very important that you follow-up as instructed with your Primary care provider or Specialist for additional evaluation and to discuss your medical treatment plan. You may return to the Emergency Department should you have concerns or if your condition changes or worsens in any way. Coding Level of Care Code ED Production Controller for [facility]g [facility] Documented by User: Duke Francois MD 10/27/23 21:04 HPI - SOB/Dyspnea General: Chief Complaint: Shortness of Breath/Dyspnea Stated Complaint: sob Time Seen by Provider: 10/27/23 16:19 [facility] ED PFSH: Medical History Pleural effusion Lung cancer CAD (coronary artery disease) Squamous cell carcinoma of left lung COPD (chronic obstructive pulmonary disease) SOB (shortness of breath) Atherosclerotic heart disease of [place] coronary artery without angina pectoris TIA (transient ischemic attack) Statin intolerance Atelectasis of left lung Abnormal liver enzymes Gastroesophageal reflux Supraventricular tachycardia Dyslipidemia statin intolerant, taking ezetimibe. NSTEMI (non-ST elevated myocardial infarction) Surgical History Port-A-Cath in place (06/24/21) right IJ Status post colonoscopy History of bronchoscopy History of coronary artery stent placement Family History Mother Hypertension Dementia CAD (coronary artery disease) Myocardial infarction Denies family history of Diabetes Clotting disorder Chronic kidney disease (CKD) Suicide Anesthesia complication Bleeding disorder Lung disease Cancer Stroke Social History Smoking and tobacco/nicotine status: former use of tobacco/nicotine Quit status (tobacco/nicotine): has quit using Year quit tobacco: 1979 Former quit date comment: 3ppd x 20 years Alcohol intake: never Substance/Drug Use: never Lives independently: Yes Household members: none Housing: House Marital status: / Course Vital Signs: Vital signs: Vital Signs Temperature 98.7 F 10/27/23 18:16 Pulse Rate 91 10/27/23 21:38 Respiratory Rate 18 10/27/23 18:13 Blood Pressure 104/69 10/27/23 21:38 Pulse Oximetry 94 10/27/23 21:38 Oxygen Delivery Me thod Room Air 10/27/23 21:00 MDM - SOB/Dyspnea Medical Decision Making I assumed care of the patient from Dr. Veloz I discussed the radiographic findings with the patient as well as her laboratory findings encouraged her to continue taking her Keflex antibiotic as previously prescribed. Dr. Veloz did provide her diuretics and she is diuresing very well. I did advise her I would provide her Tessalon Perles and have her follow-up with her primary care provider. Medical Records I reviewed the patient's medical records. Lab Data I reviewed the patient's lab results. 10/27/23 17:09 10/27/23 17:09 Labs/Radiology: Radiology Impressions Chest X-Ray 10/27/23 16:31 IMPRESSION: Stable moderate left pleural fluid collection with probable associated pneumonia/atelectasis. Laboratory Results WBC 6.72 10^3/uL (3.29-11.43) 10/27/23 17:09 RBC 4.48 10^6/uL (3.85-5.65) 10/27/23 17:09 Hgb 13.00 g/dL (11.27-16.99) 10/27/23 17:09 Hct 40.2 % (36-47) 10/27/23 17:09 MCV 89.7 fl (85-98) 10/27/23 17:09 MCH 29.0 pg (27-33) 10/27/23 17:09 MCHC 32.3 g/dL (30-55) 10/27/23 17:09 RDW 14.7 % (12.1-15.1) 10/27/23 17:09 Plt Count 278 10^3/cmm (157-399) 10/27/23 17:09 MPV 9.2 fL (7.4-10.4) 10/27/23 17:09 Neut % (Auto) 66.0 % 10/27/23 17:09 Lymph % (Auto) 13.1 % 10/27/23 17:09 [place] % (Auto) 15.3 % 10/27/23 17:09 Eos % (Auto) 4.2 % 10/27/23 17:09 Baso % (Auto) 1.0 % 10/27/23 17:09 Neut # (Auto) 4.43 10^3/uL (1.8-7.7) 10/27/23 17:09 Lymph # (Auto) 0.9 10^3/uL (0.8-4.8) 10/27/23 17:09 [place] # (Auto) 1.0 10^3/uL (0.2-0.9) H 10/27/23 17:09 Eos # (Auto) 0.3 10^3/uL (0.0-0.8) 10/27/23 17:09 Baso # (Auto) 0.1 10^3/uL (0.0-0.1) 10/27/23 17:09 Nucleated RBC % (auto) 0 % 10/27/23 17:09 Nucleated RBCs # 0.0 /100WBC 10/27/23 17:09 Sodium 136 mmol/L (136-145) 10/27/23 17:09 Potassium 3.9 mmol/L (3.5-5.1) 10/27/23 17:09 Chloride 102 mmol/L (98-107) 10/27/23 17:09 Carbon Dioxide 23 mmol/L (22-29) 10/27/23 17:09 Anion Gap 14.9 (5-19) 10/27/23 17:09 BUN 18 mg/dL (8-23) 10/27/23 17:09 Creatinine 0.9 mg/dL (0.5-0.9) 10/27/23 17:09 GFR Calculation Not Reportable 10/27/23 17:09 Glucose 94 mg/dL (65-115) 10/27/23 17:09 Calculated Osmolality 284 mOsm/kg (285-295) L 10/27/23 17:09 Lactic Acid 1.2 mmol/L (0.5-2.2) 10/27/23 17:09 Calcium 8.4 mg/dL (8.5-10.5) L 10/27/23 17:09 Total Bilirubin 0.5 mg/dL (0.15-1.2) 10/27/23 17:09 AST 19 U/L (0-32) 10/27/23 17:09 ALT 30 U/L (0-33) 10/27/23 17:09 Alkaline Phosphatase 107 U/L (35-105) H 10/27/23 17:09 NT-Pro-B Natriuret Pep 929 pg/mL (0-450) H 10/27/23 17:09 Total Protein 6.6 g/dL (6.6-8.7) 10/27/23 17:09 Albumin 3.4 g/dL (3.5-5.2) L 10/27/23 17:09 Globulin 3.2 g/dL (1.3-4.6) 10/27/23 17:09 Urine Color Yellow (Yellow) 10/27/23 17:42 Urine Appearance Clear (CLEAR) 10/27/23 17:42 Urine pH 5 (5-7) 10/27/23 17:42 Ur Specific [place] 1.020 (1.005-1.030) 10/27/23 17:42 Urine Protein Neg (Negative) 10/27/23 17:42 Urine Glucose (UA) Norm (Normal) 10/27/23 17:42 Urine Ketones 1+ (Negative) H 10/27/23 17:42 Urine Blood Neg (Negative) 10/27/23 17:42 Urine Nitrate Negative (Negative) 10/27/23 17:42 Urine Bilirubin Neg (Negative) 10/27/23 17:42 Urine Urobilinogen Norm mg/dL (Negative) 10/27/23 17:42 Ur Leukocyte Esterase Negative (Negative) 10/27/23 17:42 Adenovirus (PCR) Not detected (NOT DETECT) 10/27/23 16:52 C. pneumoniae DNA (PCR) Not detected (NOT DETECT) 10/27/23 16:52 Coronavirus 229E (PCR) Not detected (NOT DETECT) 10/27/23 16:52 Human Metapneumovir PCR Not detected (NOT DETECT) 10/27/23 16:52 Influenza A (H1) PCR Not detected (NOT DETECT) 10/27/23 16:52 Influ A (H1/09) PCR Not detected (NOT DETECT) 10/27/23 16:52 Influenza A (H3) PCR Not detected (NOT DETECT) 10/27/23 16:52 Influenza Type A (PCR) Not detected (NOT DETECT) 10/27/23 16:52 Influenza Type B (PCR) Not detected (NOT DETECT) 10/27/23 16:52 M. pneumoniae (PCR) Not detected (NOT DETECT) 10/27/23 16:52 Parainfluenza 1 (PCR) Not detected (NOT DETECT) 10/27/23 16:52 Parainfluenza 2 (PCR) Not detected (NOT DETECT) 10/27/23 16:52 Parainfluenza 3 (PCR) Not detected (NOT DETECT) 10/27/23 16:52 Parainfluenza 4 (PCR) Not detected (NOT DETECT) 10/27/23 16:52 RSV Type A (PCR) Not detected (NOT DETECT) 10/27/23 16:52 RSV Type B (PCR) Not detected (NOT DETECT) 10/27/23 16:52 Entero/Rhino (PCR) Not detected (NOT DETECT) 10/27/23 16:52 SARS-CoV-2 (PCR) Not detected (NOT DETECT) 10/27/23 16:52 All radiology interpretation(s) finalized by discharge Discharge Plan Discharge Patient Disposition: Home Clinical Impression: Pneumonia, Dyspnea, Cough Condition: Stable Prescriptions: New benzonatate 200 mg capsule 200 mg PO TID Qty: 30 0RF No Action melatonin 3 mg Tablet 3 mg PO BEDTIME calcitonin (salmon) 200 unit/actuation [place],Non-Aerosol 1 spray INTRANASAL (ALT) DAILY Rx Instructions: ALTERNATE NOSTRILS DAILY Pepcid 20 mg tablet 20 mg PO DAILY levothyroxine 125 mcg tablet 125 mcg PO DAILY Qty: 30 2RF PreserVision AREDS 2 Plus MV 200 mcg-15 mcg- 5 mg-1 mg capsule PO doxycycline hyclate 100 mg capsule 100 mg PO BID nitroglycerin [Nitrostat] 0.4 mg Tablet, Sublingual 0.4 mg sublingual Q5M PRN (Reason: Chest Pain) Qty: 30 0RF aspirin 81 mg tablet,delayed release (DR/EC) 81 mg PO QAM ezetimibe 10 mg tablet 10 mg PO DAILY Spiriva Respimat 2.5 mcg/actuation mist 2 puff inhalation DAILY PRN (Reason: Shortness Of Breath Or Wheezing) metoprolol tartrate 25 mg tablet 12.5 mg PO BID 90 Days Qty: 180 3RF tramadol 50 mg tablet 50 mg PO Q6H PRN (Reason: pain) Qty: 10 0RF Discharge Orders: Discharge ED (Routine); Ordered 10/27/23 Ordered By: Duke Francois Referrals: Susan Romano MD [Primary Care Provider] - Discharge Diet: Advance as tolerated Discharge Activity: Resume usual activity Patient Instructions: Opioid Safety, Pain Management Activity Restrictions/Additional Instructions: Activity Restrictions/Additional Instructions: Thank you for choosing [facility] for your healthcare needs today. Please realize that you were seen in the Emergency Department and that we are providing you with an emergency medical screening exam and this may not be a complete and all inclusive of all the testing and or medical work-up that you may need to determine your ailment or severity of your illness. It is very important that you follow-up as instructed with your Primary care provider or Specialist for additional evaluation and to discuss your medical treatment plan. You may return to the Emergency Department should you have concerns or if your condition changes or worsens in any way. Coding Level of Care Code ED Production Controller for Pieter Hidalgo
[2023-10-27 17:28] LABS: Basophils # 0.1 10^3/uL (0.0-0.1); Eosinophils # 0.3 10^3/uL (0.0-0.8); Eosinophils % 4.2 %; Hematocrit 40.2 % (36-47); Lymphocytes # 0.9 10^3/uL (0.8-4.8); Lymphocytes % 13.1 %; Mean Corpuscular HGB Conc 32.3 g/dL (30-55); Mean Corpuscular Volume 89.7 fl (85-98); Mean Platelet Volume 9.2 fL (7.4-10.4); Monocytes % 15.3 %; Neutrophils # 4.43 10^3/uL (1.8-7.7); Nucleated Red Blood Cells % 0 %; Platelet Count 278 10^3/cmm (157-399); Red Blood Count 4.48 10^6/uL (3.85-5.65); Red Cell Distribution Width 14.7 % (12.1-15.1); White Blood Count 6.72 10^3/uL (3.29-11.43)
[2023-10-27 17:53] LABS: Add Urine Microscopic? NO; Charge for UA Resulting for Rev
[2023-10-27 17:54] LABS: Lactic Sepsis W/Reflex 1.2 mmol/L (0.5-2.2)
[2023-10-27 17:59] LABS: Bilirubin Urine Neg (Negative); Blood Urine Neg (Negative); Glucose Urine UA Norm (Normal); Ketones Urine 1+ (Negative); Leukocyte Esterase Urine Negative (Negative); Nitrate Urine Negative (Negative); Protein Urine Neg (Negative); Urine Appearance Clear (CLEAR); Urine Color Yellow (Yellow); Urobilinogen Urine Norm (Negative); pH Urine 5 (5-7)
[2023-10-27 18:15] LABS: Alanine Aminotransferase 30 U/L (0-33); Albumin Level 3.4 g/dL (3.5-5.2); Alkaline Phosphatase 107 U/L (35-105); Anion Gap 14.9 (5-19); Aspartate Amino Transferase 19 U/L (0-32); Blood Urea Nitrogen 18 mg/dL (8-23); Calcium 8.4 mg/dL (8.5-10.5); Carbon Dioxide 23 mmol/L (22-29); Chloride 102 mmol/L (98-107); Globulin 3.2 g/dL (1.3-4.6); Glucose 94 mg/dL (65-115); NT Pro B Type Natriuretic Pept 929 pg/mL (0-450); Osmolality Calculated 284 mOsm/kg (285-295); Potassium 3.9 mmol/L (3.5-5.1); Sodium 136 mmol/L (136-145); Total Bilirubin 0.5 mg/dL (0.15-1.2); Total Protein 6.6 g/dL (6.6-8.7)
[2023-10-27] MEDS: FUROsemide 10 mg/mL SDV 4mL 40 MG IVP (18:37)
[2023-10-27 19:11] LABS: Adenovirus Not Detected (NOT DETECT); Chlamydia Pneumoniae Not Detected (NOT DETECT); Coronavirus 229E,HKU1,NL63,OC4 Not Detected (NOT DETECT); Human Metapneumovirus Not Detected (NOT DETECT); Human Rhinovirus/Enterovirus Not Detected (NOT DETECT); Influenza A Not Detected (NOT DETECT); Influenza A H1 Not Detected (NOT DETECT); Influenza A H1-2009 Not Detected (NOT DETECT); Influenza A H3 Not Detected (NOT DETECT); Influenza B Not Detected (NOT DETECT); Mycoplasma Pneumoniae Not Detected (NOT DETECT); Parainfluenza Virus Type 1 Not Detected (NOT DETECT); Parainfluenza Virus Type 2 Not Detected (NOT DETECT); Parainfluenza Virus Type 3 Not Detected (NOT DETECT); Parainfluenza Virus Type 4 Not Detected (NOT DETECT); Respiratory Syncytial Virus A Not Detected (NOT DETECT); Respiratory Syncytial Virus B Not Detected (NOT DETECT); SARS-COV-2 Not Detected (NOT DETECT)
== END 2023-10-27 21:38 | disposition home or self-care (01) ==
PROVIDERS: Family Medicine; Emergency Provider Internal Medicine; PCP Family Medicine
DX: J44.0 Chronic obstructive pulmonary disease with (acute) lower respiratory infection (principal); J18.9 Pneumonia, unspecified organism; R06.00 Dyspnea, unspecified; R05.9 Cough, unspecified; Z79.82 Long term (current) use of aspirin; Z11.52 Encounter for screening for COVID-19; Z87.891 Personal history of nicotine dependence; Z85.118 Personal history of other malignant neoplasm of bronchus and lung; I25.10 Atherosclerotic heart disease of native coronary artery without angina pectoris; Z86.73 Personal history of transient ischemic attack (TIA), and cerebral infarction without residual deficits; E78.5 Hyperlipidemia, unspecified; I25.2 Old myocardial infarction
CPT/HCPCS: 36415; 71045; 80053; 81003; 83605; 83880; 85025; 87486; 87581; 87633; 96374; 99284; J1940

== ENCOUNTER 2023-11-05 09:57 | Observation (INO) | payer MEDICARE, SELFPAY ==
[2023-11-05] VITALS (12 sets, daily range): BP systolic 99–122; BP diastolic 62–85; PULSE 69–93; RESP 16–25; TEMP 36.5–36.7; O2SAT 82–100; BMI 21.3; BMI 21.1
--- NOTE | 2023-11-05 09:58 | XR_ITS ---
WS: [id number] Examination: XR chest 1V portable [id number] Reason for Exam: dyspnea/cough Date: 11/05/2023 Comparison: 10/27/2023 Findings: The heart is enlarged. The mediastinum is not widened Again the left hemidiaphragm and base is obscured with suspected effusion and consolidation. This anthony ears greater than on the previous study. There is no pulmonary edema. The right lung is well expanded. I suspect chronic changes in the upper lung zones are again noted. Impression: Persistent similar to slightly greater left basilar opacity thought to be dominant pleural effusion w ith associated consolidation.
--- NOTE | 2023-11-05 10:08 | ED_ITS ---
Documented by User: Kyle Veloz DO 11/08/23 06:06 HPI - SOB/Dyspnea 2 General: Chief Complaint: Shortness of Breath/Dyspnea Stated Complaint: resp distress Time Seen by Provider: 11/05/23 09:58 Source: patient Mode of arrival: EMS History of Present Illness: HPI Narrative: 83-year-old female presents to the emerg ency room with complaint of shortness of breath. Patient has a known lung cancer was diagnosed approximately 4 years ago she has been developing pleural effusions lately she has been referred for thoracentesis. She reports that on chest x-ray there was fluid on the left side of her lung she has not yet been able to see Dr. Wing for this. She is not currently on any treatment for her cancer. She was seen earlier this month pleural effusion noted to be a large trial Lasix no improvement. MD elicited complaint: shortness of breath and cough Pertinent past history: other (Lung CA with pleural effusion) Onset (ago): month(s) Timing: progressively worsening Severity: moderate Exacerbating factors: exertion Relieving factors: oxygen and rest Known history of: other (Lung CA with loculated effusion) Associated symptoms: Deny abdominal pain, chest congestion, chest pain, cough, diaphoresis, dizziness, extremity pain, fever(s), hemoptysis, lightheadedness, myalgias, nausea, orthopnea, palpitations, paresthesias, polydipsia, polyuria, rash, sense of impending doom, syncope or vomiting Treatment prior to arrival: none Related Data: Home oxygen amount: none Review of Systems 2 Const: Denies: fever(s) or diaphoresis Card: Denies: chest pain, palpitations, lightheadedness, syncope or orthopnea Resp: Denies: hemoptysis or chest congestion GI: Denies: abdominal pain, nausea or vomiting : Denies: dysuria, urinary frequency or urinary urgency Musc: Denies: extremity pain Skin/Breast: Denies: rash Neuro: Denies: dizziness Endo: Denies: polyuria or polydipsia PFSH ED 2 PFSH: Medical History Pleural effusion Lung cancer CAD (coronary artery disease) Squamous cell carcinoma of left lung COPD (chronic obstructive pulmonary disease) SOB (shortness of breath) Atherosclerotic heart disease of [place] coronary artery without angina pectoris TIA (transient ischemic attack) Statin intolerance Atelectasis of left lung Abnormal liver enzymes Gastroesophageal reflux Supraventricular tachycardia Dyslipidemia statin intolerant, taking ezetimibe. NSTEMI (non-ST elevated myocardial infarction) Surgical History Port-A-Cath in place (06/24/21) right IJ Status post colonoscopy History of bronchoscopy History of coronary artery stent placement Family History Mother Hypertension Dementia CAD (coronary artery disease) Myocardial infarction Denies family history of Diabetes Clotting disorder Chronic kidney disease (CKD) Suicide Anesthesia complication Bleeding disorder Lung disease Cancer Stroke Social History Smoking and tobacco/nicotine status: former use of tobacco/nicotine Quit status (tobacco/nicotine): has quit using Year quit tobacco: 1979 Former quit date comment: 3ppd x 20 years Alcohol intake: never Substance/Drug Use: never Lives independently: Yes Household members: none Housing: House Marital status: / Physical Exam 2 Const: GENERAL APPEARANCE: cooperative and comfortable O RIENTATION/CONSCIOUSNESS: Yes awake, Yes oriented to person, Yes oriented to place and Yes oriented to time HENMT: COMMON NORMALS: normocephalic, atraumatic and hearing grossly normal bilaterally HEAD & SCALP: normocephalic and atraumatic Resp: AUSCULTATION: rales and wheezes Cardio: COMMON NORMALS: regular rate, regular rhythm and No murmurs present (Cardio) RATE: regular rate RHYTHM: regular rhythm GI: COMMON NORMALS: Soft to palpation and No hepatosplenomegaly present A USCULTATION: Yes normoactive bowel sounds PALPATION: Yes Soft to palpation, No Tenderness to palpation present (GI), No Guarding due to palpation present (GI) and Yes No hepatosplenomegaly present Extremity: COMMON NORMALS: normal to inspection, capillary refill normal, no clubbing, cyanosis or edema, no calf tenderness and no pedal edema Neuro: SENSORIUM/ORIENTATION: Yes oriented to person, Yes oriented to place and Yes oriented to time Skin: COMMON NORMALS: no rashes or lesions noted GENERAL SKIN EXAM: no rashes or lesions noted Course 2 Vital Signs: Vital signs: Vital Signs Temperature 97.8 F 11/06/23 07:59 Pulse Rate 88 11/06/23 07:59 Respiratory Rate 18 11/06/23 07:59 Blood Pressure 118/74 11/06/23 07:59 Pulse Oximetry 92 11/06/23 12:11 Oxygen Delivery Me thod Room Air 11/06/23 08:50 Oxygen Flow Rate 2 11/06/23 04:00 MDM - SOB/Dyspnea Medical Decision Making Pleural effusion patient has loculated pleural effusions been present for some time and is increasing. Reviewed findings with Dr. Baumann. After several conversations with her and as well as a conversation Dr. Wing we ultimately decided to admit the patient here after ultrasound-guided thoracentesis by Dr. Baumann. Because of her previous thoracentesis and and the appearance of this effusion being loculated we are concerned about tethering causing a possible pneumothorax or increased pain. There also is a potential that she may not get significant relief or may only be able to remove a portion of the pleural fluid. Dr. Wing is not on-call but was kind enough to state that he would be available for consultation if there was a complication or need for his services with this patient. We had also considered transfer however [facility] has no available beds and [facility] in [place] is on a 48-hour hold wait for [facility] admissions. Reviewed the plan with the patient and she was agreeable. We also contacted hospitalist I will place her on observation overnight after the thoracentesis. Medical Records I reviewed the patient's medical records. Lab Data I reviewed the patient's lab results. 11/06/23 04:37 11/06/23 04:37 Labs/Radiology: Laboratory Results WBC 7.80 10^3/uL (3.29-11.43) 11/05/23 10:14 RBC 4.56 10^6/uL (3.85-5.65) 11/05/23 10:14 Hgb 12.90 g/dL (11.27-16.99) 11/05/23 10:14 Hct 40.6 % (36-47) 11/05/23 10:14 MCV 89.0 fl (85-98) 11/05/23 10:14 MCH 28.3 pg (27-33) 11/05/23 10:14 MCHC 31.8 g/dL (30-55) 11/05/23 10:14 RDW 14.7 % (12.1-15.1) 11/05/23 10:14 Plt Count 353 10^3/cmm (157-399) 11/05/23 10:14 MPV 8.7 fL (7.4-10.4) 11/05/23 10:14 Neut % (Auto) 68.1 % 11/05/23 10:14 Lymph % (Auto) 10.6 % 11/05/23 10:14 Ward % (Auto) 12.3 % 11/05/23 10:14 Eos % (Auto) 7.2 % 11/05/23 10:14 Baso % (Auto) 1.2 % 11/05/23 10:14 Neut # (Auto) 5.31 10^3/uL (1.8-7.7) 11/05/23 10:14 Lymph # (Auto) 0.8 10^3/uL (0.8-4.8) 11/05/23 10:14 Ward # (Auto) 1.0 10^3/uL (0.2-0.9) H 11/05/23 10:14 Eos # (Auto) 0.6 10^3/uL (0.0-0.8) 11/05/23 10:14 Baso # (Auto) 0.1 10^3/uL (0.0-0.1) 11/05/23 10:14 Nucleated RBC % (auto) 0 % 11/05/23 10:14 Nucleated RBCs # 0.0 /100WBC 11/05/23 10:14 PT 13.00 SECONDS (12.1-14.9) 11/05/23 10:14 INR 0.96 (0.8-1.2) 11/05/23 10:14 Sodium 136 mmol/L (136-145) 11/05/23 10:14 Potassium 5.1 mmol/L (3.5-5.1) 11/05/23 10:14 Chloride 100 mmol/L (98-107) 11/05/23 10:14 Carbon Dioxide 26 mmol/L (22-29) 11/05/23 10:14 Anion Gap 15.1 (5-19) 11/05/23 10:14 BUN 17 mg/dL (8-23) 11/05/23 10:14 Creatinine 0.8 mg/dL (0.5-0.9) 11/05/23 10:14 GFR Calculation Not Reportable 11/05/23 10:14 Glucose 93 mg/dL (65-115) 11/05/23 10:14 Calculated Osmolality 283 mOsm/kg (285-295) L 11/05/23 10:14 Calcium 8.6 mg/dL (8.5-10.5) 11/05/23 10:14 Total Bilirubin 0.3 mg/dL (0.15-1.2) 11/05/23 10:14 AST 17 U/L (0-32) 11/05/23 10:14 ALT 21 U/L (0-33) 11/05/23 10:14 Alkaline Phosphatase 92 U/L (35-105) 11/05/23 10:14 Troponin T Baseline 23 ng/L (0-10) H 11/05/23 10:14 Troponin T 120 Minute 20.77 ng/L (0-10) H 11/05/23 12:07 Delta Troponin T -2.23 ABS# (0-10) L 11/05/23 12:07 Troponin T Hi Sens 6Hr 21.01 ng/L (0-10) H 11/05/23 16:06 Troponin T Hi Sens 6Hr Delta -1.99 ng/L (0-12) L 11/05/23 16:06 Total Protein 6.0 g/dL (6.6-8.7) L 11/05/23 10:14 Albumin 3.5 g/dL (3.5-5.2) 11/05/23 10:14 Globulin 2.5 g/dL (1.3-4.6) 11/05/23 10:14 Procalcitonin 0.04 ng/mL (0-0.5) 11/05/23 16:06 Urine Color Yellow (Yellow) 11/05/23 10:26 Urine Appearance Clear (CLEAR) 11/05/23 10:26 Urine pH 6 (5-7) 11/05/23 10:26 Ur Specific [place] 1.020 (1.005-1.030) 11/05/23 10:26 Urine Protein Neg (Negative) 11/05/23 10:26 Urine Glucose (UA) Norm (Normal) 11/05/23 10:26 Urine Ketones Negative (Negative) 11/05/23 10:26 Urine Blood Neg (Negative) 11/05/23 10:26 Urine Nitrate Negative (Negative) 11/05/23 10:26 Urine Bilirubin Neg (Negative) 11/05/23 10:26 Urine Urobilinogen Norm mg/dL (Negative) 11/05/23 10:26 Ur Leukocyte Esterase Negative (Negative) 11/05/23 10:26 Discharge Plan Discharge Patient Disposition: Placed in Observation Admit Provider: Wiley Jimenez Clinical Impression: Pleural effusion, Malignant neoplasm of lower lobe, left bronchus or lung Discharge Diet: Cardiac Coding Level of Care Code ED Mine Wedge Sawyer for Chg Fwd Documented by User: Duke Francois MD 11/07/23 06:39 HPI - SOB/Dyspnea 2 General: Chief Complaint: Shortness of Breath/Dyspnea Stated Complaint: resp distress Time Seen by Provider: 11/05/23 09:58 PFSH ED 2 PFSH: Medical History Pleural effusion Lung cancer CAD (coronary artery disease) Squamous cell carcinoma of left lung COPD (chronic obstructive pulmonary disease) SOB (shortness of breath) Atherosclerotic heart disease of [place] coronary artery without angina pectoris TIA (transient ischemic attack) Statin intolerance Atelectasis of left lung Abnormal liver enzymes Gastroesophageal reflux Supraventricular tachycardia Dyslipidemia statin intolerant, taking ezetimibe. NSTEMI (non-ST elevated myocardial infarction) Surgical History Port-A-Cath in place (06/24/21) right IJ Status post colonoscopy History of bronchoscopy History of coronary artery stent placement Family History Mother Hypertension Dementia CAD (coronary artery disease) Myocardial infarction Denies family history of Diabetes Clotting disorder Chronic kidney disease (CKD) Suicide Anesthesia complication Bleeding disorder Lung disease Cancer Stroke Social History Smoking and tobacco/nicotine status: former use of tobacco/nicotine Quit status (tobacco/nicotine): has quit using Year quit tobacco: 1979 Former quit date comment: 3ppd x 20 years Alcohol intake: never Substance/Drug Use: never Lives independently: Yes Household members: none Housing: House Marital status: / Course 2 Vital Signs: Vital signs: Vital Signs Temperature 97.8 F 11/06/23 07:59 Pulse Rate 88 11/06/23 07:59 Respiratory Rate 18 11/06/23 07:59 Blood Pressure 118/74 11/06/23 07:59 Pulse Oximetry 92 11/06/23 12:11 Oxygen Delivery Me thod Room Air 11/06/23 08:50 Oxygen Flow Rate 2 11/06/23 04:00 MDM - SOB/Dyspnea Lab Data 11/06/23 04:37 11/06/23 04:37 Labs/Radiology: Laboratory Results WBC 7.80 10^3/uL (3.29-11.43) 11/05/23 10:14 RBC 4.56 10^6/uL (3.85-5.65) 11/05/23 10:14 Hgb 12.90 g/dL (11.27-16.99) 11/05/23 10:14 Hct 40.6 % (36-47) 11/05/23 10:14 MCV 89.0 fl (85-98) 11/05/23 10:14 MCH 28.3 pg (27-33) 11/05/23 10:14 MCHC 31.8 g/dL (30-55) 11/05/23 10:14 RDW 14.7 % (12.1-15.1) 11/05/23 10:14 Plt Count 353 10^3/cmm (157-399) 11/05/23 10:14 MPV 8.7 fL (7.4-10.4) 11/05/23 10:14 Neut % (Auto) 68.1 % 11/05/23 10:14 Lymph % (Auto) 10.6 % 11/05/23 10:14 Ward % (Auto) 12.3 % 11/05/23 10:14 Eos % (Auto) 7.2 % 11/05/23 10:14 Baso % (Auto) 1.2 % 11/05/23 10:14 Neut # (Auto) 5.31 10^3/uL (1.8-7.7) 11/05/23 10:14 Lymph # (Auto) 0.8 10^3/uL (0.8-4.8) 11/05/23 10:14 Ward # (Auto) 1.0 10^3/uL (0.2-0.9) H 11/05/23 10:14 Eos # (Auto) 0.6 10^3/uL (0.0-0.8) 11/05/23 10:14 Baso # (Auto) 0.1 10^3/uL (0.0-0.1) 11/05/23 10:14 Nucleated RBC % (auto) 0 % 11/05/23 10:14 Nucleated RBCs # 0.0 /100WBC 11/05/23 10:14 PT 13.00 SECONDS (12.1-14.9) 11/05/23 10:14 INR 0.96 (0.8-1.2) 11/05/23 10:14 Sodium 136 mmol/L (136-145) 11/05/23 10:14 Potassium 5.1 mmol/L (3.5-5.1) 11/05/23 10:14 Chloride 100 mmol/L (98-107) 11/05/23 10:14 Carbon Dioxide 26 mmol/L (22-29) 11/05/23 10:14 Anion Gap 15.1 (5-19) 11/05/23 10:14 BUN 17 mg/dL (8-23) 11/05/23 10:14 Creatinine 0.8 mg/dL (0.5-0.9) 11/05/23 10:14 GFR Calculation Not Reportable 11/05/23 10:14 Glucose 93 mg/dL (65-115) 11/05/23 10:14 Calculated Osmolality 283 mOsm/kg (285-295) L 11/05/23 10:14 Calcium 8.6 mg/dL (8.5-10.5) 11/05/23 10:14 Total Bilirubin 0.3 mg/dL (0.15-1.2) 11/05/23 10:14 AST 17 U/L (0-32) 11/05/23 10:14 ALT 21 U/L (0-33) 11/05/23 10:14 Alkaline Phosphatase 92 U/L (35-105) 11/05/23 10:14 Troponin T Baseline 23 ng/L (0-10) H 11/05/23 10:14 Troponin T 120 Minute 20.77 ng/L (0-10) H 11/05/23 12:07 Delta Troponin T -2.23 ABS# (0-10) L 11/05/23 12:07 Troponin T Hi Sens 6Hr 21.01 ng/L (0-10) H 11/05/23 16:06 Troponin T Hi Sens 6Hr Delta -1.99 ng/L (0-12) L 11/05/23 16:06 Total Protein 6.0 g/dL (6.6-8.7) L 11/05/23 10:14 Albumin 3.5 g/dL (3.5-5.2) 11/05/23 10:14 Globulin 2.5 g/dL (1.3-4.6) 11/05/23 10:14 Procalcitonin 0.04 ng/mL (0-0.5) 11/05/23 16:06 Urine Color Yellow (Yellow) 11/05/23 10:26 Urine Appearance Clear (CLEAR) 11/05/23 10:26 Urine pH 6 (5-7) 11/05/23 10:26 Ur Specific [place] 1.020 (1.005-1.030) 11/05/23 10:26 Urine Protein Neg (Negative) 11/05/23 10:26 Urine Glucose (UA) Norm (Normal) 11/05/23 10:26 Urine Ketones Negative (Negative) 11/05/23 10:26 Urine Blood Neg (Negative) 11/05/23 10:26 Urine Nitrate Negative (Negative) 11/05/23 10:26 Urine Bilirubin Neg (Negative) 11/05/23 10:26 Urine Urobilinogen Norm mg/dL (Negative) 11/05/23 10:26 Ur Leukocyte Esterase Negative (Negative) 11/05/23 10:26 All radiology interpretation(s) finalized by discharge Discharge Plan Discharge Patient Disposition: Placed in Observation Admit Provider: Wiley Jimenez Clinical Impression: Pleural effusion, Malignant neoplasm of lower lobe, left bronchus or lung Discharge Diet: Cardiac Coding Level of Care Code ED Mine Wedge Sawyer for Pieter Hidalgo
--- NOTE | 2023-11-05 10:09 | ECG_ITS ---
[facility] Test Date: 2023-11-05 Pat Name: Nirmala Meléndez Department: Room: Gender: Female Quiller Tender: : 1940 Requested By: Kyle Underwood Order Number: [id number] Nikki MD: Buck Hall M.D. Measurements Intervals [place] Rate: 75 P: 45 MI: 196 QRS: -38 QRSD: 100 T: 71 QT: 377 QTc: 423 Interpretive Statements SINUS RHYTHM LEFT AXIS DEVIATION [QRS AXIS < -30] INCOMPLETE RIGHT BUNDLE BRANCH BLOCK [90+ ms QRS DURATION, TERMINAL R IN V1/V2, 40+ ms S IN I/aVL/V4/V5/V6] SEPTAL MYOCARDIAL INFARCTION , PROBABLY OLD [40+ ms Q WAVE IN V1/V2] Compared to ECG 11/15/2022 18:42:33 Left-axis deviation now present Myocardial infarct finding still present Electronically Signed On 11-05-2023 10:54:00 PRINT FINISHING WORKER by Buck Hall M.D. [id number]
[2023-11-05 10:30] LABS: Basophils # 0.1 10^3/uL (0.0-0.1); Basophils % 1.2 %; Eosinophils # 0.6 10^3/uL (0.0-0.8); Eosinophils % 7.2 %; Hematocrit 40.6 % (36-47); Lymphocytes # 0.8 10^3/uL (0.8-4.8); Lymphocytes % 10.6 %; Mean Corpuscular HGB Conc 31.8 g/dL (30-55); Mean Corpuscular Hemoglobin 28.3 pg (27-33); Mean Platelet Volume 8.7 fL (7.4-10.4); Monocytes % 12.3 %; Neutrophils # 5.31 10^3/uL (1.8-7.7); Neutrophils % 68.1 %; Nucleated Red Blood Cells % 0 %; Platelet Count 353 10^3/cmm (157-399); Red Blood Count 4.56 10^6/uL (3.85-5.65); Red Cell Distribution Width 14.7 % (12.1-15.1)
[2023-11-05 10:33] LABS: Add Urine Microscopic? NO; Charge for UA Resulting for Rev
[2023-11-05 10:42] LABS: INR 0.96 (0.8-1.2)
[2023-11-05 10:48] LABS: Troponin(5th) Baseline 23 ng/L (0-10)
[2023-11-05 10:53] LABS: Bilirubin Urine Neg (Negative); Blood Urine Neg (Negative); Glucose Urine UA Norm (Normal); Ketones Urine Negative (Negative); Leukocyte Esterase Urine Negative (Negative); Nitrate Urine Negative (Negative); Protein Urine Neg (Negative); Urine Appearance Clear (CLEAR); Urine Color Yellow (Yellow); Urobilinogen Urine Norm (Negative); pH Urine 6 (5-7)
[2023-11-05 10:58] LABS: Alanine Aminotransferase 21 U/L (0-33); Albumin Level 3.5 g/dL (3.5-5.2); Alkaline Phosphatase 92 U/L (35-105); Anion Gap 15.1 (5-19); Aspartate Amino Transferase 17 U/L (0-32); Blood Urea Nitrogen 17 mg/dL (8-23); Calcium 8.6 mg/dL (8.5-10.5); Carbon Dioxide 26 mmol/L (22-29); Chloride 100 mmol/L (98-107); Creatinine Clr Calc Pharmacy 40.6438; Globulin 2.5 g/dL (1.3-4.6); Glucose 93 mg/dL (65-115); Osmolality Calculated 283 mOsm/kg (285-295); Potassium 5.1 mmol/L (3.5-5.1); Sodium 136 mmol/L (136-145); Total Bilirubin 0.3 mg/dL (0.15-1.2)
--- NOTE | 2023-11-05 11:59 | ECG_ITS ---
[facility] Test Date: 2023-11-05 Pat Name: Nirmala Meléndez Department: Room: Gender: Female Adoption Counselor: : 1940 Requested By: Kyle Underwood Order Number: [id number] Nikki MD: Buck Hall M.D. Measurements Intervals [place] Rate: 76 P: 66 CA: 209 QRS: -45 QRSD: 106 T: 78 QT: 394 QTc: 445 Interpretive Statements SINUS RHYTHM WITH OCCASIONAL VENTRICULAR PREMATURE COMPLEXES INCOMPLETE RIGHT BUNDLE BRANCH BLOCK [90+ ms QRS DURATION, TERMINAL R IN V1/V2, 40+ ms S IN I/aVL/V4/V5/V6] LEFT ANTERIOR FASCICULAR BLOCK [QRS AXIS <= -45, QR IN I, RS IN II] SEPTAL MYOCARDIAL INFARCTION , PROBABLY OLD [40+ ms Q WAVE IN V1/V2] Compared to ECG 11/05/2023 10:09:07 Ventricular premature complex(es) now present Left anterior fascicular block now present Left-axis deviation no longer present Myocardial infarct finding still present Electronically Signed On 11-05-2023 20:15:57 RN DISEASE MANAGEMENT by Buck Hall M.D. [id number]
[2023-11-05 12:40] LABS: Troponin 5 2HR 20.77 ng/L (0-10)
[2023-11-05 12:46] LABS: Troponin 5 2HR Delta -2.23 ABS# (0-10)
--- NOTE | 2023-11-05 15:22 | US_ITS ---
WS: [id number] ULTRASOUND-GUIDED THORACENTESIS HISTORY: L pleural effusion. Procedure, risks, and complications were explained to the patient. With the patient in an upright pos ition, the skin over the LEFT posterior thorax was cleansed with ChloraPrep and anesthetized with 1% buffered lidocaine. A 5 Bengali Yueh needle is inserted into the pleural fluid without complication. A pproximately 600 cc of dark yellow pleural fluid is removed without difficulty. Specimen collected for analysis. IMPRESSION: 1. LEFT thoracentesis yielding 600 cc of fluid. 2. Chest radiograph to follow to evaluate for pneumothorax.
--- NOTE | 2023-11-05 16:18 | XR_ITS ---
WS: [id number] PORTABLE CHEST HISTORY: post thoracentesis COMPARISON: Study earlier the same day. No pneumothorax status post thoracentesis. There is still complete obscuration of the LEFT hemidiaphragm. Slightly improved aeration of the LEFT lower lobe. There is a component of atelectasis which may be chronic resulting in the area of increa sed density. Cardiac size: Normal. Mediastinum/Aorta: Atherosclerosis aorta. No mediastinal widening. Mild osteopenia. IMPRESSION: 1. Status post LEFT thoracentesis. No pneumothorax. 2. Persistent increased attenuation of the LEFT lung base is probably the chronic atelectasis noted in the LEFT lower lobe and a small amount of residual fluid.
--- NOTE | 2023-11-05 16:35 | PC.NURSE ---
Vital Signs for Thoracentesis Procedure: Start time: @1611 HR: 84 B/P: 107/77 O2: 97% on 2.5L NC RR: 15 @1615 HR: 87 B/P: 111/68 O2: 100% on 2.5L NC RR: 29 @1620 HR: 84 B/P: 80/50 O2: 99% on 2.5L NC RR: 22 End of procedure: @1621 @1625 HR: 79 B/P: 105/86 O2: 99% on 2.5L NC RR: 27
--- NOTE | 2023-11-05 16:36 | ECG_ITS ---
[facility] Test Date: 2023-11-05 Pat Name: Nirmala Meléndez Department: Room: Gender: Female Career And Guidance Counselor: : 1940 Requested By: Kyle Underwood Order Number: [id number] Nikki MD: Buck Hall M.D. Measurements Intervals [place] Rate: 75 P: 47 GA: 191 QRS: -41 QRSD: 105 T: 76 QT: 398 QTc: 446 Interpretive Statements SINUS RHYTHM WITH SINUS ARRHYTHMIA LEFT AXIS DEVIATION [QRS AXIS < -30] INCOMPLETE RIGHT BUNDLE BRANCH BLOCK [90+ ms QRS DURATION, TERMINAL R IN V1/V2, 40+ ms S IN I/aVL/V4/V5/V6] SEPTAL MYOCARDIAL INFARCTION , OF INDETERMINATE AGE [40+ ms Q WAVE IN V1/V2] POSSIBLE LATERAL MYOCARDIAL INFARCTION , OF INDETERMINATE AGE [30 ms Q WAVE IN I/aVL/V5/V6] Compared to ECG 11/05/2023 11:58:45 Left-axis deviation now present Ventricular premature complex(es) no longer present Left anterior fascicular block no longer present Myocardial infarct finding still present Electronically Signed On 11-05-2023 20:22:38 FILM PROCESSING SHIFT SUPERVISOR by Buck Hall M.D. [id number]
[2023-11-05 16:43] LABS: Troponin 5 6HR 21.01 ng/L (0-10)
[2023-11-05 16:47] LABS: Troponin 5 6HR Delta -1.99 ng/L (0-12)
--- NOTE | 2023-11-05 16:49 | P.HP_ITS ---
Providers/Chief Complaint 2 Primary Care Provider: Susan Romano MD Chief Complaint: resp distress History of Present Illness Nirmala Meléndez is a 83 year old female history of lung cancer, status post chemoradiotherapy, presented to the hospital for drainage of loculated pleural effusion, hospitalist was requested to admit the patient for observation overnight to monitor for hypoxia and management of pain, patient is stating that she is anxious, she does not want to go to senior living, patient is stating that she is DNI/DNI, Currently she is on 2 L of oxygen, complaining of mild pain which is mostly on taking deep breaths, no active fever, hemodynamically stable, patient is stating that she only has to take 15 steps at home to manage her daily activities Troponins are unremarkable with negative delta, no active chest pain Status post left-sided thoracentesis, there is chronic atelectasis 600 cc fluid removed Review of Systems 2 Const: Denies: fever(s) Eyes: Denies: change in vision ENMT: Denies: throat pain Card: Denies: chest pain Resp: Reports: dyspnea GI: Denies: abdominal pain : Denies: flank pain Medications/Allergies Home Medications Medication Instructions Recorded Confirmed Last Taken Type calcitonin (salmon) 200 1 spray intranasal (ALT) DAILY 09/13/19 11/05/23 11/05/23 History unit/actuation nasal spray melatonin 3 mg tablet 3 mg PO BEDTIME PRN Sleep 09/13/19 11/05/23 11/03/23 History Nitrostat 0.4 mg sublingual tablet 0.4 mg sublingual Q5M PRN Chest 09/14/19 11/05/23 01/25/21 Rx (nitroglycerin) Pain #30 tabs aspirin 81 mg tablet,delayed 81 mg PO QAM 01/25/21 11/05/23 11/05/23 History release famotidine 20 mg tablet (Pepcid) 20 mg PO QAM 02/05/22 11/05/23 11/05/23 History ezetimibe 10 mg tablet 10 mg PO QAM 11/15/22 11/05/23 11/05/23 History tiotropium bromide 2.5 2 puff inhalation DAILY PRN 11/15/22 11/05/23 Unknown History mcg/actuation mist for inhalation Shortness Of Breath Or Wheezing (Spiriva Respimat) metoprolol tartrate 25 mg tablet 12.5 mg (1/2 x 25 mg) PO BID 90 11/16/22 11/05/23 11/05/23 Rx days #180 tabs mv-mn-folic 200 mcg-vit K 15 1 cap PO BID 06/24/23 11/05/23 11/05/23 History mcg-lutein 5 mg-zeaxanthin 1 mg capsule (PreserVision AREDS 2 Plus Multivit) benzonatate 200 mg capsule 200 mg PO TID PRN Cough 11/05/23 11/05/23 Unknown History levothyroxine 100 mcg tablet 100 mcg PO QAM 11/05/23 11/05/23 11/05/23 History ondansetron HCl 4 mg tablet 4 mg PO TID PRN Nausea 11/05/23 11/05/23 11/05/23 History Allergies Allergy/AdvReac Type Severity Reaction Status Date / Time Sulfa (Sulfonamide Allergy Unknown ALGY-Bliste Verified 11/05/23 10:10 Antibiotics) r Laczbjs-YHG-DwS Reductase Allergy ADR-Cramping Verified 11/05/23 10:10 Inhibitor of the [Faublpf-Ysd-Fgj Reductase Muscles Inhibitor] PFSH Acute 2 PFSH: Medical History Pleural effusion Lung cancer CAD (coronary artery disease) Squamous cell carcinoma of left lung COPD (chronic obstructive pulmonary disease) SOB (shortness of breath) Atherosclerotic heart disease of [place] coronary artery without angina pectoris TIA (transient ischemic attack) Statin intolerance Atelectasis of left lung Abnormal liver enzymes Gastroesophageal reflux Supraventricular tachycardia Dyslipidemia statin intolerant, taking ezetimibe. NSTEMI (non-ST elevated myocardial infarction) Surgical History Port-A-Cath in place (06/24/21) right IJ Status post colonoscopy History of bronchoscopy History of coronary artery stent placement Family History Mother Hypertension Dementia CAD (coronary artery disease) Myocardial infarction Denies family history of Diabetes Clotting disorder Chronic kidney disease (CKD) Suicide Anesthesia complication Bleeding disorder Lung disease Cancer Stroke Social History Smoking and tobacco/nicotine status: former use of tobacco/nicotine Quit status (tobacco/nicotine): has quit using Year quit tobacco: 1979 Former quit date comment: 3ppd x 20 years Alcohol intake: never Substance/Drug Use: never Lives independently: Yes Household members: none Housing: House Marital status: / Vitals/I&O/Wt Last Vital Signs Temp 98.0 F 11/05/23 09:58 Pulse 78 11/05/23 16:42 Resp 25 H 11/05/23 16:42 BP 119/75 11/05/23 16:42 Pulse Ox 97 11/05/23 16:42 O2 Del Method Nasal Cannula 11/05/23 16:42 O2 Flow Rate 2.5 11/05/23 16:42 Weight last 48 hrs Weight 51.256 kg Physical Exam 2 Narrative: Pleasant and cooperative Pleuritic pain GCS 15 Euvolemic Abdomen soft No active wheezing however crackles and rhonchi noted bilaterally GCS 15 nonfocal neuroexam pleasant and cooperative currently on 2 L Data 11/05/23 10:14 11/05/23 10:14 A&P Assessment and plan (1) Protein-energy malnutrition: (2) Gastroesophageal reflux: (3) Pleural effusion on left: Plan Status post thoracentesis No active fever Pleuritic pain Currently on 2 L of oxygen Monitor overnight wean off oxygen Will do home O2 eval before discharge in the morning DNR/DNI goals of care discussed with the patient Troponin negative delta Will keep her on cardiac diet Regarding her lung cancer she has finished chemotherapy and radiotherapy, She is able to manage her daily activities at home Plan to go home by tomorrow I will manage her pain with IV morphine overnight and wean off oxygen Attestations 2 Medical Necessity Statement*: Likely discharge tomorrow anticipating discharge within 48 hours Diagnoses Protein-energy malnutrition E46 Gastroesophageal reflux K21.9 Pleural effusion on left J90
[2023-11-05 17:23] LABS: Procalcitonin 0.04 ng/mL (0-0.5)
[2023-11-05] MEDS: vancomycin 750 MG in sodium chloride 0.9% 250 ML 250 MG IV (18:26)
--- NOTE | 2023-11-05 19:23 | PC.NURSE ---
Pt. able to walk to the restroom with no assistance.
[2023-11-05] MEDS: ketorolac 30 mg/mL INJ IVP (20:43)
[2023-11-05] MEDS: piperacillin-tazobactam 3.375 GM in sodium chloride 0.9% (plus) 50 ML IV (20:44)
[2023-11-05] MEDS: zolpidem 5 mg Tablet PO (20:44)
[2023-11-06] VITALS (7 sets, daily range): BP systolic 98–118; BP diastolic 62–74; PULSE 67–88; RESP 16–18; TEMP 36.6; O2SAT 91–100; BMI 21.2
[2023-11-06] MEDS: piperacillin-tazobactam 3.375 GM in sodium chloride 0.9% (plus) 50 ML IV (03:32)
[2023-11-06 05:05] LABS: Basophils # 0.1 10^3/uL (0.0-0.1); Basophils % 1.5 %; Eosinophils # 0.6 10^3/uL (0.0-0.8); Eosinophils % 10.8 %; Hematocrit 38.9 % (36-47); Lymphocytes # 0.7 10^3/uL (0.8-4.8); Lymphocytes % 14.3 %; Mean Corpuscular HGB Conc 31.1 g/dL (30-55); Mean Corpuscular Hemoglobin 28.1 pg (27-33); Mean Corpuscular Volume 90.3 fl (85-98); Mean Platelet Volume 8.9 fL (7.4-10.4); Monocytes # 0.7 10^3/uL (0.2-0.9); Monocytes % 13.5 %; Neutrophils # 3.06 10^3/uL (1.8-7.7); Neutrophils % 59.3 %; Nucleated Red Blood Cells % 0 %; Platelet Count 314 10^3/cmm (157-399); Red Blood Count 4.31 10^6/uL (3.85-5.65); Red Cell Distribution Width 14.6 % (12.1-15.1); White Blood Count 5.17 10^3/uL (3.29-11.43)
[2023-11-06 05:23] LABS: Anion Gap 14.3 (5-19); Blood Urea Nitrogen 18 mg/dL (8-23); C Reactive Protein 20.8 mg/L (0.0-4.9); Calcium 8.5 mg/dL (8.5-10.5); Carbon Dioxide 27 mmol/L (22-29); Chloride 103 mmol/L (98-107); Glucose 85 mg/dL (65-115); Magnesium 2.6 mg/dL (1.7-2.3); Osmolality Calculated 291 mOsm/kg (285-295); Potassium 4.3 mmol/L (3.5-5.1); Sodium 140 mmol/L (136-145)
[2023-11-06] MEDS: levothyroxine 100 mcg Tablet PO (05:57)
[2023-11-06] MEDS: aspirin 81 mg EC Tablet PO (05:57)
[2023-11-06] MEDS: metoprolol tartrate 25 mg Tablet 12.5 MG PO (07:32)
[2023-11-06] MEDS: sennosides-docusate Tablet 1 TAB PO (07:33)
--- NOTE | 2023-11-06 08:45 | PM.DCS ---
Discharge Providers Date of Admission: 11/05/23 16:42 Date of Discharge: November 06, 2023 Attending Provider at Admission: Wiley Jimenez MD Attending Provider at Discharge: Wiley Jimenez MD Primary Care Provider: Susan Romano MD Diagnoses at Discharge Discharge Diagnosis (1) Protein-energy malnutrition: Status: Acute (2) Gastroesophageal reflux: Status: Acute (3) Pleural effusion on left: Status: Acute Reason for Visit Reason for Visit: resp distress Hospital Course Hospital Course 83-year-old female who lives alone at home, status post chemoradiotherapy for her lung cancer, presented to the hospital for thoracentesis of loculated pleural effusion, hospitalist was requested to watch her overnight if she would require oxygen & pain management. Patient is stating that she is feeling better, her 2 L of oxygen that was used after thoracentesis has been weaned off to room air, her pleuritic pain has improved, she does not want to use opioids. She does not want to pursue shelter placement. At baseline not very mobile, patient stating that she only has to take 15 steps from her living room to kitchen or bedroom. She is DNR/DNI. She was given vancomycin and Zosyn on admission however she remained afebrile. Physical Exam Narrative: Currently on room air Dehydrated GCS 15 Ate her breakfast Pleasant cooperative Pleuritic pain improved Discharge Data Studies Completed and Pending Completed Studies During Hospitalization Category Date Time Status XR chest 1V portable [id number] Stat Exams 11/05/23 09:58 Completed XR chest 1V portable [id number] Stat Exams 11/05/23 16:18 Completed US thoracentesis [id number] Stat Ultrasound 11/05/23 15:22 Completed Pending at discharge Category Date Time Status Body Fluid Culture & GS Stat Lab 11/05/23 16:30 Received Laboratory Results WBC 5.17 10^3/uL (3.29-11.43) 11/06/23 04:37 RBC 4.31 10^6/uL (3.85-5.65) 11/06/23 04:37 Hgb 12.10 g/dL (11.27-16.99) 11/06/23 04:37 Hct 38.9 % (36-47) 11/06/23 04:37 MCV 90.3 fl (85-98) 11/06/23 04:37 MCH 28.1 pg (27-33) 11/06/23 04:37 MCHC 31.1 g/dL (30-55) 11/06/23 04:37 RDW 14.6 % (12.1-15.1) 11/06/23 04:37 Plt Count 314 10^3/cmm (157-399) 11/06/23 04:37 MPV 8.9 fL (7.4-10.4) 11/06/23 04:37 Neut % (Auto) 59.3 % 11/06/23 04:37 Lymph % (Auto) 14.3 % 11/06/23 04:37 [place] % (Auto) 13.5 % 11/06/23 04:37 Eos % (Auto) 10.8 % 11/06/23 04:37 Baso % (Auto) 1.5 % 11/06/23 04:37 Neut # (Auto) 3.06 10^3/uL (1.8-7.7) 11/06/23 04:37 Lymph # (Auto) 0.7 10^3/uL (0.8-4.8) L 11/06/23 04:37 [place] # (Auto) 0.7 10^3/uL (0.2-0.9) 11/06/23 04:37 Eos # (Auto) 0.6 10^3/uL (0.0-0.8) 11/06/23 04:37 Baso # (Auto) 0.1 10^3/uL (0.0-0.1) 11/06/23 04:37 Nucleated RBC % (auto) 0 % 11/06/23 04:37 Nucleated RBCs # 0.0 /100WBC 11/06/23 04:37 PT 13.00 SECONDS (12.1-14.9) 11/05/23 10:14 INR 0.96 (0.8-1.2) 11/05/23 10:14 Sodium 140 mmol/L (136-145) 11/06/23 04:37 Potassium 4.3 mmol/L (3.5-5.1) 11/06/23 04:37 Chloride 103 mmol/L (98-107) 11/06/23 04:37 Carbon Dioxide 27 mmol/L (22-29) 11/06/23 04:37 Anion Gap 14.3 (5-19) 11/06/23 04:37 BUN 18 mg/dL (8-23) 11/06/23 04:37 Creatinine 1.0 mg/dL (0.5-0.9) H 11/06/23 04:37 GFR Calculation Not Reportable 11/06/23 04:37 Glucose 85 mg/dL (65-115) 11/06/23 04:37 Calculated Osmolality 291 mOsm/kg (285-295) 11/06/23 04:37 Calcium 8.5 mg/dL (8.5-10.5) 11/06/23 04:37 Magnesium 2.6 mg/dL (1.7-2.3) H 11/06/23 04:37 Total Bilirubin 0.3 mg/dL (0.15-1.2) 11/05/23 10:14 AST 17 U/L (0-32) 11/05/23 10:14 ALT 21 U/L (0-33) 11/05/23 10:14 Alkaline Phosphatase 92 U/L (35-105) 11/05/23 10:14 Troponin T Baseline 23 ng/L (0-10) H 11/05/23 10:14 Troponin T 120 Minute 20.77 ng/L (0-10) H 11/05/23 12:07 Delta Troponin T -2.23 ABS# (0-10) L 11/05/23 12:07 Troponin T Hi Sens 6Hr 21.01 ng/L (0-10) H 11/05/23 16:06 Troponin T Hi Sens 6Hr Delta -1.99 ng/L (0-12) L 11/05/23 16:06 C-Reactive Protein 20.8 mg/L (0.0-4.9) H 11/06/23 04:37 Total Protein 6.0 g/dL (6.6-8.7) L 11/05/23 10:14 Albumin 3.5 g/dL (3.5-5.2) 11/05/23 10:14 Globulin 2.5 g/dL (1.3-4.6) 11/05/23 10:14 Procalcitonin 0.04 ng/mL (0-0.5) 11/05/23 16:06 Urine Color Yellow (Yellow) 11/05/23 10:26 Urine Appearance Clear (CLEAR) 11/05/23 10:26 Urine pH 6 (5-7) 11/05/23 10:26 Ur Specific [place] 1.020 (1.005-1.030) 11/05/23 10:26 Urine Protein Neg (Negative) 11/05/23 10:26 Urine Glucose (UA) Norm (Normal) 11/05/23 10:26 Urine Ketones Negative (Negative) 11/05/23 10:26 Urine Blood Neg (Negative) 11/05/23 10:26 Urine Nitrate Negative (Negative) 11/05/23 10:26 Urine Bilirubin Neg (Negative) 11/05/23 10:26 Urine Urobilinogen Norm mg/dL (Negative) 11/05/23 10:26 Ur Leukocyte Esterase Negative (Negative) 11/05/23 10:26 Vitals Last Vital Signs Temp 97.8 F 11/06/23 07:59 Pulse 88 11/06/23 07:59 Resp 18 11/06/23 07:59 BP 118/74 11/06/23 07:59 Pulse Ox 95 11/06/23 07:59 O2 Del Method Nasal Cannula 11/06/23 07:59 O2 Flow Rate 2 11/06/23 04:00 Discharge Plan Discharge Patient Disposition: Home Condition: Stable Prescriptions: New tramadol-acetaminophen 37.5-325 mg tablet 1 tab PO BID PRN (Reason: pain) Qty: 10 0RF albuterol sulfate 90 mcg/actuation HFA aerosol inhaler 2 inh inhalation Q8H PRN (Reason: shortness of breath or wheezing) Qty: 6.7 2RF Continued melatonin 3 mg Tablet 3 mg PO BEDTIME PRN (Reason: Sleep) calcitonin (salmon) 200 unit/actuation [place],Non-Aerosol 1 spray INTRANASAL (ALT) DAILY Rx Instructions: ALTERNATE NOSTRILS DAILY Pepcid 20 mg tablet 20 mg PO QAM PreserVision AREDS 2 Plus MV 200 mcg-15 mcg- 5 mg-1 mg capsule 1 cap PO BID nitroglycerin [Nitrostat] 0.4 mg Tablet, Sublingual 0.4 mg sublingual Q5M PRN (Reason: Chest Pain) Qty: 30 0RF aspirin 81 mg tablet,delayed release (DR/EC) 81 mg PO QAM ezetimibe 10 mg tablet 10 mg PO QAM Spiriva Respimat 2.5 mcg/actuation mist 2 puff inhalation DAILY PRN (Reason: Shortness Of Breath Or Wheezing) metoprolol tartrate 25 mg tablet 12.5 mg PO BID 90 Days Qty: 180 3RF ondansetron HCl 4 mg tablet 4 mg PO TID PRN (Reason: Nausea) levothyroxine 100 mcg tablet 100 mcg PO QAM benzonatate 200 mg capsule 200 mg PO TID PRN (Reason: Cough) Discharge Orders: Discharge Order (Routine); Ordered 11/06/23 Ordered By: Wiley Jimenez Referrals: Susan Romano MD [Primary Care Provider] - Discharge Diet: Cardiac Patient Instructions: Opioid Safety Discharge Attestations Time Spent in Discharge Care*: less than 30 min Status at Discharge: Cognitive status at discharge: cognitively intact, Behavioral status at discharge: cooperative, Quality Metrics Clinical Quality Measures [ No reported AMI, CVA or VTE this stay] Coding Level of Care Code Acute Code for Chg Fwd Diagnoses Protein-energy malnutrition E46 Gastroesophageal reflux K21.9 Pleural effusion on left J90
--- NOTE | 2023-11-06 09:53 | PC.CHAP ---
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 [] Patient/Family/Request visit [] Outpatient visit [] Follow-up visit [] Physician referral [] Code/Alert [x] Routine visit [] Staff referral [] Actively dying [] Patient sleeping [] Family support [] [] Out of room [] Palliative care [] [] Receiving care in room [] Pre-surgical visit [] Trauma [] Long length of stay [] ICU visit [] Other: Relational/Emotional Strength [x] Patient feels connected with others/family/visitors/staff [] Distress [] Loneliness/isolation [] Abandonment Spirituality of Patient [x] Person of Gricel [] Attends Jain of their Gricel [x] Believes in Prayer [] Reads Bible or Jewish materials [] There are Spiritual issues to be addressed [employer] Interventions [x] Prayer [] Active listening [] Non-anxious presence [x] Spiritual/emotional support [] Crisis/trauma care [] Spiritual counseling [] Bereavement support [] Provided bereavement packet [] Provided Bible/devotional materials [] Provided toy/stuffed animal, coloring book to patient or family member [] Provided Communion [] Anointing/[place] [] Salvation [x] Completed spiritual assessment [] Other: Impact on Illness or Injury [] Angry [] Fearful [] Anxious [] Often cries [] Exhaustion [] Unable to work [] Unable to attend rastafarian [] Unable to walk/stand [] Unable to read [] Unable to drive [] Unable to eat/drink [] Unable to sleep [] Unable to be with family [] Patient intubated [] Other: Summary Time spent with patient 5 min
== END 2023-11-06 12:12 | disposition home or self-care (01) ==
LOC: ER 16:15 → MEDSURG 18:57
PROVIDERS: Admitting Provider Internal Medicine; Emergency Provider Family Medicine; PCP Family Medicine; Visit Provider Internal Medicine
DX: E46 Unspecified protein-calorie malnutrition (principal); Z68.21 Body mass index [BMI] 21.0-21.9, adult; K21.9 Gastro-esophageal reflux disease without esophagitis; J90 Pleural effusion, not elsewhere classified; Z92.21 Personal history of antineoplastic chemotherapy; Z85.118 Personal history of other malignant neoplasm of bronchus and lung; Z66 Do not resuscitate; E86.0 Dehydration; Z86.73 Personal history of transient ischemic attack (TIA), and cerebral infarction without residual deficits; E78.5 Hyperlipidemia, unspecified; I25.2 Old myocardial infarction; I25.10 Atherosclerotic heart disease of native coronary artery without angina pectoris; Z87.891 Personal history of nicotine dependence
CPT/HCPCS: 32555; 36415; 71045; 80048; 80053; 81003; 83735; 84145; 84484; 85025; 85610; 86140; 87070; 87075; 87205; 93005; 94760; 96365; 96375; 99285; G0378; J1885; J2543; J3370; J7050

== ENCOUNTER 2023-12-23 12:49 | Outpatient (CLI) | payer MEDICARE, SELFPAY ==
--- NOTE | 2023-12-23 14:00 | CT_ITS ---
WS: [id number] CT CHEST, ABDOMEN AND PELVIS WITH CONTRAST HISTORY: Follow-up lung cancer. TECHNIQUE: Contiguous 5 mm axial imaging performed through the chest, abdomen and pelvis with IV cont rast, oral contrast has been provided. Coronal and sagittal reformats chest. Coronal and sagittal ref ormats through the abdomen and pelvis. All CT scans at [facility] use at least one of these d ose optimization techniques: automated exposure control; mA and/or kV adjustment per patient size (in cludes targeted exams where dose is matched to clinical indication); or iterative reconstruction. CONTRAST: Omnipaque 350; 100 mL IV. DLP: 481.68 mGy.cm COMPARISON: Chest CT 09/15/2023, 10/28/2022, PET/CT 06/16/[address]: Spiculated irregular mass with tethering and scarring at the RIGHT apex is stable over mult iple prior examinations. PET/CT negative. Stable 6 mm nodule superior segment RIGHT lower lobe. Chron ic emphysema. Large portion of the LEFT lower lobe is being compressed by a LEFT pleural effusion. No significant increase in size of the slightly loculated LEFT pleural effusion. Moderate atherosclerosis thoracic aorta. Good opacification of the proximal pulmonary artery. No medi astinal or hilar adenopathy or interval change. Mild pectus excavatum deformity. Abdomen CT: Normal liver and spleen. No metastatic disease to the liver. Contracted gallbladder with no stones. No bile duct dilatation. LEFT adrenal nodule measures 1.1 cm. No change since 11/28/2011. S plenic atrophy. Mild atrophy and cortical thinning of each kidney. 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 There are a few small hypodensities which are reidentified. No solid mass. Moderate atherosclerosis aorta. No ascites or adenopathy. Calcified plaque at the origin of the celiac axis. No GI tract obstruction or colitis. Constipation. Moderate sigmoid diverticulosis without acute diver ticulitis. Pelvic CT: No free fluid in the pelvis. Atrophic uterus. Nondistended urinary bladder. Concave L4 fracture without retropulsion. Mild narrowing of the hip joints. IMPRESSION: 1. Stable spiculated irregular mass with tethering in the RIGHT apex, PET/CT negative. 2. Stable loculated LEFT pleural effusion resulting in significant atelectasis of the LEFT lower lob e. 3. Previously described soft tissue thickening in the LEFT lower lobe is unchanged. This is most con sistent with atelectasis. 4. Chronic emphysema. There is no new pulmonary mass or nodule. 5. No metastatic disease to the liver or adrenal glands. 6. Stable LEFT adrenal nodule measuring 1.1 cm. 7. Constipation and moderate sigmoid diverticulosis without acute diverticulitis. 8. No abdominal or pelvic adenopathy or ascites.
[2023-12-23] MEDS: iohexol 350 mg/mL 500 mL Btl (per mL) PO (14:15)
[2023-12-23] MEDS: iohexol 350 mg/mL 500 mL Btl (per mL) IV (14:15)
== END 2023-12-23 12:50 | disposition home or self-care (01) ==
LOC: RAD 12:50
PROVIDERS: PCP Family Medicine; Visit Provider Nurse Practitioner Family
DX: C34.32 Malignant neoplasm of lower lobe, left bronchus or lung (principal); J90 Pleural effusion, not elsewhere classified; J43.9 Emphysema, unspecified; E27.9 Disorder of adrenal gland, unspecified; K59.00 Constipation, unspecified; K57.30 Diverticulosis of large intestine without perforation or abscess without bleeding
CPT/HCPCS: 71260; 74177; Q9967

== ENCOUNTER 2024-01-06 10:41 | Oncology outpatient (recurring) (ONCR) | payer MEDICARE, SELFPAY ==
[2024-01-06 11:04] LABS: Basophils # 0.1 10^3/uL (0.0-0.1); Eosinophils # 0.2 10^3/uL (0.0-0.8); Eosinophils % 2.4 %; Hematocrit 43.6 % (36-47); Lymphocytes # 1.2 10^3/uL (0.8-4.8); Lymphocytes % 15.8 %; Mean Corpuscular HGB Conc 31.7 g/dL (30-55); Mean Corpuscular Hemoglobin 29.3 pg (27-33); Mean Corpuscular Volume 92.6 fl (85-98); Mean Platelet Volume 9.1 fL (7.4-10.4); Monocytes # 0.7 10^3/uL (0.2-0.9); Neutrophils # 5.57 10^3/uL (1.8-7.7); Neutrophils % 71.5 %; Nucleated Red Blood Cells % 0 %; Platelet Count 254 10^3/cmm (157-399); Red Blood Count 4.71 10^6/uL (3.85-5.65); Red Cell Distribution Width 15.5 % (12.1-15.1); White Blood Count 7.79 10^3/uL (3.29-11.43)
[2024-01-06 11:25] LABS: Alanine Aminotransferase 16 U/L (0-33); Albumin Level 3.9 g/dL (3.5-5.2); Alkaline Phosphatase 90 U/L (35-105); Anion Gap 12.8 (5-19); Aspartate Amino Transferase 19 U/L (0-32); Blood Urea Nitrogen 21 mg/dL (8-23); Calcium 9.3 mg/dL (8.5-10.5); Carbon Dioxide 28 mmol/L (22-29); Chloride 106 mmol/L (98-107); Globulin 3.3 g/dL (1.3-4.6); Glucose 98 mg/dL (65-115); Osmolality Calculated 297 mOsm/kg (285-295); Potassium 4.8 mmol/L (3.5-5.1); Sodium 142 mmol/L (136-145); Total Bilirubin 0.4 mg/dL (0.15-1.2); Total Protein 7.2 g/dL (6.6-8.7)
== END 2024-01-12 23:59 | disposition home or self-care (01) ==
PROVIDERS: Nurse Practitioner Family; PCP Family Medicine; Visit Provider Internal Medicine Hematology & Oncology
DX: C34.32 Malignant neoplasm of lower lobe, left bronchus or lung (principal); Z87.891 Personal history of nicotine dependence; Z95.828 Presence of other vascular implants and grafts
CPT/HCPCS: 36415; 80053; 85025; 99214

== ENCOUNTER 2024-01-11 14:24 | Outpatient (CLI) | payer MEDICARE, SELFPAY ==
--- NOTE | 2024-01-11 14:31 | XRR_ITS ---
PROCEDURE INFORMATION: Exam: XR Chest Exam date and time: 01/11/2024 2:45 PM Age: 83 years old Clinical indication: Condition or disease; Lung condition and disease; Pleural effusion; Other: Not specified; Patient HX: HX of lung cancer 4 years ago; Additional info: Pleural effusions on left lung/lung cancer TECHNIQUE: Imaging protocol: Radiologic exam of the chest. Views: 2 views. COMPARISON: CT chest abdpel w/*[id number] 06/17/2024 14:10 FINDINGS: Lungs: Linear opacity at the right lung apex, similar in appearance to prior imaging. Pleural spaces: Small to moderate left pleural effusion, best appreciated layering on the left lateral decubitus view. Heart/Mediastinum: Unremarkable. No cardiomegaly. Bones/joints: Unremarkable. XR/XR chest 3V [id number] IMPRESSION: Small to moderate left pleural effusion
== END 2024-01-11 14:25 | disposition home or self-care (01) ==
LOC: RAD 14:26
PROVIDERS: PCP Family Medicine; Visit Provider Family Medicine
DX: J90 Pleural effusion, not elsewhere classified (principal); C34.90 Malignant neoplasm of unspecified part of unspecified bronchus or lung
CPT/HCPCS: 71047

== ENCOUNTER 2024-01-15 08:38 | Day surgery (SDC) | payer MEDICARE, SELFPAY ==
--- NOTE | 2024-01-15 08:37 | US_ITS ---
WS: [id number] ULTRASOUND-GUIDED THORACENTESIS CLINICAL INFORMATION: Left pleural effusion PROCEDURE: Informed consent: The risks, benefits, and alternatives of the procedure were discussed with the akiko ent. Verbal and written consent was obtained. Timeout: A timeout was performed to confirm the correct patient, procedure, and site. Site: LEFT chest Preparation: A suitable skin site was identified. The patient was prepped and draped in usual sterile fashion. Lidocaine 1% was used for local anesthesia. Catheter: 4 [place] One-Step catheter. Fluid Volume: 800 ml Color: Bloody serous Fluid collected for laboratory analysis. Complications: None. Patient disposition: Discharged from the department in stable condition. No pneumothorax on the postt horacentesis radiograph US/ thoracentesis [id number] IMPRESSION: Uncomplicated ultrasound-guided thoracentesis.
[2024-01-15 09:02] VITALS: BP 131/72; PULSE 68; RESP 18; TEMP 36.6; O2SAT 95
[2024-01-15 09:32] LABS: INR 0.92 (0.8-1.2)
--- NOTE | 2024-01-15 09:45 | SUR.OPER ---
Dr. Navarro at bedside to perform left thoracentesis. 800 mL reddish fluid drained. Specimens sent to lab for cytology, culture and gram stain, and cell count as ordered by Dr. Navarro. CXR completed following procedure. Pt states she is breathing more easily now. O2 sat 96% on RA. Pt cleared for discharge per Dr. Navarro. Educated pt to return to ED for SOB, chest pain, or bleeding. Dressing to left back D/I with opsite in place. Pt instructed to remove dressing after 48 hours.
[2024-01-15 09:50] VITALS: BP 133/72; PULSE 64; RESP 18; O2SAT 95
--- NOTE | 2024-01-15 09:53 | XR_ITS ---
WS: [id number] XR chest 1V portable [id number] REASON FOR EXAM: post thoracentesis FINDINGS: Removal of significant volume of pleural fluid from the left hemithorax. Moderate residual atelectasis in the left lower lobe. No pneumothorax. Right chest remains without significant abnormality. XR/XR chest 1V portable [id number] IMPRESSION: Removal of majority of pleural fluid from the left pleural space. Moderate atelectasis in the left lung base. No pneumothorax.
[2024-01-15 09:55] VITALS: BP 103/60; PULSE 55; RESP 18; O2SAT 95
[2024-01-15 10:00] VITALS: BP 114/63; PULSE 58; RESP 18; O2SAT 96
[2024-01-15 10:05] VITALS: BP 111/63; PULSE 65; RESP 18; O2SAT 97
[2024-01-15 10:25] VITALS: BP 133/64; PULSE 56; RESP 18; TEMP 36.9; O2SAT 96
[2024-01-15 10:32] LABS: Body Fluid WBC 1222 /uL; Monocytes # Body Fluid 1.202
[2024-01-15 10:55] LABS: Cyto Order Verification Order Verified
[2024-01-15 10:56] LABS: Apprearance, Body Fluid CLOUDY; Color, Body Fluid AMBER; Fluid Laterality LEFT
[2024-01-15 11:46] LABS: PATH Referral YES
== END 2024-01-15 10:45 | disposition home or self-care (01) ==
PROVIDERS: Radiology Neuroradiology; PCP Family Medicine; Visit Provider Family Medicine
PROC: (CPT 32554; principal; 2024-01-15 09:45)
DX: J90 Pleural effusion, not elsewhere classified (principal)
CPT/HCPCS: 32555; 71045; 80503; 85610; 87070; 87075; 87205; 88112; 89050

== ENCOUNTER → 2024-01-21 14:11 | Outpatient (BNVA) | payer MEDICARE, SELFPAY | PROVIDERS: PCP Family Medicine; Visit Provider Internal Medicine Cardiovascular Disease | DX: I25.10 Atherosclerotic heart disease of native coronary artery without angina pectoris (principal); J90 Pleural effusion, not elsewhere classified; E78.5 Hyperlipidemia, unspecified; I50.32 Chronic diastolic (congestive) heart failure; I47.10 Supraventricular tachycardia, unspecified; Z87.891 Personal history of nicotine dependence | CPT/HCPCS: 99214 ==

== ENCOUNTER 2024-02-19 08:19 | Day surgery (SDC) | payer MEDICARE, SELFPAY ==
--- NOTE | 2024-02-19 08:24 | US_ITS ---
WS: [id number] ULTRASOUND-GUIDED THORACENTESIS CLINICAL INFORMATION: recurrent left pleural effusion COMPARISON: None. PROCEDURE: Informed consent: The risks, benefits, and alternatives of the procedure were discussed with the akiko ent. Verbal and written consent was obtained. Timeout: A timeout was performed to confirm the correct patient, procedure, and site. Site: LEFT chest Preparation: A suitable skin site was identified. The patient was prepped and draped in usual sterile fashion. Lidocaine 1% was used for local anesthesia. Catheter: 4 [place] One-Step catheter. Fluid Volume: 700 cc Color: Bloody serous Complications: No pneumothorax on the postthoracentesis chest radiograph Patient disposition: Discharged from the department in stable condition. / thoracentesis [id number] IMPRESSION: Uncomplicated ultrasound-guided LEFT thoracentesis with removal of 700 cc blood y serous fluid.
[2024-02-19 08:31] VITALS: BP 135/81; PULSE 64; RESP 16; TEMP 36.6; O2SAT 95
[2024-02-19 08:32] VITALS: BMI 21.1
[2024-02-19 09:00] VITALS: BP 156/92; PULSE 62; RESP 18; O2SAT 98
[2024-02-19 09:20] VITALS: BP 150/90; PULSE 55; RESP 20; O2SAT 98
--- NOTE | 2024-02-19 09:21 | XR_ITS ---
WS: [id number] CHEST XRAY TECHNIQUE: Portable chest. CLINICAL INFORMATION: Post thoracentesis COMPARISON: 01/15/2024 FINDINGS: Heart: Mild cardiomegaly. Aortic calcification. Lungs: Volume loss LEFT lower lobe. No significant residual pleural fluid. No pneumothorax. RIGHT candida g is well aerated. Bones: Osteopenia. XR/XR chest 1V portable [id number] IMPRESSION: Status post LEFT thoracentesis. No significant residual pleural fluid. Volume l oss LEFT lower lobe. No pneumothorax.
[2024-02-19 09:34] VITALS: BP 119/67; PULSE 58; RESP 18; O2SAT 97
--- NOTE | 2024-02-19 10:09 | PC.NURSE ---
CXR taken following thoracentesis. Dr. Navarro states ok for pt to be discharged. Pt instructed to return to ER for SOB, difficulty breathing, pain, or bleeding.
== END 2024-02-19 10:08 | disposition home or self-care (01) ==
LOC: GILAB 08:20
PROVIDERS: Radiology Neuroradiology; PCP Family Medicine; Visit Provider Family Medicine
PROC: (CPT 32554; principal; 2024-02-19 08:30)
DX: J90 Pleural effusion, not elsewhere classified (principal)
CPT/HCPCS: 32555; 71045

== ENCOUNTER → 2024-02-24 14:42 | Outpatient (BNVA) | payer MEDICARE, SELFPAY | PROVIDERS: PCP Family Medicine; Visit Provider Internal Medicine Pulmonary Disease | DX: J90 Pleural effusion, not elsewhere classified (principal); C34.32 Malignant neoplasm of lower lobe, left bronchus or lung; C34.92 Malignant neoplasm of unspecified part of left bronchus or lung; R06.02 Shortness of breath; Z87.891 Personal history of nicotine dependence | CPT/HCPCS: 99214 ==

== ENCOUNTER 2024-03-10 10:10 | Outpatient (CLI) | payer MEDICARE, SELFPAY ==
--- NOTE | 2024-03-10 10:11 | MM_ITS ---
WS: [id number] BILATERAL SCREENING DIGITAL TOMOSYNTHESIS MAMMOGRAM WITH CAD HISTORY: SCREENING COMPARISON: 02/05/2022, 07/11/2020 and 06/11/2020 Bilateral CC and MLO views with tomosynthesis and synthetic mammography submitted. Computer aided det ection analyzed. Breast composition: There are scattered areas of fibroglandular density. No suspicious masses, microc alcifications or architectural distortion. Long-term stability well-circumscribed mass measures 5 mm at 12-1 o'clock LEFT breast. Benign calcifications in each breast. MM/[place] [id number] IMPRESSION: BI-RADS: 2-Benign FOLLOW UP: 1 Year Follow-up
== END 2024-03-10 10:11 | disposition home or self-care (01) ==
PROVIDERS: PCP Family Medicine; Visit Provider Family Medicine
DX: Z12.31 Encounter for screening mammogram for malignant neoplasm of breast (principal); N63.21 Unspecified lump in the left breast, upper outer quadrant; R92.1 Mammographic calcification found on diagnostic imaging of breast
CPT/HCPCS: 77063; 77067

== ENCOUNTER 2024-03-10 12:48 | Day surgery (SDC) | payer MEDICARE, SELFPAY ==
--- NOTE | 2024-03-10 13:07 | US_ITS ---
WS: [email or web address] ULTRASOUND-GUIDED THORACENTESIS, LEFT HISTORY: Recurrent LEFT pleural effusion with loculations. Procedure, risks, and complications were explained to the patient. With the patient in an upright pos ition, the skin over the LEFT posterior thorax was cleansed with ChloraPrep and anesthetized with 1% buffered lidocaine. A 5 [place] MATIvisioneh needle is inserted into the pleural fluid without complication. A pproximately 700 cc of dark yellow pleural fluid is removed without difficulty. The LEFT pleural effusion is loculated as seen on prior imaging studies. The largest pocket was targe jennifer and the fluid was drained. There are additional smaller loculations with additional fluid more mera periorly. The study is terminated as the patient does experience pain as the fluid is removed which i s probably due to pleural scarring and tethering. / thoracentesis [id number] IMPRESSION: 1. LEFT thoracentesis yielding 700 cc of fluid. 2. Chest radiograph to follow to evaluate for pneumothorax.
[2024-03-10 13:08] VITALS: BP 143/74; PULSE 74; RESP 20; TEMP 36.3; O2SAT 93; BMI 21.1
--- NOTE | 2024-03-10 13:45 | XR_ITS ---
WS: [id number] PORTABLE CHEST HISTORY: post thoracentesis COMPARISON: 02/19/2024 No pneumothorax status post LEFT thoracentesis. There is residual pleural thickening and/or fluid at the LEFT lung base. Chronic atelectasis adjacent to the mediastinum. Lungs are otherwise clear. Cardiac size: Normal. Mediastinum/Aorta: Mild atherosclerosis aorta. No osseous abnormality seen. XR/XR chest 1V portable [id number] IMPRESSION: 1. No pneumothorax status post LEFT thoracentesis. 2. Small residual LEFT pleural effusion and/or pleural thickening at the LEFT lung base.
[2024-03-10 13:59] VITALS: O2SAT 98
--- NOTE | 2024-03-10 14:28 | PC.NURSE ---
1420- No drainage noted on dressing. Patient discharged to home with all personal belongings. Transported to vehicle via wheelchair.
== END 2024-03-10 14:20 | disposition home or self-care (01) ==
PROVIDERS: Radiology Diagnostic Radiology; PCP Family Medicine; Visit Provider Family Medicine
PROC: (CPT 32554; principal; 2024-03-10 14:00)
DX: J90 Pleural effusion, not elsewhere classified (principal)
CPT/HCPCS: 32555; 71045

== ENCOUNTER 2024-04-11 12:15 | Oncology outpatient (recurring) (ONCR) | payer MEDICARE, SELFPAY ==
[2024-03-22 14:37] LABS: Blood Urea Nitrogen 22 mg/dL (8-23)
--- NOTE | 2024-03-22 15:15 | CTR_ITS ---
PROCEDURE INFORMATION: Exam: CT Chest With Contrast; Diagnostic Exam date and time: 03/22/2024 3:11 PM Age: 83 years old Clinical indication: Condition or disease; Lung condition and disease; Cancer of the lung; Bilateral; Unspecified; Primary cancer: Lung cancer TECHNIQUE: Imaging protocol: Diagnostic computed tomography of the chest with contrast. Total images: 1621 Radiation optimization: All CT scans at this facility use at least one of these dose optimization techniques: automated exposure control; mA and/or kV adjustment per patient size (includes targeted exams where dose is matched to clinical indication); or iterative reconstruction. Contrast material: OMNI 350; Contrast volume: 100 ml; Contrast route: INTRAVENOUS (IV); COMPARISON: CT chest abdpel w/*[id number] 12/23/2023 2:10 PM RADIATION DOSE METRICS: Total DLP (mGy-cm): 473.24 FINDINGS: Lungs: Benign granulomatous disease of the lung is noted. Moderate centrilobular emphysematous changes are present. Irregular interstitial thickening at the right lung apex with architectural distortion consistent with post treatment changes/scarring unchanged from prior exam. 6 mm nodule in the superior segment of the right lower lobe stable. Soft tissue density tracking along right bronchus and intervening between the left pulmonary artery and bronchus unchanged in appearance. Pleural spaces: Moderate left pleural fluid collection with compressed and heterogeneously enhancing left lower lobe unchanged from prior exam. Heart: Unremarkable. No cardiomegaly. No pericardial effusion. Lymph nodes: Unremarkable. No enlarged lymph nodes. Vasculature: Dilated ascending thoracic aorta measured at 4.0 cm unchanged from prior exam. Bones/joints: Unremarkable. No acute fracture. Soft tissues: Unremarkable. PROCEDURE INFORMATION: Exam: CT Abdomen And Pelvis With Contrast Exam date and time: 03/22/2024 3:11 PM Age: 83 years old Clinical indication: Condition or disease; Lung condition and disease; Cancer of the lung; Bilateral; Unspecified; Primary cancer: Lung cancer TECHNIQUE: Imaging protocol: Computed tomography of the abdomen and pelvis with contrast. Radiation optimization: All CT scans at this facility use at least one of these dose optimization techniques: automated exposure control; mA and/or kV adjustment per patient size (includes targeted exams where dose is matched to clinical indication); or iterative reconstruction. Contrast material: OMNI 350; Contrast volume: 100 ml; Contrast route: INTRAVENOUS (IV); COMPARISON: 1. CT chest abdpel w/*[id number] 12/23/2023 2:10 PM 2. PT PET skull to thigh SUBS [id number] 06/16/2023 10:[address] chest w con* [id number] 09/15/2023 1:12 PM RADIATION DOSE METRICS: Total DLP (mGy-cm): 473.24 FINDINGS: Liver: Normal. No mass. Gallbladder and biliary ducts: Normal. No calcified stones. No ductal dilation. Pancreas: Normal. No ductal dilation. Spleen: Normal. No splenomegaly. Adrenal glands: 16 mm benign left adrenal nodule unchanged from multiple prior exam as well as showing no activity on previous PET scan suggest adenoma. Kidneys and ureters: Normal. No hydronephrosis. Stomach and bowel: Colonic diverticulosis is present without diverticulitis. Appendix: No evidence of appendicitis. Intraperitoneal space: Unremarkable. No free air. No significant fluid collection. Vasculature: 9 mm left renal artery aneurysm unchanged. Lymph nodes: Unremarkable. No enlarged lymph nodes. Urinary bladder: Unremarkable as visualized. Reproductive: Unremarkable as visualized. Bones/joints: Unremarkable. No acute fracture. Soft tissues: Unremarkable. Other findings: Moderate atherosclerotic disease burden is evident. CT/CT chest abdpel w/*[id number] IMPRESSION: 1. Moderate centrilobular emphysematous changes are present. 2. Irregular interstitial thickening at the right lung apex with architectural distortion consistent with post treatment changes/scarring unchanged from prior exam. 3. 6 mm nodule in the superior segment of the right lower lobe stable. 4. Moderate left pleural fluid collection with compressed and heterogeneously enhancing left lower lobe unchanged from prior exam. 5. Soft tissue density tracking along right bronchus and intervening between the left pulmonary artery and bronchus unchanged in appearance. 6. Dilated ascending thoracic aorta measured at 4.0 cm unchanged from prior exam. IMPRESSION: 1. 16 mm benign left adrenal nodule unchanged from multiple prior exam as well as showing no activity on previous PET scan suggest adenoma. 2. 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 3. No evidence of metastatic disease.
[2024-03-22] MEDS: iohexol 350 mg/mL 500 mL Btl (per mL) PO (15:43)
[2024-03-22] MEDS: iohexol 350 mg/mL 500 mL Btl (per mL) IV (15:43)
[2024-04-11 12:14] LABS: Basophils # 0.1 10^3/uL (0.0-0.1); Basophils % 1.1 %; Eosinophils # 0.2 10^3/uL (0.0-0.8); Eosinophils % 2.3 %; Hematocrit 44.8 % (36-47); Lymphocytes # 1.3 10^3/uL (0.8-4.8); Lymphocytes % 19.2 %; Mean Corpuscular HGB Conc 31.9 g/dL (30-55); Mean Corpuscular Hemoglobin 28.5 pg (27-33); Mean Corpuscular Volume 89.4 fl (85-98); Mean Platelet Volume 9.5 fL (7.4-10.4); Monocytes # 0.7 10^3/uL (0.2-0.9); Monocytes % 10.3 %; Neutrophils # 4.43 10^3/uL (1.8-7.7); Neutrophils % 66.9 %; Nucleated Red Blood Cells % 0 %; Platelet Count 237 10^3/cmm (157-399); Red Blood Count 5.01 10^6/uL (3.85-5.65); Red Cell Distribution Width 14.3 % (12.1-15.1); White Blood Count 6.61 10^3/uL (3.29-11.43)
[2024-04-11 13:07] LABS: Alanine Aminotransferase 13 U/L (0-33); Albumin Level 3.8 g/dL (3.5-5.2); Alkaline Phosphatase 85 U/L (35-105); Aspartate Amino Transferase 15 U/L (0-32); Blood Urea Nitrogen 22 mg/dL (8-23); Calcium 9.1 mg/dL (8.5-10.5); Carbon Dioxide 24 mmol/L (22-29); Chloride 105 mmol/L (98-107); Globulin 3.3 g/dL (1.3-4.6); Glucose 98 mg/dL (65-115); Osmolality Calculated 295 mOsm/kg (285-295); Sodium 141 mmol/L (136-145); Total Bilirubin 0.5 mg/dL (0.15-1.2); Total Protein 7.1 g/dL (6.6-8.7)
== END 2024-04-13 23:59 | disposition home or self-care (01) ==
PROVIDERS: Nurse Practitioner Family; PCP Family Medicine; Visit Provider Internal Medicine Medical Oncology
DX: Z53.9 Procedure and treatment not carried out, unspecified reason; C34.32 Malignant neoplasm of lower lobe, left bronchus or lung
CPT/HCPCS: 36415; 71260; 74177; 80053; 82565; 84520; 85025; 99214; Q9967

== ENCOUNTER → 2024-05-10 12:27 | Outpatient (BNVA) | payer MEDICARE, SELFPAY | PROVIDERS: PCP Family Medicine; Visit Provider Internal Medicine Critical Care Medicine | DX: C34.92 Malignant neoplasm of unspecified part of left bronchus or lung (principal); J90 Pleural effusion, not elsewhere classified; J98.19 Other pulmonary collapse; Z71.89 Other specified counseling | CPT/HCPCS: 99214 ==

== ENCOUNTER 2024-05-24 10:44 | Day surgery (SDC) | payer MEDICARE, SELFPAY ==
[2024-05-24 10:52] VITALS: BP 132/85; PULSE 77; RESP 16; TEMP 36.4; O2SAT 97
[2024-05-24 10:53] VITALS: BMI 20.7
--- NOTE | 2024-05-24 11:03 | US_ITS ---
WS: [id number] ULTRASOUND-GUIDED THORACENTESIS, LEFT HISTORY: pleural effusion Procedure, risks, and complications were explained to the patient. With the patient in an upright pos ition, the skin over the LEFT posterior thorax was cleansed with ChloraPrep and anesthetized with 1% buffered lidocaine. A 5 Turkish Yueh needle is inserted into the pleural fluid without complication. A pproximately 600 cc of slightly pink pleural fluid is removed without difficulty. / thoracentesis [id number] IMPRESSION: 1. LEFT thoracentesis yielding 600 cc of fluid. 2. Chest radiograph to follow to evaluate for pneumothorax.
--- NOTE | 2024-05-24 12:22 | XR_ITS ---
WS: [id number] PORTABLE CHEST HISTORY: post thoracentesis, LEFT COMPARISON: 03/10/2024 No pneumothorax status post LEFT thoracentesis. There is a small amount of pleural fluid versus pleural thickening at the LEFT base. There is also at electatic lung in the LEFT lower thorax similar to the prior study. Cardiac size: Normal. Mediastinum/Aorta: Mild atherosclerosis aorta. No osseous abnormality seen. XR/XR chest 1V portable [id number] IMPRESSION: 1. No pneumothorax status post LEFT thoracentesis. 2. Chronic atelectatic appearing lung, LEFT lower lobe. 3. Very tiny remaining LEFT pleural effusion versus pleural thickening.
== END 2024-05-24 12:48 | disposition home or self-care (01) ==
LOC: GILAB 10:44
PROVIDERS: Radiology Diagnostic Radiology; PCP Family Medicine; Visit Provider Family Medicine
PROC: (CPT 32554; principal; 2024-05-24 12:00)
DX: J90 Pleural effusion, not elsewhere classified (principal)
CPT/HCPCS: 32555; 71045

== ENCOUNTER 2024-05-26 22:26 | Emergency (ER) | payer MEDICARE, SELFPAY ==
[2024-05-26 22:30] VITALS: BP 110/82; PULSE 82; RESP 20; TEMP 37.1; O2SAT 100; BMI 20.7
--- NOTE | 2024-05-26 22:33 | XRR_ITS ---
PROCEDURE INFORMATION: Exam: XR Abdomen Exam date and time: 05/26/2024 10:40 PM Age: 83 years old Clinical indication: Abdominal pain; Generalized TECHNIQUE: Imaging protocol: Radiologic exam of the abdomen. Views: 2 Views. Upright and supine views. COMPARISON: CT chest abdpel w/*[id number] 03/22/2024 3:11 PM FINDINGS: Lungs: Left mid lung zone and lower lung zone atelectasis. Hyperinflated lungs with bilateral apical predominant emphysematous changes. Pleural spaces: Left pleural effusion. Gastrointestinal tract: Normal. No bowel dilation. Intraperitoneal space: Normal. No free air. Vasculature: Aortic arch calcifications. Bones/joints: Mild degenerative disease of bilateral acromioclavicular joints. XR/XR acute abdomen series [id number] IMPRESSION: 1. Nonobstructive bowel gas pattern. No pneumoperitoneum. 2. Left pleural effusion with left lower lobe atelectasis.
[2024-05-26] MEDS: ondansetron 2 mg/ML SDV 2 mL 4 MG IVP (22:41)
--- NOTE | 2024-05-26 22:47 | ECG_ITS ---
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 Measurements Intervals [place] Rate: 85 P: 81 WA: 221 QRS: -46 QRSD: 104 T: 88 QT: 372 QTc: 444 Interpretive Statements SINUS RHYTHM WITH FIRST DEGREE AV BLOCK INCOMPLETE RIGHT BUNDLE BRANCH BLOCK [90+ ms QRS DURATION, TERMINAL R IN V1/V2, 40+ ms S IN I/aVL/V4/V5/V6] LEFT ANTERIOR FASCICULAR BLOCK [QRS AXIS <= -45, QR IN I, RS IN II] SEPTAL MYOCARDIAL INFARCTION , PROBABLY OLD [40+ ms Q WAVE IN V1/V2] POSSIBLE LATERAL MYOCARDIAL INFARCTION , OF INDETERMINATE AGE [30 ms Q WAVE IN I/aVL/V5/V6] Compared to ECG 11/05/2023 16:36:03 First degree AV block now present Left anterior fascicular block now present Sinus arrhythmia no longer present Left-axis deviation no longer present Myocardial infarct finding still present Electronically Signed On 05-27-2024 16:45:43 CDT by Buck Hall M.D. [id number]
--- NOTE | 2024-05-26 22:49 | ED_ITS ---
HPI - Nausea/Vomiting/Diarrhea 2 General: Chief complaint: Nausea/Vomiting/Diarrhea Stated complaint: N/V Time Seen by Provider: 05/26/24 22:28 History of Present Illness: 83-year-old female with a history of candida g cancer and recurrent pleural effusions who had this drained a couple of days ago and says that since then she has had nausea and vomiting. She has not been able keep anything down. No abdominal pain. No diarrhea. She is feeling generally weak. No focal motor deficits. No abdominal pain. Related Data Home Medications Medication Instructions Recorded Confirmed calcitonin (salmon) 200 1 spray intranasal (ALT) DAILY 09/13/19 05/23/24 unit/actuation nasal spray melatonin 3 mg tablet 3 mg PO BEDTIME PRN Sleep 09/13/19 05/23/24 aspirin 81 mg tablet,delayed 81 mg PO QAM 01/25/21 05/23/24 release famotidine 20 mg tablet (Pepcid) 20 mg PO QAM 02/05/22 05/23/24 ezetimibe 10 mg tablet 10 mg PO QAM 11/15/22 05/23/24 mv-mn-folic 200 mcg-vit K 15 2 cap PO DAILY 06/24/23 05/23/24 mcg-lutein 5 mg-zeaxanthin 1 mg capsule (PreserVision AREDS 2 Plus Multivit) ondansetron HCl 4 mg tablet 4 mg PO TID PRN Nausea 11/05/23 05/23/24 metoprolol tartrate 25 mg tablet 12.5 mg PO DAILY 02/17/24 05/24/24 acetaminophen 500 mg tablet 500 mg PO Q6H PRN Pain 03/07/24 05/23/24 levothyroxine 125 mcg tablet 125 mcg PO DAILY 03/07/24 05/23/24 Previous Rx's Medication Instructions Recorded albuterol sulfate 90 mcg/actuation 2 inh inhalation Q8H PRN shortness 11/06/23 aerosol inhaler of breath or wheezing #6.7 grams nirmatrelvir 300 mg (150 mg See Rx Instructions PO .COMPLEX 05/27/24 x2)-ritonavir 100 mg tablet,dose #30 ea pack (Paxlovid) ondansetron 8 mg disintegrating 8 mg PO Q6H #14 tabs 05/27/24 tablet Allergies Allergy/AdvReac Type Severity Reaction Status Date / Time Sulfa (Sulfonamide Allergy Unknown ALGY-Bliste Verified 05/10/24 12:53 Antibiotics) r Mjbnrbq-ALK-IzV Reductase Allergy ADR-Cramping Verified 05/10/24 12:53 Inhibitor of the [Ixblbwa-Oso-Kzf Reductase Muscles Inhibitor] Review of Systems 2 Narrative: Constitutional symptoms: Negative except as documented in HPI. Skin symptoms: Negative except as documented in HPI. Eye symptoms: Negative except as documented in HPI. ENMT symptoms: Negative except as documented in HPI. Respiratory symptoms: Negative except as documented in HPI. Cardiovascular symptoms: Negative except as documented in HPI. Gastrointestinal symptoms: Negative except as documented in HPI. Genitourinary symptoms: Negative except as documented in HPI. Musculoskeletal symptoms: Negative except as documented in HPI. Neurologic symptoms: Negative except as documented in HPI. Psychiatric symptoms: Negative except as documented in HPI. Endocrine symptoms: Negative except as documented in HPI. PFSH ED 2 PFSH: Medical History Pleural effusion Pleural effusion on left Malignant neoplasm of lower lobe, left bronchus or lung Stage IIB - T1b, N1, M0 Protein-energy malnutrition Pleural effusion Lung cancer CAD (coronary artery disease) Squamous cell carcinoma of left lung COPD (chronic obstructive pulmonary disease) SOB (shortness of breath) Atherosclerotic heart disease of [place] coronary artery without angina pectoris TIA (transient ischemic attack) Statin intolerance Atelectasis of left lung Abnormal liver enzymes Gastroesophageal reflux Supraventricular tachycardia Dyslipidemia statin intolerant, taking ezetimibe. NSTEMI (non-ST elevated myocardial infarction) Surgical History Port-A-Cath in place (06/24/21) right IJ Status post colonoscopy History of bronchoscopy History of coronary artery stent placement Family History Mother Hypertension Dementia CAD (coronary artery disease) Myocardial infarction Denies family history of Diabetes Clotting disorder Chronic kidney disease (CKD) Suicide Anesthesia complication Bleeding disorder Lung disease Cancer Stroke Social History Smoking and tobacco/nicotine status: never used tobacco/nicotine Quit status (tobacco/nicotine): has quit using Year quit tobacco: 1979 Former quit date comment: 3ppd x 20 years Alcohol intake: never Substance/Drug Use: never Lives independently: Yes Household members: none Housing: House Marital status: / Physical Exam 2 Narrative: EXAM NARRATIVE: General: Alert, no acute distress. Skin: Warm, dry. Head: Normocephalic, atraumatic. Neck: Supple, trachea midline. Eye: Extraocular movements are intact. Ears, nose, mouth and throat: mucosa moist. Cardiovascular: Regular, Normal peripheral perfusion. Respiratory: Lungs are clear to auscultation, respirations are non-labored, breath sounds are equal, Symmetrical chest wall expansion. Gastrointestinal: Soft, Nontender, Non distended Musculoskeletal: Normal ROM, no deformity. Neurological: Alert and oriented, No focal neurological deficit observed. Psychiatric: Cooperative, appropriate mood & affect. Course 2 Vital Signs: Vital signs: Vital Signs Temperature 98.7 F 05/26/24 22:30 Pulse Rate 82 05/26/24 22:30 Respiratory Rate 16 05/27/24 00:15 Blood Pressure 110/82 05/26/24 22:57 Pulse Oximetry 95 05/27/24 00:15 Oxygen Delivery Me thod Room Air 05/27/24 00:15 MDM - Nausea/Vomiting/Diarrhea Medical Decision Making Medical decision making: Differential diagnosis for this patient with nausea and vomiting including but not limited to and based on the above HPI, review of systems and physical exam: Urinary tract infection. Appendicitis. Cholecystis. colitis. small bowel obstruction. crohn's flare. pancreatitis. gastritis. peptic ulcer. cyclic vomiting. Viral illness. Influenza. COVID. - Workup - labwork and imaging ordered to evaluate, rule in and rule out above pathologies. EKG: Time 2347. Rate 85. Normal sinus rhythm, No ST-T changes, no ectopy, first degree AV Block, EP Interpretation. This was reviewed and interpreted by myself the ER physician at 2250. Acute abdominal series: chest x-ray: Patient continues to have a left pleural effusion. No obvious infiltrates. No pneumothorax. No cardiomegaly. This was reviewed and interpreted by myself the emergency room physician Abdomen x-ray: Nonspecific bowel gas pattern. No evidence of free air or obstruction. This was reviewed and interpreted by myself the emergency room physician. Lab Review: Laboratory results were reviewed and interpreted by myself the emergency room physician. No leukocytosis. No anemia. BUN and creatinine are stable at 19 and 1.0. Urinalysis shows no infection. Patient is COVID-positive. I reviewed the patient's medical record. Reexamination: Patient remained stable. No increased work of breathing. No altered mental status. No focal motor deficits. Assessment and plan: COVID-19 Dehydration ?1.5 L normal saline bolus. 2 doses of Zofran IV. Tolerating p.o. - Discharged home - Discussed findings and plan with patient. Answered any questions. - All laboratory values were reviewed and interpreted personally by myself, the ER physician - All imaging was reviewed and interpreted personally by myself, the ER physician. - Evaluation and treatment of this problem were appropriate in the emergency setting Lab Data 05/26/24 22:47 05/26/24 22:47 Radiology Impressions Chest/Abdomen X-ray 05/26/24 22:33 IMPRESSION: 1. Nonobstructive bowel gas pattern. No pneumoperitoneum. 2. Left pleural effusion with left lower lobe atelectasis. Laboratory Results WBC 5.61 10^3/uL (3.29-11.43) 05/26/24 22:47 RBC 4.53 10^6/uL (3.85-5.65) 05/26/24 22:47 Hgb 12.80 g/dL (11.27-16.99) 05/26/24 22:47 Hct 40.6 % (36-47) 05/26/24 22:47 MCV 89.6 fl (85-98) 05/26/24 22:47 MCH 28.3 pg (27-33) 05/26/24 22:47 MCHC 31.5 g/dL (30-55) 05/26/24 22:47 RDW 14.5 % (12.1-15.1) 05/26/24 22:47 Plt Count 214 10^3/cmm (157-399) 05/26/24 22:47 MPV 9.3 fL (7.4-10.4) 05/26/24 22:47 Neut % (Auto) 60.5 % 05/26/24 22:47 Lymph % (Auto) 19.3 % 05/26/24 22:47 [place] % (Auto) 17.5 % 05/26/24 22:47 Eos % (Auto) 1.1 % 09/12/24 22:47 Baso % (Auto) 0.7 % 05/26/24 22:47 Neut # (Auto) 3.40 10^3/uL (1.8-7.7) 05/26/24 22:47 Lymph # (Auto) 1.1 10^3/uL (0.8-4.8) 05/26/24 22:47 [place] # (Auto) 1.0 10^3/uL (0.2-0.9) H 05/26/24 22:47 Eos # (Auto) 0.1 10^3/uL (0.0-0.8) 05/26/24 22:47 Baso # (Auto) 0.0 10^3/uL (0.0-0.1) 05/26/24 22:47 Nucleated RBC % (auto) 0 % 05/26/24 22:47 Nucleated RBCs # 0.0 /100WBC 05/26/24 22:47 Sodium 137 mmol/L (136-145) 05/26/24 22:47 Potassium 3.9 mmol/L (3.5-5.1) 05/26/24 22:47 Chloride 104 mmol/L (98-107) 05/26/24 22:47 Carbon Dioxide 24 mmol/L (22-29) 05/26/24 22:47 Anion Gap 12.9 (5-19) 05/26/24 22:47 BUN 19 mg/dL (8-23) 05/26/24 22:47 Creatinine 1.0 mg/dL (0.5-0.9) H 05/26/24 22:47 GFR Calculation Not Reportable 05/26/24 22:47 Glucose 91 mg/dL (65-115) 05/26/24 22:47 Calculated Osmolality 286 mOsm/kg (285-295) 05/26/24 22:47 Lactic Acid 0.9 mmol/L (0.5-2.2) 05/26/24 22:47 Calcium 7.8 mg/dL (8.5-10.5) L 05/26/24 22:47 Total Bilirubin 0.3 mg/dL (0.15-1.2) 05/26/24 22:47 AST 25 U/L (0-32) 05/26/24 22:47 ALT 25 U/L (0-33) 05/26/24 22:47 Alkaline Phosphatase 73 U/L (35-105) 05/26/24 22:47 C-Reactive Protein 30.6 mg/L (0.0-4.9) H 05/26/24 22:47 Total Protein 6.0 g/dL (6.6-8.7) L 05/26/24 22:47 Albumin 3.2 g/dL (3.5-5.2) L 05/26/24 22:47 Globulin 2.8 g/dL (1.3-4.6) 05/26/24 22:47 Lipase 41 U/L (13-60) 05/26/24 22:47 Procalcitonin 0.06 ng/mL (0-0.5) 05/26/24 22:47 Urine Color Yellow (Yellow) 05/26/24 23:40 Urine Appearance Cloudy (CLEAR) A 05/26/24 23:40 Urine pH 6.0 (5-7) 05/26/24 23:40 Ur Specific [place] 1.013 (1.005-1.030) 05/26/24 23:40 Urine Protein Negative (Negative) 05/26/24 23:40 Urine Glucose (UA) Negative (Normal) 05/26/24 23:40 Urine Ketones Negative (Negative) 05/26/24 23:40 Urine Blood Negative (Negative) 05/26/24 23:40 Urine Nitrate Negative (Negative) 05/26/24 23:40 Urine Bilirubin Negative (Negative) 05/26/24 23:40 Urine Urobilinogen 0.2 mg/dL (Negative) 05/26/24 23:40 Ur Leukocyte Esterase Trace (Negative) A 05/26/24 23:40 Urine RBC 0-2 /hpf (0-2) 05/26/24 23:40 Urine WBC 0-5 /hpf (0-5) 05/26/24 23:40 Ur Squamous Epith Cells 0-5 /hpf (0-5) 05/26/24 23:40 Amorphous Sediment Not Reportable 05/26/24 23:40 Urine Bacteria None seen /hpf (NONE) 05/26/24 23:40 Hyaline Casts 0.40 /lpf 05/26/24 23:40 Coronavirus (PCR) Positive (Negative) A 05/26/24 22:47 Influenza A (PCR) Negative (Negative) 05/26/24 22:47 Influenza Type B (PCR) Negative (Negative) 05/26/24 22:47 RSV (PCR) Negative (Negative) 05/26/24 22:47 All radiology interpretation(s) finalized by discharge Discharge Plan Discharge Patient Disposition: Home Clinical Impression: COVID-19, Dehydration Condition: Stable Prescriptions: New ondansetron 8 mg tablet,disintegrating 8 mg PO Q6H Qty: 14 0RF Rx Instructions: Take 1/2-1 tab every 6 hours as needed for nausea and vomiting Paxlovid 300 mg (150 mg x 2)-100 mg tablets,dose pack See Rx Instructions .ROUTE .COMPLEX Qty: 30 0RF Rx Instructions: take TWO 150 mg tablets of nirmatrelvir with ONE 100 mg tablet of ritonavir twice daily for 5 days No Action melatonin 3 mg Tablet 3 mg PO BEDTIME PRN (Reason: Sleep) calcitonin (salmon) 200 unit/actuation [place],Non-Aerosol 1 spray INTRANASAL (ALT) DAILY Rx Instructions: ALTERNATE NOSTRILS DAILY Pepcid 20 mg tablet 20 mg PO QAM PreserVision AREDS 2 Plus MV 200 mcg-15 mcg- 5 mg-1 mg capsule 2 cap PO DAILY aspirin 81 mg tablet,delayed release (DR/EC) 81 mg PO QAM ezetimibe 10 mg tablet 10 mg PO QAM metoprolol tartrate 25 mg tablet 12.5 mg PO DAILY acetaminophen 500 mg Tablet 500 mg PO Q6H PRN (Reason: Pain) levothyroxine 125 mcg tablet 125 mcg PO DAILY ondansetron HCl 4 mg tablet 4 mg PO TID PRN (Reason: Nausea) albuterol sulfate 90 mcg/actuation HFA aerosol inhaler 2 inh inhalation Q8H PRN (Reason: shortness of breath or wheezing) Qty: 6.7 2RF Discharge Orders: Discharge ED (Routine); Ordered 05/27/24 Ordered By: Fariha Abarca Referrals: Susan Romano MD [Primary Care Provider] - Discharge Diet: Usual diet Discharge Activity: Increase activity as tolerated Patient Instructions: How to Recover from COVID-19 at Home (ED) Activity Restrictions/Additional Instructions: Thank you for choosing [facility] for your healthcare needs today. Please realize this is an emergency room and that we are providing you with a medical screening exam and this may not be complete and all inclusive of all the testing and or work up that you may need to determine your ailment or severity of your illness. You have been screened and evaluated and felt safe for discharge. Health conditions do change or evolve sometimes and as such it is important that you follow up with your Primary Doctor to be re checked, 3-5 days is a general good time frame for follow up. You are always welcome to return to the ED for re assessment if your symptoms are worsening or you have new concerns Coding Level of Care Code ED [employer] for Pieter Hidalgo
[2024-05-26 22:57] VITALS: BP 110/82; RESP 16; O2SAT 95
[2024-05-26 22:57] LABS: Basophils % 0.7 %; Eosinophils # 0.1 10^3/uL (0.0-0.8); Eosinophils % 1.1 %; Hematocrit 40.6 % (36-47); Lymphocytes # 1.1 10^3/uL (0.8-4.8); Lymphocytes % 19.3 %; Mean Corpuscular HGB Conc 31.5 g/dL (30-55); Mean Corpuscular Hemoglobin 28.3 pg (27-33); Mean Corpuscular Volume 89.6 fl (85-98); Mean Platelet Volume 9.3 fL (7.4-10.4); Monocytes % 17.5 %; Neutrophils % 60.5 %; Nucleated Red Blood Cells % 0 %; Platelet Count 214 10^3/cmm (157-399); Red Blood Count 4.53 10^6/uL (3.85-5.65); Red Cell Distribution Width 14.5 % (12.1-15.1); White Blood Count 5.61 10^3/uL (3.29-11.43)
[2024-05-26 23:16] LABS: Lactic Sepsis W/Reflex 0.9 mmol/L (0.5-2.2)
[2024-05-26 23:17] LABS: Alanine Aminotransferase 25 U/L (0-33); Albumin Level 3.2 g/dL (3.5-5.2); Alkaline Phosphatase 73 U/L (35-105); Anion Gap 12.9 (5-19); Aspartate Amino Transferase 25 U/L (0-32); Blood Urea Nitrogen 19 mg/dL (8-23); C Reactive Protein 30.6 mg/L (0.0-4.9); Calcium 7.8 mg/dL (8.5-10.5); Carbon Dioxide 24 mmol/L (22-29); Chloride 104 mmol/L (98-107); Creatinine Clr Calc Pharmacy 32.1551; Globulin 2.8 g/dL (1.3-4.6); Glucose 91 mg/dL (65-115); Lipase 41 U/L (13-60); Osmolality Calculated 286 mOsm/kg (285-295); Potassium 3.9 mmol/L (3.5-5.1); Sodium 137 mmol/L (136-145); Total Bilirubin 0.3 mg/dL (0.15-1.2)
[2024-05-26 23:24] LABS: Procalcitonin 0.06 ng/mL (0-0.5)
[2024-05-26 23:29] LABS: Influenza A NEGATIVE (Negative); Influenza B NEGATIVE (Negative); Respiratory Syncytial Virus Ce NEGATIVE (Negative)
[2024-05-26 23:36] LABS: Covid PCR Positive (Negative)
[2024-05-26 23:54] LABS: Bacteria Urine None Seen /hpf; RBC Urine 0-2 /hpf (0-2); Squamous Epithelial Cell Urine 0-5 /hpf (0-5); WBC Urine 0-5 /hpf (0-5)
[2024-05-27] MEDS: sodium chloride 0.9% 1,000 ML 999 ML IV (00:11)
[2024-05-27 00:15] VITALS: RESP 16; O2SAT 95
[2024-05-27 00:33] LABS: Bilirubin Urine Negative (Negative); Blood Urine Negative (Negative); Glucose Urine UA Negative (Normal); Ketones Urine Negative (Negative); Leukocyte Esterase Urine Trace (Negative); Nitrate Urine Negative (Negative); Protein Urine Negative (Negative); Specific Gravity, Urine 1.013 (1.005-1.030); Urine Appearance Cloudy (CLEAR); Urine Color Yellow (Yellow); Urobilinogen Urine 0.2 mg/dL (Negative)
[2024-05-27] MEDS: sodium chloride 0.9% 500 ML 999 ML IV (01:26)
[2024-05-27] MEDS: ondansetron 2 mg/ML SDV 2 mL 4 MG IVP (01:27)
[2024-05-27 01:28] VITALS: BP 115/67; PULSE 86; RESP 16; O2SAT 93
[2024-05-27 01:51] VITALS: BP 116/57; PULSE 68; O2SAT 98
== END 2024-05-27 01:55 | disposition home or self-care (01) ==
PROVIDERS: Emergency Provider Emergency Medicine; PCP Family Medicine
DX: U07.1 COVID-19 (principal); E86.0 Dehydration; Z79.82 Long term (current) use of aspirin; I44.0 Atrioventricular block, first degree; Z87.891 Personal history of nicotine dependence; Z85.118 Personal history of other malignant neoplasm of bronchus and lung; I25.10 Atherosclerotic heart disease of native coronary artery without angina pectoris; J44.9 Chronic obstructive pulmonary disease, unspecified; Z86.73 Personal history of transient ischemic attack (TIA), and cerebral infarction without residual deficits; E78.5 Hyperlipidemia, unspecified; I25.2 Old myocardial infarction
CPT/HCPCS: 0241U; 74022; 80053; 81001; 83605; 83690; 84145; 85025; 86140; 87040; 93005; 96361; 96374; 96376; 99285; J2405; J7030; J7040

== ENCOUNTER 2024-07-13 13:15 | Oncology outpatient (recurring) (ONCR) | payer MEDICARE, SELFPAY ==
--- NOTE | 2024-07-05 12:00 | CTR_ITS ---
PROCEDURE INFORMATION: Exam: CT Chest With Contrast; Diagnostic Exam date and time: 07/05/2024 12:19 PM Age: 84 years old Clinical indication: Condition or disease; Lung condition and disease; Cancer of the lung; Bilateral; Unspecified; Primary cancer: Lung cancer TECHNIQUE: Imaging protocol: Diagnostic computed tomography of the chest with contrast. Radiation optimization: All CT scans at this facility use at least one of these dose optimization techniques: automated exposure control; mA and/or kV adjustment per patient size (includes targeted exams where dose is matched to clinical indication); or iterative reconstruction. Contrast material: OMNI 350; Contrast volume: 85 ml; Contrast route: INTRAVENOUS (IV); COMPARISON: CT chest abdpel w/*[id number] 03/22/2024 3:11 PM RADIATION DOSE METRICS: Total DLP (mGy-cm): 196.15 FINDINGS: Thyroid: Stable appearance of the thyroid which appears atrophic. Trachea: The central airways are patent. Lungs: Mild central bronchial wall thickening. Similar partial collapse/consolidation of the left lower lobe with air bronchograms. Moderate centrilobular emphysema is unchanged. No significant interval change in right apical scarring and architectural distortion. Unchanged 6 mm noncalcified nodule in the superior segment right lower lobe on series 4, image 27. Pleural spaces: Slightly improved small to moderate left pleural effusion with areas of loculation as before. No right pleural effusion. No pneumothorax. Heart: Unremarkable. No cardiomegaly. No pericardial effusion. Lymph nodes: Unremarkable. No enlarged lymph nodes. Vasculature: Similar soft tissue density interposed between the left pulmonary artery and adjacent bronchi. Similar mildly dilated ascending thoracic aorta measuring approximately 4 cm. Moderate atherosclerotic aortic calcifications. Bones/joints: No acute or aggressive osseous lesion. Soft tissues: Unremarkable. CT/CT chest w con* [id number] IMPRESSION: 1. Similar-appearing scarring/architectural distortion in the right lung apex compatible with posttreatment changes. No evidence of the locally recurrent disease. 2. Stable 6 mm nodule in the superior segment right lower lobe. 3. Slightly improved small to moderate left pleural effusion. 4. Ongoing partial collapse/consolidation of the left lower lobe. Similar moderate centrilobular emphysema. 5. Similar soft tissue density again tracking between the left pulmonary artery and adjacent bronchi. 6. Remainder stable.
[2024-07-05] MEDS: iohexol 350 mg/mL 500 mL Btl (per mL) IV (12:25)
[2024-07-13 13:22] LABS: Basophils # 0.1 10^3/uL (0.0-0.1); Basophils % 0.9 %; Eosinophils # 0.4 10^3/uL (0.0-0.8); Eosinophils % 4.2 %; Hematocrit 41.9 % (36-47); Lymphocytes % 11.4 %; Mean Corpuscular HGB Conc 31.5 g/dL (30-55); Mean Corpuscular Hemoglobin 28.4 pg (27-33); Mean Corpuscular Volume 90.1 fl (85-98); Mean Platelet Volume 9.2 fL (7.4-10.4); Monocytes # 0.7 10^3/uL (0.2-0.9); Monocytes % 7.6 %; Neutrophils # 6.62 10^3/uL (1.8-7.7); Neutrophils % 75.7 %; Nucleated Red Blood Cells % 0 %; Platelet Count 272 10^3/cmm (157-399); Red Blood Count 4.65 10^6/uL (3.85-5.65); Red Cell Distribution Width 15.1 % (12.1-15.1); White Blood Count 8.76 10^3/uL (3.29-11.43)
[2024-07-13 13:50] LABS: Alanine Aminotransferase 14 U/L (0-33); Albumin Level 3.6 g/dL (3.5-5.2); Alkaline Phosphatase 76 U/L (35-105); Anion Gap 12.4 (5-19); Aspartate Amino Transferase 18 U/L (0-32); Blood Urea Nitrogen 26 mg/dL (8-23); Calcium 8.6 mg/dL (8.5-10.5); Carbon Dioxide 29 mmol/L (22-29); Chloride 103 mmol/L (98-107); Globulin 3.3 g/dL (1.3-4.6); Glucose 105 mg/dL (65-115); Osmolality Calculated 295 mOsm/kg (285-295); Potassium 4.4 mmol/L (3.5-5.1); Sodium 140 mmol/L (136-145); Thyroid Stimulating Hormone 0.38 uIU/mL (0.27-4.20); Total Bilirubin 0.3 mg/dL (0.15-1.2); Total Protein 6.9 g/dL (6.6-8.7)
== END 2024-07-14 23:59 | disposition home or self-care (01) ==
PROVIDERS: PCP Family Medicine; Visit Provider Internal Medicine Medical Oncology
DX: C34.32 Malignant neoplasm of lower lobe, left bronchus or lung (principal); Z87.891 Personal history of nicotine dependence; Z95.828 Presence of other vascular implants and grafts; R53.83 Other fatigue; Z53.9 Procedure and treatment not carried out, unspecified reason; R20.9 Unspecified disturbances of skin sensation
CPT/HCPCS: 36415; 71260; 80053; 84443; 85025; 99213

== ENCOUNTER 2024-07-13 13:20 | Outpatient (CLI) | payer MEDICARE, SELFPAY ==
--- NOTE | 2024-07-13 13:24 | XRR_ITS ---
PROCEDURE INFORMATION: Exam: XR Chest Exam date and time: 07/13/2024 1:31 PM Age: 84 years old Clinical indication: Condition or disease; Lung condition and disease; Pleural effusion; Other: Not specified TECHNIQUE: Imaging protocol: Radiologic exam of the chest. Views: 2 views. COMPARISON: CT chest w con* [id number] 07/05/2024 12:19 PM FINDINGS: Lungs: Mild volume loss in the left hemithorax. Complete opacification of the lower left lung. Left heart border and left hemidiaphragm are obscured. No consolidation in the right lung. Calcified granuloma noted in the upper left lung. Upper lungs are hyperlucent. Pleural spaces: No pneumothorax. Heart/Mediastinum: The cardiac silhouette is obscured. Upper mediastinal contours are unremarkable. Bones/joints: Bones are unremarkable. XR/XR chest 2V* [id number] IMPRESSION: 1. No significant change since 07/05/2024. Moderate to large left pleural effusion with associated volume loss in the left lung corresponding to pleural fluid and left lower lobar atelectasis visible on chest CT 07/05/2024. 2. Upper lung predominant centrilobular emphysema.
== END 2024-07-13 13:21 | disposition home or self-care (01) ==
LOC: RAD 13:22
PROVIDERS: PCP Family Medicine; Visit Provider Internal Medicine
DX: J43.2 Centrilobular emphysema (principal); J90 Pleural effusion, not elsewhere classified; J98.11 Atelectasis
CPT/HCPCS: 71046

== ENCOUNTER 2024-07-19 10:40 | Day surgery (SDC) | payer MEDICARE, SELFPAY ==
[2024-07-19 11:43] VITALS: BP 116/75; PULSE 66; RESP 18; TEMP 36.7; O2SAT 96; BMI 19.8
--- NOTE | 2024-07-19 11:55 | US_ITS ---
WS: [id number] ULTRASOUND-GUIDED THORACENTESIS HISTORY: Recurrent pleural effusion left lung Procedure, risks, and complications were explained to the patient. With the patient in an upright pos ition, the skin over the LEFT posterior thorax was cleansed with ChloraPrep and anesthetized with 1% buffered lidocaine. A 5 [place] Yueh needle is inserted into the pleural fluid without complication. A pproximately 600 cc of light red pleural fluid is removed without difficulty. Note: There is residual pleural effusion after the study is terminated. Study is terminated due to barbara dominguez's significant discomfort. Patient has significant discomfort after each thoracentesis due to th e scarring of the pleura and the lung being unable to reexpand. There is only a small amount of resid ual pleural fluid. / thoracentesis [id number] IMPRESSION: 1. LEFT thoracentesis yielding 600 cc of fluid. 2. Chest radiograph to follow to evaluate for pneumothorax.
--- NOTE | 2024-07-19 12:38 | XR_ITS ---
WS: [id number] PORTABLE CHEST HISTORY: POST THORACENTESIS LT SIDE COMPARISON: 07/13/2024 No pneumothorax status post LEFT thoracentesis. Large amount of scar tissue and pleural thickening along the medial LEFT lower lobe. LEFT apical nodu larity. Obscuration of the LEFT diaphragm. Cardiac size: Normal. Mediastinum/Aorta: Mild atherosclerosis aorta. No osseous abnormality seen. XR/XR chest 1V portable [id number] IMPRESSION: 1. No pneumothorax status post LEFT thoracentesis. 2. Increased soft tissue at the LEFT lung base is a combination of pleural thi ckening and scar and a small amount of fluid.
== END 2024-07-19 13:07 | disposition home or self-care (01) ==
PROVIDERS: Radiology Diagnostic Radiology; PCP Family Medicine; Visit Provider Family Medicine
PROC: (CPT 32554; principal; 2024-07-19 13:00)
DX: J90 Pleural effusion, not elsewhere classified (principal)
CPT/HCPCS: 32555; 71045

== ENCOUNTER 2025-01-11 13:15 | Oncology outpatient (recurring) (ONCR) | payer MEDICARE, SELFPAY ==
[2025-01-04] MEDS: iohexol 350 mg/mL 500 mL Btl (per mL) PO (13:54)
--- NOTE | 2025-01-04 14:15 | CTR_ITS ---
PROCEDURE INFORMATION: Exam: CT Chest With Contrast; Diagnostic Exam date and time: 01/04/2025 2:27 PM Age: 84 years old Clinical indication: Condition or disease; Lung condition and disease; Cancer of the lung; Bilateral; Unspecified; Additional info: Surveillance TECHNIQUE: Imaging protocol: Diagnostic computed tomography of the chest with contrast. Radiation optimization: All CT scans at this facility use at least one of these dose optimization techniques: automated exposure control; mA and/or kV adjustment per patient size (includes targeted exams where dose is matched to clinical indication); or iterative reconstruction. Contrast material: OMNIPAQUE 350; Contrast volume: 100 ml; Contrast route: INTRAVENOUS (IV); COMPARISON: 1. CT chest w con* [id number] 07/05/2024 12:[address] chest abdpel w/*[id number] 03/22/2024 3:[address] chest abdpel w/*[id number] 12/23/2023 2:10 PM RADIATION DOSE METRICS: Total DLP (mGy-cm): 327.6 FINDINGS: Lungs: There is a 5 mm noncalcified pulmonary nodule superior segment of the right lower lobe not significantly changed compared with 12/23/2023 and also compared with 09/03/2021. Findings of centrilobular emphysema are stable compared with the previous examination. There is focal post treatment scarring in the right pulmonary apex not significantly changed. There is calcified granuloma posterior left upper lobe and some scarring in the left upper lobe. Persistent atelectasis of the left lower lobe also unchanged. Pleural spaces: There is persistent moderate left pleural effusion not significantly changed. Heart: Unremarkable. No cardiomegaly. No pericardial effusion. Lymph nodes: There is no evidence of lymphadenopathy. Vasculature: There is some atherosclerotic calcification descending thoracic aorta. There is no thoracic aortic aneurysm or dissection. Bones/joints: Unremarkable. No acute fracture. Soft tissues: Unremarkable. PROCEDURE INFORMATION: Exam: CT Abdomen And Pelvis With Contrast Exam date and time: 01/04/2025 2:27 PM Age: 84 years old Clinical indication: Condition or disease; Lung condition and disease; Cancer of the lung; Bilateral; Unspecified; Additional info: Surveillance TECHNIQUE: Imaging protocol: Computed tomography of the abdomen and pelvis with contrast. Radiation optimization: All CT scans at this facility use at least one of these dose optimization techniques: automated exposure control; mA and/or kV adjustment per patient size (includes targeted exams where dose is matched to clinical indication); or iterative reconstruction. Contrast material: OMNIPAQUE 350; Contrast volume: 100 ml; Contrast route: INTRAVENOUS (IV); COMPARISON: CT chest abdpel w/*[id number] 12/23/2023 2:10 PM RADIATION DOSE METRICS: Total DLP (mGy-cm): 327.6 FINDINGS: Liver: There is no focal abnormality within the liver. Gallbladder and biliary ducts: The gallbladder is normal. Pancreas: The pancreas is normal. Spleen: The spleen is normal. Adrenal glands: There is 11 x 14 mm sized left adrenal nodule not significantly changed since 12/23/2023. This nodule is also stable compared with 09/03/2021. The right adrenal gland is normal. Kidneys and ureters: There is some tiny cortical cysts in both kidneys not significantly changed. There is no evidence of hydronephrosis. There is no evidence of renal or ureteral calcifications. Stomach and bowel: There is no evidence of colitis/diverticulitis. There is no evidence of intestinal obstruction. Appendix: A normal appendix is identified. Intraperitoneal space: There is no evidence of free intraperitoneal fluid. Vasculature: The aorta demonstrates moderate atherosclerotic calcification. There is mild ectasia infrarenal abdominal aorta measuring 1.8 cm maximum transverse diameter. 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 Lymph nodes: Unremarkable. No enlarged lymph nodes. Urinary bladder: Unremarkable as visualized. Reproductive: Unremarkable as visualized. Bones/joints: There is chronic compression deformity superior endplate of L4. No acute fracture is identified. Soft tissues: Unremarkable. CT/CT chest abdpel w/*[id number] IMPRESSION: 1. Stable post treatment changes in the right lung 2. Stable pulmonary emphysema 3. Stable noncalcified nodule right lower lobe 4. Stable left pleural effusion and left lower lobe atelectasis.. IMPRESSION: No evidence for malignancy or metastatic disease in the abdomen or pelvis and no significant change from recent previous studies.
[2025-01-04 14:23] LABS: Blood Urea Nitrogen 22 mg/dL (8-23)
[2025-01-04] MEDS: iohexol 350 mg/mL 500 mL Btl (per mL) IV (14:34)
[2025-01-11 13:22] LABS: Basophils # 0.1 10^3/uL (0.0-0.1); Eosinophils # 0.2 10^3/uL (0.0-0.8); Eosinophils % 2.6 %; Hematocrit 42.4 % (36-47); Lymphocytes # 1.1 10^3/uL (0.8-4.8); Lymphocytes % 18.2 %; Mean Corpuscular HGB Conc 31.8 g/dL (30-55); Mean Corpuscular Hemoglobin 29.1 pg (27-33); Mean Corpuscular Volume 91.4 fl (85-98); Mean Platelet Volume 9.2 fL (7.4-10.4); Monocytes # 0.7 10^3/uL (0.2-0.9); Monocytes % 10.9 %; Neutrophils # 4.14 10^3/uL (1.8-7.7); Nucleated Red Blood Cells % 0 %; Platelet Count 238 10^3/cmm (157-399); Red Blood Count 4.64 10^6/uL (3.85-5.65); White Blood Count 6.17 10^3/uL (3.29-11.43)
[2025-01-11 13:39] LABS: Alanine Aminotransferase 11 U/L (0-33); Albumin Level 3.7 g/dL (3.5-5.2); Alkaline Phosphatase 77 U/L (35-105); Anion Gap 12.2 (5-19); Aspartate Amino Transferase 14 U/L (0-32); Blood Urea Nitrogen 19 mg/dL (8-23); Calcium 8.8 mg/dL (8.5-10.5); Carbon Dioxide 28 mmol/L (22-29); Chloride 102 mmol/L (98-107); Chol HDL Ratio 4.49 mg/dL (0.0-4.40); Cholesterol 211 mg/dL (0-200); Globulin 3.6 g/dL (1.3-4.6); Glucose 104 mg/dL (65-115); HDL Cholesterol 47 mg/dL (60-100); LDL Cholesterol Calculated 120 mg/dL (50-129); LDL HDL Ratio 2.55 RATIO (0.00-3.22); Osmolality Calculated 289 mOsm/kg (285-295); Potassium 4.2 mmol/L (3.5-5.1); Sodium 138 mmol/L (136-145); Total Bilirubin 0.3 mg/dL (0.15-1.2); Total Protein 7.3 g/dL (6.6-8.7); Triglycerides 218 mg/dL (0-150)
== END 2025-01-11 23:59 | disposition home or self-care (01) ==
PROVIDERS: Nurse Practitioner Family; PCP Family Medicine; Visit Provider Internal Medicine
DX: Z53.9 Procedure and treatment not carried out, unspecified reason; Z08 Encounter for follow-up examination after completed treatment for malignant neoplasm; C34.32 Malignant neoplasm of lower lobe, left bronchus or lung; J90 Pleural effusion, not elsewhere classified; Z95.828 Presence of other vascular implants and grafts; Z87.891 Personal history of nicotine dependence; Z92.21 Personal history of antineoplastic chemotherapy; Z92.3 Personal history of irradiation; Z92.25 Personal history of immunosuppression therapy
CPT/HCPCS: 36415; 71260; 74177; 80053; 80061; 82565; 84520; 85025; 99213

== ENCOUNTER 2025-07-12 12:30 | Oncology outpatient (recurring) (ONCR) | payer MEDICARE, SELFPAY ==
--- NOTE | 2025-07-05 10:45 | CTR_ITS ---
PROCEDURE INFORMATION: Exam: CT Chest With Contrast; Diagnostic Exam date and time: 07/05/2025 12:05 PM Age: 85 years old Clinical indication: Condition or disease; Lung condition and disease; Cancer of the lung; Bilateral; Unspecified; Additional info: Lung cancer TECHNIQUE: Imaging protocol: Diagnostic computed tomography of the chest with contrast. Radiation optimization: All CT scans at this facility use at least one of these dose optimization techniques: automated exposure control; mA and/or kV adjustment per patient size (includes targeted exams where dose is matched to clinical indication); or iterative reconstruction. Contrast material: OMNI 350; Contrast volume: 100 ml; Contrast route: INTRAVENOUS (IV); COMPARISON: CT chest abdpel w/*[id number] 01/04/2025 2:27 PM, and CT chest abdomen pelvis 12/23/2023 RADIATION DOSE METRICS: Total DLP (mGy-cm): 486.01 FINDINGS: Lungs: Centrilobular emphysema is again identified. Spiculated and linear scarring in the right lung apex is again identified. It is questionably more prominent than on the prior study of 12/23/2023 . The posterior limb on axial imaging measures 5 mm in diameter compared to 4 mm on the study from 12/23/2023. This may be due to differences in depth of inspiration. Left lower lobe bronchiectasis with wedge like atelectasis is present. This is similar to prior studies. Granulomatous changes are present. There is a 0.5 cm noncalcified pulmonary nodule which is unchanged in the right lower lobe. Pleural spaces: Left pleural effusion appears slightly decreased compared to prior exams. Heart: Unremarkable. No cardiomegaly. No pericardial effusion. Lymph nodes: Unremarkable. No enlarged lymph nodes. Vasculature: Mild ectasia of the ascending aorta to 4.1 cm is unchanged. Tiny linear filling defect versus compression of small vessels at the left hilum (series 4, image 25 is unchanged compared to prior studies. No evidence for pulmonary embolus. Moderate atherosclerotic disease of the aorta and branch vessels is evident. No evidence of aneurysmal dilatation. Bones/joints: Unremarkable. No acute fracture. Soft tissues: Normal. PROCEDURE INFORMATION: Exam: CT Abdomen And Pelvis With Contrast Exam date and time: 07/05/2025 12:05 PM Age: 85 years old Clinical indication: Condition or disease; Lung condition and disease; Cancer of the lung; Bilateral; Unspecified; Additional info: Lung cancer TECHNIQUE: Imaging protocol: Computed tomography of the abdomen and pelvis with contrast. Radiation optimization: All CT scans at this facility use at least one of these dose optimization techniques: automated exposure control; mA and/or kV adjustment per patient size (includes targeted exams where dose is matched to clinical indication); or iterative reconstruction. Contrast material: OMNI 350; Contrast volume: 100 ml; Contrast route: INTRAVENOUS (IV); COMPARISON: CT chest abdpel w/*[id number] 12/23/2023 2:10 PM RADIATION DOSE METRICS: Total DLP (mGy-cm): 486.01 FINDINGS: Lungs: Visualized portions of the lungs are clear. No effusions. Liver: Unremarkable. No mass. Gallbladder and biliary ducts: Normal. No calcified stones. No ductal dilation. Pancreas: Normal. No ductal dilation. Spleen: Normal. No splenomegaly. Adrenal glands: Normal. No mass. Kidneys and ureters: Bilateral simple renal cysts are present. No further imaging is needed. Stomach and bowel: Colonic diverticulosis is present without diverticulitis. Appendix: No evidence of appendicitis. Intraperitoneal space: Unremarkable. No free air. No significant fluid collection. Vasculature: Moderate atherosclerotic disease of the aorta and branch vessels is evident. No evidence of aneurysmal dilatation. Lymph nodes: Unremarkable. No enlarged lymph nodes. Urinary bladder: Unremarkable as visualized. Reproductive: Unremarkable as visualized. Bones/joints: There is a stable compression fracture of L4. Soft tissues: Unremarkable. CT/CT chest abdpel w/*[id number] IMPRESSION: 1. Right upper lobe scarring and posttreatment changes again noted. Questionably more prominent than on prior studies. 2. Stable atelectasis/bronchiectasis left lower lobe. 3. Slight decrease in left pleural effusion. 4. Additional findings as described above. IMPRESSION: 1. No evidence of metastatic disease. 2. Colonic diverticulosis is present without diverticulitis. 3. Additional findings as described above. COMMENTS: Consistent with the [employer]'s Incidental Findings Committee white paper (J Am Tre Radiol 2018): Any incidental renal lesion less than 1 cm or classified as too small to characterize, or any incidental cystic renal lesion characterized as simple-appearing, is likely benign. No follow-up imaging is recommended for these lesions per consensus recommendations based on imaging criteria.
[2025-07-05] MEDS: iohexol 350 mg/mL 500 mL Btl (per mL) PO (12:10)
[2025-07-05] MEDS: iohexol 350 mg/mL 500 mL Btl (per mL) IV (12:10)
[2025-07-05 12:51] LABS: Blood Urea Nitrogen 18 mg/dL (8-23)
[2025-07-12 12:36] LABS: Hematocrit 44.4 % (36-47); Hemoglobin 14.10 g/dL (11.27-16.99); Mean Corpuscular HGB Conc 31.8 g/dL (30-55); Mean Corpuscular Hemoglobin 29.1 pg (27-33); Mean Corpuscular Volume 91.7 fl (85-98); Nucleated Red Blood Cells % 0 %; Platelet Count 247 10^3/cmm (157-399); Red Blood Count 4.84 10^6/uL (3.85-5.65); White Blood Count 6.70 10^3/uL (3.29-11.43)
[2025-07-12 12:59] LABS: Alanine Aminotransferase 13 U/L (0-33); Albumin Level 4.0 g/dL (3.5-5.2); Alkaline Phosphatase 73 U/L (35-105); Anion Gap 11.6 (5-19); Aspartate Amino Transferase 15 U/L (0-32); Blood Urea Nitrogen 22 mg/dL (8-23); Calcium 9.1 mg/dL (8.5-10.5); Carbon Dioxide 28 mmol/L (22-29); Chloride 104 mmol/L (98-107); Cholesterol 244 mg/dL (0-200); Creatinine Clr Calc Pharmacy 39.3819; Globulin 3.1 g/dL (1.3-4.6); Glucose 92 mg/dL (65-115); HDL Cholesterol 50 mg/dL (60-100); Osmolality Calculated 291 mOsm/kg (285-295); Potassium 4.6 mmol/L (3.5-5.1); Sodium 139 mmol/L (136-145); Total Protein 7.1 g/dL (6.6-8.7); Triglycerides 198 mg/dL (0-150); VLDL Cholestrol Calculation 40 mg/dL (0-30)
== END 2025-07-14 23:59 | disposition home or self-care (01) ==
PROVIDERS: PCP Nurse Practitioner Family; Visit Provider Internal Medicine
DX: Z53.9 Procedure and treatment not carried out, unspecified reason; Z08 Encounter for follow-up examination after completed treatment for malignant neoplasm; Z85.118 Personal history of other malignant neoplasm of bronchus and lung; Z87.891 Personal history of nicotine dependence; Z92.21 Personal history of antineoplastic chemotherapy; Z92.3 Personal history of irradiation; J44.9 Chronic obstructive pulmonary disease, unspecified; J90 Pleural effusion, not elsewhere classified; R91.1 Solitary pulmonary nodule
CPT/HCPCS: 36415; 71260; 74177; 80053; 80061; 82550; 82565; 83615; 84520; 85025; 99213

== ENCOUNTER 2025-07-24 08:11 | Emergency (ER) | payer MEDICARE, SELFPAY ==
[2025-07-24 08:13] VITALS: BP 138/78; PULSE 91; RESP 18; TEMP 36.8; O2SAT 97
--- NOTE | 2025-07-24 08:15 | XR_ITS ---
WS: [id number] PORTABLE CHEST HISTORY: dyspnea/cough COMPARISON: 07/19/2024, CT 07/05/2025 Lungs are hyperexpanded. Blunting of the LEFT costophrenic angle. There is a small increase in the amount of pleural thickening and/or fluid at the LEFT lung base. There may be a slightly loculated component due to its configuration of the increasing opacification. Mild biapical pleural thickening. RIGHT lung is clear. Cardiac size: Mildly enlarged cardiac silhouette. Mediastinum/Aorta: Mild atherosclerosis aorta. No osseous abnormality seen. XR/XR chest 1V portable [id number] IMPRESSION: 1. Small LEFT pleural effusion and pleural thickening. Slight increase in size of the pleural effusion since the CT of 07/05/2025. 2. No RIGHT effusion.
--- OUTSIDE RECORDS SUMMARY | 2025-07-24 08:15 | XMS_ITS | Clinical Summary ---
Author Organization [employer] Address [address] [facility] Attn: Epic Prelude ADT ARNALDO SCHMIDT [address] Care Team Providers Care Bunker Worker Name Role Phone Non-Staff, Physician Primary Care Provider Unava ilable Allergies Active Allergy Reactions Criticality Noted Date Comments Sulfa (Sulfonamide Antibiotics) Other (See Comments) 03/27/2009 Blisters in mouth Active Problems Problem Noted Date Diagnosed Date Paroxysmal tachycardia, unspecified 07/17/2010 GERD (gastroesophageal reflux disease) 9 Immunizations Immunization Administration Dates Next Due (PNEUMOVAX 23)(50 YRS UP) PN EUMOCOCCAL POLYSACCHARIDE (PPV23) 0.5 ML, IM 09/14/2008 Influenza Seasonal Unspecified Formulation IM Social History Tobacco Use Types Packs/Day Years Used Date Smoking Tobacco: Former Cigarettes Alcohol Use Standard Drinks/Week Comments Not Asked 0 (1 standard drink = 0.6 oz pur e alcohol) Comments Unknown Sex and Gender Information Value Date Recorded Sex Assigned at Not on file Legal Sex Female 2:59 PM 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
--- OUTSIDE RECORDS SUMMARY | 2025-07-24 08:15 | XMS_ITS | Clinical Summary ---
Author Organization [facility] Address [address] [place] [address] Care Team Providers Care Welder Repair Name Role Phone Non-Staff, Physician Primary Care Provider Unava ilable Allergies Active Allergy Reactions Criticality Noted Date Comments Sulfa (Sulfonamide Antibiotics) Other (See Comments) 03/27/2009 Blisters in mouth Medications CALCIUM CARBONATE/VITAMIN D3 (CALCIUM 600 + D PO) Take by mouth daily. Active digoxin (LANOXIN) 250 mcg Oral tabletIndications :Paroxysmal tachycardia, unspecified (CMS/HCC) Take 250 mcg by mouth daily. Active simvastatin (ZOCOR) 20 mg Oral tablet Take 20 mg by mouth Daily LATE. Active diltiazem CD 24 hour (CARDIZEM CD) 120 mg Oral capsuleIndication s:Paroxysmal tachycardia, unspecified (CMS/HCC) Take 120 mg by mouth daily. Active aspirin (TONEY) 325 mg Oral tabletIndications :Paroxysmal tachycardia, unspecified (CMS/HCC) Take 325 mg by mouth daily. Active Active Problems Problem Noted Date Diagnosed Date Paroxysmal tachycardia, unspecified 07/17/2010 GERD (gastroesophageal reflux disease) 9 Immunizations Immunization Administration Dates Next Due (PNEUMOVAX 23)(50 YRS UP) PN EUMOCOCCAL POLYSACCHARIDE (PPV23) 0.5 ML, IM 09/14/2008 Influenza Seasonal Unspecified Formulation IM Social History Tobacco Use Types Packs/Day Years Used Date Smoking Tobacco: Former Cigarettes 3 20 Alcohol Use Standard Drinks/Week Comments Not Asked 0 (1 standard drink = 0.6 oz pur e alcohol) Comments No Sex and Gender Information Value Date Recorded Sex Assigned at Not on file Legal Sex Female 7:22 AM 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 Gender Identity Not on file Sexual Orientation Not on file Last Filed Vital Signs Vital Sign Reading Time Taken Comments Blood Pressure 130/76 03/22/2012 2:17 PM CDT Pulse 66 03/22/2012 2:17 PM CDT Temperature 36.7 C (98.1 F) 04/03/2010 9:53 AM CDT Respiratory Rate 20 04/03/2010 9:53 AM CDT Oxygen Saturation - - Inhaled Oxygen Concentration - - Weight 52.6 kg (116 lb) 03/22/2012 2:17 PM CDT Height 157.5 cm (5' 2 ) 03/22/2012 2:17 PM CDT Body Mass Index 21.22 03/22/2012 2:17 PM CDT Plan of Treatment Health Maintenance Due Date Last Done Comments DTAP/TDAP/TD VACCINES (1 - Tdap) 1958 ZOSTER VACCINE (1 of 2) 1989 OSTEOPOROSIS SCREENING 2004 PNEUMOCOCCAL VACCINE 50+ YEARS (2 of 2 - PCV) 09/14/19 10 09/14/2008 RSV VACCINE (60+ or ) (1 - 1-dose 75+ series) 2014 INFLUENZA VACCINE (#1) 2025 09/14/[address] [place] [place] [address] MEDICARE PART A AND B [facility] Care Teams Welder Repair Relationship Specialty Start Date End Date Non-Staff, Physician NO ADDRESS ON FILE PCP - General 12/09/13
--- NOTE | 2025-07-24 08:17 | ED_ITS ---
HPI - SOB/Dyspnea 2 General: Chief Complaint: Shortness of Breath/Dyspnea Stated Complaint: weakness - difficulty breathing Time Seen by Provider: 07/24/25 08:14 History of Present Illness: HPI Narrative: 85-year-old female presents emergency ro om cough shortness of breath weakness x 4 days. 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 She has undergone treatment currently is not receiving any treatment she had a follow-up visit last week including a CT of the chest does not have any residual recurrent tumor. Over the last several days she has had increasing shortness of breath minimally productive cough subjective fever generalized myalgias. She has not been able to note any hemoptysis but she has difficulty with vision because of macular degeneration. Some mild chest discomfort brought on by coughing and deep breath both on the left side. She has noticed some orthopnea as well. Associated symptoms: Deny abdominal pain, chest pain or fever(s) Related Data Home Medications ?Medication ?Instructions ?Recorded ?Confirmed calcitonin (salmon) 200 1 spray intranasal (ALT) FRANCES LY 09/13/19 07/24/25 unit/actuation nasal spray melatonin 3 mg tablet 3 mg PO BEDTIME PRN Sleep 07/24/25 aspirin 81 mg tablet,delayed 81 mg PO QAM 01/25/2107/08 release famotidine 20 mg tablet (Pepcid) 20 mg PO QAM 02/05/22 07/24/25 mv-mn-folic 200 mcg-vit K 15 1 cap PO DAILY 06/24/23 1 09/23/24 mcg-lutein 5 mg-zeaxanthin 1 mg capsule (PreserVision AREDS 2 Plus Multivit) ondansetron HCl 4 mg tablet 4 mg PO TID PRN Nausea 07/24/25 metoprolol tartrate 25 mg tablet 25 mg PO DAILY 07/24/25 acetaminophen 500 mg tablet 500 mg PO Q6H PRN Pain or fever 03/07/24 07/24/25 levothyroxine 125 mcg tablet 125 mcg PO DAILY 03/07/24 07/24/25 Previous Rx's ?Medication ?Instructions ?Recorded albuterol sulfate 90 mcg/actuation 2 inh inhalation Q8 H PRN shortness 11/06/23 aerosol inhaler of breath or wheezing #6.7 g roger cephalexin 500 mg capsule 500 mg PO TID 7 days #21 cap s 07/24/25 Allergies Allergy/AdvReac Type Severity Reaction Status Date / Time Sulfa (Sulfonamide Allergy Unknown ALGY-Bliste Verified 07/12/25 12:34 Antibiotics) r [id number]-[id number] Reductase Allergy ADR-Cramping Verified 07/12/25 12:34 Inhibitor (Isrfbnm-Evw-Itp of the Reductase Inhibitor) Muscles Review of Systems 2 Const: Denies: fever(s) or chills Card: Denies: chest pain Resp: Reports: dyspnea and non-productive cough GI: Denies: abdominal pain : Denies: dysuria, urinary frequency or urinary urgency Musc: Denies: neck pain or back pain Skin/Breast: Denies: rash PFSH ED 2 PFSH: Medical History Pleural effusion Pleural effusion on left Malignant neoplasm of lower lobe, left bronchus or lung Stage IIB - T1b, N1, M0 Protein-energy malnutrition Pleural effusion Lung cancer CAD (coronary artery disease) Squamous cell carcinoma of left lung COPD (chronic obstructive pulmonary disease) SOB (shortness of breath) Atherosclerotic heart disease of [place] coronary artery without angina pectoris TIA (transient ischemic attack) Statin intolerance Atelectasis of left lung Abnormal liver enzymes Gastroesophageal reflux Supraventricular tachycardia Dyslipidemia statin intolerant, taking ezetimibe. NSTEMI (non-ST elevated myocardial infarction) Surgical History Port-A-Cath in place (06/24/21) right IJ Status post colonoscopy History of bronchoscopy History of coronary artery stent placement Family History Mother Hypertension Dementia CAD (coronary artery disease) Myocardial infarction Denies family history of Diabetes Clotting disorder Chronic kidney disease (CKD) Suicide Anesthesia complication Bleeding disorder Lung disease Cancer Stroke Social History Smoking and tobacco/nicotine status: former use of tobacco/nicotine Quit status (tobacco/nicotine): has quit using Year quit tobacco: 1979 Former quit date comment: 3ppd x 20 years Alcohol intake: never Substance/Drug Use: never Lives independently: Yes Household members: none Housing: House Marital status: / Physical Exam 2 Const: COMMON NORMALS: no acute distress GENERAL APPEARANCE: cooperative and comfortable ORIENTATION/CONSCIOUSNESS: Yes awake, Yes oriented to person, Yes oriented to place and Yes oriented to time HENMT: COMMON NORMALS: normocephalic, atraumatic and hearing grossly normal bilaterally HEAD & SCALP: normocephalic and atraumatic Resp: COMMON NORMALS: normal respiratory effort, No retractions, No use of accessory muscles and clear to auscultation bilaterally AUSCULTATION: clear to auscultation bilaterally Cardio: COMMON NORMALS: regular rate, regular rhythm and No murmurs present (Cardio) RATE: regular rate RHYTHM: regular rhythm GI: COMMON NORMALS: Soft to palpation and No hepatosplenomegaly present A USCULTATION: Yes normoactive bowel sounds PALPATION: Yes Soft to palpation, No Tenderness to palpation present (GI), No Guarding due to palpation present (GI) and Yes No hepatosplenomegaly present Extremity: COMMON NORMALS: normal to inspection, capillary refill normal, no clubbing, cyanosis or edema, no calf tenderness and no pedal edema Neuro: SENSORIUM/ORIENTATION: Yes oriented to person, Yes oriented to place and Yes oriented to time Skin: COMMON NORMALS: no rashes or lesions noted GENERAL SKIN EXAM: no rashes or lesions noted Course 2 Vital Signs: Vital signs: Vital Signs Temperature 98.2 F 07/24/25 08:13 Pulse Rate 90 07/24/25 11:05 Respiratory Rate 20 H 07/24/25 10:22 Blood Pressure 126/71 07/24/25 11:05 Pulse Oximetry 97 07/24/25 11:05 Oxygen Delivery Me thod Room Air 07/24/25 08:13 MDM - SOB/Dyspnea Medical Decision Making No leukocytosis. Chest x-ray does not show any evidence of infiltrates. Small left pleural effusion not large enough to be tapped at this time I do not think she particularly symptomatic of that. She does have a cystitis. We ambulated her she did not require any oxygen we will discharge the patient home with oral antibiotics for the cystitis and have her follow-up with her primary care doctor. Medical Records I reviewed the patient's medical records. Lab Data I reviewed the patient's lab results. 07/24/25 08:30 07/24/25 08:30 Labs/Radiology: Radiology Impressions Chest X-Ray 07/24/25 08:15 IMPRESSION: 1. Small LEFT pleural effusion and pleural thickening. Slight increase in size of the pleural effusion since the CT of 07/05/2025. 2. No RIGHT effusion. Laboratory Results WBC 7.23 10^3/uL (3.29-11.43) 07/24/25 08:30 RBC 4.28 10^6/uL (3.85-5.65) 07/24/25 08:30 Hgb 12.60 g/dL (11.27-16.99) 07/24/25 08:30 Hct 39.2 % (36-47) 07/24/25 08:30 MCV 91.6 fl (85-98) 07/24/25 08:30 MCH 29.4 pg (27-33) 07/24/25 08:30 MCHC 32.1 g/dL (30-55) 07/24/25 08:30 RDW 13.6 % (12.1-15.1) 07/24/25 08:30 Plt Count 170 10^3/cmm (157-399) 07/24/25 08:30 MPV 11.6 fL (7.4-10.4) H 07/24/25 08:30 Neut % (Auto) 70.1 % 07/24/25 08:30 Lymph % (Auto) 14.8 % 07/24/25 08:30 [place] % (Auto) 12.2 % 07/24/25 08:30 Eos % (Auto) 1.9 % 07/24/25 08:30 Baso % (Auto) 0.6 % 07/24/25 08:30 Neut # (Auto) 5.07 10^3/uL (1.8-7.7) 07/24/25 08:30 Lymph # (Auto) 1.1 10^3/uL (0.8-4.8) 07/24/25 08:30 [place] # (Auto) 0.9 10^3/uL (0.2-0.9) 07/24/25 08:30 Eos # (Auto) 0.1 10^3/uL (0.0-0.8) 07/24/25 08:30 Baso # (Auto) 0.0 10^3/uL (0.0-0.1) 07/24/25 08:30 Nucleated RBC % (auto) 0 % 07/24/25 08:30 Nucleated RBCs # 0.0 /100WBC 07/24/25 08:30 Sodium 135 mmol/L (136-145) L 07/24/25 08:30 Potassium 3.9 mmol/L (3.5-5.1) 07/24/25 08:30 Chloride 99 mmol/L (98-107) 07/24/25 08:30 Carbon Dioxide 24 mmol/L (22-29) 07/24/25 08:30 Anion Gap 15.9 (5-19) 07/24/25 08:30 BUN 14 mg/dL (8-23) 07/24/25 08:30 Creatinine 0.8 mg/dL (0.5-0.9) 07/24/25 08:30 GFR Calculation Not Reportable 07/24/25 08:30 Glucose 103 mg/dL (65-115) 07/24/25 08:30 Calculated Osmolality 281 mOsm/kg (285-295) L 07/24/25 08:30 Calcium 8.8 mg/dL (8.5-10.5) 07/24/25 08:30 Total Bilirubin 0.6 mg/dL (0.15-1.2) 07/24/25 08:30 AST 26 U/L (0-32) 07/24/25 08:30 ALT 28 U/L (0-33) 07/24/25 08:30 Alkaline Phosphatase 93 U/L (35-105) 07/24/25 08:30 Total Protein 6.9 g/dL (6.6-8.7) 07/24/25 08:30 Albumin 3.4 g/dL (3.5-5.2) L 07/24/25 08:30 Globulin 3.5 g/dL (1.3-4.6) 07/24/25 08:30 Urine Color Yellow (Yellow) 07/24/25 08:43 Urine Appearance Cloudy (CLEAR) A 07/24/25 08:43 Urine pH 6.5 (5-7) 07/24/25 08:43 Ur Specific [place] 1.017 (1.005-1.030) 07/24/25 08:43 Urine Protein Trace (Negative) A 07/24/25 08:43 Urine Glucose (UA) Negative (Normal) 07/24/25 08:43 Urine Ketones Negative (Negative) 07/24/25 08:43 Urine Blood Negative (Negative) 07/24/25 08:43 Urine Nitrate Negative (Negative) 07/24/25 08:43 Urine Bilirubin Negative (Negative) 07/24/25 08:43 Urine Urobilinogen 1.0 mg/dL (Negative) 07/24/25 08:43 Ur Leukocyte Esterase 2+ (Negative) A 07/24/25 08:43 Urine RBC 0-2 /hpf (0-2) 07/24/25 08:43 Urine WBC 21-50 /hpf (0-5) H 07/24/25 08:43 Ur Squamous Epith Cells 11-20 /hpf (0-5) H 07/24/25 08:43 Amorphous Sediment Not Reportable 07/24/25 08:43 Urine Bacteria Trace /hpf (NONE) 07/24/25 08:43 Hyaline Casts 4.95 /lpf 07/24/25 08:43 Influenza A (PCR) Negative (Negative) 07/24/25 08:33 Influenza Type B (PCR) Negative (Negative) 07/24/25 08:33 RSV (PCR) Negative (Negative) 07/24/25 08:33 SARS-CoV-2 (PCR) Negative (Negative) 07/24/25 08:33 All radiology interpretation(s) finalized by discharge EKG Data EKG 1: I personally reviewed and interpreted this EKG as follows: Prior EKG tracings: available for review Interpretation: EKG 07/24/2025 8:25 AM sinus rhythm rate of 89 NH interval 198 QTc [address] changes. Compared to EKG 05/26/2024 no significant change Discharge Plan Discharge Patient Disposition: Home Clinical Impression: Cystitis, Pleural effusion on left, Acute exacerbation of chronic obstructive airways disease Squamous cell carcinoma of lung, stage III Qualifiers: Laterality: left Qualified Code(s): C34.92 - Malignant neoplasm of unspecified part of left bronchus or lung Condition: Stable Prescriptions: New cephalexin 500 mg capsule 500 mg PO TID 7 Days Qty: 21 0RF No Action melatonin 3 mg Tablet 3 mg PO BEDTIME PRN (Reason: Sleep) calcitonin (salmon) 200 unit/actuation [place],Non-Aerosol 1 spray INTRANASAL (ALT) DAILY Rx Instructions: ALTERNATE NOSTRILS DAILY Pepcid 20 mg tablet 20 mg PO QAM PreserVision AREDS 2 Plus MV 200 mcg-15 mcg- 5 mg-1 mg capsule 1 cap PO DAILY aspirin 81 mg tablet,delayed release (DR/EC) 81 mg PO QAM metoprolol tartrate 25 mg tablet 25 mg PO DAILY acetaminophen 500 mg Tablet 500 mg PO Q6H PRN (Reason: Pain or fever) levothyroxine 125 mcg tablet 125 mcg PO DAILY ondansetron HCl 4 mg tablet 4 mg PO TID PRN (Reason: Nausea) albuterol sulfate 90 mcg/actuation HFA aerosol inhaler 2 inh inhalation Q8H PRN (Reason: shortness of breath or wheezing) Qty: 6.7 2RF Discharge Orders: Discharge ED (Routine); Ordered 07/24/25 Ordered By: Kyle Veloz Referrals: Eveline Art, MANAGER OF EMPLOYEE RELATIONS [Primary Care Provider, Unknown] Discharge Diet: Usual diet Discharge Activity: Increase activity as tolerated Patient Instructions: Opioid Safety, Pain Management, Patient Portal & Dhiraj Instructions Activity Restrictions/Additional Instructions: Thank you for choosing [facility] for your healthcare needs today. It is very important that you follow up as instructed or that you return to the Emergency Department should you have concerns or if your condition changes or worsens in any way. Emergency department visits are focused on emergent conditions, in some cases you may require further evaluation on an outpatient basis. You were seen in the emergency room complaining of weakness. Chest x-ray did not show any significant fluid retention in the lungs your white count was normal urine did show some evidence of mild infection for which you were given an antibiotic to take at home. We did test you for (Please note that included in your discharge packet is information concerning opioid safety and pain management. This information is given to all patients were discharged from the ER regardless of their discharge diagnosis or the medicines they usually take or are prescribed.) Print Language: Russian Coding Level of Care Code ED Inspector [employer]wn[employer] Detail for Pieter Hidalgo
--- NOTE | 2025-07-24 08:25 | ECG_ITS ---
[employer] Test Date: 2025-07-24 Pat Name: Nirmala Meléndez Department: Room: Gender: Female Assistant Manager Bilingual: : 1940 Requested By: Kyle Underwood Order Number: [id number] Nikki MD: Buck Hall M.D. Measurements Intervals [place] Rate: 89 P: 63 W[place]: 190 QRS: -41 QRSD: 113 T: 72 QT: 354 QTc: 432 Interpretive Statements SINUS RHYTHM LEFT AXIS DEVIATION [QRS AXIS < -30] INCOMPLETE RIGHT BUNDLE BRANCH BLOCK [90+ ms QRS DURATION, TERMINAL R IN V1/V2, 40+ ms S IN I/aVL/V4/V5/V6] LEFT VENTRICULAR HYPERTROPHY AND ST-T CHANGE [VOLTAGE CRITERIA PLUS ST/T ABNORMALITY].POSSIBLE SEPTAL MYOCARDIAL INFARCTION , PROBABLY OLD [30 ms Q WAVE IN V1/V2].POSSIBLE LATERAL MYOCARDIAL INFARCTION , OF INDETERMINATE AGE [30 ms Q WAVE IN I/aVL/V5/V6] Compared to ECG 05/26/2024 22:47:59.Left-axis deviation now present Left ventricular hypertrophy now present.ST (T wave) deviation now present First degree AV block no longer present.Left anterior fascicular block no longer present.Myocardial infarct finding still present Electronically Signed On 07-24-2025 18:12:24 ZIPPER SEWING MACHINE OPERATOR by Buck Hall M.D. [email or web address]
[2025-07-24 08:46] VITALS: BP 118/65; PULSE 97; RESP 21; O2SAT 94
[2025-07-24 08:48] LABS: Hematocrit 39.2 % (36-47); Hemoglobin 12.60 g/dL (11.27-16.99); Mean Corpuscular HGB Conc 32.1 g/dL (30-55); Mean Corpuscular Hemoglobin 29.4 pg (27-33); Mean Corpuscular Volume 91.6 fl (85-98); Nucleated Red Blood Cells % 0 %; Platelet Count 170 10^3/cmm (157-399); Red Blood Count 4.28 10^6/uL (3.85-5.65); White Blood Count 7.23 10^3/uL (3.29-11.43)
[2025-07-24 08:52] LABS: Glucose Urine UA Negative (Normal); Nitrate Urine Negative (Negative); Specific Gravity, Urine 1.017 (1.005-1.030)
[2025-07-24 08:54] LABS: Add Urine Microscopic? YES
[2025-07-24 09:18] LABS: Alanine Aminotransferase 28 U/L (0-33); Albumin Level 3.4 g/dL (3.5-5.2); Alkaline Phosphatase 93 U/L (35-105); Blood Urea Nitrogen 14 mg/dL (8-23); Calcium 8.8 mg/dL (8.5-10.5); Carbon Dioxide 24 mmol/L (22-29); Chloride 99 mmol/L (98-107); Creatinine Clr Calc Pharmacy 38.0355; Globulin 3.5 g/dL (1.3-4.6); Glucose 103 mg/dL (65-115); Osmolality Calculated 281 mOsm/kg (285-295); Sodium 135 mmol/L (136-145); Total Protein 6.9 g/dL (6.6-8.7)
[2025-07-24 09:20] LABS: Anion Gap 15.9 (5-19); Aspartate Amino Transferase 26 U/L (0-32); Potassium 3.9 mmol/L (3.5-5.1)
[2025-07-24 10:22] VITALS: BP 127/68; PULSE 87; RESP 20; O2SAT 95
[2025-07-24 10:32] LABS: Respiratory Syncytial Virus Ce NEGATIVE (Negative); SARS-CoV-2 PCR NEGATIVE (Negative)
[2025-07-24 10:51] VITALS: O2SAT 92; O2SAT 97
[2025-07-24 11:05] VITALS: BP 126/71; PULSE 90; O2SAT 97
== END 2025-07-24 11:07 | disposition home or self-care (01) ==
PROVIDERS: Emergency Provider Family Medicine; PCP Nurse Practitioner Family
DX: N30.90 Cystitis, unspecified without hematuria (principal); J90 Pleural effusion, not elsewhere classified; J44.1 Chronic obstructive pulmonary disease with (acute) exacerbation; C34.92 Malignant neoplasm of unspecified part of left bronchus or lung; I25.10 Atherosclerotic heart disease of native coronary artery without angina pectoris; E78.5 Hyperlipidemia, unspecified; Z86.73 Personal history of transient ischemic attack (TIA), and cerebral infarction without residual deficits; Z87.891 Personal history of nicotine dependence; Z11.52 Encounter for screening for COVID-19; Z79.82 Long term (current) use of aspirin
CPT/HCPCS: 71045; 80053; 81001; 85025; 87637; 93005; 94760; 99285

== ENCOUNTER 2025-08-17 13:04 | Outpatient (CLI) | payer MEDICARE, SELFPAY ==
--- NOTE | 2025-08-17 13:14 | XR_ITS ---
WS: [email or web address] Exam: XR abdomen min 2V [id number] Date/Time of Exam: 08/17/2025 1:20 PM Reason For Exam: UNILATERAL INGUINAL HERNIA DLP: No bowel obstruction or pneumoperitoneum. No sign of organ enlargement. Bony structures are unremarkable. XR/XR abdomen min 2V [id number] IMPRESSION: 1. No acute abdominal finding.
--- NOTE | 2025-08-17 13:14 | XR_ITS ---
WS: [email or web address] Exam: XR pelvis 1-2V* [id number] Date/Time of Exam: 08/17/2025 1:20 PM Reason For Exam: UNILATERAL INGUINAL HERNIA DLP: No pelvic fracture or bone destruction. SI joints are open. Mild DJD of both hips. Normal soft tissues. IMPRESSION1. No pelvic fracture or osseous destruction.
== END 2025-08-17 13:05 | disposition home or self-care (01) ==
PROVIDERS: PCP Nurse Practitioner Family; Visit Provider Electrodiagnostic Medicine
DX: K40.90 Unilateral inguinal hernia, without obstruction or gangrene, not specified as recurrent (principal); M16.0 Bilateral primary osteoarthritis of hip
CPT/HCPCS: 72170; 74019

== ENCOUNTER 2025-08-24 09:47 | Emergency (ER) | payer MEDICARE, SELFPAY ==
[2025-08-24 09:52] VITALS: BP 148/88; PULSE 69; TEMP 36.5; O2SAT 98; BMI 20.7
--- NOTE | 2025-08-24 10:58 | CT_ITS ---
WS: [email or web address] CT abdomen pelvis w con* [id number] REASON FOR EXAM: L inguinal hernia?/mass; back pain IV CONTRAST ADMINISTERED: 100 and mL of Omnipaque 350. TECHNIQUE: Multiple axial images post intravenous contrast in the portal venous phase. Sagittal and coronal reconstructions. COMPARISON EXAMINATION: CT scan of the chest abdomen and pelvis with contrast 07/05/2025. TOTAL EXAM DLP: 324.[address] scans at [facility] use at least one of these dose optimization techniques: automated exposure control; mA and/or kV adjustment per patient size (includes targeted exams where dose is matched to clinical indication); or iterative reconstruction. FINDINGS: Right pleural effusion and right lower lobe atelectasis unchanged compared to the previous study. Liver, spleen, pancreas, and gallbladder are unremarkable. Normal adrenals. Bilateral renal cysts most prominent on the right. No mass, adenopathy, free fluid or focal fluid collection. Old compression deformity of L4. No mass, free fluid, focal fluid collection, or adenopathy within the pelvis. Left presumed inguinal hernia containing fat and small vessels. The hernia contents have increased in volume compared to the previous examination. CT/CT abdomen pelvis w con* [id number] IMPRESSION: Left inguinal hernia hernia which has enlarged since the previous examination. Remainder of the examination is unchanged compared to the previous study with n o acute abnormality.
--- NOTE | 2025-08-24 11:00 | W.ED.ABDPA2 ---
HPI - Abdominal Pain General: Chief Complaint: Abdominal Pain Stated Complaint: Lump Lt groin Time Seen by Provider: 08/24/25 10:36 Source: patient Mode of arrival: ambulatory Limitations: no limitations History of Present Illness: Patient is an 85-year-old female presents to ED today with a complaint of a lump near her left groin. Patient states she has noticed this over the past 2 months or so but at one point states it went away. Patient states she has been having some issues with constipation and had been straining for a bowel movement and feels like it popped out again . Patient states she is still having bowel movements and still passing gas. She states she is still eating and drinking normally with no vomiting. MD elicited complaint: other (L groin lump) Pertinent past history: none Onset (ago): month(s) Pain Consistency: intermittent Location: Groin Severity: mild Radiation: none Exacerbating factors: other (straining) Relieving factors: nothing Associated Symptoms: Reports no associated symptoms, constipation and other (L groin lump); Denies chills, diarrhea, dysuria, fever(s), hematochezia, hematuria, melena, nausea and vomiting Related Data Home Medications ?Medication ?Instructions ?Recorded ?Confirmed calcitonin (salmon) 200 1 spray intranasal (ALT) DAILY 09/13/19 08/24/25 unit/actuation nasal spray melatonin 3 mg tablet 3 mg PO BEDTIME PRN Sleep 09/13/19 08/24/25 aspirin 81 mg tablet,delayed 81 mg PO QAM 01/25/21 08/24/25 release famotidine 20 mg tablet (Pepcid) 20 mg PO QAM 02/05/22 08/24/25 ondansetron HCl 4 mg tablet 4 mg PO TID PRN Nausea 11/05/23 08/24/25 metoprolol tartrate 25 mg tablet 25 mg PO DAILY 02/17/24 08/24/25 acetaminophen 500 mg tablet 500 mg PO Q6H PRN Pain or fever 03/07/24 08/24/25 levothyroxine 125 mcg tablet 125 mcg PO DAILY 03/07/24 08/24/25 lutein 20 mg tablet 20 mg PO DAILY 08/24/25 08/24/25 umeclidinium 62.5 mcg/actuation 1 inh inhalation DAILY 08/24/25 08/24/25 blister powder for inhalation (Incruse Ellipta) Previous Rx's ?Medication ?Instructions ?Recorded albuterol sulfate 90 mcg/actuation 2 inh inhalation Q8H PRN shortness 11/06/23 aerosol inhaler of breath or wheezing #6.7 grams Allergies Allergy/AdvReac Type Severity Reaction Status Date / Time Sulfa (Sulfonamide Allergy Unknown ALGY-Bliste Verified 08/24/25 09:57 Antibiotics) r [id number] Reductase Allergy ADR-Cramping Verified 08/24/25 09:57 Inhibitor (Bwlqktj-Xze-Mxc of the Reductase Inhibitor) Muscles Review of Systems Const: Denies: fever(s), chills, body aches, fatigue or malaise Card: Denies: chest pain Resp: Denies: dyspnea GI: Reports: constipation and other (L groin lump); Denies: abdominal pain, nausea, vomiting, diarrhea, hematochezia or melena : Denies: flank pain, dysuria or hematuria Musc: Denies: neck pain, back pain, extremity pain, extremity swelling or joint swelling Skin/Breast: Denies: rash Neuro: Denies: headache(s), numbness in extremities, weakness in extremities, sensory changes or dizziness PFSH ED PFSH: Medical History Pleural effusion Pleural effusion on left Malignant neoplasm of lower lobe, left bronchus or lung Stage IIB - T1b, N1, M0 Protein-energy malnutrition Pleural effusion Lung cancer CAD (coronary artery disease) Squamous cell carcinoma of left lung COPD (chronic obstructive pulmonary disease) SOB (shortness of breath) Atherosclerotic heart disease of nikolai coronary artery without angina pectoris TIA (transient ischemic attack) Statin intolerance Atelectasis of left lung Abnormal liver enzymes Gastroesophageal reflux Supraventricular tachycardia Dyslipidemia statin intolerant, taking ezetimibe. NSTEMI (non-ST elevated myocardial infarction) Surgical History Port-A-Cath in place (06/24/21) right IJ Status post colonoscopy History of bronchoscopy History of coronary artery stent placement Family History Mother Hypertension Dementia CAD (coronary artery disease) Myocardial infarction Denies family history of Diabetes Clotting disorder Chronic kidney disease (CKD) Suicide Anesthesia complication Bleeding disorder Lung disease Cancer Stroke Social History Smoking and tobacco/nicotine status: former use of tobacco/nicotine Quit status (tobacco/nicotine): has quit using Year quit tobacco: 1979 Former quit date comment: 3ppd x 20 years Alcohol intake: never Substance/Drug Use: never Lives independently: Yes Household members: none Housing: House Marital status: / Physical Exam Const: COMMON NORMALS: no acute distress, average body habitus, patient oriented x3, no limitations, healthy appearing, alert and well nourished GENERAL APPEARANCE: cooperative Resp: COMMON NORMALS: normal respiratory effort and clear to auscultation bilaterally AUSCULTATION: clear to auscultation bilaterally Cardio: COMMON NORMALS: regular rate and regular rhythm RATE: regular rate RHYTHM: regular rhythm GI: COMMON NORMALS: Normal to inspection, nondistended, normoactive bowel sounds present, Soft to palpation and No hepatosplenomegaly present INSPECTION: Yes other (L groin hernia) AUSCULTATION: Yes normoactive bowel sounds PALPATION: Yes Soft to palpation, Yes Tenderness to palpation present (GI) (overlying L inguinal hernia), No Guarding due to palpation present (GI), No Rigid due to palpation and Yes No hepatosplenomegaly present OTHER: L inguinal hernia w/o overlying skin changes; not able to reduce here; slightly tender with palpation : COMMON NORMALS: Yes no CVA tenderness BLADDER/KIDNEY EXAM: Yes no CVA tenderness Back/Pelvis: COMMON NORMALS: no CVA tenderness Neuro: COMMON NORMALS: patient oriented x3 SENSORIUM/ORIENTATION: Yes alert Course Vital Signs: Vital signs: Vital Signs Temperature 97.7 F 08/24/25 09:52 Pulse Rate 75 08/24/25 13:23 Respiratory Rate 18 08/24/25 12:46 Blood Pressure 152/72 08/24/25 13:23 Pulse Oximetry 95 08/24/25 13:23 Oxygen Delivery Me thod Room Air 08/24/25 12:46 MDM - Abdominal Pain Medical Decision Making Patient here with an enlarging left inguinal hernia. This has been present since June. It mainly contains fat. There is no evidence for obstruction on CT imaging. She is still passing gas and stool. No vomiting. She is eating and drinking normally. Vital signs are normal. Blood work is unremarkable. Patient will be referred to general surgery for evaluation for elective repair. Differential Diagnosis Likely abdominal pain, constipation, gastroenteritis and small bowel obstruction Medical Records I reviewed the patient's medical records. Lab Data I reviewed the patient's lab results. 08/24/25 11:11 08/24/25 11:11 Labs/Radiology: Radiology Impressions Abdomen/Pelvis CT 08/24/25 10:58 IMPRESSION: Left inguinal hernia hernia which has enlarged since the previous examination. Remainder of the examination is unchanged compared to the previous study with no acute abnormality. Laboratory Results WBC 7.19 10^3/uL (3.29-11.43) 08/24/25 11:11 RBC 5.01 10^6/uL (3.85-5.65) 08/24/25 11:11 Hgb 14.30 g/dL (11.27-16.99) 08/24/25 11:11 Hct 45.4 % (36-47) 08/24/25 11:11 MCV 90.6 fl (85-98) 08/24/25 11:11 MCH 28.5 pg (27-33) 08/24/25 11:11 MCHC 31.5 g/dL (30-55) 08/24/25 11:11 RDW 14.2 % (12.1-15.1) 08/24/25 11:11 Plt Count 214 10^3/cmm (157-399) 08/24/25 11:11 MPV 9.5 fL (7.4-10.4) 08/24/25 11:11 Neut % (Auto) 73.5 % 08/24/25 11:11 Lymph % (Auto) 15.6 % 08/24/25 11:11 [place] % (Auto) 7.9 % 08/24/25 11:11 Eos % (Auto) 1.9 % 08/24/25 11:11 Baso % (Auto) 0.8 % 08/24/25 11:11 Neut # (Auto) 5.28 10^3/uL (1.8-7.7) 08/24/25 11:11 Lymph # (Auto) 1.1 10^3/uL (0.8-4.8) 08/24/25 11:11 [place] # (Auto) 0.6 10^3/uL (0.2-0.9) 08/24/25 11:11 Eos # (Auto) 0.1 10^3/uL (0.0-0.8) 08/24/25 11:11 Baso # (Auto) 0.1 10^3/uL (0.0-0.1) 08/24/25 11:11 Nucleated RBC % (auto) 0 % 08/24/25 11:11 Nucleated RBCs # 0.0 /100WBC 08/24/25 11:11 Sodium 141 mmol/L (136-145) 08/24/25 11:11 Potassium 4.4 mmol/L (3.5-5.1) 08/24/25 11:11 Chloride 104 mmol/L (98-107) 08/24/25 11:11 Carbon Dioxide 26 mmol/L (22-29) 08/24/25 11:11 Anion Gap 15.4 (5-19) 08/24/25 11:11 BUN 17 mg/dL (8-23) 08/24/25 11:11 Creatinine 0.9 mg/dL (0.5-0.9) 08/24/25 11:11 GFR Calculation Not Reportable 08/24/25 11:11 Glucose 94 mg/dL (65-115) 08/24/25 11:11 Calculated Osmolality 293 mOsm/kg (285-295) 08/24/25 11:11 Lactic Acid 0.7 mmol/L (0.5-2.2) 08/24/25 11:11 Calcium 9.5 mg/dL (8.5-10.5) 08/24/25 11:11 Total Bilirubin 0.5 mg/dL (0.15-1.2) 08/24/25 11:11 AST 18 U/L (0-32) 08/24/25 11:11 ALT 14 U/L (0-33) 08/24/25 11:11 Alkaline Phosphatase 107 U/L (35-105) H 08/24/25 11:11 Total Protein 7.4 g/dL (6.6-8.7) 08/24/25 11:11 Albumin 4.1 g/dL (3.5-5.2) 08/24/25 11:11 Globulin 3.3 g/dL (1.3-4.6) 08/24/25 11:11 All radiology interpretation(s) finalized by discharge Discharge Plan Discharge Patient Disposition: Home Clinical Impression: Inguinal hernia, left Condition: Stable Prescriptions: No Action melatonin 3 mg Tablet 3 mg PO BEDTIME PRN (Reason: Sleep) calcitonin (salmon) 200 unit/actuation [place],Non-Aerosol 1 spray INTRANASAL (ALT) DAILY Rx Instructions: ALTERNATE NOSTRILS DAILY Pepcid 20 mg tablet 20 mg PO QAM aspirin 81 mg tablet,delayed release (DR/EC) 81 mg PO QAM metoprolol tartrate 25 mg tablet 25 mg PO DAILY acetaminophen 500 mg Tablet 500 mg PO Q6H PRN (Reason: Pain or fever) levothyroxine 125 mcg tablet 125 mcg PO DAILY lutein 20 mg Tablet 20 mg PO DAILY Rx Instructions: give with meal/snack Incruse Ellipta 62.5 mcg/actuation blister with device 1 inh INHALATION DAILY ondansetron HCl 4 mg tablet 4 mg PO TID PRN (Reason: Nausea) albuterol sulfate 90 mcg/actuation HFA aerosol inhaler 2 inh inhalation Q8H PRN (Reason: shortness of breath or wheezing) Qty: 6.7 2RF Discharge Orders: Discharge ED (Routine); Ordered 08/24/25 Ordered By: Dilma Garcia Referrals: Eveline Art NP [Primary Care Provider, Unknown] Patient Instructions: Inguinal Hernia (ED), Patient Portal & Dhiraj Instructions Activity Restrictions/Additional Instructions: As we discussed, your CT showing a left inguinal hernia. We will place a case management referral to get you set up with general surgery for further evaluation and possible elective repair. You may return to the emergency department for worsening pain, enlarging hernia, inability to pass gas or stool, severe abdominal pain, repetitive episodes of vomiting, or any other concerns you may have. 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
[2025-08-24 11:19] LABS: Hematocrit 45.4 % (36-47); Hemoglobin 14.30 g/dL (11.27-16.99); Mean Corpuscular HGB Conc 31.5 g/dL (30-55); Mean Corpuscular Hemoglobin 28.5 pg (27-33); Mean Corpuscular Volume 90.6 fl (85-98); Nucleated Red Blood Cells % 0 %; Platelet Count 214 10^3/cmm (157-399); Red Blood Count 5.01 10^6/uL (3.85-5.65); White Blood Count 7.19 10^3/uL (3.29-11.43)
[2025-08-24 11:35] LABS: Alanine Aminotransferase 14 U/L (0-33); Albumin Level 4.1 g/dL (3.5-5.2); Alkaline Phosphatase 107 U/L (35-105); Anion Gap 15.4 (5-19); Aspartate Amino Transferase 18 U/L (0-32); Blood Urea Nitrogen 17 mg/dL (8-23); Calcium 9.5 mg/dL (8.5-10.5); Carbon Dioxide 26 mmol/L (22-29); Chloride 104 mmol/L (98-107); Globulin 3.3 g/dL (1.3-4.6); Glucose 94 mg/dL (65-115); Osmolality Calculated 293 mOsm/kg (285-295); Potassium 4.4 mmol/L (3.5-5.1); Sodium 141 mmol/L (136-145); Total Protein 7.4 g/dL (6.6-8.7)
[2025-08-24 11:36] LABS: Lactic Sepsis W/Reflex 0.7 mmol/L (0.5-2.2)
[2025-08-24] MEDS: iohexol 350 mg/mL 500 mL Btl (per mL) IV (11:39)
[2025-08-24 12:46] VITALS: BP 151/78; PULSE 73; RESP 18; O2SAT 99
[2025-08-24 13:23] VITALS: BP 152/72; PULSE 75; O2SAT 95
--- NOTE | 2025-08-24 13:33 | DCPLANNER ---
messaged gen surg for er f/u
== END 2025-08-24 13:29 | disposition home or self-care (01) ==
PROVIDERS: Emergency Provider Physician Assistant; PCP Nurse Practitioner Family
DX: K40.90 Unilateral inguinal hernia, without obstruction or gangrene, not specified as recurrent (principal); Z79.82 Long term (current) use of aspirin; Z87.891 Personal history of nicotine dependence; I25.10 Atherosclerotic heart disease of native coronary artery without angina pectoris; Z85.118 Personal history of other malignant neoplasm of bronchus and lung; J44.9 Chronic obstructive pulmonary disease, unspecified; E78.5 Hyperlipidemia, unspecified; Z86.73 Personal history of transient ischemic attack (TIA), and cerebral infarction without residual deficits
CPT/HCPCS: 36415; 74177; 80053; 83605; 85025; 99285

== ENCOUNTER → 2025-08-28 10:58 | Outpatient (BNVA) | payer MEDICARE, SELFPAY | PROVIDERS: PCP Nurse Practitioner Family; Visit Provider Student in an Organized Health Care Education/Training Program | DX: Z51.89 Encounter for other specified aftercare (principal); R03.0 Elevated blood-pressure reading, without diagnosis of hypertension | CPT/HCPCS: 99203; 99213 ==